=== PATIENT | female | born 1965 | race Caucasian/White ===

== ENCOUNTER → 2017-08-21 11:59 | Outpatient (CLI) | payer MEDICAID, SELFPAY ==
[2017-08-21 15:38] LABS: Absolute Lymphocyte Count 1.64 X10^3/ul (0.83-4.51); Absolute Neutrophil Count 6.4 X10^3/uL (2.0-7.7); Basophil# 0.03 X10^3/uL; Basophil% 0.3 % (0-1); Eosinophil# 0.22 X10^3/uL; Eosinophils% 2.5 % (0-5); Hematocrit 42.5 % (37-47); Hemoglobin 13.3 g/dl (12.0-15.0); Lymphocyte # 1.64 X10^3/ul (4.0); Lymphocyte % 18.8 % (19-41); Mean Corp Hgb Conc 31.3 g/gl (32-36); Mean Corpuscular Hgb 25.9 pg (27.0-32.0); Mean Corpuscular Volume 82.8 fL (81-99); Monocyte# 0.45 X10^3/uL; Monocyte% 5.1 % (0-10); Neutrophil # 6.36 X10^3/uL (2.7-7.7); Neutrophil % 72.8 % (47-70); Platelet Count 277 K/mm3 (150-450); RBC Distribution Width CV 16.9 % (11.6-14.6); RBC Distribution Width SD 50.9 fl (35.1-43.9); Red Blood Count 5.13 M/mm3 (4.2-5.4); White Blood Count 8.7 K/mm3 (4.4-11.0)
[2017-08-21 15:40] LABS: POSITIVE COUNT NO; POSITIVE DIFFERENTIAL NO; POSITIVE MORPHOLOGY NO
[2017-08-21 15:45] LABS: ALB/GLOB Ratio 0.7 RATIO (0.9-2.4); AST(SGOT) 62 U/L (15-37); Alanine Aminotransfer ALT/SGPT 86 U/L (13-56); Albumin, Serum 3.3 g/dL (3.2-5.0); Alkaline Phosphatase 102 U/L (45-117); Anion Gap 10 (5-15); BUN 11 mg/dL (7-18); BUN/Creat Ratio 13.6 RATIO (10-20); Calcium,Total 8.9 mg/dL (8.5-10.1); Chloride 95 mmol/L (98-107); Cholesterol 198 mg/dL (200); Creatinine, Serum 0.81 mg/dL (0.55-1.02); EST Glomerular Filtration Rate 80 mL/min (>60); Est Glom Filt Rate - Afr Amer 96 mL/min (>60); Globulin 4.7 g/dL (2.2-4.2); Glucose 349 mg/dL (74-106); High Density Lipoprotein 43 mg/dL; Potassium 3.1 mmol/L (3.5-5.1); Rheumatoid Factor < 10.0 IU/mL (<15); Sodium Level 135 mmol/L (136-145); Triglycerides 187 mg/dL; Very Low Density Lipoprotein 37 mg/dL (5-40)
[2017-08-21 16:05] LABS: Erythrocyte Sedimentation Rate 87 mm/hr (0-30)
[2017-08-25 09:35] LABS: CCP IgG Antibodies 50 units (0-19)
== END ==
PROVIDERS: Visit Provider Family Medicine
DX: I10 Essential (primary) hypertension (principal); G89.4 Chronic pain syndrome; J43.9 Emphysema, unspecified; M06.9 Rheumatoid arthritis, unspecified; I89.0 Lymphedema, not elsewhere classified; E66.01 Morbid (severe) obesity due to excess calories; N61.0 Mastitis without abscess; N61.1 Abscess of the breast and nipple; Z72.0 Tobacco use; Z51.81 Encounter for therapeutic drug level monitoring
CPT/HCPCS: 36415; 80053; 80061; 85025; 85652; 86140; 86200; 86431; 87070; 87075; 87077; 87186; 87205

== ENCOUNTER → 2017-12-18 08:52 | Outpatient (CLI) | payer MEDICAID, SELFPAY ==
--- NOTE | 2017-12-18 08:53 | ECHOD_ITS ---
Reason For Study: ARRHYTHMIA Procedure This was a 2D Doppler, Color Flow transthoracic echocardiogram. The study was technically difficult. Due to body habitus. Exam performed in department. Left Ventricle Normal LV size. Left ventricular systolic function is normal. The estimated ejection fraction is 55 %. Stage 1 diastolic dysfunction. No regional wall motion abnormalities noted. Right Ventricle Normal RV size. Normal systolic function. Atria Normal left atrium. Normal right atrium. Mitral Valve Mitral valve not well visualized. Tricuspid Valve The tricuspid valve is not well visualized. Mild (1+) tricuspid valve insufficiency. Pulmonary artery systolic pressure is 33 mmHg. Aortic Valve The aortic valve is not well visualized. Pulmonic Valve The pulmonic valve is not well visualized. Great Vessels Normal aortic root. Pericardium/Pleural No pericardial effusion. MMode/2D Measurements & Calculations LVIDd: 5.2 cm IVSd: 1.4 cm LA dimension: 4.0 cm LVIDs: 3.8 cm LVPWd: 1.4 cm RVDd: 2.6 cm FS: 26.9 % LAV(MOD-bp): 56.3 ml LA A4 area: 17.8 cm2 RA A4 area: 14.4 cm2 LAV(MOD-bp) Indexed: 24.9 ml/m2 LAV(MOD-sp2): 60.1 ml LAV(MOD-sp4): 54.3 ml Doppler Measurements & Calculations MV E max dre: 107.8 cm/sec Lat Peak E' Dre: 10.6 cm/sec Med Peak E' Dre: 9.6 cm/sec MV A max dre: 109.4 cm/sec E/E' lat: 10.1 E/E' med: 11.3 MV E/A: 0.99 Ao V2 max: 176.2 cm/sec LV V1 max: 147.7 cm/sec PA V2 max: 117.3 cm/sec Ao max P.4 mmHg LV V1 max P.7 mmHg Ao V2 mean: 132.3 cm/sec LV V1 mean P.5 mmHg Ao mean P.5 mmHg LV V1 mean: 100.3 cm/sec Ao V2 VTI: 35.5 cm LV V1 VTI: 29.5 cm TR max dre: 275.4 cm/sec TR max P.3 mmHg Interpretation Summary Normal LV size. Left ventricular systolic function is normal. The estimated ejection fraction is 55 %. Stage 1 diastolic dysfunction. Ordering Physician: Zohaib Cardenas Referring Physician: Domingo Marinelli Performed By: Chelly Nelson, HOMER, RVT
== END ==
PROVIDERS: Family Provider Family Medicine; PCP Family Medicine; Referring Provider Internal Medicine Cardiovascular Disease; Visit Provider Internal Medicine Cardiovascular Disease
DX: I10 Essential (primary) hypertension (principal)
CPT/HCPCS: 93225; 93226; 93306

== ENCOUNTER → 2018-04-20 13:55 | Outpatient (CLI) | payer MEDICAID, SELFPAY ==
[2018-04-20 14:00] LABS: Mucous, Urine 0 SEEN /hpf (<or=2+); Red Blood Cells-Urine 0 SEEN /hpf (0-5); White Blood Cells 0 SEEN /hpf (0-5)
[2018-04-20 17:26] LABS: Absolute Lymphocyte Count 1.79 X10^3/ul (0.83-4.51); Basophil# 0.03 X10^3/uL; Basophil% 0.3 % (0-1); Eosinophil# 0.19 X10^3/uL; Hematocrit 43.5 % (37-47); Hemoglobin 13.3 g/dl (12.0-15.0); Lymphocyte # 1.79 X10^3/ul (4.0); Lymphocyte % 18.8 % (19-41); Mean Corp Hgb Conc 30.6 g/gl (32-36); Mean Corpuscular Hgb 26.5 pg (27.0-32.0); Mean Corpuscular Volume 86.7 fL (81-99); Mean Platelet Vol. 10.7 fl (6.2-12.0); Monocyte# 0.51 X10^3/uL; Monocyte% 5.4 % (0-10); Neutrophil # 6.95 X10^3/uL (2.7-7.7); Platelet Count 322 K/mm3 (150-450); RBC Distribution Width CV 15.8 % (11.6-14.6); RBC Distribution Width SD 50.4 fl (35.1-43.9); Red Blood Count 5.02 M/mm3 (4.2-5.4); White Blood Count 9.5 K/mm3 (4.4-11.0)
[2018-04-20 17:29] LABS: POSITIVE COUNT NO; POSITIVE DIFFERENTIAL NO; POSITIVE MORPHOLOGY NO
[2018-04-20 17:32] LABS: Color, Urine Yellow (Yellow); Glucose, Dipstick 1000 mg/dl (Normal); Ketone-Dipstick Negative (Negative); Leukocyte Esterase-Dipstick Negative /ul (Negative); Nitrite-Dipstick Negative (Negative); Occult Blood-Urine 10 /ul (Negative); Protein-Dipstick Negative (Negative); Urine Bilirubin Dipstick Negative (Negative); Urine Clarity Clear (Clear); Urine Urobilinogen Normal (Normal); Urine pH 6.5 (5.0 - 8.0)
[2018-04-20 17:38] LABS: Bacteria RARE /hpf (None Seen); Squamous Epithelial Cells - UA 0-5 SEEN /hpf (5-10)
[2018-04-20 17:39] LABS: Hemoglobin A1c 11.7 % (4.2-6.3)
[2018-04-20 17:40] LABS: Microalbumin,Random Urine 16.7 mg/L (NO RANGE EST.)
[2018-04-20 17:46] LABS: ALB/GLOB Ratio 0.8 RATIO (0.9-2.4); AST(SGOT) 50 U/L (15-37); Alanine Aminotransfer ALT/SGPT 89 U/L (13-56); Albumin, Serum 3.4 g/dL (3.2-5.0); Alkaline Phosphatase 99 U/L (45-117); Anion Gap 10 (5-15); BUN 11 mg/dL (7-18); BUN/Creat Ratio 13.8 RATIO (10-20); Calcium,Total 8.6 mg/dL (8.5-10.1); Chloride 97 mmol/L (98-107); Cholesterol 216 mg/dL (200); EST Glomerular Filtration Rate 81 mL/min (>60); Est Glom Filt Rate - Afr Amer 98 mL/min (>60); Globulin 4.4 g/dL (2.2-4.2); Glucose 346 mg/dL (74-106); High Density Lipoprotein 46 mg/dL; Potassium 3.4 mmol/L (3.5-5.1); Protein, Total 7.8 g/dL (6.4-8.2); Sodium Level 134 mmol/L (136-145); Triglycerides 192 mg/dL; Very Low Density Lipoprotein 38 mg/dL (5-40)
[2018-04-20 18:09] LABS: BNP,B-Type NATRIURETIC PEPTIDE 7.7 pg/mL (0-100)
== END ==
PROVIDERS: Family Provider Family Medicine; PCP Family Medicine; Visit Provider Family Medicine
DX: R06.00 Dyspnea, unspecified (principal); E11.9 Type 2 diabetes mellitus without complications; I10 Essential (primary) hypertension; I89.0 Lymphedema, not elsewhere classified; E66.01 Morbid (severe) obesity due to excess calories; R04.0 Epistaxis; E87.6 Hypokalemia; K76.0 Fatty (change of) liver, not elsewhere classified; Z51.81 Encounter for therapeutic drug level monitoring
CPT/HCPCS: 36415; 80053; 80061; 81001; 82043; 82570; 83036; 83880; 85025; 87086; 87088

== ENCOUNTER 2018-05-13 12:51 | Outpatient (RCR) | payer MEDICAID, SELFPAY ==
--- NOTE | 2018-09-15 15:35 | HP.OT.NRP ---
HP - Discharge Summary - Patient Information JOHNNY SALINAS was seen in my office for initial evaluation on 05/13/18. The following Plan of Care was established for this patient: This patient was last seen in our office 05/13/18. Pertinent comments regarding their Occupational therapy will appear below: pt seen for eval only- no further apts have been scheduled and due to time lapse in services pt d/c at this time. At this point I will be discontinuing this patient from occupational therapy. I would be happy to see this patient again in the future if found appropriate by the physician. Thank you! Ana Nava, OTR/L, CHT
--- NOTE | 2018-09-15 15:39 | HP.OTEVAL ---
Patient's Visit Information JOHNNY SALINAS is a 53 year old F, referred to Occupational Therapy by Domingo Marinelli DO, with a diagnosis of lymphedema. Date of Evaluation: 05/13/18 Occupational Therapist: BRIGIDA Mcdonough/Luis Felipe, CHT - Subjective Subjective: PT states she has struggled with LE swelling, pt states this has been a problem for a year or year and a half. pt states she has prison care come in her home to wrap her LE 3x week pt states she can dandy. wraps for 5-6 hours at a time. pt states she has been on a water pill for two years but it does not help her LE. pt states legs feel heavy without the wraps. pt states she does sleep in a recliner due to her breathing. pt states swelling in LE are better after being reclined over night. - Lymphedema (Circumferential Measure) Mid-foot: Right 26cm left 26.5cm Ankle: Right 31c, left 33cm Lower calf: right 33cm left 35cm Largest calf: right 49cm left 50cm Below knee: right 45cm left 47cm - Lower Limb Functional Index Lower Extremity Functional Score: 27 - Goals Demonstrate a 20% reduction in edema by d/c: Yes Demonstrate adequate knowledge of self-bangaging by 1st week: Yes Demonstrate adequate knowledge of self-massage by 2nd week: Yes Demonstrate adequate knowledge skin care/prec by 2nd week: Yes Demonstrate adequate knowledge therapeutic exercises by d/c: Yes Select approp compression garment w/donning/care/wear by d/c: Yes Voice need to replace compression garment every 4-6mo by dc: Yes - Rehabilitation General Assessment: pt demo with LE lyphedmea- pt would benefit form skilled OT services to provide ed. on lymphedema mtg. Pt ed. on compression alternatives, skin care and beneficial ex. to stimulate lymph circulation. pt demo understanding and agree to POC. Rehabilitation Potential: Good - Anticipated Interventions Anticipated Interventions: Education re Diagnosis, Manual Lymph Drainage, Education re Life-long lymphedema Management, Education re Self-Bandaging Techniques, Education re Skin Care and Precautions, Education re Self Massage Techniques, Education re Correct Donning Tech,Care&Wearing Sched Comp Garments, Home Program - Visit Plan Frequency: 1x/Week Duration: 2 Weeks TEXT: Thank you for the opportunity to evaluate your patient. For Medicare and Medicare HMO plans, please review the plan of care and approve it. It will need to be FAXED BACK to us at [phone] for Medicare purposes. Please let me know if there are questions or concerns regarding this plan of care. Physician Signature: Date:
== END 2018-05-13 19:00 | disposition home or self-care (01) ==
LOC: OT 12:51
PROVIDERS: Family Provider Family Medicine; PCP Family Medicine; Referring Provider Family Medicine; Visit Provider Family Medicine
DX: I89.0 Lymphedema, not elsewhere classified (principal)
CPT/HCPCS: 97166

== ENCOUNTER → 2019-04-02 10:34 | Outpatient (CLI) | payer MEDICAID, SELFPAY ==
[2018-07-06 13:06] VITALS: BMI 51.4
--- NOTE | 2019-04-02 10:37 | US_ITS ---
STUDY: ABDOMINAL ULTRASOUND REASON FOR EXAM: Female, 53 years old. INTERMITTENT DISCOMFORT TECHNIQUE: Transabdominal ultrasound was performed with real-time and static odonnell scale imaging. TECHNICAL QUALITY: Limited. Examination limited due to a combination of factors including obesity, patient condition and bowel gas. COMPARISON: None. FINDINGS: Liver: The liver measures 30.3 cm. There is increased echogenicity consistent with fatty infiltration. Possible intrahepatic biliary distention versus some venous distention. There is hepatic color flow. The direction of portal flow is hepatopetal. There is no demonstrated mass lesion. Gallbladder: Normal distended gallbladder. The gallbladder wall measures 2.8 mm. There is a negative sonographic Aguayo''s sign. Possible trace amount of the pericholecystic fluid versus artifact. There are no gallstones. Common Bile Duct (C.B.D.): The common bile duct measures 6.5 mm. Pancreas: Normal size of the head, with partial obscuration of the body and tail of the pancreas. There is normal echogenicity of the visualized pancreas. There is no demonstrated pancreatic mass or cyst in the visualized portion. Spleen: There is splenomegaly. The spleen measures 17.7 x 6.0 x 5.2 cm. Right Kidney: Normal size of the right kidney. The right kidney measures 13.5 x 7.1 x 4.9 cm. Normal renal cortex. The right cortex measures 1.4 cm. There is no demonstrated renal mass or cyst. There is no right hydronephrosis. Left Kidney: Normal size of the left kidney. The left kidney measures 14.1 x 6.0 x 6.0 cm. Normal renal cortex. The left cortex measures 1.3 cm. There is no demonstrated renal mass or cyst. There is no left hydronephrosis. Aorta: Aorta is obscured. I.V.C.: The IVC is patent. There is no ascites. US/Abdomen Complete IMPRESSION: Diffuse fatty liver with hepatomegaly. Possible intrahepatic biliary distention versus venous distention, these findings may be assessed with MRI angiogram if indicated. Question of trace amount of pericholecystic fluid versus artifact. No gallstones demonstrated or additional signs of acute cholecystitis. If there is clinical concern for acute cholecystitis, findings may be assessed with HIDA scan. Splenomegaly. Suboptimally seen aorta and pancreas, remainder of the abdominal ultrasound unremarkable. Electronically Signed: Desirae March MD at 1:32 EST , Service support ,
== END ==
PROVIDERS: PCP Family Medicine; Referring Provider Family Medicine; Visit Provider Family Medicine
DX: R10.84 Generalized abdominal pain (principal); R19.8 Other specified symptoms and signs involving the digestive system and abdomen
CPT/HCPCS: 76700

== ENCOUNTER 2020-05-09 21:38 | Inpatient (IN) | payer MEDICAID, SELFPAY ==
[2019-07-08 13:09] VITALS: BMI 47.5
[2020-05-09 21:38] VITALS: BP 160/98; PULSE 76; RESP 18; TEMP 36.4; O2SAT 95; BMI 47.5
[2020-05-09 21:40] VITALS: BP 160/98; PULSE 76; RESP 18; TEMP 36.4; O2SAT 95
--- NOTE | 2020-05-09 21:56 | EKG12_ITS ---
Test Reason : SOB Blood Pressure : / mmHG Vent. Rate : 076 BPM Atrial Rate : 076 BPM P-R Int : 172 ms QRS Dur : 094 ms QT Int : 412 ms P-R-T Axes : 056 025 030 degrees QTc Int : 463 ms Normal sinus rhythm Normal ECG Confirmed by MILAGROS VIVAS, RAINA ([id number]), sports editor DASHAWN GASCA ([id number]) on 05/14/2020 10:13:40 A M Referred By: HARPREET Confirmed By:MAYELIN LINARES MD
[2020-05-09] MEDS: Ipratropium/Albuterol Sulfate 3 ML AMPUL.NEB INHALATION (22:03)
[2020-05-09 22:04] VITALS: PULSE 80; RESP 18
--- NOTE | 2020-05-09 22:12 | ED.DCSUM_ITS ---
- ER Visit Summary Date of Service: 05/09/20 Chief Complaint: Shortness of breath History of Present Illness: The patient is a 55 F who presents with shortness of breath that has been getting worse over the past 3 days. Patient states that she feels too full to breathe. Patient states this is worse whenever she lays flat. Patient does admit to some pain in her chest. Patient admits to some nausea and abdominal pain. Patient denies any fevers but admits to subjective chills. Patient used her home aerosols with minimal relief. Patient denies any cough. Physical Examination: Vital signs are stable except for mildly elevated blood pressure 160/98. Patient is afebrile. Patient is in no acute distress. Oral mucosa is pink and moist. Neck is supple. Trachea is midline. There is no JVD. Heart was regular rate and rhythm. Lungs show diffuse expiratory wheezing. There is good respiratory effort. Abdomen is soft. Bowel sounds are normal. There is no tenderness. Cranial nerves II through XII are intact. There are no focal motor or sensory deficits noted. Extremities are intact. There is no calf tenderness. There is trace edema bilaterally. Test Results: EKG was obtained. On my interpretation, there is a normal sinus rhythm with a rate of 76. There are no acute ST or T wave changes. TX interval, QRS interval, and QT interval were within normal limits. [place] was normal. CBC shows a leukocytosis of 19.2 with 83 segmented neutrophils, 4 bands, and 11 lymphocytes. PT with INR and PTT were obtained and were essentially within normal limits. COVID-19 rapid antigen was obtained and was negative. Portable chest x-ray was obtained. There is 1 view. On my interpretation, there are chronic changes. There is no acute cardiopulmonary process noted. There is no cardiomegaly. Bony thorax is normal. Radiologist also interpreted the x-ray and agrees. Comprehensive metabolic profile was obtained and a sodium of 110 and chloride of 72. Emergency Department Course and Treatment: Patient was given a DuoNeb aerosol here. Patient was given a dose of Solu-Medrol. Patient began complaining of feeling bloated and having an upset stomach. Patient was given a dose of Mylanta. Patient states she still feels bloated and nauseated. Patient was given a dose of morphine and Zofran. Because of her feelings of bloating and her leukocytosis, CT scan of the abdomen pelvis was ordered and is pending. Patient was started on hypertonic saline. Case was discussed with the hospitalist. He will admit the patient to PCU. Patient and family understood and were agreeable with the plan. All questions were answered. Disposition: Admit to hospital Impression: 1. Hyponatremia This note was generated with [employer] dictation software. It may contain incorrect words, spelling, and punctuation that were not noted in review of the chart prior to signing ED Disposition - Plan for ED Patient: Disposition: Acute Care Hospital [facility] Diagnosis: Hyponatremia Referrals: Domingo Marinelli DO [Primary Care Provider] -
[2020-05-09 22:23] VITALS: O2SAT 98
[2020-05-09] MEDS: MethylPREDNISolone 125 MG/2 ML Vial 60 MG IV (22:29)
--- NOTE | 2020-05-09 22:38 | RAD_ITS ---
STUDY: X-RAY CHEST REASON FOR EXAM: Female, 55 years old. sob TECHNIQUE: Single AP portable view of the chest. COMPARISON: 04/25/2015. FINDINGS: Normal lung volumes. Stable widespread diffuse calcified granulomas in both lungs. No focal infiltrates. No effusions. There is mild cardiac enlargement. Normal mediastinum and geronimo. Normal visualized pulmonary arteries. Normal visualized aortic arch and descending thoracic aorta. Normal visualized thoracic spine. Normal visualized ribs, clavicles, and shoulders. There is no demonstrated abnormality of the visualized soft tissue structures of the upper abdomen. RAD/Chest 1 View (Portable) IMPRESSION: Old granulomatous disease. No acute chest disease. Electronically Signed: Sergio Beauchamp MD at 22:54 EST , Service support ,
[2020-05-09 22:44] LABS: Hematocrit 35.4 % (37-47); Hemoglobin 11.8 g/dL (12.0-15.0); Mean Corp Hgb Conc 33.3 g/dL (32-36); Mean Corpuscular Hgb 21.8 pg (27.0-32.0); Mean Corpuscular Volume 65.3 fL (81-99); Mean Platelet Vol. 8.6 fl (6.2-12.0); POSITIVE COUNT YES; POSITIVE MORPHOLOGY YES; Platelet Count 366 K/mm3 (150-450); RBC Distribution Width CV 19.8 % (11.6-14.6); RBC Distribution Width SD 42.7 fl (35.1-43.9); Red Blood Count 5.42 M/mm3 (4.2-5.4); White Blood Count 19.2 K/mm3 (4.4-11.0)
[2020-05-09 22:53] LABS: Differential Indicated MANUAL DIFF
[2020-05-09 23:23] LABS: Lymphocyte 11 % (19-41); Monocyte 2 % (0-10); Neutrophil-Band 4 % (0-5); Neutrophil-Segmented 83 % (47-70); Total Cells Counted 100 (MANUAL DIFF)
[2020-05-09 23:25] LABS: Absolute Neutrophil Count 16.7 X10^3/uL (2.0-7.7)
[2020-05-09 23:26] LABS: Absolute Lymphocyte Count 2.12 X10^3/uL (0.83-4.51)
[2020-05-09] MEDS: Mag Hydrox/Al Hydrox/Simeth 30 ML UDC PO (23:30)
[2020-05-09 23:35] LABS: International Normalized Ratio 1.5; Prothrombin Time (Protime)PT. 17.2 SECONDS (11.7-14.9)
[2020-05-09 23:36] LABS: Partial Thromboplast Time 37.6 Seconds (24.1-36.2)
[2020-05-09 23:52] LABS: Color, Urine Yellow (Yellow); Glucose, Dipstick Normal (Normal); Leukocyte Esterase-Dipstick Negative /ul (Negative); Nitrite-Dipstick Negative (Negative); Occult Blood-Urine 50 /ul (Negative); Protein-Dipstick 500 mg/dl (Negative); Urine Bilirubin Dipstick Negative (Negative); Urine Clarity Clear (Clear); Urine Urobilinogen Normal (Normal)
[2020-05-09 23:55] LABS: Ketone-Dipstick 150 mg/dl (Negative)
[2020-05-10] VITALS (26 sets, daily range): BP systolic 103–162; BP diastolic 57–101; PULSE 68–80; RESP 11–22; TEMP 35.9–37.1; O2SAT 92–98; BMI 47.4
[2020-05-10 00:05] LABS: ALB/GLOB Ratio 0.9 RATIO (0.9-2.4); AST(SGOT) 22 U/L (15-37); Alanine Aminotransfer ALT/SGPT 29 U/L (13-56); Albumin, Serum 3.9 g/dL (3.2-5.0); Alkaline Phosphatase 112 U/L (45-117); Anion Gap 12 (5-15); BUN 9 mg/dL (7-18); BUN/Creat Ratio 16.5 RATIO (10-20); Calcium,Total 8.6 mg/dL (8.5-10.1); Chloride 72 mmol/L (98-107); Creatinine, Serum 0.55 mg/dL (0.55-1.02); EST Glomerular Filtration Rate 123 mL/min (>60); Est Glom Filt Rate - Afr Amer 149 mL/min (>60); Estimated Creatinine Clearance 92.48 ml/min; Globulin 4.4 g/dL (2.2-4.2); Glucose 123 mg/dL (74-106); Potassium 3.6 mmol/L (3.5-5.1); Protein, Total 8.3 g/dL (6.4-8.2); Sodium Level 110 mmol/L (136-145)
[2020-05-10 00:13] LABS: Bacteria 2+ /hpf (None Seen); Red Blood Cells-Urine 0-5 SEEN /hpf (0-5); Squamous Epithelial Cells - UA 5-10 SEEN /hpf (5-10); White Blood Cells 0-5 SEEN /hpf (0-5)
[2020-05-10 00:14] LABS: Mucous, Urine 1+ /hpf (<or=2+)
[2020-05-10] MEDS: Ondansetron 4 MG/2 ML Vial IV (00:14)
[2020-05-10] MEDS: Morphine 4 MG/ML Syringe IV (00:14)
[2020-05-10] MEDS: Sodium Chloride 3% 500 ML 50 ML IV ×2 (00:29→08:06)
--- NOTE | 2020-05-10 01:43 | PCM.HP.STD ---
<Damari Hoyos - Last Filed: 05/10/20 01:43> Problem List (1) Shortness of breath at rest Status: Acute (2) Abdominal pain Status: Acute Qualifiers: Abdominal location: upper abdomen, unspecified Qualified Code(s): R10.10 - Upper abdominal pain, unspecified (3) Hyponatremia Status: Acute (4) Hypochloremia Status: Acute (5) Diabetes mellitus, type II Status: Chronic (6) Chronic pain syndrome Status: Chronic (7) Essential (primary) hypertension Status: Chronic (8) Nicotine dependence Status: Chronic (9) Morbid obesity with BMI of 45.0-49.9, adult Status: Acute History of Present Illness Date of Admission: 05/10/20 Chief Complaint: Shortness of breath, abdominal pressure The patient is a 55 year old F resents today with a 3-day history of shortness of breath and abdominal pressure. Patient reports that she has had an increasing feeling of fullness and nausea that has become create increasingly worse over the past few days. Patient reports being unable to lie down or even sit comfortably due to increased pressure which she describes as feels like my intestines are pushing up into my lungs. Patient also reports she has had 2 stools today both which were liquid. Patient denies fevers, complains of subjective chills. Patient has been using aerosols at home for shortness of breath with no relief. Past Medical History Past Medical History (Chronic Problems): Chronic Problems (Last Reviewed 05/10/20 @ 01:53 by Damari Hoyos NP-C) Diabetes mellitus, type II (Chronic) Chronic pain syndrome (Chronic) Essential (primary) hypertension (Chronic) Nicotine dependence (Chronic) Pulmonary embolism (Chronic 07/09/14) Medical History: Medical History (Last Reviewed 05/10/20 @ 01:53 by CAMPOS Castorena) Essential (primary) hypertension (Chronic) I10 Nicotine dependence (Chronic) F17.200 Pulmonary embolism (Chronic) Onset Date: 07/09/14 I26.99 Anxiety F41.9 Chronic pain syndrome G89.4 Emphysema of lung J43.9 Lymphedema I89.0 Obstructive sleep apnea G47.33 Osteoarthritis M19.90 Rheumatoid arthritis M06.9 Type 2 diabetes mellitus E11.9 Secondary pulmonary arterial hypertension (Resolved) I27.21 Allergies Latex, Natural Rubber Allergy (Verified 05/09/20 21:41) Rash Home Medications: Ambulatory Orders Medication Instructions Recorded Albuterol IH (ProAir) [Proair Hfa] 1 - 2 puff INHALATION Q4H PRN PRN 05/03/14 Hydrochlorothiazide [Hctz] 25 mg PO DAILY 11/08/14 Rivaroxaban [Xarelto] 20 mg PO DAILY 11/08/14 bupropion HCl 150 mg tablet,12 hr 150 mg PO BID 06/09/17 sustained-release mometasone-formoterol HFA 200 2 puff INHALATION BID 06/09/17 mcg-5 mcg/actuation aerosol inhaler tiotropium bromide 18 mcg capsule 2.5 mcg INHALATION DAILY 30 Days 06/09/17 with inhalation device topiramate 25 mg capsule,extended 25 mg PO BID cap 06/09/17 release 24 hr furosemide 40 mg tablet 40 mg PO QAM tab 12/01/17 potassium chloride 20 mEq 40 meq PO BID tab 12/02/17 tablet,extended release cetirizine 10 mg capsule 10 mg PO DAILY 07/06/18 metformin 1,000 mg tablet 1,000 mg PO BID 07/06/18 ipratropium 0.5 mg-albuterol 3 mg 3 ml INHALATION 6XD 07/08/19 (2.5 mg base)/3 mL nebulization soln losartan 50 mg tablet 50 mg PO DAILY tab 07/08/19 polyethylene glycol 3350 17 17 g PO PRN PRN 07/08/19 gram/dose oral powder Surgical History: Surgical History (Last Reviewed 05/10/20 @ 01:53 by CAMPOS Castorena) History of tubal ligation Z98.51 Surgical History: - - tubal ligation Psychiatric History: Depression 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 History: cervical cancer - abnormal cells per pt.....had some type of procedure done and never followed up Smoking Status: Current every day smoker - *Family History Maternal Family History: Family History (Last Reviewed 05/10/20 @ 01:53 by CAMPOS Castorena) Sister Hypertension Asthma Brother Heart disease Asthma History Items: - - her mother at 46 YOA, 9 days after giving to the pt Paternal Family History: Family History (Last Reviewed 05/10/20 @ 01:53 by CAMPOS Castorena) Sister Hypertension Asthma Brother Heart disease Asthma History Items: Cancer - lung, - - father at 67 and had CVD Review of Systems Constitutional: Reports: Chills, Fatigue. Denies: Fever, Weight Change HEENT: Denies: Head Aches, Sinus Congestion, Sinus Drainage Cardiovascular: Reports: Chest Pressure. Denies: Chest Pain, Palpitations Respiratory: Reports: Shortness of breath at rest, Wheezing. Denies: Cough, Sputum production Gastrointestinal: Reports: Abdominal Pain, Diarrhea, Nausea, - - Pressure. Denies: Vomiting Genitourinary: Denies: Dysuria Musculoskeletal: Denies: Joint Pain, Joint Tenderness Skin: Denies: Rash, Wounds Neurological: Denies: Numbness, Tingling, Focal weakness Psychiatric: Reports: Depression. Denies: Anxiety, Homicidal Ideations, Suicidal Ideations Hematologic/ Lymphatic: Denies: Easy Bruising, Easy Bleeding VTE Information - Inpt Only VTE Present on Admission: No VTE Mechan Device Prophylaxis: None VTE Pharm Prophylaxis ordered?: Yes Patient Problems: Active and Suspected Problems (Last Reviewed 05/10/20 @ 01:53 by Damari Hoyos, PRINCIPAL BIOINFORMATICS SPECIALIST-C) Hyponatremia (Acute) Abdominal pain (Acute) Hypochloremia (Acute) Morbid obesity with BMI of 45.0-49.9, adult (Acute) Shortness of breath at rest (Acute) - Physical Exam Vitals/I&O's: Vital Signs Temp Pulse Resp BP Pulse Ox 97.6 F L 71 16 162/84 H 97 05/10/20 00:30 05/10/20 00:30 05/10/20 00:30 05/10/20 00:30 05/10/20 00:30 Oxygen Flow Rate (L/min) 2 Oxygen Delivery Method Nasal Cannula Weight: 259 lb 4.218 oz Body Mass Index (BMI) 47.4 General: Alert, Oriented x3, Cooperative HEENT: Atraumatic, PERRLA, EOMI, Normocephalic Neck: Supple, No JVD, Negative Carotid Bruits Lungs: Clear to auscultation, Diminished, Short of Breath, Wheezes Cardiovascular: Regular rate, Regular Rhythm, Normal S1, Normal S2, No murmurs Abdomen: Bowel Sounds Present, Soft, Non Tender, Distended, Obese Extremities: Capillary Refill Less than 3 Seconds, Edema, Peripheral Pulses Normal Skin: No rashes, No breakdown Musculoskeletal: No Tenderness to Palpation of Joints or Extremities Neurological: Cranial nerves II-XII grossly intact Psych/Mental Status: Normal Affect, Appropriate, Anxious Microbiology Past 72 Hours 05/09/20 22:30 Mucosa - Nose SARS-CoV-2 Antigen (Rapid) - Final Laboratory Results 05/09/20 22:25: WBC 19.2 H, RBC 5.42 H, Hgb 11.8 L, Hct 35.4 L, MCV 65.3 L, MCH 21.8 L, MCHC 33.3, RDW Std Deviation 42.7, RDW Coeff of Triston 19.8 H, Plt Count 366, MPV 8.6, Neut % (Auto) Not Reportable, Absolute Neuts (auto) 16.7 H, Absolute Lymphs (auto) 2.12, Total Counted 100, Neutrophils % (Manual) 83 H, Band Neutrophils % 4, Lymphocytes % (Manual) 11 L, Monocytes % (Manual) 2, Diff Path Review June05/09/20 22:25: PT Cancelled, INR Cancelled, APTT Cancelled 05/09/20 22:25: Sodium Cancelled, Potassium Cancelled, Chloride Cancelled, Carbon Dioxide Cancelled, Anion Gap Cancelled, BUN Cancelled, Creatinine Cancelled, Estim Creat Clear Calc Cancelled, Est GFR (MDRD) Af Amer Cancelled, Est GFR (MDRD) Non-Af Cancelled, BUN/Creatinine Ratio Cancelled, Glucose Cancelled, Calcium Cancelled, Total Bilirubin Cancelled, AST Cancelled, ALT Cancelled, Alkaline Phosphatase Cancelled, Troponin I Cancelled, Total Protein Cancelled, Albumin Cancelled, Globulin Cancelled, Albumin/Globulin Ratio Cancelled 05/09/20 23:20: PT 17.2 H, INR 1.5, APTT 37.6 H 05/09/20 23:20: Sodium 110 L*, Potassium 3.6, Chloride 72 L*, Carbon Dioxide 26.0, Anion Gap 12, BUN 9, Creatinine 0.55, Estim Creat Clear Calc 92.48, Est GFR (MDRD) Af Amer 149, Est GFR (MDRD) Non-Af 123, BUN/Creatinine Ratio 16.5, Glucose 123 H, Calcium 8.6, Total Bilirubin 0.60, AST 22, ALT 29, Alkaline Phosphatase 112, Troponin I < 0.015, Total Protein 8.3 H, Albumin 3.9, Globulin 4.4 H, Albumin/Globulin Ratio 0.9 05/09/20 23:47: Urine Color Yellow, Urine Clarity Clear, Urine pH 6.0, Ur Specific [place] 1.020, Urine Protein 500 H, Urine Glucose (UA) Normal, Urine Ketones 150 H, Urine Occult Blood 50 H, Urine Nitrite Negative, Urine Bilirubin Negative, Urine Urobilinogen Normal, Ur Leukocyte Esterase Negative, Urine RBC 0-5 SEEN, Urine WBC 0-5 SEEN, Ur Squamous Epith Cells 5-10 SEEN, Urine Bacteria 2+, Urine Mucus 1+ Assessment/Plan All Active Problems (Last Reviewed 05/10/20 @ 01:53 by Damari Hoyos, PRINCIPAL BIOINFORMATICS SPECIALIST-C) Hyponatremia (Acute) Abdominal pain (Acute) Hypochloremia (Acute) Morbid obesity with BMI of 45.0-49.9, adult (Acute) Shortness of breath at rest (Acute) Rapid palpitations (Resolved) Secondary pulmonary arterial hypertension (Resolved) 1. Shortness of breath -No acute findings on chest x-ray. -Albuterol and duonebs ordered. -Will continue home regimen of inhalers. 2. Abdominal pain -No acute disease perceived on abdominal/pelvis CT. -Keep patient NPO pending surgery eval. -PRN morphine ordered. 3.Leukocytosis -Will obtain lactic acid and blood cultures as patient has no obvious source of infection. 4. Hyponatremia -Normal saline 100 mL/h ordered. -BMP every 4 hours. 5. Hypochloremia -Same as #4. 6. Diabetes mellitus type 2 -Hold Metformin. -Sliding scale insulin and ACHS blood sugars ordered. 7. Hypertension -Continue home losartan. Will hold Lasix and HCTZ while patient is NPO. -We will initiate hydralazine 10 mg every 4 hours as needed for systolic blood pressure greater than 180 patient has been borderline hypertensive in the ER this may be attributed to pain. 8. Depression -Continue bupropion 9. Chronic pain syndrome -Continue topiramate. 10.Nicotine abuse -pt denied need for nicotine patch. This patient was seen by Damari Hoyos, PRINCIPAL BIOINFORMATICS SPECIALIST-C under the supervision of Dr. Cabezas. <Garrett Cabezas - Last Filed: 05/10/20 03:24> History of Present Illness The patient is a 55 year old F with history of chronic hypoxic respiratory failure secondary to COPD/emphysema on 2 L of home oxygen came to ED with 3-day history of abdominal discomfort, nausea and alteration of bowel movement. Patient also feels more short of breath. She feels large abdominal swelling/discomfort. Initially she had hard bowel movement/constipation and then started having watery liquid bowel movement for the last 1 and half days. Complains of chills but no fever, diaphoresis. In ED, no fever. On 2 L of home oxygen. Blood pressure elevated. Twelve-lead EKG shows normal sinus rhythm. Basic labs shows severe hyponatremia 110, chloride 72 most likely chronic. Leukocytosis 19.2 thousand, mild anemia,, bands 4%. In ER, she was started on 3% normal saline and got about 100 mL repeat sodium pending. She denies any acute change in mental status, seizure, vomiting. At home, she is on HCTZ 25 mg daily, Lasix 40 mg, and topiramate. Also on losartan. Twelve-lead EKG normal sinus rhythm. Chest x-ray no acute chest disease but chronic calcified granulomatous disease in both lungs. No focal infiltrate or effusion. CT abdomen done without oral and IV contrast shows no bowel obstruction or ascites but large anterior abdominal wall pannus and hernia with some fat extending to umbilicus. [] Past Medical History Medical History: Medical History (Last Reviewed 05/10/20 @ 01:53 by CAMPOS Castorena) Essential (primary) hypertension (Chronic) I10 Nicotine dependence (Chronic) F17.200 Pulmonary embolism (Chronic) Onset Date: 07/09/14 I26.99 Anxiety F41.9 Chronic pain syndrome G89.4 Emphysema of lung J43.9 Lymphedema I89.0 Obstructive sleep apnea G47.33 Osteoarthritis M19.90 Rheumatoid arthritis M06.9 Type 2 diabetes mellitus E11.9 Secondary pulmonary arterial hypertension (Resolved) I27.21 Allergies Latex, Natural Rubber Allergy (Verified 05/09/20 21:41) Rash Surgical History: Surgical History (Last Reviewed 05/10/20 @ 01:53 by Damari Hoyos NP-C) History of tubal ligation Z98.51 - *Family History Maternal Family History: Family History (Last Reviewed 05/10/20 @ 01:53 by MARITA CastorenaC) Sister Hypertension Asthma Brother Heart disease Asthma Paternal Family History: Family History (Last Reviewed 05/10/20 @ 01:53 by Damari Hoyos, PRINCIPAL BIOINFORMATICS SPECIALIST-C) Sister Hypertension Asthma Brother Heart disease Asthma Objective: General: Alert, Oriented x3, Cooperative, uncomfortable HEENT: Atraumatic, PERRLA, EOMI, Normocephalic Oral: No Gingival or Mucosal Lesions/ Ulcerations Neck: Supple, No JVD, Negative Carotid Bruits Lungs: Mild dyspnea at rest. Air entry diminished in bilateral lung bases. Bilateral expiratory rhonchi Cardiovascular: Regular rate, Regular Rhythm, Normal S1, Normal S2, No murmurs Abdomen: Bowel Sounds Present, Soft, Non Tender, large ventral abdominal wall hernia. : No renal angle tenderness. No suprapubic tenderness. Extremities: Chronic, bilateral leg edema, Capillary Refill Less than 3 Seconds Skin: No rashes, No breakdown Musculoskeletal: No Tenderness to Palpation of Joints or Extremities Neurological: Cranial nerves II-XII grossly intact, Deep Tendon Reflexes 2+/4 and Symmetrical, Neuro grossly intact Psych/Mental Status: Normal Affect, Appropriate. - Physical Exam Vitals/I&O's: Vital Signs Temp Pulse Resp BP Pulse Ox 96.7 F L 79 18 152/73 H 98 05/10/20 01:01 05/10/20 01:46 05/10/20 01:01 05/10/20 01:01 05/10/20 01:01 Oxygen Flow Rate (L/min) 3 Oxygen Delivery Method Nasal Cannula Weight: 259 lb 4.218 oz Body Mass Index (BMI) 47.4 Intake and Output for Last 24 Hours 05/08/20 05/09/20 05/10/20 23:59 23:59 23:59 Intake Total 243.33 / 243.33 Balance 243.33 / 243.33 Microbiology Past 72 Hours 05/09/20 22:30 Mucosa - Nose SARS-CoV-2 Antigen (Rapid) - Final Laboratory Results 05/09/20 22:25: WBC 19.2 H, RBC 5.42 H, Hgb 11.8 L, Hct 35.4 L, MCV 65.3 L, MCH 21.8 L, MCHC 33.3, RDW Std Deviation 42.7, RDW Coeff of [place]iston 19.8 H, Plt Count 366, MPV 8.6, Neut % (Auto) Not Reportable, Absolute Neuts (auto) 16.7 H, Absolute Lymphs (auto) 2.12, Total Counted 100, Neutrophils % (Manual) 83 H, Band Neutrophils % 4, Lymphocytes % (Manual) 11 L, Monocytes % (Manual) 2, Diff Path Review June05/09/20 22:25: PT Cancelled, INR Cancelled, APTT Cancelled 05/09/20 22:25: Sodium Cancelled, Potassium Cancelled, Chloride Cancelled, Carbon Dioxide Cancelled, Anion Gap Cancelled, BUN Cancelled, Creatinine Cancelled, Estim Creat Clear Calc Cancelled, Est GFR (MDRD) Af Amer Cancelled, Est GFR (MDRD) Non-Af Cancelled, BUN/Creatinine Ratio Cancelled, Glucose Cancelled, Calcium Cancelled, Total Bilirubin Cancelled, AST Cancelled, ALT Cancelled, Alkaline Phosphatase Cancelled, Troponin I Cancelled, Total Protein Cancelled, Albumin Cancelled, Globulin Cancelled, Albumin/Globulin Ratio Cancelled 05/09/20 23:20: PT 17.2 H, INR 1.5, APTT 37.6 H 05/09/20 23:20: Sodium 110 L*, Potassium 3.6, Chloride 72 L*, Carbon Dioxide 26.0, Anion Gap 12, BUN 9, Creatinine 0.55, Estim Creat Clear Calc 92.48, Est GFR (MDRD) Af Amer 149, Est GFR (MDRD) Non-Af 123, BUN/Creatinine Ratio 16.5, Glucose 123 H, Calcium 8.6, Total Bilirubin 0.60, AST 22, ALT 29, Alkaline Phosphatase 112, Troponin I < 0.015, Total Protein 8.3 H, Albumin 3.9, Globulin 4.4 H, Albumin/Globulin Ratio 0.9 05/09/20 23:47: Urine Color Yellow, Urine Clarity Clear, Urine pH 6.0, Ur Specific [place] 1.020, Urine Protein 500 H, Urine Glucose (UA) Normal, Urine Ketones 150 H, Urine Occult Blood 50 H, Urine Nitrite Negative, Urine Bilirubin Negative, Urine Urobilinogen Normal, Ur Leukocyte Esterase Negative, Urine RBC 0-5 SEEN, Urine WBC 0-5 SEEN, Ur Squamous Epith Cells 5-10 SEEN, Urine Bacteria 2+, Urine Mucus 1+ 05/10/20 02:45: Sodium Pending, Potassium Pending, Chloride Pending, Carbon Dioxide Pending, Anion Gap Pending, BUN Pending, Creatinine Pending, Est GFR (MDRD) Af Amer Pending, Est GFR (MDRD) Non-Af Pending, BUN/Creatinine Ratio Pending, Glucose Pending, Calcium Pending 05/10/20 02:45: Lactic Acid Pending Current Medications Acetaminophen (Acetaminophen 325 Mg Tablet) 650 mg PO Q6H PRN PRN PRN Reason: Pain Score 1-10/Temp > 100.7 F Albuterol Sulfate (Albuterol 2.5 Mg/3 Ml Vial.Neb.) 2.5 mg INHALATION Q2H PRN PRN PRN Reason: SOB/Wheezing Albuterol/Ipratropium (Ipratropium/Albuterol Sulfate 3 Ml Ampul.Neb) 3 ml INHALATION Q6HWA.RT DEVYN Budesonide (Budesonide Respules 0.5 Mg/2 Ml Ampul.Neb.) 0.5 mg INHALATION Q12H.RT DEVYN Bupropion HCl (Bupropion (Sr) 150 Mg Tablet.Sa) 150 mg PO BID DEVYN Sodium Chloride () 1,000 mls @ 100 mls/hr IV .Q10H [facility] Last Infusion: 05/10/20 03:01 Dose: 100 mls/hr Documented by: Potassium Chloride () 10 meq in 100 mls @ 100 mls/hr IV BOLUS Q1H DEVYN Stop: 05/10/20 06:29 Last Admin: 05/10/20 03:00 Dose: 100 mls/hr Documented by: Sodium Chloride () 250 mls @ 15 mls/hr IV .[id number] PRN PRN Reason: Saline Flush Sodium Chloride () 250 mls @ 15 mls/hr IV .[id number] PRN PRN Reason: Additional IVPB Infusion Insulin Human Lispro (Insulin Lispro 100 Unit/Ml Insuln.Pen) 0 unit SC ACHS DEVYN; Protocol Morphine Sulfate (Morphine 2 Mg/Ml Syringe) 2 mg IV Q3H PRN PRN PRN Reason: Pain Score 6-10 Non-Formulary Medication (Topiramate [Trokendi Xr]) 25 mg PO BID DEVYN Ondansetron HCl (Ondansetron 4 Mg/2 Ml Vial) 4 mg IV Q8H PRN PRN PRN Reason: NAUSEA/VOMITING Promethazine HCl (Promethazine 25 Mg/Ml Syringe) 12.5 mg IV Q6H PRN PRN PRN Reason: NAUSEA/VOMITING Rivaroxaban (Rivaroxaban 20 Mg Tablet) 20 mg PO DAILY DEVYN Sodium Chloride (0.9% Saline Lock 10 Ml Syringe) 10 - 40 ml IV UD PRN PRN Reason: SALINE FLUSH Last Admin: 05/10/20 03:04 Dose: 20 ml Documented by: Assessment/Plan This patient was seen in conjunction with RAMONE Wetzel. I have independently interviewed and examined the patient and reviewed pertinent history, examination findings, laboratory and plan of management. I have reviewed the note and agree with the documented findings with the few additional points. In brief, patient is a 55-year-old morbid obese female with multiple comorbidities including emphysema on chronic 2 L of home oxygen came to ED with abdominal discomfort/swelling and bloating but no pain, nausea and alteration of bowel movement without GI bleed. CT abdomen shows no bowel obstruction but large abdominal wall hernia reported no acute disease. Patient denies recent antibiotic intake. Infectious work-up including blood cultures x2, enteric bacteriology panel and C. difficile. UA is negative for nitrite, LE, WBC 0-5 cells. Keep the patient n.p.o. except medications. Request surgical consult for opinion regarding symptomatic large abdominal hernia but no obstruction. Patient never had EGD or colonoscopy. Severe chronic hyponatremia most likely from diuretics, topiramate. Repeat BMP pending. Change IV fluid to normal saline 100 mill per hour. Nephrology consult. No acute change in mental status. Monitor sodium every 4 hours and avoid acute rise in sodium more than 8 mEq in 24 hours. Furosemide, HCTZ and losartan discontinued. History of pulmonary embolism on Xarelto. Other chronic disease include chronic hypoxic respiratory failure secondary to emphysema, hypertension, diabetes mellitus type 2 as mentioned above I have discussed my assessment with RAMONE Wetzel and orders have been reviewed. Inpatient E&M: 83387 Init Hosp L3
[2020-05-10] MEDS: metroNIDAZOLE 500 MG/100 ML BAG 100 MG IV (02:23)
[2020-05-10] MEDS: 0.9% Normal Saline 1,000 ML 100 ML IV (02:23)
[2020-05-10] MEDS: Potassium Chloride 10mEq/100mL 10 MEQ/100 ML IV.SOLN. 100 MEQ IV BOLUS ×4 (03:00→06:24)
[2020-05-10] MEDS: 0.9% Saline Lock 10 ML Syringe IV ×3 (03:04→20:24)
[2020-05-10 03:19] LABS: Lactic Acid 1.3 mmol/L (0.4-1.9)
[2020-05-10 03:20] LABS: Anion Gap 13 (5-15); BUN 10 mg/dL (7-18); BUN/Creat Ratio 17.5 RATIO (10-20); Calcium,Total 8.5 mg/dL (8.5-10.1); Chloride 70 mmol/L (98-107); Creatinine, Serum 0.57 mg/dL (0.55-1.02); EST Glomerular Filtration Rate 117 mL/min (>60); Est Glom Filt Rate - Afr Amer 142 mL/min (>60); Estimated Creatinine Clearance 89.24 ml/min; Glucose 174 mg/dL (74-106); Potassium 3.5 mmol/L (3.5-5.1); Sodium Level 109 mmol/L (136-145)
[2020-05-10] MEDS: proMETHazine 25 MG/ML Syringe 12.5 MG IV ×2 (04:20→12:40)
[2020-05-10] MEDS: Albuterol 2.5 MG/3 ML VIAL.NEB. INHALATION ×2 (04:27→23:12)
--- NOTE | 2020-05-10 04:27 | NURSING ---
pt now requested to take nausea meds. earlier pt states she is fine and not nausea anymore. also called RT for pt Bx Tx, pt c/o sob after ambulating to the br. made pt aware med topiramate is non formulary and has to have family bring her own med. pt states its ok she does not need to take it.
[2020-05-10 04:33] LABS: Urine Chloride 80 mmol/L (Not Establ.); Urine Sodium 35 mmol/L (Not Establ.)
[2020-05-10 04:45] LABS: Osmolality, Urine 530 mOsm/KG
[2020-05-10 05:19] LABS: Hemoglobin 11.1 g/dL (12.0-15.0); Mean Corp Hgb Conc 31.7 g/dL (32-36); Mean Corpuscular Hgb 20.8 pg (27.0-32.0); Mean Corpuscular Volume 65.7 fL (81-99); Mean Platelet Vol. 8.5 fl (6.2-12.0); POSITIVE COUNT YES; POSITIVE MORPHOLOGY YES; Platelet Count 330 K/mm3 (150-450); RBC Distribution Width CV 19.6 % (11.6-14.6); RBC Distribution Width SD 43.5 fl (35.1-43.9); Red Blood Count 5.33 M/mm3 (4.2-5.4); White Blood Count 18.4 K/mm3 (4.4-11.0)
[2020-05-10 05:23] LABS: Differential Indicated MANUAL DIFF
[2020-05-10 05:37] LABS: Anion Gap 11 (5-15); BUN 9 mg/dL (7-18); BUN/Creat Ratio 16.9 RATIO (10-20); Calcium,Total 8.1 mg/dL (8.5-10.1); Chloride 72 mmol/L (98-107); Creatinine, Serum 0.53 mg/dL (0.55-1.02); EST Glomerular Filtration Rate 127 mL/min (>60); Est Glom Filt Rate - Afr Amer 153 mL/min (>60); Estimated Creatinine Clearance 95.97 ml/min; Glucose 175 mg/dL (74-106); Magnesium 2.2 mg/dL (1.6-2.6); Phosphorus 1.5 mg/dL (2.5-4.9); Potassium 3.8 mmol/L (3.5-5.1); Sodium Level 109 mmol/L (136-145)
--- NOTE | 2020-05-10 05:38 | NURSING ---
Pts primary rn aware of critical lab results of sodium of 109 and chloride of 72 at this time.
[2020-05-10 05:44] LABS: Absolute Lymphocyte Count 0.74 X10^3/uL (0.83-4.51); Absolute Neutrophil Count 16.9 X10^3/uL (2.0-7.7); Lymphocyte 4 % (19-41); Metamyelocyte 3 % (0-1); Monocyte 1 % (0-10); Neutrophil-Band 5 % (0-5); Neutrophil-Segmented 87 % (47-70); Platelet Estimate ADEQUATE (ADEQ); Red Cell Morphology NORM C+C NORMAL (NORM C&C); Total Cells Counted 100 (MANUAL DIFF)
[2020-05-10 06:12] LABS: Osmolality, Serum 231 mOsm/KG (275-295)
[2020-05-10 06:25] LABS: Bedside Glucose 193 mg/dL (70-110)
[2020-05-10] MEDS: Insulin Lispro 100 UNIT/ML INSULN.PEN SC (06:26)
[2020-05-10] MEDS: Budesonide Respules 0.5 MG/2 ML AMPUL.NEB. INHALATION ×2 (06:50→19:05)
[2020-05-10] MEDS: Ipratropium/Albuterol Sulfate 3 ML AMPUL.NEB INHALATION ×3 (06:50→19:05)
--- NOTE | 2020-05-10 07:36 | NURSING ---
0736- report given to Pito GONZALEZ from ICU.
[2020-05-10] MEDS: buPROPion (SR) 150 MG Tablet.SA PO ×2 (09:42→20:24)
[2020-05-10] MEDS: Rivaroxaban 20 MG Tablet PO (09:43)
[2020-05-10 10:24] LABS: BNP,B-Type NATRIURETIC PEPTIDE 33.4 pg/mL (0-100)
--- NOTE | 2020-05-10 10:31 | CASEMGMT ---
RN AUDRA INSTRUCTIONAL COACH CM to room to meet with patient for initial transition planning/care coordination assessment. LISA ZHU introduced self and role at [facility]. Pt voices understanding and consents to assessment at this time. Pt sitting up in recliner chair in room in no distress at this time. Pt is A/O at this time and answers all questions appropriately. Care providers, pharmacy, and demographics verified/updated at this time. PCP: Dr Marinelli Specialists: Dr Freeman--pulmonology, Neurodiagnostic Technician @ [facility]--pt does not remember his name. Preferred Pharmacy: [facility] retail pharmacy Prescription Benefit: Yes Living Will/HPOA: does not have LW or HCPOA . Interested in more information but states does not want to talk with SW at this time to complete paperwork. Provided information on advanced directives and given Social Service rac card with number to call if chooses in the future to utilize [facility] social work for advanced directive completion. Patient expresses understanding. LNOK: Son, Ej, listed as next of kin. Has another adult son and a 15 yr-old daughter. Living Arrangements: Lives in single-story apt w/her 15 yr-old dtr. Independent w/ADL's and IADL's. Transportation: Pt states drives self and states no transportation concerns at this time. Niece, Cristal Faulkner, will take her home @ discharge. DME: States has the following DME: shower chair, rails/grab bars, hand-held shower, rollator, medical alert button, nebulizer, glucometer. Has O2 thru [facility] @ 1 l/m @ HS only. Has concentrator and portable tanks. Pt states no need for further DME at this time. HHC/SNF: [facility] h[facility] of SNF[facility] Declines need for HHC. Discussed CCN w/pt. She declines at this time. Given CCN Rac card for pt to contact CCN if she decides she is interested in the future. Pt wishes to return home and states has no concerns with going home at time of discharge. Pt states she smokes about 9 cigarettes a day. CM to follow for any increase in home oxygen needs and any further discharge planning/needs. Pt voices no further concerns/needs at this time. Advised pt to ask for CM if any further questions/concerns/needs arise. Voices understanding. PLAN: Home w/discharge plans in place. Florina BSN RN CM
[2020-05-10 11:42] LABS: Anion Gap 8 (5-15); BUN 8 mg/dL (7-18); BUN/Creat Ratio 16.1 RATIO (10-20); Calcium,Total 8.1 mg/dL (8.5-10.1); Chloride 75 mmol/L (98-107); EST Glomerular Filtration Rate 138 mL/min (>60); Est Glom Filt Rate - Afr Amer 167 mL/min (>60); Estimated Creatinine Clearance 101.73 ml/min; Glucose 129 mg/dL (74-106); Potassium 4.1 mmol/L (3.5-5.1); Sodium Level 111 mmol/L (136-145)
--- NOTE | 2020-05-10 12:08 | CON.PCM_ITS ---
Reason for Consult Date of Consultation: 05/10/20 Reason for Consultation: Umbilical hernia History of Present Illness: The patient is a 55 year old F patient currently admitted to the ICU due to hyponatremia. CT abdomen pelvis did show a small umbilical hernia containing fat. Was consulted due to umbilical hernia. Patient denies any pain or discomfort at her umbilicus due to the hernia initially when I was talking about the hernia she states that under her left ribs she had some discomfort however after I told her that her hernias by her bellybutton she states she has no issues with that area no pain or discomfort. I did review CT abdomen pelvis showed a neck of about 1.5 cm at about 3 cm of fat in the hernia. Past Medical History Past Medical History (Chronic Problems): Chronic Problems (Last Reviewed 05/10/20 @ 01:53 by Damari Hoyos NP-C) Diabetes mellitus, type II (Chronic) Chronic pain syndrome (Chronic) Essential (primary) hypertension (Chronic) Nicotine dependence (Chronic) Pulmonary embolism (Chronic 07/09/14) Medical History: Medical History (Last Reviewed 05/10/20 @ 01:53 by Damari Hoyos NP-C) Essential (primary) hypertension (Chronic) I10 Nicotine dependence (Chronic) F17.200 Pulmonary embolism (Chronic) Onset Date: 07/09/14 I26.99 Anxiety F41.9 Chronic pain syndrome G89.4 Emphysema of lung J43.9 Lymphedema I89.0 Obstructive sleep apnea G47.33 Osteoarthritis M19.90 Rheumatoid arthritis M06.9 Type 2 diabetes mellitus E11.9 Secondary pulmonary arterial hypertension (Resolved) I27.21 Allergies Latex, Natural Rubber Allergy (Verified 05/09/20 21:41) Rash Home Medications: Ambulatory Orders Medication Instructions Recorded Albuterol IH (ProAir) [Proair Hfa] 1 - 2 puff INHALATION Q4H PRN PRN 05/03/14 Hydrochlorothiazide [Hctz] 25 mg PO DAILY 11/08/14 Rivaroxaban [Xarelto] 20 mg PO DAILY 11/08/14 bupropion HCl 150 mg tablet,12 hr 150 mg PO BID 06/09/17 sustained-release mometasone-formoterol HFA 200 2 puff INHALATION BID 06/09/17 mcg-5 mcg/actuation aerosol inhaler tiotropium bromide 18 mcg capsule 2.5 mcg INHALATION DAILY 30 Days 06/09/17 with inhalation device topiramate 25 mg capsule,extended 25 mg PO BID cap 06/09/17 release 24 hr furosemide 40 mg tablet 40 mg PO QAM tab 12/01/17 potassium chloride 20 mEq 40 meq PO BID tab 12/02/17 tablet,extended release cetirizine 10 mg capsule 10 mg PO DAILY 07/06/18 metformin 1,000 mg tablet 1,000 mg PO BID 07/06/18 ipratropium 0.5 mg-albuterol 3 mg 3 ml INHALATION 6XD 07/08/19 (2.5 mg base)/3 mL nebulization soln losartan 50 mg tablet 50 mg PO DAILY tab 07/08/19 polyethylene glycol 3350 17 17 g PO PRN PRN 07/08/19 gram/dose oral powder Surgical History: Surgical History (Last Reviewed 05/10/20 @ 01:53 by MARITA CastorenaC) History of tubal ligation Z98.51 Surgical History: - - tubal ligation Psychiatric History: Depression [employer] History: cervical cancer - abnormal cells per pt.....had some type of procedure done and never followed up Smoking Status: Current every day smoker - *Family History Maternal Family History: Family History (Last Reviewed 05/10/20 @ 01:53 by MARITA CastorenaC) Sister Hypertension Asthma Brother Heart disease Asthma History Items: - - her mother at 46 YOA, 9 days after giving to the pt Paternal Family History: Family History (Last Reviewed 05/10/20 @ 01:53 by MARITA CastorenaC) Sister Hypertension Asthma Brother Heart disease Asthma History Items: Cancer - lung, - - father at 67 and had CVD Review of Systems Constitutional: Denies: Anorexia Eyes: Denies: Drainage HEENT: Denies: Difficulty Swallowing Cardiovascular: Denies: Chest Pain Respiratory: Reports: Shortness of Breath Gastrointestinal: Denies: Abdominal Pain, Nausea, Vomiting Musculoskeletal: Reports: Back Pain Patient Problems: Active and Suspected Problems (Last Reviewed 05/10/20 @ 01:53 by Damari Hoyos NP-C) Hyponatremia (Acute) Abdominal pain (Acute) Hypochloremia (Acute) Morbid obesity with BMI of 45.0-49.9, adult (Acute) Shortness of breath at rest (Acute) - Physical Exam Vitals/I&O's: Vital Signs Temp Pulse Resp BP Pulse Ox 97.9 F 69 18 129/96 H 98 05/10/20 05:22 05/10/20 11:00 05/10/20 11:00 05/10/20 11:00 05/10/20 11:00 Oxygen Flow Rate (L/min) 3 Oxygen Delivery Method Nasal Cannula Weight: 258 lb 13.163 oz Body Mass Index (BMI) 47.4 Intake and Output for Last 24 Hours 05/08/20 05/09/20 05/10/20 23:59 23:59 23:59 Intake Total 1403.33 / 1403.33 Balance 1403.33 / 1403.33 General: Alert, Oriented x3, Cooperative, No apparent distress HEENT: Atraumatic Lungs: Normal air movement Cardiovascular: Regular rate Abdomen: Soft, Non Tender, Non-Distended, Obese, Hernia - Umbilical, nontender, 1.5 cm on CAT scan- did not attempt to reduce Neurological: Cranial nerves II-XII grossly intact Psych/Mental Status: Normal Affect Microbiology Past 72 Hours 05/09/20 22:30 Mucosa - Nose SARS-CoV-2 Antigen (Rapid) - Final Laboratory Results 05/09/20 22:25: WBC 19.2 H, RBC 5.42 H, Hgb 11.8 L, Hct 35.4 L, MCV 65.3 L, MCH 21.8 L, MCHC 33.3, RDW Std Deviation 42.7, RDW Coeff of [place] 19.8 H, Plt Count 366, MPV 8.6, Neut % (Auto) Not Reportable, Absolute Neuts (auto) 16.7 H, Absolute Lymphs (auto) 2.12, Total Counted 100, Neutrophils % (Manual) 83 H, Band Neutrophils % 4, Lymphocytes % (Manual) 11 L, Monocytes % (Manual) 2, Diff Path Review June05/09/20 22:25: PT Cancelled, INR Cancelled, APTT Cancelled 05/09/20 22:25: Sodium Cancelled, Potassium Cancelled, Chloride Cancelled, Carbon Dioxide Cancelled, Anion Gap Cancelled, BUN Cancelled, Creatinine Cancelled, Estim Creat Clear Calc Cancelled, Est GFR (MDRD) Af Amer Cancelled, Est GFR (MDRD) Non-Af Cancelled, BUN/Creatinine Ratio Cancelled, Glucose Cancelled, Calcium Cancelled, Total Bilirubin Cancelled, AST Cancelled, ALT Cancelled, Alkaline Phosphatase Cancelled, Troponin I Cancelled, Total Protein Cancelled, Albumin Cancelled, Globulin Cancelled, Albumin/Globulin Ratio Cancelled 05/09/20 23:20: PT 17.2 H, INR 1.5, APTT 37.6 H 05/09/20 23:20: Sodium 110 L*, Potassium 3.6, Chloride 72 L*, Carbon Dioxide 26.0, Anion Gap 12, BUN 9, Creatinine 0.55, Estim Creat Clear Calc 92.48, Est GFR (MDRD) Af Amer 149, Est GFR (MDRD) Non-Af 123, BUN/Creatinine Ratio 16.5, Glucose 123 H, Calcium 8.6, Total Bilirubin 0.60, AST 22, ALT 29, Alkaline Phosphatase 112, Troponin I < 0.015, Total Protein 8.3 H, Albumin 3.9, Globulin 4.4 H, Albumin/Globulin Ratio 0.9 05/09/20 23:47: Urine Color Yellow, Urine Clarity Clear, Urine pH 6.0, Ur Specific [place] 1.020, Urine Protein 500 H, Urine Glucose (UA) Normal, Urine Ketones 150 H, Urine Occult Blood 50 H, Urine Nitrite Negative, Urine Bilirubin Negative, Urine Urobilinogen Normal, Ur Leukocyte Esterase Negative, Urine RBC 0-5 SEEN, Urine WBC 0-5 SEEN, Ur Squamous Epith Cells 5-10 SEEN, Urine Bacteria 2+, Urine Mucus 1+ 05/09/20 23:47: Ur Random Sodium 35, Urine Potassium 79.0, Urine Chloride 80 05/09/20 23:47: Urine Creatinine 88.10 05/09/20 23:47: Urine Osmolality 530 05/10/20 02:45: Sodium 109 L*, Potassium 3.5, Chloride 70 L*, Carbon Dioxide 26.0, Anion Gap 13, BUN 10, Creatinine 0.57, Estim Creat Clear Calc 89.24, Est GFR (MDRD) Af Amer 142, Est GFR (MDRD) Non-Af 117, BUN/Creatinine Ratio 17.5, Glucose 174 H, Calcium 8.5 05/10/20 02:45: Lactic Acid 1.3 05/10/20 05:06: WBC 18.4 H, RBC 5.33, Hgb 11.1 L, Hct 35.0 L, MCV 65.7 L, MCH 20.8 L, MCHC 31.7 L, RDW Std Deviation 43.5, RDW Coeff of [place] 19.6 H, Plt Count 330, MPV 8.5, Neut % (Auto) Not Reportable, Absolute Neuts (auto) 16.9 H, Absolute Lymphs (auto) 0.74 L, Total Counted 100, Neutrophils % (Manual) 87 H, Band Neutrophils % 5, Lymphocytes % (Manual) 4 L, Monocytes % (Manual) 1, Metamyelocytes % 3 H, Diff Path Review June, Platelet Estimate ADEQUATE, RBC Morphology NORM C+C 05/10/20 05:06: Sodium 109 L*, Potassium 3.8, Chloride 72 L*, Carbon Dioxide 26.0, Anion Gap 11, BUN 9, Creatinine 0.53 L, Estim Creat Clear Calc 95.97, Est GFR (MDRD) Af Amer 153, Est GFR (MDRD) Non-Af 127, BUN/Creatinine Ratio 16.9, Glucose 175 H, Calcium 8.1 L, Phosphorus 1.5 L, Magnesium 2.2 05/10/20 05:06: Serum Osmolality 231 L 05/10/20 06:19: POC Glucose 193 H 05/10/20 09:30: B-Natriuretic Peptide 33.4 05/10/20 11:15: Sodium 111 L*, Potassium 4.1, Chloride 75 L, Carbon Dioxide 28.0, Anion Gap 8, BUN 8, Creatinine 0.50 L, Estim Creat Clear Calc 101.73, Est GFR (MDRD) Af Amer 167, Est GFR (MDRD) Non-Af 138, BUN/Creatinine Ratio 16.1, Glucose 129 H, Calcium 8.1 L Current Medications Acetaminophen (Acetaminophen 325 Mg Tablet) 650 mg PO Q6H PRN PRN PRN Reason: Pain Score 1-10/Temp > 100.7 F Albuterol Sulfate (Albuterol 2.5 Mg/3 Ml Vial.Neb.) 2.5 mg INHALATION Q2H PRN PRN PRN Reason: SOB/Wheezing Last Admin: 05/10/20 04:27 Dose: 2.5 mg Documented by: Albuterol/Ipratropium (Ipratropium/Albuterol Sulfate 3 Ml Ampul.Neb) 3 ml INHALATION Q6HWA.RT [facility] Last Admin: 05/10/20 06:50 Dose: 3 ml Documented by: Budesonide (Budesonide Respules 0.5 Mg/2 Ml Ampul.Neb.) 0.5 mg INHALATION Q12H.RT [facility] Last Admin: 05/10/20 06:50 Dose: 0.5 mg Documented by: Bupropion HCl (Bupropion (Sr) 150 Mg Tablet.Sa) 150 mg PO BID [facility] Last Admin: 05/10/20 09:42 Dose: 150 mg Documented by: Sodium Chloride () 250 mls @ 15 mls/hr IV .[id number] PRN PRN Reason: Saline Flush Sodium Chloride () 250 mls @ 15 mls/hr IV .[id number] PRN PRN Reason: Additional IVPB Infusion Potassium Phosphate 30 mm/ (Sodium Chloride) 260 mls @ 42 mls/hr IV X1 ONE Stop: 05/10/20 12:27 Last Admin: 05/10/20 08:11 Dose: 42 mls/hr Documented by: Insulin Human Lispro (Insulin Lispro 100 Unit/Ml Insuln.Pen) 0 unit SC [facility]; Protocol Last Admin: 05/10/20 06:26 Dose: 2 units Documented by: Morphine Sulfate (Morphine 2 Mg/Ml Syringe) 2 mg IV Q3H PRN PRN PRN Reason: Pain Score 6-10 Ondansetron HCl (Ondansetron 4 Mg/2 Ml Vial) 4 mg IV Q8H PRN PRN PRN Reason: NAUSEA/VOMITING Promethazine HCl (Promethazine 25 Mg/Ml Syringe) 12.5 mg IV Q6H PRN PRN PRN Reason: NAUSEA/VOMITING Last Admin: 05/10/20 04:20 Dose: 12.5 mg Documented by: Rivaroxaban (Rivaroxaban 20 Mg Tablet) 20 mg PO DAILY [facility] Last Admin: 05/10/20 09:43 Dose: 20 mg Documented by: Sodium Chloride (0.9% Saline Lock 10 Ml Syringe) 10 - 40 ml IV UD PRN PRN Reason: SALINE FLUSH Last Admin: 05/10/20 04:20 Dose: 10 ml Documented by: Topiramate (Topiramate 25 Mg Tablet) 25 mg PO BID [facility] Last Admin: 05/10/20 10:18 Dose: Not Given Documented by: Assessment/Plan All Active Problems (Last Reviewed 05/10/20 @ 01:53 by Damari Hoyos, RAMONE-C) Hyponatremia (Acute) Abdominal pain (Acute) Hypochloremia (Acute) Morbid obesity with BMI of 45.0-49.9, adult (Acute) Shortness of breath at rest (Acute) Rapid palpitations (Resolved) Secondary pulmonary arterial hypertension (Resolved) 55-year-old female with umbilical hernia, hyponatremia/COPD 1. Umbilical hernia no need for any current surgical intervention as patient denies any discomfort or issues with this hernia. CT abdomen pelvis only showed fat in the hernia was not causing any obstruction. Will sign off call with any questions. 2. Hyponatremia per primary Ellyn Zavala M.D. Pager: [phone] [facility] [address] [place] [address], [facility], [address] [place] [address] Office: [phone] Inpatient E&M: 78152 Init Hosp L2
[2020-05-10] MEDS: Morphine 2 MG/ML Syringe IV ×3 (12:39→22:12)
[2020-05-10 12:57] LABS: Pathologist Review Reviewed
[2020-05-10 12:58] LABS: Pathologist Review Reviewed
[2020-05-10] MEDS: Desmopressin Acetate 4 MCG/ML Ampul 1 MCG IV ×2 (12:59→20:57)
--- NOTE | 2020-05-10 13:38 | CON.PCM_ITS ---
Consultation - Renal 05/10/20 PCP/ Referring MD: Requesting physician: [] Primary care physician: Dr. Domingo Marinelli DO Reason for Consultation:: hna - History of Present Illness History of Present Illness: The patient is a 55 year old F presented with sob resolved with nebs and abd pressure with nausea gradually worsening for the past few days.Had 2 watery stools yesterday. Sob resolved now has some left flank pain resolved with morphine Renal consulted for SNa 110-109.Took thiazide and lasix yesterday. chronic LE edema but denies h/o HF.Xray no pulmonary edema. denies cp/tang/dysuria/hematuria. - Allergies Allergies: Allergies Latex, Natural Rubber Allergy (Verified 05/09/20 21:41) Rash - Current Medications Current Medications: Current Medications Acetaminophen (Acetaminophen 325 Mg Tablet) 650 mg PO Q6H PRN PRN PRN Reason: Pain Score 1-10/Temp > 100.7 F Albuterol Sulfate (Albuterol 2.5 Mg/3 Ml Vial.Neb.) 2.5 mg INHALATION Q2H PRN PRN PRN Reason: SOB/Wheezing Last Admin: 05/10/20 04:27 Dose: 2.5 mg Documented by: Albuterol/Ipratropium (Ipratropium/Albuterol Sulfate 3 Ml Ampul.Neb) 3 ml INHALATION Q6HWA.RT [facility] Last Admin: 05/10/20 12:51 Dose: 3 ml Documented by: Budesonide (Budesonide Respules 0.5 Mg/2 Ml Ampul.Neb.) 0.5 mg INHALATION Q12H.RT [facility] Last Admin: 05/10/20 06:50 Dose: 0.5 mg Documented by: Bupropion HCl (Bupropion (Sr) 150 Mg Tablet.Sa) 150 mg PO BID [facility] Last Admin: 05/10/20 09:42 Dose: 150 mg Documented by: Sodium Chloride () 250 mls @ 15 mls/hr IV .[id number] PRN PRN Reason: Saline Flush Sodium Chloride () 250 mls @ 15 mls/hr IV .[id number] PRN PRN Reason: Additional IVPB Infusion Insulin Human Lispro (Insulin Lispro 100 Unit/Ml Insuln.Pen) 0 unit SC ACHS [facility]; Protocol Last Admin: 05/10/20 12:23 Dose: Not Given Documented by: Morphine Sulfate (Morphine 2 Mg/Ml Syringe) 2 mg IV Q3H PRN PRN PRN Reason: Pain Score 6-10 Last Admin: 05/10/20 12:39 Dose: 2 mg Documented by: Ondansetron HCl (Ondansetron 4 Mg/2 Ml Vial) 4 mg IV Q8H PRN PRN PRN Reason: NAUSEA/VOMITING Promethazine HCl (Promethazine 25 Mg/Ml Syringe) 12.5 mg IV Q6H PRN PRN PRN Reason: NAUSEA/VOMITING Last Admin: 05/10/20 12:40 Dose: 12.5 mg Documented by: Rivaroxaban (Rivaroxaban 20 Mg Tablet) 20 mg PO DAILY [facility] Last Admin: 05/10/20 09:43 Dose: 20 mg Documented by: Sodium Chloride (0.9% Saline Lock 10 Ml Syringe) 10 - 40 ml IV UD PRN PRN Reason: SALINE FLUSH Last Admin: 05/10/20 04:20 Dose: 10 ml Documented by: Topiramate (Topiramate 25 Mg Tablet) 25 mg PO BID [facility] Last Admin: 05/10/20 10:18 Dose: Not Given Documented by: - Past Medical History Past Medical History (Chronic Problems): Chronic Problems (Last Reviewed 05/10/20 @ 01:53 by CAMPOS Castorena) Diabetes mellitus, type II (Chronic) Chronic pain syndrome (Chronic) Essential (primary) hypertension (Chronic) Nicotine dependence (Chronic) Pulmonary embolism (Chronic 07/09/14) - Past Surgical History Surgical History: - - tubal ligation - Social History Smoking Status: Current every day smoker - Family History Maternal Family History: Family History (Last Reviewed 05/10/20 @ 01:53 by CAMPOS Castorena) Sister Hypertension Asthma Brother Heart disease Asthma History Items: - - her mother at 46 YOA, 9 days after giving to the pt Paternal Family History: Family History (Last Reviewed 05/10/20 @ 01:53 by CAMPOS Castorena) Sister Hypertension Asthma Brother Heart disease Asthma History Items: Cancer - lung, - - father at 67 and had CVD Review of Systems Eyes: Reports: - - ros negative unless noted in the HPI Patient Problems: Active and Suspected Problems (Last Reviewed 05/10/20 @ 01:53 by Damari Hoyos NP-C) Hyponatremia (Acute) Abdominal pain (Acute) Hypochloremia (Acute) Morbid obesity with BMI of 45.0-49.9, adult (Acute) Shortness of breath at rest (Acute) - Physical Exam Vitals/I&O's: Vital Signs Temp Pulse Resp BP Pulse Ox 97.9 F 70 20 H 129/96 H 98 05/10/20 05:22 05/10/20 12:53 05/10/20 12:53 05/10/20 11:00 05/10/20 11:00 Oxygen Flow Rate (L/min) 3 Oxygen Delivery Method Nasal Cannula Weight: 117.4 kg Body Mass Index (BMI) 47.4 Intake and Output for Last 24 Hours 05/08/20 05/09/20 05/10/20 23:59 23:59 23:59 Intake Total 1403.33 / 1403.33 Balance 1403.33 / 1403.33 General: Alert, Cooperative HEENT: Atraumatic, Normocephalic Oral: Moist Mucosa Neck: Supple Lungs: Clear to auscultation, Normal air movement Cardiovascular: Regular rate, Regular Rhythm Abdomen: Bowel Sounds Present, Soft Extremities: Edema Microbiology Past 72 Hours 05/09/20 22:30 Mucosa - Nose SARS-CoV-2 Antigen (Rapid) - Final Laboratory Results 05/09/20 22:25: WBC 19.2 H, RBC 5.42 H, Hgb 11.8 L, Hct 35.4 L, MCV 65.3 L, MCH 21.8 L, MCHC 33.3, RDW Std Deviation 42.7, RDW Coeff of [place] 19.8 H, Plt Count 366, MPV 8.6, Neut % (Auto) Not Reportable, Absolute Neuts (auto) 16.7 H, Absolute Lymphs (auto) 2.12, Total Counted 100, Neutrophils % (Manual) 83 H, Band Neutrophils % 4, Lymphocytes % (Manual) 11 L, Monocytes % (Manual) 2, Diff Path Review Reviewed 05/09/20 22:25: PT Cancelled, INR Cancelled, APTT Cancelled 05/09/20 22:25: Sodium Cancelled, Potassium Cancelled, Chloride Cancelled, Carbon Dioxide Cancelled, Anion Gap Cancelled, BUN Cancelled, Creatinine Cancelled, Estim Creat Clear Calc Cancelled, Est GFR (MDRD) Af Amer Cancelled, Est GFR (MDRD) Non-Af Cancelled, BUN/Creatinine Ratio Cancelled, Glucose Cancelled, Calcium Cancelled, Total Bilirubin Cancelled, AST Cancelled, ALT Cancelled, Alkaline Phosphatase Cancelled, Troponin I Cancelled, Total Protein Cancelled, Albumin Cancelled, Globulin Cancelled, Albumin/Globulin Ratio Cancelled 05/09/20 23:20: PT 17.2 H, INR 1.5, APTT 37.6 H 05/09/20 23:20: Sodium 110 L*, Potassium 3.6, Chloride 72 L*, Carbon Dioxide 26.0, Anion Gap 12, BUN 9, Creatinine 0.55, Estim Creat Clear Calc 92.48, Est GFR (MDRD) Af Amer 149, Est GFR (MDRD) Non-Af 123, BUN/Creatinine Ratio 16.5, Glucose 123 H, Calcium 8.6, Total Bilirubin 0.60, AST 22, ALT 29, Alkaline Phosphatase 112, Troponin I < 0.015, Total Protein 8.3 H, Albumin 3.9, Globulin 4.4 H, Albumin/Globulin Ratio 0.9 05/09/20 23:47: Urine Color Yellow, Urine Clarity Clear, Urine pH 6.0, Ur Specific [place] 1.020, Urine Protein 500 H, Urine Glucose (UA) Normal, Urine Ketones 150 H, Urine Occult Blood 50 H, Urine Nitrite Negative, Urine Bilirubin Negative, Urine Urobilinogen Normal, Ur Leukocyte Esterase Negative, Urine RBC 0-5 SEEN, Urine WBC 0-5 SEEN, Ur Squamous Epith Cells 5-10 SEEN, Urine Bacteria 2+, Urine Mucus 1+ 05/09/20 23:47: Ur Random Sodium 35, Urine Potassium 79.0, Urine Chloride 80 05/09/20 23:47: Urine Creatinine 88.10 05/09/20 23:47: Urine Osmolality 530 05/10/20 02:45: Sodium 109 L*, Potassium 3.5, Chloride 70 L*, Carbon Dioxide 26.0, Anion Gap 13, BUN 10, Creatinine 0.57, Estim Creat Clear Calc 89.24, Est GFR (MDRD) Af Amer 142, Est GFR (MDRD) Non-Af 117, BUN/Creatinine Ratio 17.5, Glucose 174 H, Calcium 8.5 05/10/20 02:45: Lactic Acid 1.3 05/10/20 05:06: WBC 18.4 H, RBC 5.33, Hgb 11.1 L, Hct 35.0 L, MCV 65.7 L, MCH 20.8 L, MCHC 31.7 L, RDW Std Deviation 43.5, RDW Coeff of [place] 19.6 H, Plt Count 330, MPV 8.5, Neut % (Auto) Not Reportable, Absolute Neuts (auto) 16.9 H, Absolute Lymphs (auto) 0.74 L, Total Counted 100, Neutrophils % (Manual) 87 H, Band Neutrophils % 5, Lymphocytes % (Manual) 4 L, Monocytes % (Manual) 1, Metamyelocytes % 3 H, Diff Path Review Reviewed, Platelet Estimate ADEQUATE, RBC Morphology NORM C+C 05/10/20 05:06: Sodium 109 L*, Potassium 3.8, Chloride 72 L*, Carbon Dioxide 26.0, Anion Gap 11, BUN 9, Creatinine 0.53 L, Estim Creat Clear Calc 95.97, Est GFR (MDRD) Af Amer 153, Est GFR (MDRD) Non-Af 127, BUN/Creatinine Ratio 16.9, Glucose 175 H, Calcium 8.1 L, Phosphorus 1.5 L, Magnesium 2.2 05/10/20 05:06: Serum Osmolality 231 L 05/10/20 06:19: POC Glucose 193 H 05/10/20 09:30: B-Natriuretic Peptide 33.4 05/10/20 11:15: Sodium 111 L*, Potassium 4.1, Chloride 75 L, Carbon Dioxide 28.0, Anion Gap 8, BUN 8, Creatinine 0.50 L, Estim Creat Clear Calc 101.73, Est GFR (MDRD) Af Amer 167, Est GFR (MDRD) Non-Af 138, BUN/Creatinine Ratio 16.1, Glucose 129 H, Calcium 8.1 L Current Medications Acetaminophen (Acetaminophen 325 Mg Tablet) 650 mg PO Q6H PRN PRN PRN Reason: Pain Score 1-10/Temp > 100.7 F Albuterol Sulfate (Albuterol 2.5 Mg/3 Ml Vial.Neb.) 2.5 mg INHALATION Q2H PRN PRN PRN Reason: SOB/Wheezing Last Admin: 05/10/20 04:27 Dose: 2.5 mg Documented by: Albuterol/Ipratropium (Ipratropium/Albuterol Sulfate 3 Ml Ampul.Neb) 3 ml INHALATION Q6HWA.RT [facility] Last Admin: 05/10/20 12:51 Dose: 3 ml Documented by: Budesonide (Budesonide Respules 0.5 Mg/2 Ml Ampul.Neb.) 0.5 mg INHALATION Q12H.RT [facility] Last Admin: 05/10/20 06:50 Dose: 0.5 mg Documented by: Bupropion HCl (Bupropion (Sr) 150 Mg Tablet.Sa) 150 mg PO BID [facility] Last Admin: 05/10/20 09:42 Dose: 150 mg Documented by: Sodium Chloride () 250 mls @ 15 mls/hr IV .[id number] PRN PRN Reason: Saline Flush Sodium Chloride () 250 mls @ 15 mls/hr IV .[id number] PRN PRN Reason: Additional IVPB Infusion Insulin Human Lispro (Insulin Lispro 100 Unit/Ml Insuln.Pen) 0 unit SC ACHS [facility]; Protocol Last Admin: 05/10/20 12:23 Dose: Not Given Documented by: Morphine Sulfate (Morphine 2 Mg/Ml Syringe) 2 mg IV Q3H PRN PRN PRN Reason: Pain Score 6-10 Last Admin: 05/10/20 12:39 Dose: 2 mg Documented by: Ondansetron HCl (Ondansetron 4 Mg/2 Ml Vial) 4 mg IV Q8H PRN PRN PRN Reason: NAUSEA/VOMITING Promethazine HCl (Promethazine 25 Mg/Ml Syringe) 12.5 mg IV Q6H PRN PRN PRN Reason: NAUSEA/VOMITING Last Admin: 05/10/20 12:40 Dose: 12.5 mg Documented by: Rivaroxaban (Rivaroxaban 20 Mg Tablet) 20 mg PO DAILY [facility] Last Admin: 05/10/20 09:43 Dose: 20 mg Documented by: Sodium Chloride (0.9% Saline Lock 10 Ml Syringe) 10 - 40 ml IV UD PRN PRN Reason: SALINE FLUSH Last Admin: 05/10/20 04:20 Dose: 10 ml Documented by: Topiramate (Topiramate 25 Mg Tablet) 25 mg PO BID [facility] Last Admin: 05/10/20 10:18 Dose: Not Given Documented by: Assessment/Plan All Active Problems (Last Reviewed 05/10/20 @ 01:53 by Damari Hoyos, PENSION CONSULTANT-C) Hyponatremia (Acute) Abdominal pain (Acute) Hypochloremia (Acute) Morbid obesity with BMI of 45.0-49.9, adult (Acute) Shortness of breath at rest (Acute) Rapid palpitations (Resolved) Secondary pulmonary arterial hypertension (Resolved) hyponatremia DDX 2/2 thiazides or SIADH LE edema Proteinuria likely diabetic nephropathy Abd pain/COPD/DM/misc per primary on 3 percent and will use ddavp to control the rate of correction of SNa in order to avoid more than 8 meq/24 hours correction. Check serial SNa and adjust hypertonic saline and ddavp accordingly.My cell phone number was left with RN. check 24 hour collection for protein further w/u per clinical course losartan on hold bp ok Thanks for consult Will f/u
[2020-05-10 16:13] LABS: Anion Gap 9 (5-15); BUN 8 mg/dL (7-18); BUN/Creat Ratio 15.7 RATIO (10-20); Calcium,Total 8.3 mg/dL (8.5-10.1); Chloride 77 mmol/L (98-107); Creatinine, Serum 0.51 mg/dL (0.55-1.02); EST Glomerular Filtration Rate 133 mL/min (>60); Est Glom Filt Rate - Afr Amer 161 mL/min (>60); Estimated Creatinine Clearance 99.74 ml/min; Glucose 101 mg/dL (74-106); Potassium 3.6 mmol/L (3.5-5.1); Sodium Level 113 mmol/L (136-145)
--- NOTE | 2020-05-10 16:25 | PCM.PN.HOSP ---
Patient Problems: Active and Suspected Problems (Last Reviewed 05/10/20 @ 01:53 by Damari Hoyos, CANINE SERVICE INSTRUCTOR TRAINER-C) Hyponatremia (Acute) Abdominal pain (Acute) Hypochloremia (Acute) Morbid obesity with BMI of 45.0-49.9, adult (Acute) Shortness of breath at rest (Acute) Subjective: Patient seen and examined. She was admitted with a complaint of shortness of breath and abdominal pressure associated feeling of fullness and nausea had worsened over the past few days. She did have a history of hiatal hernia. She also had 2 episodes of diarrhea. She denied any recent antibiotic use. Urinalysis was negative for UTI and CT was negative. She was also noted to be severely hyponatremic with sodium of 110 on admission. She was admitted to be managed for acute hyponatremia. Patient still complains of the feeling of fullness in her abdomen. She denied any nausea vomiting or abdominal pain. Review of symptoms otherwise negative. She was transferred to the ICU this morning on account of hyponatremia requiring hypertonic saline. Otherwise remained hemodynamically stable. Vitals/I&O's: Vital Signs Temp Pulse Resp BP Pulse Ox 98.7 F 77 16 135/57 H 96 05/10/20 12:00 05/10/20 16:04 05/10/20 14:00 05/10/20 14:00 05/10/20 14:00 Oxygen Flow Rate (L/min) 3 Oxygen Delivery Method Room Air Weight: 258 lb 13.163 oz Body Mass Index (BMI) 47.4 Intake and Output for Last 24 Hours 05/08/20 05/09/20 05/10/20 23:59 23:59 23:59 Intake Total 1663.33 / 1663.33 Output Total 125 / 125 Balance 1538.33 / 1538.33 General: Alert, Oriented x3, Cooperative, - - obese HEENT: Atraumatic, PERRLA, EOMI, Normocephalic Oral: Moist Mucosa Neck: Supple, No JVD, Negative Carotid Bruits Lungs: Clear to auscultation, Normal air movement, No rhonchi, No wheeze, No rales Cardiovascular: Regular rate, Regular Rhythm, Normal S1, Normal S2, No murmurs Abdomen: Bowel Sounds Present, Soft, Non Tender, Non-Distended, Obese Extremities: No clubbing, No cyanosis, No edema, Capillary Refill Less than 3 Seconds Skin: No rashes, No breakdown Musculoskeletal: No Tenderness to Palpation of Joints or Extremities Lymphatic: No Cervical, Supraclavicular, or Inguinal Adenopathy Neurological: Cranial nerves II-XII grossly intact, Neuro grossly intact, Motor Exam 5/5 strength throughout Psych/Mental Status: Normal Affect, Appropriate, Alert and oriented to time, place, person, mood and affect Microbiology Past 72 Hours 05/09/20 22:30 Mucosa - Nose SARS-CoV-2 Antigen (Rapid) - Final Laboratory Results 05/09/20 22:25: WBC 19.2 H, RBC 5.42 H, Hgb 11.8 L, Hct 35.4 L, MCV 65.3 L, MCH 21.8 L, MCHC 33.3, RDW Std Deviation 42.7, RDW Coeff of Triston 19.8 H, Plt Count 366, MPV 8.6, Neut % (Auto) Not Reportable, Absolute Neuts (auto) 16.7 H, Absolute Lymphs (auto) 2.12, Total Counted 100, Neutrophils % (Manual) 83 H, Band Neutrophils % 4, Lymphocytes % (Manual) 11 L, Monocytes % (Manual) 2, Diff Path Review Reviewed 05/09/20 22:25: PT Cancelled, INR Cancelled, APTT Cancelled 05/09/20 22:25: Sodium Cancelled, Potassium Cancelled, Chloride Cancelled, Carbon Dioxide Cancelled, Anion Gap Cancelled, BUN Cancelled, Creatinine Cancelled, Estim Creat Clear Calc Cancelled, Est GFR (MDRD) Af Amer Cancelled, Est GFR (MDRD) Non-Af Cancelled, BUN/Creatinine Ratio Cancelled, Glucose Cancelled, Calcium Cancelled, Total Bilirubin Cancelled, AST Cancelled, ALT Cancelled, Alkaline Phosphatase Cancelled, Troponin I Cancelled, Total Protein Cancelled, Albumin Cancelled, Globulin Cancelled, Albumin/Globulin Ratio Cancelled 05/09/20 23:20: PT 17.2 H, INR 1.5, APTT 37.6 H 05/09/20 23:20: Sodium 110 L*, Potassium 3.6, Chloride 72 L*, Carbon Dioxide 26.0, Anion Gap 12, BUN 9, Creatinine 0.55, Estim Creat Clear Calc 92.48, Est GFR (MDRD) Af Amer 149, Est GFR (MDRD) Non-Af 123, BUN/Creatinine Ratio 16.5, Glucose 123 H, Calcium 8.6, Total Bilirubin 0.60, AST 22, ALT 29, Alkaline Phosphatase 112, Troponin I < 0.015, Total Protein 8.3 H, Albumin 3.9, Globulin 4.4 H, Albumin/Globulin Ratio 0.9 05/09/20 23:47: Urine Color Yellow, Urine Clarity Clear, Urine pH 6.0, Ur Specific [place] 1.020, Urine Protein 500 H, Urine Glucose (UA) Normal, Urine Ketones 150 H, Urine Occult Blood 50 H, Urine Nitrite Negative, Urine Bilirubin Negative, Urine Urobilinogen Normal, Ur Leukocyte Esterase Negative, Urine RBC 0-5 SEEN, Urine WBC 0-5 SEEN, Ur Squamous Epith Cells 5-10 SEEN, Urine Bacteria 2+, Urine Mucus 1+ 05/09/20 23:47: Ur Random Sodium 35, Urine Potassium 79.0, Urine Chloride 80 05/09/20 23:47: Urine Creatinine 88.10 05/09/20 23:47: Urine Osmolality 530 05/10/20 02:45: Sodium 109 L*, Potassium 3.5, Chloride 70 L*, Carbon Dioxide 26.0, Anion Gap 13, BUN 10, Creatinine 0.57, Estim Creat Clear Calc 89.24, Est GFR (MDRD) Af Amer 142, Est GFR (MDRD) Non-Af 117, BUN/Creatinine Ratio 17.5, Glucose 174 H, Calcium 8.5 05/10/20 02:45: Lactic Acid 1.3 05/10/20 05:06: WBC 18.4 H, RBC 5.33, Hgb 11.1 L, Hct 35.0 L, MCV 65.7 L, MCH 20.8 L, MCHC 31.7 L, RDW Std Deviation 43.5, RDW Coeff of [place]iston 19.6 H, Plt Count 330, MPV 8.5, Neut % (Auto) Not Reportable, Absolute Neuts (auto) 16.9 H, Absolute Lymphs (auto) 0.74 L, Total Counted 100, Neutrophils % (Manual) 87 H, Band Neutrophils % 5, Lymphocytes % (Manual) 4 L, Monocytes % (Manual) 1, Metamyelocytes % 3 H, Diff Path Review Reviewed, Platelet Estimate ADEQUATE, RBC Morphology NORM C+C 05/10/20 05:06: Sodium 109 L*, Potassium 3.8, Chloride 72 L*, Carbon Dioxide 26.0, Anion Gap 11, BUN 9, Creatinine 0.53 L, Estim Creat Clear Calc 95.97, Est GFR (MDRD) Af Amer 153, Est GFR (MDRD) Non-Af 127, BUN/Creatinine Ratio 16.9, Glucose 175 H, Calcium 8.1 L, Phosphorus 1.5 L, Magnesium 2.2 05/10/20 05:06: Serum Osmolality 231 L 05/10/20 06:19: POC Glucose 193 H 05/10/20 09:30: B-Natriuretic Peptide 33.4 05/10/20 11:15: Sodium 111 L*, Potassium 4.1, Chloride 75 L, Carbon Dioxide 28.0, Anion Gap 8, BUN 8, Creatinine 0.50 L, Estim Creat Clear Calc 101.73, Est GFR (MDRD) Af Amer 167, Est GFR (MDRD) Non-Af 138, BUN/Creatinine Ratio 16.1, Glucose 129 H, Calcium 8.1 L 05/10/20 15:10: Sodium 113 L*, Potassium 3.6, Chloride 77 L, Carbon Dioxide 27.0, Anion Gap 9, BUN 8, Creatinine 0.51 L, Estim Creat Clear Calc 99.74, Est GFR (MDRD) Af Amer 161, Est GFR (MDRD) Non-Af 133, BUN/Creatinine Ratio 15.7, Glucose 101, Calcium 8.3 L Diagnostic Data Chest X-Ray 05/09/20 22:38 IMPRESSION: Old granulomatous disease. No acute chest disease. Electronically Signed: Sergio Beauchamp MD at 22:54 EST , Service support , Abdomen/Pelvis CT 05/10/20 23:50 IMPRESSION: There are at least 3 nodules within the left adrenal gland lung measuring 3.4 cm, one measuring 2.3 cm, and one measuring 3.4 cm. 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 The more inferior 2 lesions are likely adenomas. No acute disease perceived. Individualized dose optimization techniques were used for this CT. at 0044 Reported and signed by: Gómez Ramos MD Electronically Signed: Gómez Ramos MD at 0:43 EST Tel , Service support , Current Medications Acetaminophen (Acetaminophen 325 Mg Tablet) 650 mg PO Q6H PRN PRN PRN Reason: Pain Score 1-10/Temp > 100.7 F Albuterol Sulfate (Albuterol 2.5 Mg/3 Ml Vial.Neb.) 2.5 mg INHALATION Q2H PRN PRN PRN Reason: SOB/Wheezing Last Admin: 05/10/20 04:27 Dose: 2.5 mg Documented by: Albuterol/Ipratropium (Ipratropium/Albuterol Sulfate 3 Ml Ampul.Neb) 3 ml INHALATION Q6HWA.RT DEVYN Last Admin: 05/10/20 12:51 Dose: 3 ml Documented by: Budesonide (Budesonide Respules 0.5 Mg/2 Ml Ampul.Neb.) 0.5 mg INHALATION Q12H.RT DEVYN Last Admin: 05/10/20 06:50 Dose: 0.5 mg Documented by: Bupropion HCl (Bupropion (Sr) 150 Mg Tablet.Sa) 150 mg PO BID DEVYN Last Admin: 05/10/20 09:42 Dose: 150 mg Documented by: Sodium Chloride () 250 mls @ 15 mls/hr IV .[id number] PRN PRN Reason: Saline Flush Sodium Chloride () 250 mls @ 15 mls/hr IV .[id number] PRN PRN Reason: Additional IVPB Infusion Insulin Human Lispro (Insulin Lispro 100 Unit/Ml Insuln.Pen) 0 unit SC ACHS [facility]; Protocol Last Admin: 05/10/20 12:23 Dose: Not Given Documented by: Morphine Sulfate (Morphine 2 Mg/Ml Syringe) 2 mg IV Q3H PRN PRN PRN Reason: Pain Score 6-10 Last Admin: 05/10/20 12:39 Dose: 2 mg Documented by: Ondansetron HCl (Ondansetron 4 Mg/2 Ml Vial) 4 mg IV Q8H PRN PRN PRN Reason: NAUSEA/VOMITING Promethazine HCl (Promethazine 25 Mg/Ml Syringe) 12.5 mg IV Q6H PRN PRN PRN Reason: NAUSEA/VOMITING Last Admin: 05/10/20 12:40 Dose: 12.5 mg Documented by: Rivaroxaban (Rivaroxaban 20 Mg Tablet) 20 mg PO DAILY [facility] Last Admin: 05/10/20 09:43 Dose: 20 mg Documented by: Sodium Chloride (0.9% Saline Lock 10 Ml Syringe) 10 - 40 ml IV UD PRN PRN Reason: SALINE FLUSH Last Admin: 05/10/20 04:20 Dose: 10 ml Documented by: Topiramate (Topiramate 25 Mg Tablet) 25 mg PO BID [facility] Last Admin: 05/10/20 10:18 Dose: Not Given Documented by: STROKE Vital Signs/Narrative: Vital Signs Pulse Resp BP Pulse Ox 05/10/20 16:04 77 05/10/20 14:00 72 16 135/57 H 96 05/10/20 13:00 70 18 148/99 H 96 05/10/20 12:53 70 20 H Medical Necessity - Tobacco Use Smoking Status: Current every day smoker Assessment/Plan All Active Problems (Last Reviewed 05/10/20 @ 01:53 by Damari Hoyos, CANINE SERVICE INSTRUCTOR TRAINER-C) Hyponatremia (Acute) Abdominal pain (Acute) Hypochloremia (Acute) Morbid obesity with BMI of 45.0-49.9, adult (Acute) Shortness of breath at rest (Acute) Rapid palpitations (Resolved) Secondary pulmonary arterial hypertension (Resolved) #Acute hypo-osmolar hypotonic hyponatremia sodium was 110, and is now up to 113 transferred to ICU to receive hypertonic saline due to severe hyponatremia cause of hyponatremia likely her diuretics, ie lasix and HCTZ dc diuretics nephrology on board check sodium q4hrly #Abdominal pain complained of fullness in her abdomen. CT of the abdomen and pelvis showed 3 nodules in the left adrenal gland, which were thought to be myelolipomas and adenomas. It also showed an anterior abdominal wall pannus and hernia with some fat extending into the umbilicus. general surgery evaluated patient and did not think there is any need for surgical intervention now. Will monitor. #Type II diabetes mellitus: Metformin on hold. Insulin sliding scale. Accu-Cheks AC at bedtime. #Hypertension: Losartan. Hydrochlorothiazide and Lasix on hold on account of hyponatremia. IV hydralazine as needed. #Depression: On bupropion #Chronic pain syndrome: On Topamax #History of venous thromboembolism: on xarelto #Anxiety and Depression; on bupropion. DVT prophylaxis: on xarelto Inpatient E&M: [id number] [facility] L3
[2020-05-10] MEDS: Acetaminophen 325 MG Tablet 650 MG PO (17:21)
[2020-05-10 19:31] LABS: Anion Gap 9 (5-15); BUN 9 mg/dL (7-18); BUN/Creat Ratio 20.4 RATIO (10-20); Calcium,Total 8.3 mg/dL (8.5-10.1); Chloride 77 mmol/L (98-107); Creatinine, Serum 0.44 mg/dL (0.55-1.02); EST Glomerular Filtration Rate 158 mL/min (>60); Est Glom Filt Rate - Afr Amer 191 mL/min (>60); Glucose 104 mg/dL (74-106); Potassium 3.9 mmol/L (3.5-5.1); Sodium Level 113 mmol/L (136-145)
[2020-05-10] MEDS: Sodium Chloride 3% 500 ML 25 ML IV (20:05)
[2020-05-10] MEDS: Topiramate 25 MG Tablet PO (20:24)
[2020-05-10 22:50] LABS: Bedside Glucose 128 mg/dL (70-110)
--- NOTE | 2020-05-10 23:50 | CT_ITS ---
HISTORY: Pain TECHNIQUE: Helically acquired images were obtained of the abdomen and pelvis without oral or IV contrast. Due to suboptimal patient positioning, the patient was scanned twice. A radiation dose optimization technique was used for this scan. COMPARISON: Abdominal ultrasound comparison is from April 02, 2019 FINDINGS: # of images incl. paperwork: [id number] LUNG BASES: Benign calcified right lung granulomatous disease. Volume loss within the right hemithorax with atelectasis and/or basilar scarring. Some coronary artery calcific ASCVD within the right main coronary artery. CT abdomen: Some facet arthritis within the lower lumbar spine The gallbladder remains. Liver, spleen, pancreas, and right adrenal gland are normal. At least 3 nodules are present within the left adrenal gland. The largest of these, most superiorly measures 3.4 cm, is almost completely fat, and is consistent with a myelolipoma. The next nodule measures 2.3 cm, and has a central density of -9 Hounsfield units. The next nodule, most inferiorly and anteriorly, measures 3.4 cm in long axis dimensions, and has central density of -12 Hounsfield units. Nonobstructing tiny right nephrolith. The left kidney is normal. The aorta is diseased with atherosclerotic plaque, but without aneurysm.. There is no intra-or extrahepatic biliary ductal dilatation. CT pelvis: No ascites is present. The uterus is not enlarged but does contain some lobular contours and calcifications consistent with uterine leiomyomata. The appendix is normal, with appendicoliths, coronal series 604, image 40.. The bladder is normal. And anterior abdominal wall pannus and hernia is present with some fat extending into the umbilicus. No bowel obstruction. CT/Abdomen/Pelvis without Cont IMPRESSION: There are at least 3 nodules within the left adrenal gland lung measuring 3.4 cm, one measuring 2.3 cm, and one measuring 3.4 cm. 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 The more inferior 2 lesions are likely adenomas. No acute disease perceived. Individualized dose optimization techniques were used for this CT. at 0044 Reported and signed by: Gómez Ramos MD Electronically Signed: Gómez Ramos MD at 0:43 EST Tel , Service support ,
[2020-05-11] VITALS (31 sets, daily range): BP systolic 109–174; BP diastolic 78–108; PULSE 61–99; RESP 10–23; TEMP 36.1–37.1; O2SAT 91–100
[2020-05-11 00:37] LABS: Anion Gap 10 (5-15); BUN 10 mg/dL (7-18); BUN/Creat Ratio 22.7 RATIO (10-20); Calcium,Total 8.3 mg/dL (8.5-10.1); Chloride 79 mmol/L (98-107); Creatinine, Serum 0.44 mg/dL (0.55-1.02); EST Glomerular Filtration Rate 158 mL/min (>60); Est Glom Filt Rate - Afr Amer 191 mL/min (>60); Glucose 111 mg/dL (74-106); Potassium 3.6 mmol/L (3.5-5.1); Sodium Level 115 mmol/L (136-145)
[2020-05-11 02:47] LABS: Anion Gap 7 (5-15); BUN 10 mg/dL (7-18); BUN/Creat Ratio 23.5 RATIO (10-20); Calcium,Total 7.9 mg/dL (8.5-10.1); Chloride 80 mmol/L (98-107); Creatinine, Serum 0.42 mg/dL (0.55-1.02); EST Glomerular Filtration Rate 165 mL/min (>60); Est Glom Filt Rate - Afr Amer 199 mL/min (>60); Estimated Creatinine Clearance 121.11 ml/min; Glucose 107 mg/dL (74-106); Potassium 3.4 mmol/L (3.5-5.1); Sodium Level 116 mmol/L (136-145)
[2020-05-11] MEDS: Albuterol 2.5 MG/3 ML VIAL.NEB. INHALATION (03:08)
[2020-05-11] MEDS: Potassium Chloride Oral Tablet 20 MEQ 40 MEQ PO ×2 (04:05→06:33)
[2020-05-11] MEDS: Acetaminophen 325 MG Tablet 650 MG PO ×2 (04:08→20:22)
[2020-05-11] MEDS: Desmopressin Acetate 4 MCG/ML Ampul 1 MCG IV ×2 (04:32→13:42)
[2020-05-11 04:46] LABS: Hematocrit 34.9 % (37-47); Hemoglobin 11.2 g/dL (12.0-15.0); Mean Corp Hgb Conc 32.1 g/dL (32-36); Mean Corpuscular Hgb 21.4 pg (27.0-32.0); Mean Corpuscular Volume 66.6 fL (81-99); Mean Platelet Vol. 8.5 fl (6.2-12.0); POSITIVE COUNT YES; POSITIVE MORPHOLOGY YES; Platelet Count 322 K/mm3 (150-450); RBC Distribution Width CV 20.1 % (11.6-14.6); RBC Distribution Width SD 45.2 fl (35.1-43.9); Red Blood Count 5.24 M/mm3 (4.2-5.4); White Blood Count 17.6 K/mm3 (4.4-11.0)
[2020-05-11 05:07] LABS: Anion Gap 7 (5-15); BUN 9 mg/dL (7-18); BUN/Creat Ratio 22.6 RATIO (10-20); Calcium,Total 8.3 mg/dL (8.5-10.1); Chloride 79 mmol/L (98-107); Differential Indicated MANUAL DIFF; EST Glomerular Filtration Rate 177 mL/min (>60); Est Glom Filt Rate - Afr Amer 215 mL/min (>60); Estimated Creatinine Clearance 127.16 ml/min; Glucose 119 mg/dL (74-106); Potassium 3.6 mmol/L (3.5-5.1); Sodium Level 113 mmol/L (136-145)
[2020-05-11 05:22] LABS: Lymphocyte 9 % (19-41); Metamyelocyte 2 % (0-1); Monocyte 2 % (0-10); Neutrophil-Band 9 % (0-5); Neutrophil-Segmented 78 % (47-70); Total Cells Counted 100 (MANUAL DIFF)
[2020-05-11 05:23] LABS: Absolute Neutrophil Count 15.3 X10^3/uL (2.0-7.7); Hypochromasia RARE; Platelet Estimate ADEQUATE (ADEQ); Red Cell Morphology N CYTIC NORMAL (NORM C&C)
[2020-05-11] MEDS: Morphine 2 MG/ML Syringe IV ×2 (06:37→13:54)
[2020-05-11] MEDS: Budesonide Respules 0.5 MG/2 ML AMPUL.NEB. INHALATION ×2 (07:29→18:54)
[2020-05-11] MEDS: Ipratropium/Albuterol Sulfate 3 ML AMPUL.NEB INHALATION ×3 (07:29→18:54)
[2020-05-11] MEDS: Sodium Chloride 3% 500 ML 50 ML IV (07:43)
[2020-05-11] MEDS: Topiramate 25 MG Tablet PO ×2 (09:51→20:22)
[2020-05-11] MEDS: buPROPion (SR) 150 MG Tablet.SA PO ×2 (09:51→20:22)
[2020-05-11] MEDS: Rivaroxaban 20 MG Tablet PO (09:51)
[2020-05-11] MEDS: 0.9% Saline Lock 10 ML Syringe IV ×2 (09:51→16:53)
[2020-05-11 10:16] LABS: Sodium Level 115 mmol/L (136-145)
[2020-05-11] MEDS: Sodium Chloride 3% 500 ML 25 ML IV (10:46)
--- NOTE | 2020-05-11 10:49 | PN_ITS ---
Patient Problems: Active and Suspected Problems (Last Reviewed 05/10/20 @ 01:53 by Damari Hoyos, ELEMENTARY TUTOR-C) Hyponatremia (Acute) Abdominal pain (Acute) Hypochloremia (Acute) Morbid obesity with BMI of 45.0-49.9, adult (Acute) Shortness of breath at rest (Acute) Subjective: Patient seen and examined. She did complain of back pain but had no other complaints. Review of systems otherwise negative. Sodium still remains low she is on hypertonic saline. Sodium is 115 today. Vitals/I&O's: Vital Signs Temp Pulse Resp BP Pulse Ox 98.8 F 71 16 144/81 H 96 05/11/20 08:00 05/11/20 10:00 05/11/20 10:00 05/11/20 10:00 05/11/20 10:00 Oxygen Flow Rate (L/min) 1 Oxygen Delivery Method Room Air Weight: 262 lb 5.601 oz Body Mass Index (BMI) 47.4 Intake and Output for Last 24 Hours 05/09/20 05/10/20 05/11/20 23:59 23:59 23:59 Intake Total 2016.50 / 2017.50 205.84 / 205.84 Output Total 650 / 650 500 / 500 Balance 1367.50 / 1367.50 -294.16 / -294.16 General: Alert, Oriented x3, Cooperative, - - obese HEENT: Atraumatic, PERRLA, EOMI, Normocephalic Oral: Moist Mucosa Neck: Supple, No JVD, Negative Carotid Bruits Lungs: Clear to auscultation, Normal air movement, No rhonchi, No wheeze, No rales Cardiovascular: Regular rate, Regular Rhythm, Normal S1, Normal S2, No murmurs Abdomen: Bowel Sounds Present, Soft, Non Tender, Non-Distended, Obese Extremities: No clubbing, No cyanosis, No edema, Capillary Refill Less than 3 Seconds Skin: No rashes, No breakdown Musculoskeletal: No Tenderness to Palpation of Joints or Extremities Lymphatic: No Cervical, Supraclavicular, or Inguinal Adenopathy Neurological: Cranial nerves II-XII grossly intact, Neuro grossly intact, Motor Exam 5/5 strength throughout Psych/Mental Status: Normal Affect, Appropriate, Alert and oriented to time, place, person, mood and affect Microbiology Past 72 Hours 05/09/20 23:47 Urine, Clean Catch Urine Culture - Preliminary Mixed Gram Pos & Gram Neg Org 05/09/20 22:30 Mucosa - Nose SARS-CoV-2 Antigen (Rapid) - Final Laboratory Results 05/09/20 22:25: Diff Path Review Reviewed 05/10/20 05:06: Diff Path Review Reviewed 05/10/20 11:15: Sodium 111 L*, Potassium 4.1, Chloride 75 L, Carbon Dioxide 28.0, Anion Gap 8, BUN 8, Creatinine 0.50 L, Estim Creat Clear Calc 101.73, Est GFR (MDRD) Af Amer 167, Est GFR (MDRD) Non-Af 138, BUN/Creatinine Ratio 16.1, Glucose 129 H, Calcium 8.1 L 05/10/20 15:10: Sodium 113 L*, Potassium 3.6, Chloride 77 L, Carbon Dioxide 27.0, Anion Gap 9, BUN 8, Creatinine 0.51 L, Estim Creat Clear Calc 99.74, Est GFR (MDRD) Af Amer 161, Est GFR (MDRD) Non-Af 133, BUN/Creatinine Ratio 15.7, Glucose 101, Calcium 8.3 L 05/10/20 18:35: Sodium 113 L*, Potassium 3.9, Chloride 77 L, Carbon Dioxide 27.0, Anion Gap 9, BUN 9, Creatinine 0.44 L, Estim Creat Clear Calc 115.60, Est GFR (MDRD) Af Amer 191, Est GFR (MDRD) Non-Af 158, BUN/Creatinine Ratio 20.4 H, Glucose 104, Calcium 8.3 L 05/10/20 22:07: POC Glucose 128 H 05/10/20 23:05: Sodium 115 L*, Potassium 3.6, Chloride 79 L, Carbon Dioxide 26.0, Anion Gap 10, BUN 10, Creatinine 0.44 L, Estim Creat Clear Calc 115.60, Est GFR (MDRD) Af Amer 191, Est GFR (MDRD) Non-Af 158, BUN/Creatinine Ratio 22.7 H, Glucose 111 H, Calcium 8.3 L 05/11/20 02:20: Sodium 116 L*, Potassium 3.4 L, Chloride 80 L, Carbon Dioxide 29.0, Anion Gap 7, BUN 10, Creatinine 0.42 L, Estim Creat Clear Calc 121.11, Est GFR (MDRD) Af Amer 199, Est GFR (MDRD) Non-Af 165, BUN/Creatinine Ratio 23.5 H, Glucose 107 H, Calcium 7.9 L 05/11/20 04:40: WBC 17.6 H, RBC 5.24, Hgb 11.2 L, Hct 34.9 L, MCV 66.6 L, MCH 21.4 L, MCHC 32.1, RDW Std Deviation 45.2 H, RDW Coeff of [place]iston 20.1 H, Plt Count 322, MPV 8.5, Neut % (Auto) Not Reportable, Absolute Neuts (auto) 15.3 H, Absolute Lymphs (auto) 1.60, Total Counted 100, Neutrophils % (Manual) 78 H, Band Neutrophils % 9 H, Lymphocytes % (Manual) 9 L, Monocytes % (Manual) 2, Metamyelocytes % 2 H, Diff Path Review June, Platelet Estimate ADEQUATE, RBC Morphology N CYTIC, Hypochromasia RARE 05/11/20 04:40: Sodium 113 L*, Potassium 3.6, Chloride 79 L, Carbon Dioxide 27.0, Anion Gap 7, BUN 9, Creatinine 0.40 L, Estim Creat Clear Calc 127.16, Est GFR (MDRD) Af Amer 215, Est GFR (MDRD) Non-Af 177, BUN/Creatinine Ratio 22.6 H, Glucose 119 H, Calcium 8.3 L 05/11/20 09:50: Sodium 115 L* Diagnostic Data Chest X-Ray 05/09/20 22:38 IMPRESSION: Old granulomatous disease. No acute chest disease. Electronically Signed: Sergio Beauchamp MD at 22:54 EST , Service support , Abdomen/Pelvis CT 05/10/20 23:50 IMPRESSION: There are at least 3 nodules within the left adrenal gland lung measuring 3.4 cm, one measuring 2.3 cm, and one measuring 3.4 cm. 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 The more inferior 2 lesions are likely adenomas. No acute disease perceived. Individualized dose optimization techniques were used for this CT. at 0044 Reported and signed by: Gómez Ramos MD Electronically Signed: Gómez Ramos MD at 0:43 EST Tel , Service support , Current Medications Acetaminophen (Acetaminophen 325 Mg Tablet) 650 mg PO Q6H PRN PRN PRN Reason: Pain Score 1-10/Temp > 100.7 F Last Admin: 05/11/20 04:08 Dose: 650 mg Documented by: Albuterol Sulfate (Albuterol 2.5 Mg/3 Ml Vial.Neb.) 2.5 mg INHALATION Q2H PRN PRN PRN Reason: SOB/Wheezing Last Admin: 05/11/20 03:08 Dose: 2.5 mg Documented by: Albuterol/Ipratropium (Ipratropium/Albuterol Sulfate 3 Ml Ampul.Neb) 3 ml INHALATION Q6HWA.RT DEVYN Last Admin: 05/11/20 07:29 Dose: 3 ml Documented by: Budesonide (Budesonide Respules 0.5 Mg/2 Ml Ampul.Neb.) 0.5 mg INHALATION Q12H .RT DEVYN Last Admin: 05/11/20 07:29 Dose: 0.5 mg Documented by: Bupropion HCl (Bupropion (Sr) 150 Mg Tablet.Sa) 150 mg PO BID DEVYN Last Admin: 05/11/20 09:51 Dose: 150 mg Documented by: Sodium Chloride () 250 mls @ 15 mls/hr IV .[id number] PRN PRN Reason: Saline Flush Sodium Chloride () 250 mls @ 15 mls/hr IV .[id number] PRN PRN Reason: Additional IVPB Infusion Sodium Chloride (Sodium Chloride 3%) 500 mls @ 25 mls/hr IV .Q20H DEVYN Stop: 05/11/20 14:35 Last Admin: 05/11/20 10:46 Dose: 25 mls/hr Documented by: Insulin Human Lispro (Insulin Lispro 100 Unit/Ml Insuln.Pen) 0 unit SC ACHS DEVYN; Protocol Last Admin: 05/11/20 10:46 Dose: Not Given Documented by: Morphine Sulfate (Morphine 2 Mg/Ml Syringe) 2 mg IV Q3H PRN PRN PRN Reason: Pain Score 6-10 Last Admin: 05/11/20 06:37 Dose: 2 mg Documented by: Ondansetron HCl (Ondansetron 4 Mg/2 Ml Vial) 4 mg IV Q8H PRN PRN PRN Reason: NAUSEA/VOMITING Promethazine HCl (Promethazine 25 Mg/Ml Syringe) 12.5 mg IV Q6H PRN PRN PRN Reason: NAUSEA/VOMITING Last Admin: 05/10/20 12:40 Dose: 12.5 mg Documented by: Rivaroxaban (Rivaroxaban 20 Mg Tablet) 20 mg PO DAILY [facility] Last Admin: 05/11/20 09:51 Dose: 20 mg Documented by: Sodium Chloride (0.9% Saline Lock 10 Ml Syringe) 10 - 40 ml IV UD PRN PRN Reason: SALINE FLUSH Last Admin: 05/11/20 09:51 Dose: 20 ml Documented by: Topiramate (Topiramate 25 Mg Tablet) 25 mg PO BID [facility] Last Admin: 05/11/20 09:51 Dose: 25 mg Documented by: STROKE Vital Signs/Narrative: Vital Signs Temp Pulse Resp BP Pulse Ox 05/11/20 10:00 71 16 144/81 H 96 05/11/20 09:00 75 21 H 151/79 H 94 05/11/20 08:00 98.8 F 71 16 135/87 H 96 05/11/20 07:00 69 18 129/108 H 97 Medical Necessity - Tobacco Use Smoking Status: Current every day smoker Assessment/Plan All Active Problems (Last Reviewed 05/10/20 @ 01:53 by Damari Hoyos, ELEMENTARY TUTOR-C) Hyponatremia (Acute) Abdominal pain (Acute) Hypochloremia (Acute) Morbid obesity with BMI of 45.0-49.9, adult (Acute) Shortness of breath at rest (Acute) Rapid palpitations (Resolved) Secondary pulmonary arterial hypertension (Resolved) #Acute hypo-osmolar hypotonic hyponatremia * sodium was 110 on admission, and is now 115 * transferred to ICU to receive hypertonic saline due to severe hyponatremia * cause of hyponatremia likely her diuretics, ie lasix and HCTZ * dc diuretics * nephrology on board * check sodium q4hrly * * #Abdominal pain * resolved * CT of the abdomen and pelvis showed 3 nodules in the left adrenal gland, which were thought to be myelolipomas and adenomas. It also showed an anterior abdominal wall pannus and hernia with some fat extending into the umbilicus. * general surgery evaluated patient and did not think there is any need for surgical intervention now. * Will monitor. * #Type II diabetes mellitus: * Metformin on hold. Insulin sliding scale. Accu-Cheks AC at bedtime. * #Hypertension: Losartan. Hydrochlorothiazide and Lasix on hold on account of hyponatremia. IV hydralazine as needed. #Adrenal nodules: as per CT abdomen and pelvis. to follow up with PCP on outpatient basis for closer monitoring #Depression: On bupropion #Chronic pain syndrome: On Topamax #History of venous thromboembolism: on xarelto #Anxiety and Depression; on bupropion. DVT prophylaxis: on xarelto Inpatient E&M: [id number] [facility] Hosp L3
[2020-05-11 10:50] LABS: Bedside Glucose 121 mg/dL (70-110)
--- NOTE | 2020-05-11 11:31 | PN.RENAL_ITS ---
Patient Problems: Active and Suspected Problems (Last Reviewed 05/10/20 @ 01:53 by Damari Hoyos, DIRECTIONAL BORE OPERATOR-C) Hyponatremia (Acute) Abdominal pain (Acute) Hypochloremia (Acute) Morbid obesity with BMI of 45.0-49.9, adult (Acute) Shortness of breath at rest (Acute) Subjective: feels better some wheezing no n/v/d/dizziness - Physical Exam Vitals/I&O's: Vital Signs Temp Pulse Resp BP Pulse Ox 98.8 F 73 21 H 156/97 H 95 05/11/20 08:00 05/11/20 11:00 05/11/20 11:00 05/11/20 11:00 05/11/20 11:00 Oxygen Flow Rate (L/min) 1 Oxygen Delivery Method Room Air Weight: 119 kg Body Mass Index (BMI) 47.4 Intake and Output for Last 24 Hours 05/09/20 05/10/20 05/11/20 23:59 23:59 23:59 Intake Total 2017.50 / 2017.50 205.84 / 205.84 Output Total 650 / 650 500 / 500 Balance 1367.50 / 1367.50 -294.16 / -294.16 General: Alert, Cooperative HEENT: Atraumatic, Normocephalic Neck: Supple, Trachea Midline Lungs: Clear to auscultation, Normal air movement Cardiovascular: Regular rate, Regular Rhythm, Normal S1 Abdomen: Bowel Sounds Present, Soft, Obese Extremities: Edema Microbiology Past 72 Hours 05/09/20 23:47 Urine, Clean Catch Urine Culture - Preliminary Mixed Gram Pos & Gram Neg Org 05/09/20 22:30 Mucosa - Nose SARS-CoV-2 Antigen (Rapid) - Final Laboratory Results 05/09/20 22:25: Diff Path Review Reviewed 05/10/20 05:06: Diff Path Review Reviewed 05/10/20 11:15: Sodium 111 L*, Potassium 4.1, Chloride 75 L, Carbon Dioxide 28.0, Anion Gap 8, BUN 8, Creatinine 0.50 L, Estim Creat Clear Calc 101.73, Est GFR (MDRD) Af Amer 167, Est GFR (MDRD) Non-Af 138, BUN/Creatinine Ratio 16.1, Glucose 129 H, Calcium 8.1 L 05/10/20 15:10: Sodium 113 L*, Potassium 3.6, Chloride 77 L, Carbon Dioxide 27.0, Anion Gap 9, BUN 8, Creatinine 0.51 L, Estim Creat Clear Calc 99.74, Est GFR (MDRD) Af Amer 161, Est GFR (MDRD) Non-Af 133, BUN/Creatinine Ratio 15.7, Glucose 101, Calcium 8.3 L 05/10/20 18:35: Sodium 113 L*, Potassium 3.9, Chloride 77 L, Carbon Dioxide 27.0, Anion Gap 9, BUN 9, Creatinine 0.44 L, Estim Creat Clear Calc 115.60, Est GFR (MDRD) Af Amer 191, Est GFR (MDRD) Non-Af 158, BUN/Creatinine Ratio 20.4 H, Glucose 104, Calcium 8.3 L 05/10/20 22:07: POC Glucose 128 H 05/10/20 23:05: Sodium 115 L*, Potassium 3.6, Chloride 79 L, Carbon Dioxide 26.0, Anion Gap 10, BUN 10, Creatinine 0.44 L, Estim Creat Clear Calc 115.60, Est GFR (MDRD) Af Amer 191, Est GFR (MDRD) Non-Af 158, BUN/Creatinine Ratio 22.7 H, Glucose 111 H, Calcium 8.3 L 05/11/20 02:20: Sodium 116 L*, Potassium 3.4 L, Chloride 80 L, Carbon Dioxide 29.0, Anion Gap 7, BUN 10, Creatinine 0.42 L, Estim Creat Clear Calc 121.11, Est GFR (MDRD) Af Amer 199, Est GFR (MDRD) Non-Af 165, BUN/Creatinine Ratio 23.5 H, Glucose 107 H, Calcium 7.9 L 05/11/20 04:40: WBC 17.6 H, RBC 5.24, Hgb 11.2 L, Hct 34.9 L, MCV 66.6 L, MCH 21.4 L, MCHC 32.1, RDW Std Deviation 45.2 H, RDW Coeff of Triston 20.1 H, Plt Count 322, MPV 8.5, Neut % (Auto) Not Reportable, Absolute Neuts (auto) 15.3 H, Absolute Lymphs (auto) 1.60, Total Counted 100, Neutrophils % (Manual) 78 H, Band Neutrophils % 9 H, Lymphocytes % (Manual) 9 L, Monocytes % (Manual) 2, Metamyelocytes % 2 H, Diff Path Review May foll, Platelet Estimate ADEQUATE, RBC Morphology N CYTIC, Hypochromasia RARE 05/11/20 04:40: Sodium 113 L*, Potassium 3.6, Chloride 79 L, Carbon Dioxide 27.0, Anion Gap 7, BUN 9, Creatinine 0.40 L, Estim Creat Clear Calc 127.16, Est GFR (MDRD) Af Amer 215, Est GFR (MDRD) Non-Af 177, BUN/Creatinine Ratio 22.6 H, Glucose 119 H, Calcium 8.3 L 05/11/20 09:50: Sodium 115 L* 05/11/20 10:43: POC Glucose 121 H Current Medications Acetaminophen (Acetaminophen 325 Mg Tablet) 650 mg PO Q6H PRN PRN PRN Reason: Pain Score 1-10/Temp > 100.7 F Last Admin: 05/11/20 04:08 Dose: 650 mg Documented by: Albuterol Sulfate (Albuterol 2.5 Mg/3 Ml Vial.Neb.) 2.5 mg INHALATION Q2H PRN PRN PRN Reason: SOB/Wheezing Last Admin: 05/11/20 03:08 Dose: 2.5 mg Documented by: Albuterol/Ipratropium (Ipratropium/Albuterol Sulfate 3 Ml Ampul.Neb) 3 ml INHALATION Q6HWA.RT [facility] Last Admin: 05/11/20 07:29 Dose: 3 ml Documented by: Budesonide (Budesonide Respules 0.5 Mg/2 Ml Ampul.Neb.) 0.5 mg INHALATION Q12H.RT [facility] Last Admin: 05/11/20 07:29 Dose: 0.5 mg Documented by: Bupropion HCl (Bupropion (Sr) 150 Mg Tablet.Sa) 150 mg PO BID [facility] Last Admin: 05/11/20 09:51 Dose: 150 mg Documented by: Sodium Chloride () 250 mls @ 15 mls/hr IV .[id number] PRN PRN Reason: Saline Flush Sodium Chloride () 250 mls @ 15 mls/hr IV .[id number] PRN PRN Reason: Additional IVPB Infusion Sodium Chloride (Sodium Chloride 3%) 500 mls @ 25 mls/hr IV .Q20H [facility] Stop: 05/11/20 14:35 Last Admin: 05/11/20 10:46 Dose: 25 mls/hr Documented by: Insulin Human Lispro (Insulin Lispro 100 Unit/Ml Insuln.Pen) 0 unit SC ACHS [facility]; Protocol Last Admin: 05/11/20 10:46 Dose: Not Given Documented by: Morphine Sulfate (Morphine 2 Mg/Ml Syringe) 2 mg IV Q3H PRN PRN PRN Reason: Pain Score 6-10 Last Admin: 05/11/20 06:37 Dose: 2 mg Documented by: Ondansetron HCl (Ondansetron 4 Mg/2 Ml Vial) 4 mg IV Q8H PRN PRN PRN Reason: NAUSEA/VOMITING Promethazine HCl (Promethazine 25 Mg/Ml Syringe) 12.5 mg IV Q6H PRN PRN PRN Reason: NAUSEA/VOMITING Last Admin: 05/10/20 12:40 Dose: 12.5 mg Documented by: Rivaroxaban (Rivaroxaban 20 Mg Tablet) 20 mg PO DAILY [facility] Last Admin: 05/11/20 09:51 Dose: 20 mg Documented by: Sodium Chloride (0.9% Saline Lock 10 Ml Syringe) 10 - 40 ml IV UD PRN PRN Reason: SALINE FLUSH Last Admin: 05/11/20 09:51 Dose: 20 ml Documented by: Topiramate (Topiramate 25 Mg Tablet) 25 mg PO BID [facility] Last Admin: 05/11/20 09:51 Dose: 25 mg Documented by: Medical Necessity - Tobacco Use Smoking Status: Current every day smoker Assessment/Plan All Active Problems (Last Reviewed 05/10/20 @ 01:53 by Damari Hoyos, DIRECTIONAL BORE OPERATOR-C) Hyponatremia (Acute) Abdominal pain (Acute) Hypochloremia (Acute) Morbid obesity with BMI of 45.0-49.9, adult (Acute) Shortness of breath at rest (Acute) Rapid palpitations (Resolved) Secondary pulmonary arterial hypertension (Resolved) hyponatremia likely 2/2 thiazides LE edema Proteinuria likely diabetic nephropathy Abd pain/COPD/DM/misc per primary on 3 percent and will use ddavp to control the rate of correction of SNa in order to avoid more than 8 meq/24 hours correction. Check serial SNa and adjust hypertonic saline and ddavp accordingly.My cell phone number was left with RN. f/u 24 hour collection for protein further w/u per clinical course ok to resume losartan from renal standpoint so far correction within target which is 4-6/day maximum 8 meq per 24 hours. Most recent SNa is 115 pending new draw now. Can resume lasix after SNa in normal range No more thiazides in the future Dr. Hagan covers after 5 pm d/w patient and RN.
[2020-05-11 11:40] LABS: Pathologist Review Reviewed
[2020-05-11 14:13] LABS: Sodium Level 118 mmol/L (136-145)
[2020-05-11 17:01] LABS: Bedside Glucose 124 mg/dL (70-110)
[2020-05-11 17:31] LABS: Sodium Level 119 mmol/L (136-145)
[2020-05-11] MEDS: Desmopressin Acetate 4 MCG/ML Ampul 2 MCG IV (18:55)
[2020-05-11 20:46] LABS: Sodium Level 118 mmol/L (136-145)
[2020-05-12] VITALS (30 sets, daily range): BP systolic 134–167; BP diastolic 74–118; PULSE 68–91; RESP 14–23; TEMP 36.1–37; O2SAT 19–98
[2020-05-12] MEDS: Morphine 2 MG/ML Syringe IV (00:34)
[2020-05-12] MEDS: Ipratropium/Albuterol Sulfate 3 ML AMPUL.NEB INHALATION ×4 (02:50→18:59)
[2020-05-12 05:24] LABS: Hemoglobin 10.8 g/dL (12.0-15.0); Mean Corp Hgb Conc 31.8 g/dL (32-36); Mean Corpuscular Hgb 21.6 pg (27.0-32.0); Mean Platelet Vol. 8.1 fl (6.2-12.0); POSITIVE COUNT YES; POSITIVE MORPHOLOGY YES; Platelet Count 255 K/mm3 (150-450); RBC Distribution Width CV 21.4 % (11.6-14.6); RBC Distribution Width SD 48.3 fl (35.1-43.9); White Blood Count 17.2 K/mm3 (4.4-11.0)
[2020-05-12 05:36] LABS: Differential Indicated MANUAL DIFF
[2020-05-12 05:37] LABS: Anion Gap 6 (5-15); BUN 10 mg/dL (7-18); BUN/Creat Ratio 22.3 RATIO (10-20); Calcium,Total 8.2 mg/dL (8.5-10.1); Chloride 87 mmol/L (98-107); Creatinine, Serum 0.45 mg/dL (0.55-1.02); EST Glomerular Filtration Rate 155 mL/min (>60); Est Glom Filt Rate - Afr Amer 188 mL/min (>60); Estimated Creatinine Clearance 113.03 ml/min; Glucose 108 mg/dL (74-106); Potassium 3.6 mmol/L (3.5-5.1); Sodium Level 120 mmol/L (136-145)
[2020-05-12 05:59] LABS: Myelocyte 2 (0-0); Neutrophil-Band 2 % (0-5); Neutrophil-Segmented 82 % (47-70)
[2020-05-12 06:03] LABS: Atypical Lymphocyte 1+ %; Lymphocyte 10 % (19-41); Monocyte 3 % (0-10); Promyelocyte 1 (0-0)
[2020-05-12 06:04] LABS: Platelet Estimate ADEQUATE (ADEQ)
[2020-05-12 06:05] LABS: Anisocytosis 1+; Red Cell Morphology NORM C+C NORMAL (NORM C&C)
[2020-05-12 06:06] LABS: Absolute Lymphocyte Count 1.72 X10^3/uL (0.83-4.51); Absolute Neutrophil Count 14.4 X10^3/uL (2.0-7.7)
[2020-05-12] MEDS: Budesonide Respules 0.5 MG/2 ML AMPUL.NEB. INHALATION ×2 (06:59→18:57)
--- NOTE | 2020-05-12 07:47 | PN_ITS ---
Patient Problems: Active and Suspected Problems (Last Reviewed 05/10/20 @ 01:53 by Damari Hoyos, STAFF TOXICOLOGIST-C) Hyponatremia (Acute) Abdominal pain (Acute) Hypochloremia (Acute) Morbid obesity with BMI of 45.0-49.9, adult (Acute) Shortness of breath at rest (Acute) Subjective: Patient seen and examined. She has no complaints today.. Symptoms otherwise negative. Sodium has come up to 120. Has remained hemodynamically stable. Vitals/I&O's: Vital Signs Temp Pulse Resp BP Pulse Ox 98.4 F 76 22 H 155/74 H 98 05/12/20 04:00 05/12/20 07:43 05/12/20 06:59 05/12/20 06:00 05/12/20 06:59 Oxygen Flow Rate (L/min) 1 Oxygen Delivery Method Room Air Weight: 261 lb 7.492 oz Body Mass Index (BMI) 47.4 Intake and Output for Last 24 Hours 05/10/20 05/11/20 05/12/20 23:59 23:59 23:59 Intake Total 2016.50 / 2016.50 930.84 / 1050.84 240 / 240 Output Total 650 / 650 1450 / 1800 750 / 750 Balance 1367.50 / 1367.50 -519.16 / -749.16 -510 / -510 General: Alert, Oriented x3, Cooperative, - - obese HEENT: Atraumatic, PERRLA, EOMI, Normocephalic Oral: Moist Mucosa Neck: Supple, No JVD, Negative Carotid Bruits Lungs: Clear to auscultation, Normal air movement, No rhonchi, No wheeze, No rales Cardiovascular: Regular rate, Regular Rhythm, Normal S1, Normal S2, No murmurs Abdomen: Bowel Sounds Present, Soft, Non Tender, Non-Distended, Obese Extremities: No clubbing, No cyanosis, No edema, Capillary Refill Less than 3 Seconds Skin: No rashes, No breakdown Musculoskeletal: No Tenderness to Palpation of Joints or Extremities Lymphatic: No Cervical, Supraclavicular, or Inguinal Adenopathy Neurological: Cranial nerves II-XII grossly intact, Neuro grossly intact, Motor Exam 5/5 strength throughout Psych/Mental Status: Normal Affect, Appropriate, Alert and oriented to time, place, person, mood and affect Microbiology Past 72 Hours 05/09/20 23:47 Urine, Clean Catch Urine Culture - Final Mixed Gram Pos & Gram Neg Org 05/10/20 05:06 Blood Culture (Wb) - Anticubital Right Blood Culture - Preliminary No growth in 48 hours. 05/10/20 02:45 Blood Culture (Wb) - Anticubital Right Blood Culture - Preliminary No growth in 48 hours. 05/09/20 22:30 Mucosa - Nose SARS-CoV-2 Antigen (Rapid) - Final Laboratory Results 05/11/20 04:40: Diff Path Review Reviewed 05/11/20 09:50: Sodium 115 L* 05/11/20 10:43: POC Glucose 121 H 05/11/20 13:50: Sodium 118 L* 05/11/20 16:45: Sodium 119 L* 05/11/20 16:52: POC Glucose 124 H 05/11/20 20:05: Sodium 118 L* 05/12/20 05:15: WBC 17.2 H, RBC 5.00, Hgb 10.8 L, Hct 34.0 L, MCV 68.0 L, MCH 21.6 L, MCHC 31.8 L, RDW Std Deviation 48.3 H, RDW Coeff of Triston 21.4 H, Plt Count 255, MPV 8.1, Neut % (Auto) Not Reportable, Absolute Neuts (auto) 14.4 H, Absolute Lymphs (auto) 1.72, Neutrophils % (Manual) 82 H, Band Neutrophils % 2, Lymphocytes % (Manual) 10 L, Monocytes % (Manual) 3, Myelocytes % 2 H, Promyelocytes % 1 H, Diff Path Review May foll, Atypical Lymphocytes 1+, Platelet Estimate ADEQUATE, RBC Morphology NORM C+C, Anisocytosis 1+ 05/12/20 05:15: Sodium 120 L, Potassium 3.6, Chloride 87 L, Carbon Dioxide 27.0, Anion Gap 6, BUN 10, Creatinine 0.45 L, Estim Creat Clear Calc 113.03, Est GFR (MDRD) Af Amer 188, Est GFR (MDRD) Non-Af 155, BUN/Creatinine Ratio 22.3 H, Glucose 108 H, Calcium 8.2 L Current Medications Acetaminophen (Acetaminophen 325 Mg Tablet) 650 mg PO Q6H PRN PRN PRN Reason: Pain Score 1-10/Temp > 100.7 F Last Admin: 05/11/20 20:22 Dose: 650 mg Documented by: Albuterol Sulfate (Albuterol 2.5 Mg/3 Ml Vial.Neb.) 2.5 mg INHALATION Q2H PRN PRN PRN Reason: SOB/Wheezing Last Admin: 05/11/20 03:08 Dose: 2.5 mg Documented by: Albuterol/Ipratropium (Ipratropium/Albuterol Sulfate 3 Ml Ampul.Neb) 3 ml INHALATION Q6HWA.RT [facility] Last Admin: 05/12/20 06:59 Dose: 3 ml Documented by: Budesonide (Budesonide Respules 0.5 Mg/2 Ml Ampul.Neb.) 0.5 mg INHALATION Q12H.RT [facility] Last Admin: 05/12/20 06:59 Dose: 0.5 mg Documented by: Bupropion HCl (Bupropion (Sr) 150 Mg Tablet.Sa) 150 mg PO BID [facility] Last Admin: 05/11/20 20:22 Dose: 150 mg Documented by: Sodium Chloride () 250 mls @ 15 mls/hr IV .[id number] PRN PRN Reason: Saline Flush Sodium Chloride () 250 mls @ 15 mls/hr IV .[id number] PRN PRN Reason: Additional IVPB Infusion Insulin Human Lispro (Insulin Lispro 100 Unit/Ml Insuln.Pen) 0 unit SC ACHS [facility]; Protocol Last Admin: 05/11/20 21:09 Dose: Not Given Documented by: Morphine Sulfate (Morphine 2 Mg/Ml Syringe) 2 mg IV Q3H PRN PRN PRN Reason: Pain Score 6-10 Last Admin: 05/12/20 00:34 Dose: 2 mg Documented by: Ondansetron HCl (Ondansetron 4 Mg/2 Ml Vial) 4 mg IV Q8H PRN PRN PRN Reason: NAUSEA/VOMITING Promethazine HCl (Promethazine 25 Mg/Ml Syringe) 12.5 mg IV Q6H PRN PRN PRN Reason: NAUSEA/VOMITING Last Admin: 05/10/20 12:40 Dose: 12.5 mg Documented by: Rivaroxaban (Rivaroxaban 20 Mg Tablet) 20 mg PO DAILY [facility] Last Admin: 05/11/20 09:51 Dose: 20 mg Documented by: Sodium Chloride (0.9% Saline Lock 10 Ml Syringe) 10 - 40 ml IV UD PRN PRN Reason: SALINE FLUSH Last Admin: 05/11/20 16:53 Dose: 10 ml Documented by: Topiramate (Topiramate 25 Mg Tablet) 25 mg PO BID [facility] Last Admin: 05/11/20 20:22 Dose: 25 mg Documented by: STROKE Vital Signs/Narrative: Vital Signs Temp Pulse Resp BP Pulse Ox 05/12/20 07:43 76 05/12/20 06:59 70 22 H 98 05/12/20 06:00 80 21 H 155/74 H 93 05/12/20 05:00 76 20 H 167/110 H 94 05/12/20 04:00 98.4 F 68 15 144/80 H 97 Medical Necessity - Tobacco Use Smoking Status: Current every day smoker Assessment/Plan All Active Problems (Last Reviewed 05/10/20 @ 01:53 by Damari Hoyos, STAFF TOXICOLOGIST-C) Hyponatremia (Acute) Abdominal pain (Acute) Hypochloremia (Acute) Morbid obesity with BMI of 45.0-49.9, adult (Acute) Shortness of breath at rest (Acute) Rapid palpitations (Resolved) Secondary pulmonary arterial hypertension (Resolved) #Acute hypo-osmolar hypotonic hyponatremia * sodium was 110 on admission, and is now 120 * now off hypertonic saline * diuretics on hold * continue gentle hydration with IV normal saline * monitor sodium levels * * * * #Abdominal pain * resolved * CT of the abdomen and pelvis showed 3 nodules in the left adrenal gland, which were thought to be myelolipomas and adenomas. It also showed an anterior abdominal wall pannus and hernia with some fat extending into the umbilicus. * general surgery evaluated patient and did not think there is any need for surgical intervention now. * Will monitor. * #Type II diabetes mellitus: * Metformin on hold. Insulin sliding scale. Accu-Cheks AC at bedtime. * #Hypertension: Losartan. Hydrochlorothiazide and Lasix on hold on account of hyponatremia. IV hydralazine as needed. #Adrenal nodules: as per CT abdomen and pelvis. to follow up with PCP on outpatient basis for closer monitoring #Depression: On bupropion #Chronic pain syndrome: On Topamax #History of venous thromboembolism: on xarelto #Anxiety and Depression; on bupropion. DVT prophylaxis: on xarelto Disposition: transfer out of ICU to regular floor today Inpatient E&M: [id number] Subs Hosp L2
[2020-05-12] MEDS: Rivaroxaban 20 MG Tablet PO (08:29)
[2020-05-12] MEDS: Topiramate 25 MG Tablet PO ×2 (08:29→21:18)
[2020-05-12] MEDS: buPROPion (SR) 150 MG Tablet.SA PO ×2 (08:29→21:18)
[2020-05-12 08:36] LABS: Bedside Glucose 133 mg/dL (70-110)
[2020-05-12 11:30] LABS: Bedside Glucose 115 mg/dL (70-110)
[2020-05-12] MEDS: Albuterol 2.5 MG/3 ML VIAL.NEB. INHALATION (11:34)
[2020-05-12 11:37] LABS: Sodium Level 120 mmol/L (136-145)
[2020-05-12] MEDS: Acetaminophen 325 MG Tablet 650 MG PO ×2 (11:49→19:56)
[2020-05-12] MEDS: 0.9% Saline Lock 10 ML Syringe IV ×2 (11:50→17:08)
[2020-05-12] MEDS: Sodium Chloride 0.65% 1 SPRAY SPRAY.BTL NASAL (15:04)
[2020-05-12] MEDS: 0.9% Normal Saline 1,000 ML 100 ML IV (17:08)
--- NOTE | 2020-05-12 17:09 | PCM.PN.REN ---
Patient Problems: Active and Suspected Problems (Last Reviewed 05/10/20 @ 01:53 by Damari Hoyos, SILVERWARE SUPERVISOR-C) Hyponatremia (Acute) Abdominal pain (Acute) Hypochloremia (Acute) Morbid obesity with BMI of 45.0-49.9, adult (Acute) Shortness of breath at rest (Acute) Subjective: Patient denied any nausea vomiting shortness of breath. She seems has sinus congestion - Physical Exam Vitals/I&O's: Vital Signs Temp Pulse Resp BP Pulse Ox 97.4 F L 77 16 138/82 H 98 05/12/20 15:00 05/12/20 15:41 05/12/20 15:00 05/12/20 15:00 05/12/20 15:00 Oxygen Flow Rate (L/min) 1 Oxygen Delivery Method Room Air Weight: 118.6 kg Body Mass Index (BMI) 47.4 Intake and Output for Last 24 Hours 05/10/20 05/11/20 05/12/20 23:59 23:59 23:59 Intake Total 2016.50 / 2016.50 930.84 / 1050.84 720 / 720 Output Total 650 / 650 1450 / 1800 1450 / 1450 Balance 1367.50 / 1367.50 -519.16 / -749.16 -730 / -730 General: Alert, Oriented x3 HEENT: Atraumatic Oral: Moist Mucosa Neck: Supple, No JVD Lungs: Clear to auscultation, Normal air movement, No rhonchi, No wheeze, No rales Cardiovascular: Regular rate, Regular Rhythm, Normal S1, Normal S2 Abdomen: Bowel Sounds Present, Soft, Non Tender, Non-Distended Extremities: No clubbing, No cyanosis, Edema - 2 edema of lower extremities Skin: No rashes Lymphatic: No Cervical, Supraclavicular, or Inguinal Adenopathy Neurological: Cranial nerves II-XII grossly intact, Neuro grossly intact Psych/Mental Status: Appropriate Microbiology Past 72 Hours 05/09/20 23:47 Urine, Clean Catch Urine Culture - Final Mixed Gram Pos & Gram Neg Org 05/10/20 05:06 Blood Culture (Wb) - Anticubital Right Blood Culture - Preliminary No growth in 48 hours. 05/10/20 02:45 Blood Culture (Wb) - Anticubital Right Blood Culture - Preliminary No growth in 48 hours. 05/09/20 22:30 Mucosa - Nose SARS-CoV-2 Antigen (Rapid) - Final Laboratory Results 05/11/20 16:45: Sodium 119 L* 05/11/20 20:05: Sodium 118 L* 05/12/20 05:15: WBC 17.2 H, RBC 5.00, Hgb 10.8 L, Hct 34.0 L, MCV 68.0 L, MCH 21.6 L, MCHC 31.8 L, RDW Std Deviation 48.3 H, RDW Coeff of Triston 21.4 H, Plt Count 255, MPV 8.1, Neut % (Auto) Not Reportable, Absolute Neuts (auto) 14.4 H, Absolute Lymphs (auto) 1.72, Neutrophils % (Manual) 82 H, Band Neutrophils % 2, Lymphocytes % (Manual) 10 L, Monocytes % (Manual) 3, Myelocytes % 2 H, Promyelocytes % 1 H, Diff Path Review May foll, Atypical Lymphocytes 1+, Platelet Estimate ADEQUATE, RBC Morphology NORM C+C, Anisocytosis 1+ 05/12/20 05:15: Sodium 120 L, Potassium 3.6, Chloride 87 L, Carbon Dioxide 27.0, Anion Gap 6, BUN 10, Creatinine 0.45 L, Estim Creat Clear Calc 113.03, Est GFR (MDRD) Af Amer 188, Est GFR (MDRD) Non-Af 155, BUN/Creatinine Ratio 22.3 H, Glucose 108 H, Calcium 8.2 L 05/12/20 08:24: POC Glucose 133 H 05/12/20 11:23: POC Glucose 115 H 05/12/20 11:25: Sodium 120 L 05/12/20 16:54: Sodium Pending Current Medications Acetaminophen (Acetaminophen 325 Mg Tablet) 650 mg PO Q6H PRN PRN PRN Reason: Pain Score 1-10/Temp > 100.7 F Last Admin: 05/12/20 11:49 Dose: 650 mg Documented by: Albuterol Sulfate (Albuterol 2.5 Mg/3 Ml Vial.Neb.) 2.5 mg INHALATION Q2H PRN PRN PRN Reason: SOB/Wheezing Last Admin: 05/12/20 11:34 Dose: 2.5 mg Documented by: Albuterol/Ipratropium (Ipratropium/Albuterol Sulfate 3 Ml Ampul.Neb) 3 ml INHALATION Q6HWA.RT [facility] Last Admin: 05/12/20 14:21 Dose: 3 ml Documented by: Budesonide (Budesonide Respules 0.5 Mg/2 Ml Ampul.Neb.) 0.5 mg INHALATION Q12H.RT [facility] Last Admin: 05/12/20 06:59 Dose: 0.5 mg Documented by: Bupropion HCl (Bupropion (Sr) 150 Mg Tablet.Sa) 150 mg PO BID [facility] Last Admin: 05/12/20 08:29 Dose: 150 mg Documented by: Sodium Chloride () 250 mls @ 15 mls/hr IV .[id number] PRN PRN Reason: Saline Flush Sodium Chloride () 250 mls @ 15 mls/hr IV .[id number] PRN PRN Reason: Additional IVPB Infusion Sodium Chloride () 1,000 mls @ 100 mls/hr IV .Q10H [facility] Stop: 05/13/20 11:54 Sodium Chloride () 500 mls @ 150 mls/hr IV .Q3H20M [facility] Stop: 05/12/20 18:14 Insulin Human Lispro (Insulin Lispro 100 Unit/Ml Insuln.Pen) 0 unit SC ACHS [facility]; Protocol Last Admin: 05/12/20 17:04 Dose: Not Given Documented by: Morphine Sulfate (Morphine 2 Mg/Ml Syringe) 2 mg IV Q3H PRN PRN PRN Reason: Pain Score 6-10 Last Admin: 05/12/20 00:34 Dose: 2 mg Documented by: Ondansetron HCl (Ondansetron 4 Mg/2 Ml Vial) 4 mg IV Q8H PRN PRN PRN Reason: NAUSEA/VOMITING Promethazine HCl (Promethazine 25 Mg/Ml Syringe) 12.5 mg IV Q6H PRN PRN PRN Reason: NAUSEA/VOMITING Last Admin: 05/10/20 12:40 Dose: 12.5 mg Documented by: Rivaroxaban (Rivaroxaban 20 Mg Tablet) 20 mg PO DAILY [facility] Last Admin: 05/12/20 08:29 Dose: 20 mg Documented by: Sodium Chloride (0.9% Saline Lock 10 Ml Syringe) 10 - 40 ml IV UD PRN PRN Reason: SALINE FLUSH Last Admin: 05/12/20 11:50 Dose: 10 ml Documented by: Sodium Chloride (Sodium Chloride 0.65% 1 Karval Karval.Btl) 1 spray NASAL TID PRN PRN PRN Reason: NASAL DRYNESS Last Admin: 05/12/20 15:04 Dose: 1 spray Documented by: Topiramate (Topiramate 25 Mg Tablet) 25 mg PO BID [facility] Last Admin: 05/12/20 08:29 Dose: 25 mg Documented by: Medical Necessity - Tobacco Use Smoking Status: Current every day smoker Assessment/Plan All Active Problems (Last Reviewed 05/10/20 @ 01:53 by Damari Hoyos, SILVERWARE SUPERVISOR-C) Hyponatremia (Acute) Abdominal pain (Acute) Hypochloremia (Acute) Morbid obesity with BMI of 45.0-49.9, adult (Acute) Shortness of breath at rest (Acute) Rapid palpitations (Resolved) Secondary pulmonary arterial hypertension (Resolved) 1-hyponatremia with hypervolemia. Likely from thiazide diuretics. Sodium was as low as 109 mmol/L at presentation. Sodium level corrected at appropriate level using 3% sodium chloride and DDAVP. Both were stopped yesterday. Last 24-hour sodium correction rate is acceptable. Sodium level has been stable at 120 mmol/L for today. I will give the patient half liter of normal saline. Recheck sodium later today. Renal team will continue to follow. Please call if any question
[2020-05-12 17:11] LABS: Bedside Glucose 128 mg/dL (70-110)
[2020-05-12 17:19] LABS: Sodium Level 120 mmol/L (136-145)
[2020-05-12 21:56] LABS: Bedside Glucose 140 mg/dL (70-110)
[2020-05-13] VITALS (15 sets, daily range): BP systolic 126–156; BP diastolic 75–90; PULSE 65–90; RESP 16–20; TEMP 36–36.5; O2SAT 96–98
[2020-05-13] MEDS: Acetaminophen 325 MG Tablet 650 MG PO (03:27)
[2020-05-13] MEDS: Albuterol 2.5 MG/3 ML VIAL.NEB. INHALATION ×3 (03:35→23:46)
[2020-05-13] MEDS: Budesonide Respules 0.5 MG/2 ML AMPUL.NEB. INHALATION ×2 (07:02→20:13)
[2020-05-13] MEDS: Ipratropium/Albuterol Sulfate 3 ML AMPUL.NEB INHALATION ×3 (07:02→20:13)
[2020-05-13 07:11] LABS: Bedside Glucose 150 mg/dL (70-110)
[2020-05-13] MEDS: 0.9% Normal Saline 1,000 ML 100 ML IV (07:28)
[2020-05-13] MEDS: Insulin Lispro 100 UNIT/ML INSULN.PEN SC (07:28)
[2020-05-13 08:06] LABS: Anion Gap 6 (5-15); BUN 8 mg/dL (7-18); BUN/Creat Ratio 22.2 RATIO (10-20); Calcium,Total 7.6 mg/dL (8.5-10.1); Chloride 91 mmol/L (98-107); Creatinine, Serum 0.36 mg/dL (0.55-1.02); EST Glomerular Filtration Rate 199 mL/min (>60); Est Glom Filt Rate - Afr Amer 241 mL/min (>60); Estimated Creatinine Clearance 141.29 ml/min; Glucose 117 mg/dL (74-106); Potassium 3.8 mmol/L (3.5-5.1); Sodium Level 121 mmol/L (136-145)
[2020-05-13] MEDS: Topiramate 25 MG Tablet PO ×2 (09:59→22:44)
[2020-05-13] MEDS: buPROPion (SR) 150 MG Tablet.SA PO ×2 (09:59→22:44)
[2020-05-13] MEDS: Sodium Chloride 0.65% 1 SPRAY SPRAY.BTL NASAL (09:59)
[2020-05-13] MEDS: Rivaroxaban 20 MG Tablet PO (10:00)
--- NOTE | 2020-05-13 11:10 | CT_ITS ---
STUDY: CT CHEST WITH T WITHOUT CONTRAST REASON FOR EXAM: Female, 55 years old. hyponatremia, SIADH -- history of smoking. assess for lung nodule RADIATION DOSAGE (If Supplied By Facility): CTDIvol = ( 15.06 ) mGy, DLP = ( 1249.44 ) mGycm TECHNIQUE: Transaxial imaging was performed pre-and post contrast administration of IV 100mL Isovue-370. Individualized dose optimization techniques were used for this CT. COMPARISON: Chest x-ray 05/09/2020, CT 07/09/2014 FINDINGS: Bilateral peripheral patchy groundglass opacities consistent with subsegmental atelectasis or pneumonitis. Some denser nodular densities in the right upper lobe likely consistent with more confluent pneumonia. Follow-up is recommended to document resolution to exclude a pulmonary nodule or mass. There is no demonstrated pleural abnormality. Normal heart and pericardium. Normal mediastinum. Right hilar lymphadenopathy measuring 1.5 x 3.0 cm. Small subcarinal lymph node. Normal enhanced and unenhanced pulmonary arteries. Normal aorta arch and descending thoracic aorta. Normal osseous structures. Left adrenal gland hyperplasia with a lipoma. CT/Chest W/WO Contrast IMPRESSION: 1. Bilateral subsegmental atelectasis or pneumonitis. Commonly reported imaging features of Covid 19 pneumonia are present. Other processes such as influenza pneumonia and organizing pneumonia as can be seen with drug toxicity and connective tissue disease can cause a similar imaging pattern. 2. More confluent and dense nodular opacities in the right upper lobe with right hilar lymphadenopathy. Possibilities include bacterial pneumonia, tuberculosis or fungal disease, or tumor with metastatic lymphadenopathy. Clinical correlation is recommended. Electronically Signed: Foreign Ya MD at 13:29 EDT Tel , Service support ,
--- NOTE | 2020-05-13 11:13 | PCM.PN.HOSP ---
Patient Problems: Active and Suspected Problems (Last Reviewed 05/10/20 @ 01:53 by Damari Hoyos, PR[employer]ING EQUIPMENT MECH[employer]IC APPRENTICE-C) Hyponatremia (Acute) Abdominal pain (Acute) Hypochloremia (Acute) Morbid obesity with BMI of 45.0-49.9, adult (Acute) Shortness of breath at rest (Acute) Subjective: Patient seen and examined. She had no complaints this morning though she does feel that she did have a bit of a meltdown yesterday. Review of symptoms otherwise negative. Sodium is 121 today. Patient today tells me that she does have a history of smoking though she has never had any CT of the chest to screen for cancer. She has otherwise remained hemodynamically stable. Vitals/I&O's: Vital Signs Temp Pulse Resp BP Pulse Ox 96.8 F L 65 16 155/75 H 97 05/13/20 08:28 05/13/20 08:28 05/13/20 08:28 05/13/20 08:28 05/13/20 08:28 Oxygen Flow Rate (L/min) 1 Oxygen Delivery Method Room Air Weight: 260 lb 12.909 oz Body Mass Index (BMI) 47.4 Intake and Output for Last 24 Hours 05/11/20 05/12/20 05/14/20 23:59 23:59 00:59 Intake Total 930.84 / 1050.84 1611.67 / 1611.67 1088.33 / 1088.33 Output Total 1450 / 1800 1450 / 1450 Balance -519.16 / -749.16 161.67 / 161.67 1088.33 / 1088.33 General: Alert, Oriented x3, Cooperative, - - obese HEENT: Atraumatic, PERRLA, EOMI, Normocephalic Oral: Moist Mucosa Neck: Supple, No JVD, Negative Carotid Bruits Lungs: Clear to auscultation, Normal air movement, No rhonchi, No wheeze, No rales Cardiovascular: Regular rate, Regular Rhythm, Normal S1, Normal S2, No murmurs Abdomen: Bowel Sounds Present, Soft, Non Tender, Non-Distended, Obese Extremities: No clubbing, No cyanosis, No edema, Capillary Refill Less than 3 Seconds Skin: No rashes, No breakdown Musculoskeletal: No Tenderness to Palpation of Joints or Extremities Lymphatic: No Cervical, Supraclavicular, or Inguinal Adenopathy Neurological: Cranial nerves II-XII grossly intact, Neuro grossly intact, Motor Exam 5/5 strength throughout Psych/Mental Status: Normal Affect, Appropriate, Alert and oriented to time, place, person, mood and affect Microbiology Past 72 Hours 05/09/20 23:47 Urine, Clean Catch Urine Culture - Final Mixed Gram Pos & Gram Neg Org 05/10/20 05:06 Blood Culture (Wb) - Anticubital Right Blood Culture - Preliminary No growth in 48 hours. 05/10/20 02:45 Blood Culture (Wb) - Anticubital Right Blood Culture - Preliminary No growth in 48 hours. Laboratory Results 05/12/20 11:23: POC Glucose 115 H 05/12/20 11:25: Sodium 120 L 05/12/20 16:54: Sodium 120 L 05/12/20 16:57: POC Glucose 128 H 05/12/20 21:17: POC Glucose 140 H 05/13/20 07:01: POC Glucose 150 H 05/13/20 07:46: Sodium 121 L, Potassium 3.8, Chloride 91 L, Carbon Dioxide 24.0, Anion Gap 6, BUN 8, Creatinine 0.36 L, Estim Creat Clear Calc 141.29, Est GFR (MDRD) Af Amer 241, Est GFR (MDRD) Non-Af 199, BUN/Creatinine Ratio 22.2 H, Glucose 117 H, Calcium 7.6 L Current Medications Acetaminophen (Acetaminophen 325 Mg Tablet) 650 mg PO Q6H PRN PRN PRN Reason: Pain Score 1-10/Temp > 100.7 F Last Admin: 05/13/20 03:27 Dose: 650 mg Documented by: Albuterol Sulfate (Albuterol 2.5 Mg/3 Ml Vial.Neb.) 2.5 mg INHALATION Q2H PRN PRN PRN Reason: SOB/Wheezing Last Admin: 05/13/20 03:35 Dose: 2.5 mg Documented by: Albuterol/Ipratropium (Ipratropium/Albuterol Sulfate 3 Ml Ampul.Neb) 3 ml INHALATION Q6HWA.RT [facility] Last Admin: 05/13/20 07:02 Dose: 3 ml Documented by: Budesonide (Budesonide Respules 0.5 Mg/2 Ml Ampul.Neb.) 0.5 mg INHALATION Q12H.RT [facility] Last Admin: 05/13/20 07:02 Dose: 0.5 mg Documented by: Bupropion HCl (Bupropion (Sr) 150 Mg Tablet.Sa) 150 mg PO BID [facility] Last Admin: 05/13/20 09:59 Dose: 150 mg Documented by: Sodium Chloride () 250 mls @ 15 mls/hr IV .[id number] PRN PRN Reason: Saline Flush Sodium Chloride () 250 mls @ 15 mls/hr IV .[id number] PRN PRN Reason: Additional IVPB Infusion Insulin Human Lispro (Insulin Lispro 100 Unit/Ml Insuln.Pen) 0 unit SC ACHS [facility]; Protocol Last Admin: 05/13/20 07:28 Dose: 2 units Documented by: Iopamidol (Contrast Allergy Safety Check) 0 ml IV X1 [facility] Morphine Sulfate (Morphine 2 Mg/Ml Syringe) 2 mg IV Q3H PRN PRN PRN Reason: Pain Score 6-10 Last Admin: 05/12/20 00:34 Dose: 2 mg Documented by: Ondansetron HCl (Ondansetron 4 Mg/2 Ml Vial) 4 mg IV Q8H PRN PRN PRN Reason: NAUSEA/VOMITING Promethazine HCl (Promethazine 25 Mg/Ml Syringe) 12.5 mg IV Q6H PRN PRN PRN Reason: NAUSEA/VOMITING Last Admin: 05/10/20 12:40 Dose: 12.5 mg Documented by: Rivaroxaban (Rivaroxaban 20 Mg Tablet) 20 mg PO DAILY [facility] Last Admin: 05/13/20 10:00 Dose: 20 mg Documented by: Sodium Chloride (0.9% Saline Lock 10 Ml Syringe) 10 - 40 ml IV UD PRN PRN Reason: SALINE FLUSH Last Admin: 05/12/20 17:08 Dose: 10 ml Documented by: Sodium Chloride (Sodium Chloride 0.65% 1 [place].Btl) 1 spray NASAL TID PRN PRN PRN Reason: NASAL DRYNESS Last Admin: 05/13/20 09:59 Dose: 1 spray Documented by: Topiramate (Topiramate 25 Mg Tablet) 25 mg PO BID [facility] Last Admin: 05/13/20 09:59 Dose: 25 mg Documented by: STROKE Vital Signs/Narrative: Vital Signs Temp Pulse Resp BP Pulse Ox 05/13/20 08:28 96.8 F L 65 16 155/75 H 97 05/13/20 07:57 71 Medical Necessity - Tobacco Use Smoking Status: Current every day smoker Assessment/Plan All Active Problems (Last Reviewed 05/10/20 @ 01:53 by Damari Hoyos, PRINTING E[employer]IPMENT MECHANIC APPRENTICE-C) Hyponatremia (Acute) Abdominal pain (Acute) Hypochloremia (Acute) Morbid obesity with BMI of 45.0-49.9, adult (Acute) Shortness of breath at rest (Acute) Rapid palpitations (Resolved) Secondary pulmonary arterial hypertension (Resolved) #Acute hypo-osmolar hypotonic hyponatremia sodium was 110 on admission, and is now 121 has received hypertonic saline, and DDAVP, but sodium still remains low in light of her history of smoking, and persistent hyponatremia, I think it is reasonable to get a CT of the chest to evaluate for any lung malignancy. continue hydrating with normal saline. nephrology on board #Abdominal pain resolved CT of the abdomen and pelvis showed 3 nodules in the left adrenal gland, which were thought to be myelolipomas and adenomas. It also showed an anterior abdominal wall pannus and hernia with some fat extending into the umbilicus. general surgery evaluated patient and did not think there is any need for surgical intervention now. #Type II diabetes mellitus: Metformin on hold. Insulin sliding scale. Accu-Cheks AC at bedtime. #Hypertension: on Losartan. Hydrochlorothiazide and Lasix on hold on account of hyponatremia. IV hydralazine as needed. will increase dose of loartain. #Adrenal nodules: as per CT abdomen and pelvis. to follow up with PCP on outpatient basis for closer monitoring #Depression: On bupropion #Chronic pain syndrome: On Topamax #History of venous thromboembolism: on xarelto #Anxiety and Depression; on bupropion. DVT prophylaxis: on xarelto Inpatient E&M: 55808 Subs Hosp L2
[2020-05-13] MEDS: Losartan Potassium 50 MG Tablet PO (12:29)
[2020-05-13 12:35] LABS: Bedside Glucose 106 mg/dL (70-110)
[2020-05-13 16:36] LABS: Bedside Glucose 120 mg/dL (70-110)
[2020-05-13 23:06] LABS: Bedside Glucose 116 mg/dL (70-110)
[2020-05-13 23:18] LABS: Urine Sodium 118 mmol/L (Not Establ.)
[2020-05-13 23:23] LABS: Osmolality, Urine 612 mOsm/KG
[2020-05-14] VITALS (17 sets, daily range): BP systolic 124–163; BP diastolic 87–97; PULSE 61–96; RESP 16–20; TEMP 35.8–37.1; O2SAT 94–98
[2020-05-14] MEDS: Acetaminophen 325 MG Tablet 650 MG PO ×3 (02:53→19:49)
[2020-05-14] MEDS: Ipratropium/Albuterol Sulfate 3 ML AMPUL.NEB INHALATION ×4 (03:28→19:59)
[2020-05-14 06:23] LABS: Hematocrit 30.8 % (37-47); Hemoglobin 9.5 g/dL (12.0-15.0); Mean Corp Hgb Conc 30.8 g/dL (32-36); Mean Corpuscular Hgb 21.4 pg (27.0-32.0); Mean Corpuscular Volume 69.4 fL (81-99); Mean Platelet Vol. 8.4 fl (6.2-12.0); POSITIVE COUNT YES; POSITIVE MORPHOLOGY YES; Platelet Count 225 K/mm3 (150-450); RBC Distribution Width CV 21.6 % (11.6-14.6); RBC Distribution Width SD 51.5 fl (35.1-43.9); Red Blood Count 4.44 M/mm3 (4.2-5.4)
[2020-05-14 06:25] LABS: Differential Indicated MANUAL DIFF
[2020-05-14 06:44] LABS: Anion Gap 7 (5-15); BUN 7 mg/dL (7-18); BUN/Creat Ratio 22.6 RATIO (10-20); Calcium,Total 8.1 mg/dL (8.5-10.1); Chloride 90 mmol/L (98-107); Creatinine, Serum 0.31 mg/dL (0.55-1.02); EST Glomerular Filtration Rate 237 mL/min (>60); Est Glom Filt Rate - Afr Amer 287 mL/min (>60); Estimated Creatinine Clearance 164.08 ml/min; Glucose 120 mg/dL (74-106); Potassium 3.8 mmol/L (3.5-5.1); Sodium Level 120 mmol/L (136-145)
[2020-05-14 06:47] LABS: Absolute Lymphocyte Count 2.33 X10^3/uL (0.83-4.51); Absolute Neutrophil Count 17.2 X10^3/uL (2.0-7.7); Lymphocyte 11 % (19-41); Metamyelocyte 2 % (0-1); Monocyte 6 % (0-10); Neutrophil-Band 12 % (0-5); Neutrophil-Segmented 69 % (47-70); Nucleated Red Bld Cells,Manual 2 % (0-5); Total Cells Counted 100 (MANUAL DIFF)
[2020-05-14 06:48] LABS: Hypochromasia 1+; Microcytosis RARE; Ovalocyte 1+; Platelet Estimate ADEQUATE (ADEQ); White Blood Count 21.2 K/mm3 (4.4-11.0)
[2020-05-14] MEDS: Budesonide Respules 0.5 MG/2 ML AMPUL.NEB. INHALATION ×2 (06:59→19:59)
[2020-05-14 07:05] LABS: Bedside Glucose 122 mg/dL (70-110)
--- NOTE | 2020-05-14 08:09 | PCM.PROGNOTE ---
Patient Problems: Active and Suspected Problems (Last Updated 05/14/20 @ 08:[address] Bala Soria MD) Hyponatremia (Acute) Abdominal pain (Acute) Subjective: Chief complaint: Follow-up after admission for severe hyponatremia, abdominal pain and also found to have suspected pneumonia. Patient seen and examined. No acute events overnight. This morning, she mentioned that she may have low-grade fever. She complained of cough with clear sputum. Denied any more abdominal pain. No nausea or vomiting. She has been afebrile, blood pressure and heart rate are stable, pulse ox is 98% on 1 L. - Physical Exam Vitals/I&O's: Vital Signs Temp Pulse Resp BP Pulse Ox 96.4 F L 61 18 155/91 H 98 05/14/20 02:51 05/14/20 06:55 05/14/20 03:28 05/14/20 02:51 05/14/20 02:51 Oxygen Flow Rate (L/min) 1 Oxygen Delivery Method Nasal Cannula Weight: 260 lb 8 oz Body Mass Index (BMI) 47.4 Intake and Output for Last 24 Hours 05/12/20 05/13/20 05/14/20 22:59 23:59 23:59 Intake Total 500 / 500 Output Total Balance 500 / 500 General: Alert, Oriented x3, Cooperative, No apparent distress HEENT: Atraumatic, PERRLA, EOMI, Normocephalic Oral: Moist Mucosa, No Gingival or Mucosal Lesions/ Ulcerations Neck: Supple, No JVD, Negative Carotid Bruits, Trachea Midline, Thyroid Normal Size and Texture Lungs: No wheeze, Diminished, Rales, Rhonchi, - - Decreased breath sounds bilateral, rhonchi, scattered rales. Cardiovascular: Regular rate, Regular Rhythm, Normal S1, Normal S2, PMI Normal Abdomen: Bowel Sounds Present, Soft, Non Tender, Non-Distended, No Hepato-splenomegaly, Obese Extremities: No clubbing, No cyanosis, Edema Skin: No rashes, No breakdown Lymphatic: No Cervical, Supraclavicular, or Inguinal Adenopathy Neurological: Cranial nerves II-XII grossly intact, Motor Exam 5/5 strength throughout Psych/Mental Status: Normal Affect, Appropriate, Alert and oriented to time, place, person, mood and affect Microbiology Past 72 Hours 05/09/20 23:47 Urine, Clean Catch Urine Culture - Final Mixed Gram Pos & Gram Neg Org 05/10/20 05:06 Blood Culture (Wb) - Anticubital Right Blood Culture - Preliminary No growth in 48 hours. 05/10/20 02:45 Blood Culture (Wb) - Anticubital Right Blood Culture - Preliminary No growth in 48 hours. Laboratory Results 05/13/20 12:27: POC Glucose 106 05/13/20 16:21: POC Glucose 120 H 05/13/20 22:43: POC Glucose 116 H 05/13/20 23:00: Urine Osmolality 612, Ur Random Sodium 118 05/14/20 06:06: WBC 21.2 H, RBC 4.44, Hgb 9.5 L, Hct 30.8 L, MCV 69.4 L, MCH 21.4 L, MCHC 30.8 L, RDW Std Deviation 51.5 H, RDW Coeff of [place] 21.6 H, Plt Count 225, MPV 8.4, Neut % (Auto) Not Reportable, Absolute Neuts (auto) 17.2 H, Absolute Lymphs (auto) 2.33, Total Counted 100, Neutrophils % (Manual) 69, Band Neutrophils % 12 H, Lymphocytes % (Manual) 11 L, Monocytes % (Manual) 6, Metamyelocytes % 2 H, Nucleated RBCs/100 WBC 2, Diff Path Review May foll, Platelet Estimate ADEQUATE, Hypochromasia 1+, Microcytosis RARE, Ovalocytes 1+ 05/14/20 06:06: Sodium 120 L, Potassium 3.8, Chloride 90 L, Carbon Dioxide 23.0, Anion Gap 7, BUN 7, Creatinine 0.31 L, Estim Creat Clear Calc 164.08, Est GFR (MDRD) Af Amer 287, Est GFR (MDRD) Non-Af 237, BUN/Creatinine Ratio 22.6 H, Glucose 120 H, Calcium 8.1 L 05/14/20 06:44: POC Glucose 122 H Clinical Impression(s) from Imaging Studies Chest CT 05/13/20 11:10 IMPRESSION: 1. Bilateral subsegmental atelectasis or pneumonitis. Commonly reported imaging features of Covid 19 pneumonia are present. Other processes such as influenza pneumonia and organizing pneumonia as can be seen with drug toxicity and connective tissue disease can cause a similar imaging pattern. 2. More confluent and dense nodular opacities in the right upper lobe with right hilar lymphadenopathy. Possibilities include bacterial pneumonia, tuberculosis or fungal disease, or tumor with metastatic lymphadenopathy. Clinical correlation is recommended. Electronically Signed: Foreign Ya MD at 13:29 EDT Tel , Service support , Current Medications Acetaminophen (Acetaminophen 325 Mg Tablet) 650 mg PO Q6H PRN PRN PRN Reason: Pain Score 1-10/Temp > 100.7 F Last Admin: 05/14/20 02:53 Dose: 650 mg Documented by: Albuterol Sulfate (Albuterol 2.5 Mg/3 Ml Vial.Neb.) 2.5 mg INHALATION Q2H PRN PRN PRN Reason: SOB/Wheezing Last Admin: 05/13/20 23:46 Dose: 2.5 mg Documented by: Albuterol/Ipratropium (Ipratropium/Albuterol Sulfate 3 Ml Ampul.Neb) 3 ml INHALATION Q6HWA.RT [facility] Last Admin: 05/14/20 06:59 Dose: 3 ml Documented by: Budesonide (Budesonide Respules 0.5 Mg/2 Ml Ampul.Neb.) 0.5 mg INHALATION Q12H.RT [facility] Last Admin: 05/14/20 06:59 Dose: 0.5 mg Documented by: Bupropion HCl (Bupropion (Sr) 150 Mg Tablet.Sa) 150 mg PO BID [facility] Last Admin: 05/13/20 22:44 Dose: 150 mg Documented by: Piperacillin Sod/Tazobactam (Sod 3.375 gm/ Sodium Chloride) 50 mls @ 12.5 mls/hr IV Q8 [facility] Insulin Human Lispro (Insulin Lispro 100 Unit/Ml Insuln.Pen) 0 unit SC ACHS [facility]; Protocol Last Admin: 05/14/20 06:44 Dose: Not Given Documented by: Losartan Potassium (Losartan Potassium 50 Mg Tablet) 50 mg PO DAILY [facility] Morphine Sulfate (Morphine 2 Mg/Ml Syringe) 2 mg IV Q3H PRN PRN PRN Reason: Pain Score 6-10 Last Admin: 05/12/20 00:34 Dose: 2 mg Documented by: Ondansetron HCl (Ondansetron 4 Mg/2 Ml Vial) 4 mg IV Q8H PRN PRN PRN Reason: NAUSEA/VOMITING Promethazine HCl (Promethazine 25 Mg/Ml Syringe) 12.5 mg IV Q6H PRN PRN PRN Reason: NAUSEA/VOMITING Last Admin: 05/10/20 12:40 Dose: 12.5 mg Documented by: Rivaroxaban (Rivaroxaban 20 Mg Tablet) 20 mg PO DAILY [facility] Last Admin: 05/13/20 10:00 Dose: 20 mg Documented by: Sodium Chloride (0.9% Saline Lock 10 Ml Syringe) 10 - 40 ml IV UD PRN PRN Reason: SALINE FLUSH Last Admin: 05/12/20 17:08 Dose: 10 ml Documented by: Sodium Chloride (Sodium Chloride 0.65% 1 [place].Btl) 1 spray NASAL TID PRN PRN PRN Reason: NASAL DRYNESS Last Admin: 05/13/20 09:59 Dose: 1 spray Documented by: Topiramate (Topiramate 25 Mg Tablet) 25 mg PO BID [facility] Last Admin: 05/13/20 22:44 Dose: 25 mg Documented by: Medical Necessity - Tobacco Use Smoking Status: Current every day smoker Assessment/Plan All Active Problems (Last Updated 05/14/20 @ 08:[address] Bala Soria MD) Hyponatremia (Acute) Abdominal pain (Acute) This is a 55 years old female patient presented to the emergency room because of shortness of breath and vague abdominal pain, was found to have severe hyponatremia, has been treated with 3% saline, found to have findings consistent with possible pneumonia on CT chest. 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 Serum osmolality is 231, urine osmolality is 612, urine sodium is 118 and this picture consistent with SIADH. Patient received 3% saline. Admission sodium was 109, improved to 120 today. Patient is alert and oriented x3, no seizure. Nephrology on the case. Plan: Treat underlying suspected pneumonia, fluid restriction to less than 800 cc daily, repeat BMP tomorrow morning. #2 probable acute bilateral pneumonia: Chest x-ray and CT chest reviewed. Patient has been having worsening leukocytosis. She reported cough or sputum production, has been afebrile. Patient denied any recent exposure to COVID-19 or diagnosis of COVID-19. Plan: Start p.o. Levaquin, pulmonology consult. #3 abdominal pain: CT scan abdomen and pelvis without contrast reviewed, no acute findings. LFT was unremarkable. General surgery was consulted, no indication for surgical intervention. Today, patient denied any more abdominal pain. #4 type 2 diabetes mellitus: Blood sugar has been stable. She is on Accu-Cheks and sliding scale. Metformin on hold. #5 hypertension: Blood pressure stable, continue losartan and Lasix. #6 chronic pain syndrome: Stable, continue Tylenol as needed, Topamax twice daily. #7 history of PE: Continue Xarelto. #8 left adrenal nodules: Incidental finding on CT scan abdomen. Recommend follow-up with PCP and follow-up imaging in 3 to 6 months. #9 DVT prophylaxis: Continue Xarelto. This note was generated with [employer] dictation software. It may contain incorrect words, spelling, and punctuation that were not noted in checking the note before signing. Inpatient E&M: 80577 Subs Hosp L2
[2020-05-14] MEDS: Topiramate 25 MG Tablet PO ×2 (08:49→21:50)
[2020-05-14] MEDS: Losartan Potassium 50 MG Tablet PO (08:49)
[2020-05-14] MEDS: buPROPion (SR) 150 MG Tablet.SA PO ×2 (08:50→21:49)
[2020-05-14] MEDS: Rivaroxaban 20 MG Tablet PO (08:50)
[2020-05-14] MEDS: Albuterol 2.5 MG/3 ML VIAL.NEB. INHALATION ×3 (10:10→23:35)
--- NOTE | 2020-05-14 10:33 | CON.PCM_ITS ---
Problem List (1) Pneumonia Status: Suspected (2) Hyponatremia Status: Acute (3) Diabetes mellitus, type II Status: Chronic (4) Chronic pain syndrome Status: Chronic (5) Morbid obesity with BMI of 45.0-49.9, adult Status: Chronic (6) Essential (primary) hypertension Status: Chronic (7) Pulmonary embolism Status: Chronic (8) SIADH (syndrome of inappropriate ADH production) Status: Acute Reason for Consult Date of Consultation: 05/14/20 Reason for Consultation: Abnormal CT History of Present Illness: The patient is a 55 year old F, with past medical history listed below, who presented to [facility] on 05/09/2020 secondary to progressive shortness of breath over the previous 3 days. Patient states it was worse with lying flat and she did have some heaviness in her chest. Patient had also reported some nausea and abdominal pain. No fevers were reported, but patient had subjective chills. Patient had used her home aerosols with minimal relief. Patient did have a cough, but did not believe this is significantly changed from baseline. In the ER, patient was hypertensive at 160/98 and noted to have diffuse bilateral wheezing. EKG showed normal sinus rhythm without significant changes. Patient did have a leukocytosis of 19.2 with normal coagulation. COVID-19 testing was negative. Chemistry work-up was relatively unremarkable except for a sodium of 110 and a chloride of 72. Patient was given duo nebs, Solu-Medrol and Mylanta. Patient was started on hypertonic saline and admitted to the hospital for further evaluation. Over the course of patient's hospitalization, patient has met criteria for SIADH. Patient states that she feels somewhat improved, but still gets short of breath with minimal activity. Patient states she follows with Dr. Freeman as an outpatient, but admits that she is not seen him in over 7 months secondary to COVID-19. Patient has not received her immunizations at this time. Patient states I have always had problems with my lungs. Patient estimates that her last CT of the chest was completed in 2014, but is unaware of the results. Patient is unaware of any PFT results. Patient does take Lasix at baseline, but did not feel that her legs were significantly worse compared to normal. Patient reported that she had been compliant with therapy. Patient does not check her weight on a daily basis. Review of systems otherwise negative from a constitutional, HEENT, respiratory, cardiovascular, GI, genitourinary, musculoskeletal, skin, neurologic, psychiatric and hematologic system unless stated above. Past Medical History Past Medical History (Chronic Problems): Chronic Problems (Last Updated 05/14/20 @ 08:[address] Bala Soria MD) Diabetes mellitus, type II (Chronic) Chronic pain syndrome (Chronic) Morbid obesity with BMI of 45.0-49.9, adult (Chronic) Essential (primary) hypertension (Chronic) Nicotine dependence (Chronic) Pulmonary embolism (Chronic 07/09/14) Medical History: Medical History (Last Updated 05/14/20 @ 08:[address] Bala Soria MD) Essential (primary) hypertension (Chronic) I10 Nicotine dependence (Chronic) F17.200 Pulmonary embolism (Chronic) Onset Date: 07/09/14 I26.99 Anxiety F41.9 Chronic pain syndrome G89.4 Emphysema of lung J43.9 Lymphedema I89.0 Obstructive sleep apnea G47.33 Osteoarthritis M19.90 Rheumatoid arthritis M06.9 Type 2 diabetes mellitus E11.9 Secondary pulmonary arterial hypertension (Inactive) I27.21 Allergies Latex, Natural Rubber Allergy (Verified 05/09/20 21:41) Rash Home Medications: Ambulatory Orders Medication Instructions Recorded Albuterol IH (ProAir) [Proair Hfa] 1 - 2 puff INHALATION Q4H PRN PRN 05/03/14 Hydrochlorothiazide [Hctz] 25 mg PO DAILY 11/08/14 Rivaroxaban [Xarelto] 20 mg PO DAILY 11/08/14 bupropion HCl 150 mg tablet,12 hr 150 mg PO BID 06/09/17 sustained-release mometasone-formoterol HFA 200 2 puff INHALATION BID 06/09/17 mcg-5 mcg/actuation aerosol inhaler tiotropium bromide 18 mcg capsule 2.5 mcg INHALATION DAILY 30 Days 06/09/17 with inhalation device topiramate 25 mg capsule,extended 25 mg PO BID cap 06/09/17 release 24 hr furosemide 40 mg tablet 40 mg PO QAM tab 12/01/17 potassium chloride 20 mEq 40 meq PO BID tab 12/02/17 tablet,extended release cetirizine 10 mg capsule 10 mg PO DAILY 07/06/18 metformin 1,000 mg tablet 1,000 mg PO BID 07/06/18 ipratropium 0.5 mg-albuterol 3 mg 3 ml INHALATION 6XD 07/08/19 (2.5 mg base)/3 mL nebulization soln losartan 50 mg tablet 50 mg PO DAILY tab 07/08/19 polyethylene glycol 3350 17 17 g PO PRN PRN 07/08/19 gram/dose oral powder Surgical History: Surgical History (Last Reviewed 05/10/20 @ 01:53 by CAMPOS Castorena) History of tubal ligation Z98.51 Surgical History: - - tubal ligation Psychiatric History: Depression 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 History: cervical cancer - abnormal cells per pt.....had some type of procedure done and never followed up Smoking Status: Current every day smoker - *Family History Maternal Family History: Family History (Last Reviewed 05/10/20 @ 01:53 by MARITA CastorenaC) Sister Hypertension Asthma Brother Heart disease Asthma History Items: - - her mother at 46 YOA, 9 days after giving to the pt Paternal Family History: Family History (Last Reviewed 05/10/20 @ 01:53 by Damari Hoyos NP-C) Sister Hypertension Asthma Brother Heart disease Asthma History Items: Cancer - lung, - - father at 67 and had CVD Review of Systems Comment: See HPI Patient Problems: Active and Suspected Problems (Last Updated 05/14/20 @ 08:[address] Bala Soria MD) SIADH (syndrome of inappropriate ADH production) (Acute) Pneumonia (Suspected) Hyponatremia (Acute) Abdominal pain (Acute) Objective: All imaging was personally reviewed. Patient does not have any pulmonary function tests available for review, but did have a walking oximetry in 2015 showing 3 L nasal cannula needed for ambulation. Patient's imaging from 2015 was reviewed and did show some atelectasis with scattered granulomata - Physical Exam Vitals/I&O's: Vital Signs Temp Pulse Resp BP Pulse Ox 36.8 C 69 17 125/92 H 97 05/14/20 08:33 05/14/20 08:33 05/14/20 08:33 05/14/20 08:33 05/14/20 08:33 Oxygen Flow Rate (L/min) 1 Oxygen Delivery Method Nasal Cannula Weight: 118.161 kg Body Mass Index (BMI) 47.4 Intake and Output for Last 24 Hours 05/12/20 05/13/20 05/14/20 22:59 23:59 23:59 Intake Total 500 / 500 Output Total Balance 500 / 500 General: Alert, Oriented x3, Cooperative, - - Mild conversational dyspnea. Morbidly obese. HEENT: Atraumatic, PERRLA, EOMI, Normocephalic, - - No scleral icterus or injection noted Oral: Moist Mucosa, No Gingival or Mucosal Lesions/ Ulcerations Neck: Supple, No JVD, No Nodes, Trachea Midline Lungs: No rhonchi, No rales, Diminished, Wheezes, - - Symmetric expansion Cardiovascular: Regular rate, Regular Rhythm, Normal S1, Normal S2, No murmurs, No rub noted, No Gallop Abdomen: Bowel Sounds Present, Soft, Non Tender, Non-Distended Extremities: No clubbing, No cyanosis, Edema - 2+ lower extremity Skin: - - Venous stasis changes of the lower extremities Musculoskeletal: No Tenderness to Palpation of Joints or Extremities Lymphatic: No Cervical, Supraclavicular, or Inguinal Adenopathy Neurological: Cranial nerves II-XII grossly intact, Neuro grossly intact, Motor Exam 5/5 strength throughout Psych/Mental Status: Alert and oriented to time, place, person, mood and affect Microbiology Past 72 Hours 05/09/20 23:47 Urine, Clean Catch Urine Culture - Final Mixed Gram Pos & Gram Neg Org 05/10/20 05:06 Blood Culture (Wb) - Anticubital Right Blood Culture - Preliminary No growth in 48 hours. 05/10/20 02:45 Blood Culture (Wb) - Anticubital Right Blood Culture - Preliminary No growth in 48 hours. Laboratory Results 05/13/20 12:27: POC Glucose 106 05/13/20 16:21: POC Glucose 120 H 05/13/20 22:43: POC Glucose 116 H 05/13/20 23:00: Urine Osmolality 612, Ur Random Sodium 118 05/14/20 06:06: WBC 21.2 H, RBC 4.44, Hgb 9.5 L, Hct 30.8 L, MCV 69.4 L, MCH 21.4 L, MCHC 30.8 L, RDW Std Deviation 51.5 H, RDW Coeff of [place]iston 21.6 H, Plt Count 225, MPV 8.4, Neut % (Auto) Not Reportable, Absolute Neuts (auto) 17.2 H, Absolute Lymphs (auto) 2.33, Total Counted 100, Neutrophils % (Manual) 69, Band Neutrophils % 12 H, Lymphocytes % (Manual) 11 L, Monocytes % (Manual) 6, Metamyelocytes % 2 H, Nucleated RBCs/100 WBC 2, Diff Path Review May foll, Platelet Estimate ADEQUATE, Hypochromasia 1+, Microcytosis RARE, Ovalocytes 1+ 05/14/20 06:06: Sodium 120 L, Potassium 3.8, Chloride 90 L, Carbon Dioxide 23.0, Anion Gap 7, BUN 7, Creatinine 0.31 L, Estim Creat Clear Calc 164.08, Est GFR (MDRD) Af Amer 287, Est GFR (MDRD) Non-Af 237, BUN/Creatinine Ratio 22.6 H, Glucose 120 H, Calcium 8.1 L 05/14/20 06:44: POC Glucose 122 H Current Medications Acetaminophen (Acetaminophen 325 Mg Tablet) 650 mg PO Q6H PRN PRN PRN Reason: Pain Score 1-10/Temp > 100.7 F Last Admin: 05/14/20 08:53 Dose: 650 mg Documented by: Albuterol Sulfate (Albuterol 2.5 Mg/3 Ml Vial.Neb.) 2.5 mg INHALATION Q2H PRN PRN PRN Reason: SOB/Wheezing Last Admin: 05/14/20 10:10 Dose: 2.5 mg Documented by: Albuterol/Ipratropium (Ipratropium/Albuterol Sulfate 3 Ml Ampul.Neb) 3 ml INHALATION Q6HWA.RT DEVYN Last Admin: 05/14/20 06:59 Dose: 3 ml Documented by: Budesonide (Budesonide Respules 0.5 Mg/2 Ml Ampul.Neb.) 0.5 mg INHALATION Q12H.RT DEVYN Last Admin: 05/14/20 06:59 Dose: 0.5 mg Documented by: Bupropion HCl (Bupropion (Sr) 150 Mg Tablet.Sa) 150 mg PO BID DEVYN Last Admin: 05/14/20 08:50 Dose: 150 mg Documented by: Furosemide (Furosemide 40 Mg Tablet) 40 mg PO DAILY DEVYN Insulin Human Lispro (Insulin Lispro 100 Unit/Ml Insuln.Pen) 0 unit SC ACHS [facility]; Protocol Last Admin: 05/14/20 06:44 Dose: Not Given Documented by: Levofloxacin (Levofloxacin 750 Mg Tablet) 750 mg PO DAILY [facility] Losartan Potassium (Losartan Potassium 50 Mg Tablet) 50 mg PO DAILY [facility] Last Admin: 05/14/20 08:49 Dose: 50 mg Documented by: Morphine Sulfate (Morphine 2 Mg/Ml Syringe) 2 mg IV Q3H PRN PRN PRN Reason: Pain Score 6-10 Last Admin: 05/12/20 00:34 Dose: 2 mg Documented by: Ondansetron HCl (Ondansetron 4 Mg/2 Ml Vial) 4 mg IV Q8H PRN PRN PRN Reason: NAUSEA/VOMITING Promethazine HCl (Promethazine 25 Mg/Ml Syringe) 12.5 mg IV Q6H PRN PRN PRN Reason: NAUSEA/VOMITING Last Admin: 05/10/20 12:40 Dose: 12.5 mg Documented by: Rivaroxaban (Rivaroxaban 20 Mg Tablet) 20 mg PO DAILY [facility] Last Admin: 05/14/20 08:50 Dose: 20 mg Documented by: Sodium Chloride (0.9% Saline Lock 10 Ml Syringe) 10 - 40 ml IV UD PRN PRN Reason: SALINE FLUSH Last Admin: 05/12/20 17:08 Dose: 10 ml Documented by: Sodium Chloride (Sodium Chloride 0.65% 1 [place].Btl) 1 spray NASAL TID PRN PRN PRN Reason: NASAL DRYNESS Last Admin: 05/13/20 09:59 Dose: 1 spray Documented by: Topiramate (Topiramate 25 Mg Tablet) 25 mg PO BID [facility] Last Admin: 05/14/20 08:49 Dose: 25 mg Documented by: Clinical Impression(s) from Imaging Studies Chest X-Ray 05/09/20 22:38 IMPRESSION: Old granulomatous disease. No acute chest disease. Electronically Signed: Sergio Beauchamp MD at 22:54 EST , Service support , Abdomen/Pelvis CT 05/10/20 23:50 IMPRESSION: There are at least 3 nodules within the left adrenal gland lung measuring 3.4 cm, one measuring 2.3 cm, and one measuring 3.4 cm. 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 The more inferior 2 lesions are likely adenomas. No acute disease perceived. Individualized dose optimization techniques were used for this CT. at 0044 Reported and signed by: Gómez Ramos MD Electronically Signed: Gómez Ramos MD at 0:43 EST Tel , Service support , Chest CT 05/13/20 11:10 IMPRESSION: 1. Bilateral subsegmental atelectasis or pneumonitis. Commonly reported imaging features of Covid 19 pneumonia are present. Other processes such as influenza pneumonia and organizing pneumonia as can be seen with drug toxicity and connective tissue disease can cause a similar imaging pattern. 2. More confluent and dense nodular opacities in the right upper lobe with right hilar lymphadenopathy. Possibilities include bacterial pneumonia, tuberculosis or fungal disease, or tumor with metastatic lymphadenopathy. Clinical correlation is recommended. Electronically Signed: Foreign Ya MD at 13:29 EDT Tel , Service support , Assessment/Plan All Active Problems (Last Updated 05/14/20 @ 08:[address] Bala Soria MD) SIADH (syndrome of inappropriate ADH production) (Acute) Hyponatremia (Acute) Abdominal pain (Acute) RECOMMENDATIONS: 1. Fluid restriction for SIADH 2. Empiric antibiotic coverage for atypical with Levaquin 3. Continue baseline anticoagulation and Lasix therapy 4. Continue Pulmicort. 5. Follow-up CT scan in 3 months with primary publications inspector IMPRESSIONS: 1. SIADH Unclear etiology at this time. Pulmonary pathology is a concern. Patient does have some groundglass opacities in the upper lobes. This would be unlikely to be caused by congestive heart failure. Patient will need a follow- up CT scan in the future to evaluate. Patient does not appear to be hypotonic from my perspective. 2. Abnormal CT scan of the chest Previous CT scan did have granulomatous disease, but there are multiple areas of groundglass opacities. This could be suggestive of an atypical infection. COVID-19 testing was negative. Patient is currently off of her hydrochlorothiazide and Lasix secondary to her hyponatremia, but this pattern is not suggestive of CHF. Patient should have a repeat CT scan in 3 months to evaluate. Right-sided lymphadenopathy could be suggestive of a possible malignant process. If this does not resolve in 3 months, EBUS may be indicated for biopsy. Patient is chronically on anticoagulation. PE would be unlikely and would not necessarily lead to mediastinal lymphadenopathy. 3. Type 2 diabetes mellitus/hypertension/adrenal nodule/depression/chronic pain/history of VTE Complicates care, management, recovery and prognosis. Okay to continue with baseline medications from my perspective, with holding diuretic therapy given hyponatremia. Patient states that she has been tested for sleep apnea and was negative, but history is suggestive of sleep apnea. Could consider repeat testing versus a nocturnal oximetry to ensure oxygenation is controlled. Inpatient E&M: 93169 Init Hosp L3
[2020-05-14 11:21] LABS: Bedside Glucose 157 mg/dL (70-110)
[2020-05-14] MEDS: Insulin Lispro 100 UNIT/ML INSULN.PEN SC (11:25)
[2020-05-14] MEDS: levoFLOXacin 750 MG Tablet PO (11:25)
--- NOTE | 2020-05-14 11:44 | PCM.PN.REN ---
Patient Problems: Active and Suspected Problems (Last Updated 05/14/20 @ 08:[address] Bala Soria MD) SIADH (syndrome of inappropriate ADH production) (Acute) Pneumonia (Suspected) Hyponatremia (Acute) Abdominal pain (Acute) Subjective: Patient is complaining of headache No nausea No vomiting - Physical Exam Vitals/I&O's: Vital Signs Temp Pulse Resp BP Pulse Ox 98.2 F 84 20 H 125/92 H 97 05/14/20 08:33 05/14/20 11:13 05/14/20 10:10 05/14/20 08:33 05/14/20 08:33 Oxygen Flow Rate (L/min) 1 Oxygen Delivery Method Nasal Cannula Weight: 118.161 kg Body Mass Index (BMI) 47.4 Intake and Output for Last 24 Hours 05/12/20 05/13/20 05/14/20 22:59 23:59 23:59 Intake Total 740 / 740 Output Total Balance 740 / 740 General: Alert, Oriented x3 HEENT: Atraumatic Oral: Moist Mucosa Neck: Supple, No JVD Lungs: Clear to auscultation, Normal air movement, No rhonchi, No wheeze Cardiovascular: Regular rate, Regular Rhythm, Normal S1, Normal S2 Abdomen: Bowel Sounds Present, Soft, Non Tender, Non-Distended Extremities: No clubbing, No cyanosis, Edema - +1 edema of LE Skin: No rashes Neurological: Cranial nerves II-XII grossly intact, Neuro grossly intact Psych/Mental Status: Normal Affect Microbiology Past 72 Hours 05/09/20 23:47 Urine, Clean Catch Urine Culture - Final Mixed Gram Pos & Gram Neg Org 05/10/20 05:06 Blood Culture (Wb) - Anticubital Right Blood Culture - Preliminary No growth in 48 hours. 05/10/20 02:45 Blood Culture (Wb) - Anticubital Right Blood Culture - Preliminary No growth in 48 hours. Laboratory Results 05/13/20 12:27: POC Glucose 106 05/13/20 16:21: POC Glucose 120 H 05/13/20 22:43: POC Glucose 116 H 05/13/20 23:00: Urine Osmolality 612, Ur Random Sodium 118 05/14/20 06:06: WBC 21.2 H, RBC 4.44, Hgb 9.5 L, Hct 30.8 L, MCV 69.4 L, MCH 21.4 L, MCHC 30.8 L, RDW Std Deviation 51.5 H, RDW Coeff of [place]iston 21.6 H, Plt Count 225, MPV 8.4, Neut % (Auto) Not Reportable, Absolute Neuts (auto) 17.2 H, Absolute Lymphs (auto) 2.33, Total Counted 100, Neutrophils % (Manual) 69, Band Neutrophils % 12 H, Lymphocytes % (Manual) 11 L, Monocytes % (Manual) 6, Metamyelocytes % 2 H, Nucleated RBCs/100 WBC 2, Diff Path Review June, Platelet Estimate ADEQUATE, Hypochromasia 1+, Microcytosis RARE, Ovalocytes 1+ 05/14/20 06:06: Sodium 120 L, Potassium 3.8, Chloride 90 L, Carbon Dioxide 23.0, Anion Gap 7, BUN 7, Creatinine 0.31 L, Estim Creat Clear Calc 164.08, Est GFR (MDRD) Af Amer 287, Est GFR (MDRD) Non-Af 237, BUN/Creatinine Ratio 22.6 H, Glucose 120 H, Calcium 8.1 L 05/14/20 06:44: POC Glucose 122 H 05/14/20 11:06: POC Glucose 157 H Current Medications Acetaminophen (Acetaminophen 325 Mg Tablet) 650 mg PO Q6H PRN PRN PRN Reason: Pain Score 1-10/Temp > 100.7 F Last Admin: 05/14/20 08:53 Dose: 650 mg Documented by: Albuterol Sulfate (Albuterol 2.5 Mg/3 Ml Vial.Neb.) 2.5 mg INHALATION Q2H PRN PRN PRN Reason: SOB/Wheezing Last Admin: 05/14/20 10:10 Dose: 2.5 mg Documented by: Albuterol/Ipratropium (Ipratropium/Albuterol Sulfate 3 Ml Ampul.Neb) 3 ml INHALATION Q6HWA.RT DEVYN Last Admin: 05/14/20 06:59 Dose: 3 ml Documented by: Budesonide (Budesonide Respules 0.5 Mg/2 Ml Ampul.Neb.) 0.5 mg INHALATION Q12H.RT DEVYN Last Admin: 05/14/20 06:59 Dose: 0.5 mg Documented by: Bupropion HCl (Bupropion (Sr) 150 Mg Tablet.Sa) 150 mg PO BID [facility] Last Admin: 05/14/20 08:50 Dose: 150 mg Documented by: Furosemide (Furosemide 40 Mg Tablet) 40 mg PO DAILY [facility] Insulin Human Lispro (Insulin Lispro 100 Unit/Ml Insuln.Pen) 0 unit SC ACHS [facility]; Protocol Last Admin: 05/14/20 11:25 Dose: 2 units Documented by: Levofloxacin (Levofloxacin 750 Mg Tablet) 750 mg PO DAILY [facility] Last Admin: 05/14/20 11:25 Dose: 750 mg Documented by: Losartan Potassium (Losartan Potassium 50 Mg Tablet) 50 mg PO DAILY [facility] Last Admin: 05/14/20 08:49 Dose: 50 mg Documented by: Morphine Sulfate (Morphine 2 Mg/Ml Syringe) 2 mg IV Q3H PRN PRN PRN Reason: Pain Score 6-10 Last Admin: 05/12/20 00:34 Dose: 2 mg Documented by: Ondansetron HCl (Ondansetron 4 Mg/2 Ml Vial) 4 mg IV Q8H PRN PRN PRN Reason: NAUSEA/VOMITING Promethazine HCl (Promethazine 25 Mg/Ml Syringe) 12.5 mg IV Q6H PRN PRN PRN Reason: NAUSEA/VOMITING Last Admin: 05/10/20 12:40 Dose: 12.5 mg Documented by: Rivaroxaban (Rivaroxaban 20 Mg Tablet) 20 mg PO DAILY [facility] Last Admin: 05/14/20 08:50 Dose: 20 mg Documented by: Sodium Chloride (0.9% Saline Lock 10 Ml Syringe) 10 - 40 ml IV UD PRN PRN Reason: SALINE FLUSH Last Admin: 05/12/20 17:08 Dose: 10 ml Documented by: Sodium Chloride (Sodium Chloride 0.65% 1 [place].Btl) 1 spray NASAL TID PRN PRN PRN Reason: NASAL DRYNESS Last Admin: 05/13/20 09:59 Dose: 1 spray Documented by: Sodium Chloride (Sodium Chloride 1 Gm Tablet) 1 gm PO TID [facility] Topiramate (Topiramate 25 Mg Tablet) 25 mg PO BID [facility] Last Admin: 05/14/20 08:49 Dose: 25 mg Documented by: Medical Necessity - Tobacco Use Smoking Status: Current every day smoker Assessment/Plan All Active Problems (Last Updated 05/14/20 @ 08:[address] Bala Soria MD) SIADH (syndrome of inappropriate ADH production) (Acute) Hyponatremia (Acute) Abdominal pain (Acute) 1-hyponatremia with hypervolemia. Patient likely has SIADH at baseline. Acute worsening of hyponatremia is likely from thiazide diuretics. Sodium was as low as 109 mmol/L at presentation. Sodium level corrected at appropriate level using 3% sodium chloride and DDAVP. Currently off DDAVP and 3% NaCl Na level is not correcting further with IV NS boluses. repeated urine study from yesterday showed concentrated urine with osmo > 600 and U Na > 100. this is SIADH which could from COPD/Bupropion Sodium level has been stable at 120 mmol/L for for 48 hrs Will start fluid restriction 1200 cc, lasix 40 PO daily and Salt tab Will check Na BID Renal team will continue to follow. Please call if any question
[2020-05-14 12:16] LABS: Pathologist Review Reviewed
[2020-05-14] MEDS: Sodium Chloride 1 GM Tablet PO ×2 (14:46→21:50)
--- NOTE | 2020-05-14 15:02 | CASEMGMT ---
RN CM Note: Palliative Care Screening tool completed. Pt did not meet criteria for referral. Lokesh GOINSN RN ACM
[2020-05-14] MEDS: 0.9% Saline Lock 10 ML Syringe IV (17:19)
[2020-05-14 17:31] LABS: Bedside Glucose 128 mg/dL (70-110)
[2020-05-14 18:33] LABS: Sodium Level 120 mmol/L (136-145)
[2020-05-14] MEDS: Morphine 2 MG/ML Syringe IV (21:50)
[2020-05-14 22:05] LABS: Bedside Glucose 142 mg/dL (70-110)
[2020-05-15] VITALS (15 sets, daily range): BP systolic 141–165; BP diastolic 80–96; PULSE 57–80; RESP 16–20; TEMP 36.2–36.9; O2SAT 95–100
[2020-05-15] MEDS: Ondansetron 4 MG/2 ML Vial IV (03:41)
[2020-05-15] MEDS: Morphine 2 MG/ML Syringe IV (03:42)
[2020-05-15] MEDS: Ipratropium/Albuterol Sulfate 3 ML AMPUL.NEB INHALATION ×4 (03:53→23:35)
[2020-05-15 06:20] LABS: Hemoglobin 10.7 g/dL (12.0-15.0); Mean Corp Hgb Conc 30.6 g/dL (32-36); Mean Corpuscular Hgb 21.2 pg (27.0-32.0); Mean Corpuscular Volume 69.4 fL (81-99); Mean Platelet Vol. 8.4 fl (6.2-12.0); POSITIVE COUNT YES; POSITIVE MORPHOLOGY YES; Platelet Count 246 K/mm3 (150-450); RBC Distribution Width CV 21.5 % (11.6-14.6); RBC Distribution Width SD 50.7 fl (35.1-43.9); Red Blood Count 5.04 M/mm3 (4.2-5.4); White Blood Count 25.1 K/mm3 (4.4-11.0)
[2020-05-15] MEDS: Sodium Chloride 1 GM Tablet PO (06:27)
[2020-05-15] MEDS: 0.9% Saline Lock 10 ML Syringe IV ×2 (06:27→09:35)
[2020-05-15 06:34] LABS: Differential Indicated MANUAL DIFF
[2020-05-15 06:41] LABS: Bedside Glucose 135 mg/dL (70-110)
[2020-05-15] MEDS: Budesonide Respules 0.5 MG/2 ML AMPUL.NEB. INHALATION ×2 (06:44→19:14)
[2020-05-15] MEDS: Albuterol 2.5 MG/3 ML VIAL.NEB. INHALATION (06:44)
[2020-05-15 06:50] LABS: Absolute Neutrophil Count 19.6 X10^3/uL (2.0-7.7); Hypochromasia RARE; Lymphocyte 17 % (19-41); Metamyelocyte 2 % (0-1); Microcytosis RARE; Monocyte 3 % (0-10); Neutrophil-Band 6 % (0-5); Neutrophil-Segmented 72 % (47-70); Ovalocyte 1+; Platelet Estimate ADEQUATE (ADEQ); Total Cells Counted 100 (MANUAL DIFF)
[2020-05-15 06:56] LABS: Anion Gap 5 (5-15); BUN 7 mg/dL (7-18); BUN/Creat Ratio 19.3 RATIO (10-20); Calcium,Total 8.4 mg/dL (8.5-10.1); Chloride 89 mmol/L (98-107); Creatinine, Serum 0.36 mg/dL (0.55-1.02); EST Glomerular Filtration Rate 198 mL/min (>60); Est Glom Filt Rate - Afr Amer 240 mL/min (>60); Estimated Creatinine Clearance 141.29 ml/min; Glucose 129 mg/dL (74-106); Potassium 3.6 mmol/L (3.5-5.1); Sodium Level 118 mmol/L (136-145)
--- NOTE | 2020-05-15 08:00 | PN_ITS ---
Patient Problems: Active and Suspected Problems (Last Updated 05/14/20 @ 08:[address] Bala Soria MD) SIADH (syndrome of inappropriate ADH production) (Acute) Pneumonia (Suspected) Hyponatremia (Acute) Abdominal pain (Acute) Subjective: Chief complaint: Follow-up after admission for severe hyponatremia, suspected atypical pneumonia and abdominal pain. Patient seen and examined. No acute events overnight. This morning, she complained of some nausea which improved after Zofran. She denies any more abdominal pain. Her breathing has been getting better and she has been off oxygen. She has been afebrile, blood pressure slight elevated, other vital signs stable, pulse ox is 95% on room air. - Physical Exam Vitals/I&O's: Vital Signs Temp Pulse Resp BP Pulse Ox 98.5 F 60 16 165/80 H 95 05/15/20 03:39 05/15/20 07:40 05/15/20 06:48 05/15/20 03:39 05/15/20 06:48 Oxygen Flow Rate (L/min) 2 Oxygen Delivery Method Nasal Cannula Weight: 261 lb 7.492 oz Body Mass Index (BMI) 47.4 Intake and Output for Last 24 Hours 05/13/20 05/14/20 05/15/20 23:59 23:59 23:59 Intake Total 1065 / 1065 10 / 10 Output Total Balance 1065 / 1065 10 / 10 General: Alert, Oriented x3, Cooperative, No apparent distress HEENT: Atraumatic, PERRLA, EOMI, Normocephalic Oral: Moist Mucosa, No Gingival or Mucosal Lesions/ Ulcerations Neck: Supple, No JVD, Negative Carotid Bruits, Trachea Midline, Thyroid Normal Size and Texture Lungs: No wheeze, No rales, Diminished, Rhonchi, - - Decreased breath sounds bilateral, scattered rhonchi. Cardiovascular: Regular rate, Regular Rhythm, Normal S1, Normal S2, PMI Normal Abdomen: Bowel Sounds Present, Soft, Non Tender, Non-Distended, No Hepato- splenomegaly, Obese Extremities: No clubbing, No cyanosis, Edema - Trace edema. Skin: No rashes, No breakdown Lymphatic: No Cervical, Supraclavicular, or Inguinal Adenopathy Neurological: Cranial nerves II-XII grossly intact, Motor Exam 5/5 strength throughout Psych/Mental Status: Normal Affect, Appropriate, Alert and oriented to time, place, person, mood and affect Microbiology Past 72 Hours 05/10/20 05:06 Blood Culture (Wb) - Anticubital Right Blood Culture - Final No growth in 5 days. 05/10/20 02:45 Blood Culture (Wb) - Anticubital Right Blood Culture - Final No growth in 5 days. 05/09/20 23:47 Urine, Clean Catch Urine Culture - Final Mixed Gram Pos & Gram Neg Org Laboratory Results 05/12/20 05:15: Diff Path Review Reviewed 05/14/20 11:06: POC Glucose 157 H 05/14/20 17:15: Sodium 120 L 05/14/20 17:15: POC Glucose 128 H 05/14/20 21:41: POC Glucose 142 H 05/15/20 05:58: WBC 25.1 H, RBC 5.04, Hgb 10.7 L, Hct 35.0 L, MCV 69.4 L, MCH 21.2 L, MCHC 30.6 L, RDW Std Deviation 50.7 H, RDW Coeff of Triston 21.5 H, Plt Count 246, MPV 8.4, Neut % (Auto) Not Reportable, Absolute Neuts (auto) 19.6 H, Absolute Lymphs (auto) 4.30, Total Counted 100, Neutrophils % (Manual) 72 H, Band Neutrophils % 6 H, Lymphocytes % (Manual) 17 L, Monocytes % (Manual) 3, Metamyelocytes % 2 H, Diff Path Review May foll, Platelet Estimate ADEQUATE, Hypochromasia RARE, Microcytosis RARE, Ovalocytes 1+ 05/15/20 05:58: Sodium 118 L*, Potassium 3.6, Chloride 89 L, Carbon Dioxide 24.0, Anion Gap 5, BUN 7, Creatinine 0.36 L, Estim Creat Clear Calc 141.29, Est GFR (MDRD) Af Amer 240, Est GFR (MDRD) Non-Af 198, BUN/Creatinine Ratio 19.3, Glucose 129 H, Calcium 8.4 L 05/15/20 06:24: POC Glucose 135 H Current Medications Acetaminophen (Acetaminophen 325 Mg Tablet) 650 mg PO Q6H PRN PRN PRN Reason: Pain Score 1-10/Temp > 100.7 F Last Admin: 05/14/20 19:49 Dose: 650 mg Documented by: Albuterol Sulfate (Albuterol 2.5 Mg/3 Ml Vial.Neb.) 2.5 mg INHALATION Q2H PRN PRN PRN Reason: SOB/Wheezing Last Admin: 05/15/20 06:44 Dose: 2.5 mg Documented by: Albuterol/Ipratropium (Ipratropium/Albuterol Sulfate 3 Ml Ampul.Neb) 3 ml INHALATION Q6HWA.RT [facility] Last Admin: 05/15/20 03:53 Dose: 3 ml Documented by: Budesonide (Budesonide Respules 0.5 Mg/2 Ml Ampul.Neb.) 0.5 mg INHALATION Q12H.RT [facility] Last Admin: 05/15/20 06:44 Dose: 0.5 mg Documented by: Bupropion HCl (Bupropion (Sr) 150 Mg Tablet.Sa) 150 mg PO BID [facility] Last Admin: 05/14/20 21:49 Dose: 150 mg Documented by: Furosemide (Furosemide 40 Mg Tablet) 40 mg PO DAILY [facility] Insulin Human Lispro (Insulin Lispro 100 Unit/Ml Insuln.Pen) 0 unit SC ACHS [facility]; Protocol Last Admin: 05/15/20 06:28 Dose: Not Given Documented by: Levofloxacin (Levofloxacin 750 Mg Tablet) 750 mg PO DAILY [facility] Last Admin: 05/14/20 11:25 Dose: 750 mg Documented by: Losartan Potassium (Losartan Potassium 50 Mg Tablet) 50 mg PO DAILY [facility] Last Admin: 05/14/20 08:49 Dose: 50 mg Documented by: Morphine Sulfate (Morphine 2 Mg/Ml Syringe) 2 mg IV Q3H PRN PRN PRN Reason: Pain Score 6-10 Last Admin: 05/15/20 03:42 Dose: 2 mg Documented by: Ondansetron HCl (Ondansetron 4 Mg/2 Ml Vial) 4 mg IV Q8H PRN PRN PRN Reason: NAUSEA/VOMITING Last Admin: 05/15/20 03:41 Dose: 4 mg Documented by: Promethazine HCl (Promethazine 25 Mg/Ml Syringe) 12.5 mg IV Q6H PRN PRN PRN Reason: NAUSEA/VOMITING Last Admin: 05/10/20 12:40 Dose: 12.5 mg Documented by: Rivaroxaban (Rivaroxaban 20 Mg Tablet) 20 mg PO DAILY [facility] Last Admin: 05/14/20 08:50 Dose: 20 mg Documented by: Sodium Chloride (0.9% Saline Lock 10 Ml Syringe) 10 - 40 ml IV UD PRN PRN Reason: SALINE FLUSH Last Admin: 05/15/20 06:27 Dose: 10 ml Documented by: Sodium Chloride (Sodium Chloride 0.65% 1 [place].Btl) 1 spray NASAL TID PRN PRN PRN Reason: NASAL DRYNESS Last Admin: 05/13/20 09:59 Dose: 1 spray Documented by: Sodium Chloride (Sodium Chloride 1 Gm Tablet) 1 gm PO TID [facility] Last Admin: 05/15/20 06:27 Dose: 1 gm Documented by: Topiramate (Topiramate 25 Mg Tablet) 25 mg PO BID [facility] Last Admin: 05/14/20 21:50 Dose: 25 mg Documented by: Medical Necessity - Tobacco Use Smoking Status: Current every day smoker Assessment/Plan All Active Problems (Last Updated 05/14/20 @ 08:[address] Bala Soria MD) SIADH (syndrome of inappropriate ADH production) (Acute) Hyponatremia (Acute) Abdominal pain (Acute) This is a 55 years old female patient presented to the emergency room because of shortness of breath and vague abdominal pain, was found to have severe hyponatremia, has been treated with 3% saline, found to have findings consistent with possible pneumonia on CT chest. 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 Use of diuretics is also contributing. Today, sodium is down again to 118. She is on fluid restriction, p.o. Lasix and salt tablets. Nephrology on the case. Patient is alert and oriented x3, no seizure. Nephrology on the case. Plan: Continue same treatment, repeat BMP tomorrow morning. #2 probable acute bilateral atypical pneumonia: She is on p.o. Levaquin. She has been afebrile, WBC is trending up again. Shortness of breath improved and she has been on room air. Chest x-ray and CT chest reviewed. Patient denied any recent exposure to COVID-19 or diagnosis of COVID-19. Appreciate pulmonary recommendations.plan to continue same treatment. #3 abdominal pain: CT scan abdomen and pelvis without contrast reviewed, no acute findings. LFT was unremarkable. General surgery was consulted, no indication for surgical intervention. Today, patient denied any more abdominal pain. #4 type 2 diabetes mellitus: Blood sugar has been stable. She is on Accu-Cheks and sliding scale. Metformin on hold. #5 hypertension: Blood pressure stable, continue losartan and Lasix. #6 chronic pain syndrome: Stable, continue Tylenol as needed, Topamax twice daily. #7 history of PE: Continue Xarelto. #8 left adrenal nodules: Incidental finding on CT scan abdomen. Recommend follow-up with PCP and follow-up imaging in 3 to 6 months. #9 DVT prophylaxis: Continue Xarelto. This note was generated with [employer] dictation software. It may contain incorrect words, spelling, and punctuation that were not noted in checking the note before signing. Inpatient E&M: 54315 Subs Hosp L2
[2020-05-15] MEDS: Losartan Potassium 50 MG Tablet PO (08:39)
[2020-05-15] MEDS: Furosemide 40 MG Tablet PO (08:39)
[2020-05-15] MEDS: buPROPion (SR) 150 MG Tablet.SA PO ×2 (08:39→22:12)
[2020-05-15] MEDS: levoFLOXacin 750 MG Tablet PO (08:39)
[2020-05-15] MEDS: Topiramate 25 MG Tablet PO ×2 (08:40→22:12)
--- NOTE | 2020-05-15 09:31 | PN.RENAL_ITS ---
Patient Problems: Active and Suspected Problems (Last Updated 05/14/20 @ 08:[address] Bala Soria MD) SIADH (syndrome of inappropriate ADH production) (Acute) Pneumonia (Suspected) Hyponatremia (Acute) Abdominal pain (Acute) Subjective: Patient is doing Ok . complaining of nausea this am which improved with antiemetic medication No headache. No blurry vision. no imbalanced gait No confusion - Physical Exam Vitals/I&O's: Vital Signs Temp Pulse Resp BP Pulse Ox 97.8 F 67 18 142/94 H 96 05/15/20 08:45 05/15/20 08:45 05/15/20 08:45 05/15/20 08:45 05/15/20 08:45 Oxygen Flow Rate (L/min) 2 Oxygen Delivery Method Room Air Weight: 118.6 kg Body Mass Index (BMI) 47.4 Intake and Output for Last 24 Hours 05/13/20 05/14/20 05/15/20 23:59 23:59 23:59 Intake Total 1065 / 1065 10 / 10 Output Total Balance 1065 / 1065 10 / 10 General: Alert, Oriented x3 HEENT: Atraumatic Oral: Moist Mucosa Neck: Supple, No JVD Lungs: Clear to auscultation, Normal air movement, No rhonchi, No wheeze Cardiovascular: Regular rate, Regular Rhythm, Normal S1, Normal S2 Abdomen: Bowel Sounds Present, Soft, Non Tender, Non-Distended Extremities: No clubbing, No cyanosis, Edema - +1 edema of LE Skin: No rashes Musculoskeletal: No Tenderness to Palpation of Joints or Extremities Lymphatic: No Cervical, Supraclavicular, or Inguinal Adenopathy Neurological: Cranial nerves II-XII grossly intact, Neuro grossly intact Psych/Mental Status: Appropriate Microbiology Past 72 Hours 05/10/20 05:06 Blood Culture (Wb) - Anticubital Right Blood Culture - Final No growth in 5 days. 05/10/20 02:45 Blood Culture (Wb) - Anticubital Right Blood Culture - Final No growth in 5 days. 05/09/20 23:47 Urine, Clean Catch Urine Culture - Final Mixed Gram Pos & Gram Neg Org Laboratory Results 05/12/20 05:15: Diff Path Review Reviewed 05/14/20 11:06: POC Glucose 157 H 05/14/20 17:15: Sodium 120 L 05/14/20 17:15: POC Glucose 128 H 05/14/20 21:41: POC Glucose 142 H 05/15/20 05:58: WBC 25.1 H, RBC 5.04, Hgb 10.7 L, Hct 35.0 L, MCV 69.4 L, MCH 21.2 L, MCHC 30.6 L, RDW Std Deviation 50.7 H, RDW Coeff of [place]iston 21.5 H, Plt Count 246, MPV 8.4, Neut % (Auto) Not Reportable, Absolute Neuts (auto) 19.6 H, Absolute Lymphs (auto) 4.30, Total Counted 100, Neutrophils % (Manual) 72 H, Band Neutrophils % 6 H, Lymphocytes % (Manual) 17 L, Monocytes % (Manual) 3, Metamyelocytes % 2 H, Diff Path Review May foll, Platelet Estimate ADEQUATE, Hypochromasia RARE, Microcytosis RARE, Ovalocytes 1+ 05/15/20 05:58: Sodium 118 L*, Potassium 3.6, Chloride 89 L, Carbon Dioxide 24.0, Anion Gap 5, BUN 7, Creatinine 0.36 L, Estim Creat Clear Calc 141.29, Est GFR (MDRD) Af Amer 240, Est GFR (MDRD) Non-Af 198, BUN/Creatinine Ratio 19.3, Glucose 129 H, Calcium 8.4 L 05/15/20 06:24: POC Glucose 135 H Current Medications Acetaminophen (Acetaminophen 325 Mg Tablet) 650 mg PO Q6H PRN PRN PRN Reason: Pain Score 1-10/Temp > 100.7 F Last Admin: 05/14/20 19:49 Dose: 650 mg Documented by: Albuterol Sulfate (Albuterol 2.5 Mg/3 Ml Vial.Neb.) 2.5 mg INHALATION Q2H PRN PRN PRN Reason: SOB/Wheezing Last Admin: 05/15/20 06:44 Dose: 2.5 mg Documented by: Albuterol/Ipratropium (Ipratropium/Albuterol Sulfate 3 Ml Ampul.Neb) 3 ml INHALATION Q6HWA.RT [facility] Last Admin: 05/15/20 03:53 Dose: 3 ml Documented by: Budesonide (Budesonide Respules 0.5 Mg/2 Ml Ampul.Neb.) 0.5 mg INHALATION Q12H.RT [facility] Last Admin: 05/15/20 06:44 Dose: 0.5 mg Documented by: Bupropion HCl (Bupropion (Sr) 150 Mg Tablet.Sa) 150 mg PO BID [facility] Last Admin: 05/15/20 08:39 Dose: 150 mg Documented by: Conivaptan HCl 20 mg/ N/A 100 mls @ 4.167 mls/hr IV .Q24H [facility] Insulin Human Lispro (Insulin Lispro 100 Unit/Ml Insuln.Pen) 0 unit SC ACHS [facility]; Protocol Last Admin: 05/15/20 06:28 Dose: Not Given Documented by: Levofloxacin (Levofloxacin 750 Mg Tablet) 750 mg PO DAILY [facility] Last Admin: 05/15/20 08:39 Dose: 750 mg Documented by: Losartan Potassium (Losartan Potassium 50 Mg Tablet) 50 mg PO DAILY [facility] Last Admin: 05/15/20 08:39 Dose: 50 mg Documented by: Morphine Sulfate (Morphine 2 Mg/Ml Syringe) 2 mg IV Q3H PRN PRN PRN Reason: Pain Score 6-10 Last Admin: 05/15/20 03:42 Dose: 2 mg Documented by: Ondansetron HCl (Ondansetron 4 Mg/2 Ml Vial) 4 mg IV Q8H PRN PRN PRN Reason: NAUSEA/VOMITING Last Admin: 05/15/20 03:41 Dose: 4 mg Documented by: Promethazine HCl (Promethazine 25 Mg/Ml Syringe) 12.5 mg IV Q6H PRN PRN PRN Reason: NAUSEA/VOMITING Last Admin: 05/10/20 12:40 Dose: 12.5 mg Documented by: Rivaroxaban (Rivaroxaban 20 Mg Tablet) 20 mg PO DAILY [facility] Last Admin: 05/14/20 08:50 Dose: 20 mg Documented by: Sodium Chloride (0.9% Saline Lock 10 Ml Syringe) 10 - 40 ml IV UD PRN PRN Reason: SALINE FLUSH Last Admin: 05/15/20 06:27 Dose: 10 ml Documented by: Sodium Chloride (Sodium Chloride 0.65% 1 [place].Btl) 1 spray NASAL TID PRN PRN PRN Reason: NASAL DRYNESS Last Admin: 05/13/20 09:59 Dose: 1 spray Documented by: Topiramate (Topiramate 25 Mg Tablet) 25 mg PO BID [facility] Last Admin: 05/15/20 08:40 Dose: 25 mg Documented by: Medical Necessity - Tobacco Use Smoking Status: Current every day smoker Assessment/Plan All Active Problems (Last Updated 05/14/20 @ 08:[address] Bala Soria MD) SIADH (syndrome of inappropriate ADH production) (Acute) Hyponatremia (Acute) Abdominal pain (Acute) 1-hyponatremia with hypervolemia. Patient likely has SIADH at baseline. Acute worsening of hyponatremia was likely from thiazide diuretics. Sodium was as low as 109 mmol/L at presentation. Sodium level corrected at appropriate level using 3% sodium chloride and DDAVP. Currently off DDAVP and 3% NaCl Na level did not improve further with IV NS boluses. repeated urine study from 04/14 showed concentrated urine with osmo > 600 and U Na > 100. this is SIADH which could from COPD/Bupropion Salt tab 1 g tid and lasix 40 mg Po daily along with fluid restriction of 1200 cc daily were all started yesterday but Na dropped this am to 118 from 120 yesterday Will stop lasix and Salt tabs. Will start conivaptan IV drip for 24 hrs. I held Xarelto this am since conivaptan causes decrease Xarelto metabolism . Will check Na level every 3 hours Patient is asymptomatic currently . No need for 3% NaCl If Na level drops further or the patient develops symptoms of hyponatremia then will have to be started again on 3% NaCl Renal team will continue to follow. Please call if any question
[2020-05-15] MEDS: Acetaminophen 325 MG Tablet 650 MG PO ×2 (09:44→20:03)
--- NOTE | 2020-05-15 09:57 | PCM.PN.PUL ---
Patient Problems: Active and Suspected Problems (Last Updated 05/14/20 @ 08:[address] Bala Soria MD) SIADH (syndrome of inappropriate ADH production) (Acute) Pneumonia (Suspected) Hyponatremia (Acute) Abdominal pain (Acute) Subjective: Patient did well overnight. No acute issues were reported. Patient was able to be taken off of supplemental oxygen. Patient is not reporting any significant change in dyspnea. - Physical Exam Vitals/I&O's: Vital Signs Temp Pulse Resp BP Pulse Ox 36.6 C 67 18 142/94 H 96 05/15/20 08:45 05/15/20 08:45 05/15/20 08:45 05/15/20 08:45 05/15/20 08:45 Oxygen Flow Rate (L/min) 2 Oxygen Delivery Method Room Air Weight: 118.6 kg Body Mass Index (BMI) 47.4 Intake and Output for Last 24 Hours 05/13/20 05/14/20 05/15/20 23:59 23:59 23:59 Intake Total 1065 / 1065 10 / 10 Output Total Balance 1065 / 1065 10 / 10 General: Alert, Oriented x3, Cooperative, - - Mild conversational dyspnea. Morbidly obese. HEENT: Atraumatic, PERRLA, EOMI, Normocephalic, - - No scleral icterus or injection noted Oral: Moist Mucosa, No Gingival or Mucosal Lesions/ Ulcerations, - - Crowded posterior pharynx Neck: Supple, No Nodes, Trachea Midline Lungs: No rhonchi, No wheeze, No rales, Diminished, - - Symmetric expansion. Increased AP diameter. Cardiovascular: Regular rate, Regular Rhythm, Normal S1, Normal S2, No murmurs, No rub noted, No Gallop Abdomen: Bowel Sounds Present, Soft, Non Tender, Non-Distended, Obese Extremities: No cyanosis, Edema Skin: - - No change from previous Musculoskeletal: No Tenderness to Palpation of Joints or Extremities Lymphatic: No Cervical, Supraclavicular, or Inguinal Adenopathy Neurological: Cranial nerves II-XII grossly intact, Neuro grossly intact, Motor Exam 5/5 strength throughout Psych/Mental Status: Alert and oriented to time, place, person, mood and affect Microbiology Past 72 Hours 05/10/20 05:06 Blood Culture (Wb) - Anticubital Right Blood Culture - Final No growth in 5 days. 03/11/21 02:45 Blood Culture (Wb) - Anticubital Right Blood Culture - Final No growth in 5 days. 05/09/20 23:47 Urine, Clean Catch Urine Culture - Final Mixed Gram Pos & Gram Neg Org Laboratory Results 05/12/20 05:15: Diff Path Review Reviewed 05/14/20 11:06: POC Glucose 157 H 05/14/20 17:15: Sodium 120 L 05/14/20 17:15: POC Glucose 128 H 05/14/20 21:41: POC Glucose 142 H 05/15/20 05:58: WBC 25.1 H, RBC 5.04, Hgb 10.7 L, Hct 35.0 L, MCV 69.4 L, MCH 21.2 L, MCHC 30.6 L, RDW Std Deviation 50.7 H, RDW Coeff of [place]iston 21.5 H, Plt Count 246, MPV 8.4, Neut % (Auto) Not Reportable, Absolute Neuts (auto) 19.6 H, Absolute Lymphs (auto) 4.30, Total Counted 100, Neutrophils % (Manual) 72 H, Band Neutrophils % 6 H, Lymphocytes % (Manual) 17 L, Monocytes % (Manual) 3, Metamyelocytes % 2 H, Diff Path Review May foll, Platelet Estimate ADEQUATE, Hypochromasia RARE, Microcytosis RARE, Ovalocytes 1+ 05/15/20 05:58: Sodium 118 L*, Potassium 3.6, Chloride 89 L, Carbon Dioxide 24.0, Anion Gap 5, BUN 7, Creatinine 0.36 L, Estim Creat Clear Calc 141.29, Est GFR (MDRD) Af Amer 240, Est GFR (MDRD) Non-Af 198, BUN/Creatinine Ratio 19.3, Glucose 129 H, Calcium 8.4 L 05/15/20 06:24: POC Glucose 135 H Current Medications Acetaminophen (Acetaminophen 325 Mg Tablet) 650 mg PO Q6H PRN PRN PRN Reason: Pain Score 1-10/Temp > 100.7 F Last Admin: 05/15/20 09:44 Dose: 650 mg Documented by: Albuterol Sulfate (Albuterol 2.5 Mg/3 Ml Vial.Neb.) 2.5 mg INHALATION Q2H PRN PRN PRN Reason: SOB/Wheezing Last Admin: 05/15/20 06:44 Dose: 2.5 mg Documented by: Albuterol/Ipratropium (Ipratropium/Albuterol Sulfate 3 Ml Ampul.Neb) 3 ml INHALATION Q6HWA.RT [facility] Last Admin: 05/15/20 03:53 Dose: 3 ml Documented by: Budesonide (Budesonide Respules 0.5 Mg/2 Ml Ampul.Neb.) 0.5 mg INHALATION Q12H.RT [facility] Last Admin: 05/15/20 06:44 Dose: 0.5 mg Documented by: Bupropion HCl (Bupropion (Sr) 150 Mg Tablet.Sa) 150 mg PO BID [facility] Last Admin: 05/15/20 08:39 Dose: 150 mg Documented by: Conivaptan HCl 20 mg/ N/A 100 mls @ 4.167 mls/hr IV .Q24H [facility] Last Admin: 05/15/20 09:34 Dose: 4.2 mls/hr Documented by: Insulin Human Lispro (Insulin Lispro 100 Unit/Ml Insuln.Pen) 0 unit SC ACHS [facility]; Protocol Last Admin: 05/15/20 06:28 Dose: Not Given Documented by: Levofloxacin (Levofloxacin 750 Mg Tablet) 750 mg PO DAILY [facility] Last Admin: 05/15/20 08:39 Dose: 750 mg Documented by: Losartan Potassium (Losartan Potassium 50 Mg Tablet) 50 mg PO DAILY [facility] Last Admin: 05/15/20 08:39 Dose: 50 mg Documented by: Morphine Sulfate (Morphine 2 Mg/Ml Syringe) 2 mg IV Q3H PRN PRN PRN Reason: Pain Score 6-10 Last Admin: 05/15/20 03:42 Dose: 2 mg Documented by: Ondansetron HCl (Ondansetron 4 Mg/2 Ml Vial) 4 mg IV Q8H PRN PRN PRN Reason: NAUSEA/VOMITING Last Admin: 05/15/20 03:41 Dose: 4 mg Documented by: Promethazine HCl (Promethazine 25 Mg/Ml Syringe) 12.5 mg IV Q6H PRN PRN PRN Reason: NAUSEA/VOMITING Last Admin: 05/10/20 12:40 Dose: 12.5 mg Documented by: Rivaroxaban (Rivaroxaban 20 Mg Tablet) 20 mg PO DAILY [facility] Last Admin: 05/14/20 08:50 Dose: 20 mg Documented by: Sodium Chloride (0.9% Saline Lock 10 Ml Syringe) 10 - 40 ml IV UD PRN PRN Reason: SALINE FLUSH Last Admin: 05/15/20 09:35 Dose: 10 ml Documented by: Sodium Chloride (Sodium Chloride 0.65% 1 [place].Btl) 1 spray NASAL TID PRN PRN PRN Reason: NASAL DRYNESS Last Admin: 05/13/20 09:59 Dose: 1 spray Documented by: Topiramate (Topiramate 25 Mg Tablet) 25 mg PO BID [facility] Last Admin: 05/15/20 08:40 Dose: 25 mg Documented by: Medical Necessity - Tobacco Use Smoking Status: Current every day smoker Assessment/Plan All Active Problems (Last Updated 05/14/20 @ 08:[address] Bala Soria MD) SIADH (syndrome of inappropriate ADH production) (Acute) Hyponatremia (Acute) Abdominal pain (Acute) RECOMMENDATIONS: 1. Fluid restriction for SIADH. Conivaptan per nephrology 2. Empiric antibiotic coverage for atypical with Levaquin 3. Okay to hold anticoagulation for 24 hours. Continue Lasix therapy 4. Continue Pulmicort. 5. 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 SIADH Unclear etiology at this time. Pulmonary pathology is a concern. Patient does have some groundglass opacities in the upper lobes. This would be unlikely to be caused by congestive heart failure. Patient will need a follow-up CT scan in the future to evaluate. Patient does not appear to be hypotonic from my perspective. Cannot exclude a paraneoplastic syndrome, so if lymphadenopathy is not improving, EBUS may be necessary for evaluation. 2. Abnormal CT scan of the chest Previous CT scan did have granulomatous disease, but there are multiple areas of groundglass opacities. This could be suggestive of an atypical infection. COVID-19 testing was negative. Patient is currently off of her hydrochlorothiazide and Lasix secondary to her hyponatremia, but this pattern is not suggestive of CHF. Patient should have a repeat CT scan in 3 months to evaluate. Right-sided lymphadenopathy could be suggestive of a possible malignant process. If this does not resolve in 3 months, EBUS may be indicated for biopsy. Patient is chronically on anticoagulation. Okay to hold anticoagulation for 24 hours given conivaptan per nephrology. Risk is relatively minimal for PE with 24 hours off of therapy. 3. Type 2 diabetes mellitus/hypertension/adrenal nodule/depression/chronic pain/history of VTE Complicates care, management, recovery and prognosis. Okay to continue with baseline medications from my perspective, with holding diuretic therapy given hyponatremia. Patient states that she has been tested for sleep apnea and was negative, but history is suggestive of sleep apnea. Could consider repeat testing versus a nocturnal oximetry to ensure oxygenation is controlled. Inpatient E&M: 09310 Subs Hosp L2
[2020-05-15 11:31] LABS: Bedside Glucose 109 mg/dL (70-110)
[2020-05-15 12:03] LABS: Pathologist Review Reviewed
[2020-05-15 14:06] LABS: Sodium Level 121 mmol/L (136-145)
[2020-05-15 14:50] LABS: Pathologist Review Reviewed
--- NOTE | 2020-05-15 15:20 | RAD_ITS ---
STUDY: X-RAY CHEST REASON FOR EXAM: Female, 55 years old. picc line placement TECHNIQUE: Single AP portable view of the chest. COMPARISON: 05/09/2020 FINDINGS: Interval placement of right upper extremity PICC with tip the catheter overlying the junction of the right atrium and spur vena cava. The lungs are clear and expanded. There is no demonstrated pleural abnormality. Normal size heart. Normal mediastinum and geronimo. Normal visualized pulmonary arteries. Normal visualized aortic arch and descending thoracic aorta. There is a dextroscoliosis of the thoracic spine. Normal visualized ribs, clavicles, and shoulders. There is no demonstrated abnormality of the visualized soft tissue structures of the upper abdomen. RAD/CXR for Line Placement IMPRESSION: Interval placement of right upper extremity PICC with tip the catheter overlying the junction of the right atrium and spur vena cava. Electronically Signed: Foreign Ya MD at 15:40 EDT Tel , Service support ,
--- NOTE | 2020-05-15 15:26 | RAD_ITS ---
STUDY: X-RAY CHEST REASON FOR EXAM: Female, 55 years old. picc line placement -- line adjusted TECHNIQUE: Single AP portable view of the chest. COMPARISON: 05/09/2020 FINDINGS: Interval placement of right upper extremity PICC with tip the catheter overlying the junction of the right atrium and spur vena cava. The lungs are clear and expanded. There is no demonstrated pleural abnormality. Normal size heart. Normal mediastinum and geronimo. Normal visualized pulmonary arteries. Normal visualized aortic arch and descending thoracic aorta. There is a dextroscoliosis of the thoracic spine. Normal visualized ribs, clavicles, and shoulders. There is no demonstrated abnormality of the visualized soft tissue structures of the upper abdomen. RAD/CXR for Line Placement IMPRESSION: Interval placement of right upper extremity PICC with tip the catheter overlying the junction of the right atrium and superior vena cava. Electronically Signed: Foreign Ya MD at 15:42 EDT Tel , Service support ,
[2020-05-15 16:10] LABS: Bedside Glucose 123 mg/dL (70-110)
[2020-05-15 17:01] LABS: Magnesium 2.3 mg/dL (1.6-2.6); Sodium Level 121 mmol/L (136-145)
[2020-05-15 20:06] LABS: Sodium Level 121 mmol/L (136-145)
[2020-05-15 22:20] LABS: Bedside Glucose 126 mg/dL (70-110)
[2020-05-16] VITALS (15 sets, daily range): BP systolic 116–161; BP diastolic 78–114; PULSE 66–98; RESP 14–20; TEMP 36.3–36.8; O2SAT 94–98
[2020-05-16 01:04] LABS: Sodium Level 119 mmol/L (136-145)
[2020-05-16] MEDS: Albuterol 2.5 MG/3 ML VIAL.NEB. INHALATION (03:30)
[2020-05-16] MEDS: Acetaminophen 325 MG Tablet 650 MG PO ×2 (04:21→14:28)
[2020-05-16 06:34] LABS: Hematocrit 34.2 % (37-47); Hemoglobin 10.6 g/dL (12.0-15.0); Mean Corpuscular Hgb 21.3 pg (27.0-32.0); Mean Corpuscular Volume 68.7 fL (81-99); Mean Platelet Vol. 8.4 fl (6.2-12.0); POSITIVE COUNT YES; POSITIVE MORPHOLOGY YES; Platelet Count 234 K/mm3 (150-450); RBC Distribution Width CV 22.1 % (11.6-14.6); RBC Distribution Width SD 50.7 fl (35.1-43.9); Red Blood Count 4.98 M/mm3 (4.2-5.4); White Blood Count 24.3 K/mm3 (4.4-11.0)
[2020-05-16 06:42] LABS: Differential Indicated MANUAL DIFF
[2020-05-16 06:56] LABS: Anion Gap 5 (5-15); BUN 9 mg/dL (7-18); BUN/Creat Ratio 25.3 RATIO (10-20); Calcium,Total 8.2 mg/dL (8.5-10.1); Chloride 91 mmol/L (98-107); Creatinine, Serum 0.36 mg/dL (0.55-1.02); EST Glomerular Filtration Rate 202 mL/min (>60); Est Glom Filt Rate - Afr Amer 245 mL/min (>60); Estimated Creatinine Clearance 141.29 ml/min; Glucose 116 mg/dL (74-106); Potassium 3.6 mmol/L (3.5-5.1); Sodium Level 121 mmol/L (136-145)
[2020-05-16 06:56] LABS: Bedside Glucose 133 mg/dL (70-110)
[2020-05-16 06:58] LABS: Total Cells Counted 100 (MANUAL DIFF)
[2020-05-16 07:02] LABS: Lymphocyte 12 % (19-41); Metamyelocyte 5 % (0-1); Monocyte 4 % (0-10); Myelocyte 1 (0-0)
[2020-05-16 07:04] LABS: Absolute Lymphocyte Count 2.92 X10^3/uL (0.83-4.51); Lymphocyte # 2.92 X10^3/ul (4.0); Neutrophil # 18.98 X10^3/uL (2.7-7.7); Platelet Estimate ADEQUATE (ADEQ)
[2020-05-16 07:06] LABS: Anisocytosis 1+; Macrocytosis RARE; Microcytosis RARE
[2020-05-16 07:08] LABS: Neutrophil-Band 6 % (0-5); Neutrophil-Segmented 72 % (47-70); Polychromasia RARE
[2020-05-16] MEDS: Budesonide Respules 0.5 MG/2 ML AMPUL.NEB. INHALATION ×2 (07:36→18:40)
[2020-05-16] MEDS: Ipratropium/Albuterol Sulfate 3 ML AMPUL.NEB INHALATION ×3 (07:36→18:40)
[2020-05-16] MEDS: levoFLOXacin 750 MG Tablet PO (08:16)
[2020-05-16] MEDS: Losartan Potassium 50 MG Tablet PO (08:17)
[2020-05-16] MEDS: buPROPion (SR) 150 MG Tablet.SA PO (08:17)
[2020-05-16] MEDS: Topiramate 25 MG Tablet PO ×2 (08:17→21:21)
--- NOTE | 2020-05-16 08:23 | PN_ITS ---
Patient Problems: Active and Suspected Problems (Last Updated 05/14/20 @ 08:[address] Bala Soria MD) SIADH (syndrome of inappropriate ADH production) (Acute) Pneumonia (Suspected) Hyponatremia (Acute) Abdominal pain (Acute) Subjective: Chief complaint: Follow-up after admission for severe hyponatremia due to SIADH, suspected atypical pneumonia and abdominal pain. Patient seen and examined. No acute events overnight. Today, she is feeling good, no specific complaints. Breathing has been okay. Denies any more nausea. Her vital signs are stable. - Physical Exam Vitals/I&O's: Vital Signs Temp Pulse Resp BP Pulse Ox 97.6 F L 66 18 157/82 H 96 05/16/20 08:00 05/16/20 08:00 05/16/20 08:00 05/16/20 08:00 05/16/20 08:00 Oxygen Flow Rate (L/min) 2 Oxygen Delivery Method Room Air Weight: 255 lb 4.725 oz Body Mass Index (BMI) 47.4 Intake and Output for Last 24 Hours 05/14/20 05/15/20 05/16/20 23:59 23:59 23:59 Intake Total 1065 / 1065 565 / 565 Balance 1065 / 1065 565 / 565 General: Alert, Oriented x3, Cooperative, No apparent distress HEENT: Atraumatic, PERRLA, EOMI, Normocephalic Oral: Moist Mucosa, No Gingival or Mucosal Lesions/ Ulcerations Neck: Supple, No JVD, Negative Carotid Bruits, Trachea Midline, Thyroid Normal Size and Texture Lungs: Clear to auscultation, No rhonchi, No wheeze, No rales, Diminished Cardiovascular: Regular rate, Regular Rhythm, Normal S1, Normal S2, PMI Normal Abdomen: Bowel Sounds Present, Soft, Non Tender, Non-Distended, No Hepato- splenomegaly, Obese Extremities: No clubbing, No cyanosis, Edema Skin: No rashes, No breakdown Lymphatic: No Cervical, Supraclavicular, or Inguinal Adenopathy Neurological: Cranial nerves II-XII grossly intact, Neuro grossly intact Psych/Mental Status: Normal Affect, Appropriate, Alert and oriented to time, place, person, mood and affect Microbiology Past 72 Hours 05/10/20 05:06 Blood Culture (Wb) - Anticubital Right Blood Culture - Final No growth in 5 days. 05/10/20 02:45 Blood Culture (Wb) - Anticubital Right Blood Culture - Final No growth in 5 days. Laboratory Results 05/14/20 06:06: Diff Path Review Reviewed 05/15/20 05:58: Diff Path Review Reviewed 05/15/20 11:25: POC Glucose 109 05/15/20 13:35: Sodium 121 L, Magnesium 2.0 05/15/20 16:01: POC Glucose 123 H 05/15/20 16:31: Sodium 121 L, Magnesium 2.3 05/15/20 19:36: Sodium 121 L 05/15/20 22:10: POC Glucose 126 H 05/16/20 00:45: Sodium 119 L* 05/16/20 06:00: WBC 24.3 H, RBC 4.98, Hgb 10.6 L, Hct 34.2 L, MCV 68.7 L, MCH 21.3 L, MCHC 31.0 L, RDW Std Deviation 50.7 H, RDW Coeff of Triston 22.1 H, Plt Count 234, MPV 8.4, Neut % (Auto) Not Reportable, Absolute Neuts (auto) 19.0 H, Absolute Lymphs (auto) 2.92, Total Counted 100, Neutrophils % (Manual) 72 H, Band Neutrophils % 6 H, Lymphocytes % (Manual) 12 L, Monocytes % (Manual) 4, Metamyelocytes % 5 H, Myelocytes % 1 H, Diff Path Review May foll, Platelet Estimate ADEQUATE, Polychromasia RARE, Anisocytosis 1+, Microcytosis RARE, Macrocytosis RARE 05/16/20 06:00: Sodium 121 L, Potassium 3.6, Chloride 91 L, Carbon Dioxide 25.0, Anion Gap 5, BUN 9, Creatinine 0.36 L, Estim Creat Clear Calc 141.29, Est GFR (MDRD) Af Amer 245, Est GFR (MDRD) Non-Af 202, BUN/Creatinine Ratio 25.3 H, Glucose 116 H, Calcium 8.2 L 05/16/20 06:47: POC Glucose 133 H Current Medications Acetaminophen (Acetaminophen 325 Mg Tablet) 650 mg PO Q6H PRN PRN PRN Reason: Pain Score 1-10/Temp > 100.7 F Last Admin: 05/16/20 04:21 Dose: 650 mg Documented by: Albuterol Sulfate (Albuterol 2.5 Mg/3 Ml Vial.Neb.) 2.5 mg INHALATION Q2H PRN PRN PRN Reason: SOB/Wheezing Last Admin: 05/16/20 03:30 Dose: 2.5 mg Documented by: Albuterol/Ipratropium (Ipratropium/Albuterol Sulfate 3 Ml Ampul.Neb) 3 ml INHALATION Q6HWA.RT [facility] Last Admin: 05/16/20 07:36 Dose: 3 ml Documented by: Budesonide (Budesonide Respules 0.5 Mg/2 Ml Ampul.Neb.) 0.5 mg INHALATION Q12H.RT [facility] Last Admin: 05/16/20 07:36 Dose: 0.5 mg Documented by: Bupropion HCl (Bupropion (Sr) 150 Mg Tablet.Sa) 150 mg PO BID [facility] Last Admin: 05/15/20 22:12 Dose: 150 mg Documented by: Conivaptan HCl 20 mg/ N/A 100 mls @ 4.167 mls/hr IV .Q24H [facility] Last Admin: 05/15/20 09:34 Dose: 4.2 mls/hr Documented by: Insulin Human Lispro (Insulin Lispro 100 Unit/Ml Insuln.Pen) 0 unit SC ACHS [facility]; Protocol Last Admin: 05/16/20 06:49 Dose: Not Given Documented by: Levofloxacin (Levofloxacin 750 Mg Tablet) 750 mg PO DAILY [facility] Last Admin: 05/15/20 08:39 Dose: 750 mg Documented by: Losartan Potassium (Losartan Potassium 50 Mg Tablet) 50 mg PO DAILY [facility] Last Admin: 05/15/20 08:39 Dose: 50 mg Documented by: Morphine Sulfate (Morphine 2 Mg/Ml Syringe) 2 mg IV Q3H PRN PRN PRN Reason: Pain Score 6-10 Last Admin: 05/15/20 03:42 Dose: 2 mg Documented by: Ondansetron HCl (Ondansetron 4 Mg/2 Ml Vial) 4 mg IV Q8H PRN PRN PRN Reason: NAUSEA/VOMITING Last Admin: 05/15/20 03:41 Dose: 4 mg Documented by: Promethazine HCl (Promethazine 25 Mg/Ml Syringe) 12.5 mg IV Q6H PRN PRN PRN Reason: NAUSEA/VOMITING Last Admin: 05/10/20 12:40 Dose: 12.5 mg Documented by: Rivaroxaban (Rivaroxaban 20 Mg Tablet) 20 mg PO DAILY [facility] Last Admin: 05/14/20 08:50 Dose: 20 mg Documented by: Sodium Chloride (0.9% Saline Lock 10 Ml Syringe) 10 - 40 ml IV UD PRN PRN Reason: SALINE FLUSH Last Admin: 05/15/20 09:35 Dose: 10 ml Documented by: Sodium Chloride (Sodium Chloride 0.65% 1 [place].Btl) 1 spray NASAL TID PRN PRN PRN Reason: NASAL DRYNESS Last Admin: 05/13/20 09:59 Dose: 1 spray Documented by: Sodium Chloride (Sodium Chloride 1 Gm Tablet) 1 gm PO TID [facility] Topiramate (Topiramate 25 Mg Tablet) 25 mg PO BID [facility] Last Admin: 05/15/20 22:12 Dose: 25 mg Documented by: Medical Necessity - Tobacco Use Smoking Status: Current every day smoker Assessment/Plan All Active Problems (Last Updated 05/14/20 @ 08:[address] Bala Soria MD) SIADH (syndrome of inappropriate ADH production) (Acute) Hyponatremia (Acute) Abdominal pain (Acute) This is a 55 years old female patient presented to the emergency room because of shortness of breath and vague abdominal pain, was found to have severe hyponatremia, has been treated with 3% saline, found to have findings consistent with possible pneumonia on CT chest. #1 severe hyponatremia: Attributed to SIADH which likely due to pneumonia. Use of diuretics is also contributing. She is on IV conivaptan as well as sodium chloride tablets and fluid restriction. Today sodium is 121, improved compared to yesterday. Nephrology on the case. Plan to continue same treatment, repeat CBC and BMP tomorrow morning. #2 probable acute bilateral atypical pneumonia: Remained on p.o. Levaquin. She has been afebrile, WBC is minimally trending down. Her breathing has been okay, she remains on room air. Patient denied any recent exposure to COVID-19 or diagnosis of COVID-19. Appreciate pulmonary recommendations. plan to continue same treatment. #3 abdominal pain: Resolved. CT scan abdomen and pelvis without contrast reviewed, no acute findings. LFT was unremarkable. General surgery was consulted, no indication for surgical intervention. #4 type 2 diabetes mellitus: Blood sugar has been stable. She is on Accu-Cheks and sliding scale. Metformin on hold. #5 hypertension: Blood pressure stable, continue losartan and Lasix. #6 chronic pain syndrome: Stable, continue Tylenol as needed, Topamax twice daily. #7 history of PE: Continue Xarelto. #8 left adrenal nodules: Incidental finding on CT scan abdomen. Recommend follow-up with PCP and follow-up imaging in 3 to 6 months. #9 DVT prophylaxis: Continue Xarelto. This note was generated with [employer] dictation software. It may contain incorrect words, spelling, and punctuation that were not noted in checking the note before signing. Inpatient E&M: 72055 Subs Hosp L2
--- NOTE | 2020-05-16 08:50 | PCM.PN.REN ---
Patient Problems: Active and Suspected Problems (Last Updated 05/14/20 @ 08:[address] Bala Soria MD) SIADH (syndrome of inappropriate ADH production) (Acute) Pneumonia (Suspected) Hyponatremia (Acute) Abdominal pain (Acute) Subjective: there is no nausea No vomiting No headache. patient told me her urine is ow getting darker - Physical Exam Vitals/I&O's: Vital Signs Temp Pulse Resp BP Pulse Ox 97.6 F L 66 18 157/82 H 96 05/16/20 08:00 05/16/20 08:00 05/16/20 08:00 05/16/20 08:00 05/16/20 08:00 Oxygen Flow Rate (L/min) 2 Oxygen Delivery Method Room Air Weight: 115.8 kg Body Mass Index (BMI) 47.4 Intake and Output for Last 24 Hours 05/14/20 05/15/20 05/16/20 23:59 23:59 23:59 Intake Total 1065 / 1065 565 / 565 95.48 / 95.48 Balance 1065 / 1065 565 / 565 95.48 / 95.48 General: Alert, Oriented x3 HEENT: Atraumatic Oral: Moist Mucosa Neck: Supple, No JVD Lungs: Clear to auscultation, Normal air movement, No rhonchi, No wheeze Cardiovascular: Regular rate, Regular Rhythm, Normal S1, Normal S2 Abdomen: Bowel Sounds Present, Soft, Non Tender, Non-Distended Extremities: No clubbing, No cyanosis, Edema - +1 edeme of LE Skin: No rashes Musculoskeletal: No Tenderness to Palpation of Joints or Extremities Lymphatic: No Cervical, Supraclavicular, or Inguinal Adenopathy Neurological: Cranial nerves II-XII grossly intact, Neuro grossly intact Psych/Mental Status: Appropriate Microbiology Past 72 Hours 05/10/20 05:06 Blood Culture (Wb) - Anticubital Right Blood Culture - Final No growth in 5 days. 05/10/20 02:45 Blood Culture (Wb) - Anticubital Right Blood Culture - Final No growth in 5 days. Laboratory Results 05/14/20 06:06: Diff Path Review Reviewed 05/15/20 05:58: Diff Path Review Reviewed 05/15/20 11:25: POC Glucose 109 05/15/20 13:35: Sodium 121 L, Magnesium 2.0 05/15/20 16:01: POC Glucose 123 H 05/15/20 16:31: Sodium 121 L, Magnesium 2.3 05/15/20 19:36: Sodium 121 L 05/15/20 22:10: POC Glucose 126 H 05/16/20 00:45: Sodium 119 L* 05/16/20 06:00: WBC 24.3 H, RBC 4.98, Hgb 10.6 L, Hct 34.2 L, MCV 68.7 L, MCH 21.3 L, MCHC 31.0 L, RDW Std Deviation 50.7 H, RDW Coeff of [place]iston 22.1 H, Plt Count 234, MPV 8.4, Neut % (Auto) Not Reportable, Absolute Neuts (auto) 19.0 H, Absolute Lymphs (auto) 2.92, Total Counted 100, Neutrophils % (Manual) 72 H, Band Neutrophils % 6 H, Lymphocytes % (Manual) 12 L, Monocytes % (Manual) 4, Metamyelocytes % 5 H, Myelocytes % 1 H, Diff Path Review May foll, Platelet Estimate ADEQUATE, Polychromasia RARE, Anisocytosis 1+, Microcytosis RARE, Macrocytosis RARE 05/16/20 06:00: Sodium 121 L, Potassium 3.6, Chloride 91 L, Carbon Dioxide 25.0, Anion Gap 5, BUN 9, Creatinine 0.36 L, Estim Creat Clear Calc 141.29, Est GFR (MDRD) Af Amer 245, Est GFR (MDRD) Non-Af 202, BUN/Creatinine Ratio 25.3 H, Glucose 116 H, Calcium 8.2 L 05/16/20 06:47: POC Glucose 133 H Current Medications Acetaminophen (Acetaminophen 325 Mg Tablet) 650 mg PO Q6H PRN PRN PRN Reason: Pain Score 1-10/Temp > 100.7 F Last Admin: 05/16/20 04:21 Dose: 650 mg Documented by: Albuterol Sulfate (Albuterol 2.5 Mg/3 Ml Vial.Neb.) 2.5 mg INHALATION Q2H PRN PRN PRN Reason: SOB/Wheezing Last Admin: 05/16/20 03:30 Dose: 2.5 mg Documented by: Albuterol/Ipratropium (Ipratropium/Albuterol Sulfate 3 Ml Ampul.Neb) 3 ml INHALATION Q6HWA.RT [facility] Last Admin: 05/16/20 07:36 Dose: 3 ml Documented by: Budesonide (Budesonide Respules 0.5 Mg/2 Ml Ampul.Neb.) 0.5 mg INHALATION Q12H.RT [facility] Last Admin: 05/16/20 07:36 Dose: 0.5 mg Documented by: Bupropion HCl (Bupropion (Sr) 150 Mg Tablet.Sa) 150 mg PO BID [facility] Last Admin: 05/16/20 08:17 Dose: 150 mg Documented by: Conivaptan HCl 20 mg/ N/A 100 mls @ 4.167 mls/hr IV .Q24H [facility] Last Admin: 05/16/20 08:18 Dose: 4.2 mls/hr Documented by: Insulin Human Lispro (Insulin Lispro 100 Unit/Ml Insuln.Pen) 0 unit SC ACHS [facility]; Protocol Last Admin: 05/16/20 06:49 Dose: Not Given Documented by: Levofloxacin (Levofloxacin 750 Mg Tablet) 750 mg PO DAILY [facility] Last Admin: 05/16/20 08:16 Dose: 750 mg Documented by: Losartan Potassium (Losartan Potassium 50 Mg Tablet) 50 mg PO DAILY [facility] Last Admin: 05/16/20 08:17 Dose: 50 mg Documented by: Morphine Sulfate (Morphine 2 Mg/Ml Syringe) 2 mg IV Q3H PRN PRN PRN Reason: Pain Score 6-10 Last Admin: 05/15/20 03:42 Dose: 2 mg Documented by: Ondansetron HCl (Ondansetron 4 Mg/2 Ml Vial) 4 mg IV Q8H PRN PRN PRN Reason: NAUSEA/VOMITING Last Admin: 05/15/20 03:41 Dose: 4 mg Documented by: Promethazine HCl (Promethazine 25 Mg/Ml Syringe) 12.5 mg IV Q6H PRN PRN PRN Reason: NAUSEA/VOMITING Last Admin: 05/10/20 12:40 Dose: 12.5 mg Documented by: Rivaroxaban (Rivaroxaban 20 Mg Tablet) 20 mg PO DAILY [facility] Last Admin: 05/14/20 08:50 Dose: 20 mg Documented by: Sodium Chloride (0.9% Saline Lock 10 Ml Syringe) 10 - 40 ml IV UD PRN PRN Reason: SALINE FLUSH Last Admin: 05/15/20 09:35 Dose: 10 ml Documented by: Sodium Chloride (Sodium Chloride 0.65% 1 [place].Btl) 1 spray NASAL TID PRN PRN PRN Reason: NASAL DRYNESS Last Admin: 05/13/20 09:59 Dose: 1 spray Documented by: Sodium Chloride (Sodium Chloride 1 Gm Tablet) 1 gm PO TID [facility] Topiramate (Topiramate 25 Mg Tablet) 25 mg PO BID [facility] Last Admin: 05/16/20 08:17 Dose: 25 mg Documented by: Medical Necessity - Tobacco Use Smoking Status: Current every day smoker Assessment/Plan All Active Problems (Last Updated 05/14/20 @ 08:[address] Bala Soria MD) SIADH (syndrome of inappropriate ADH production) (Acute) Hyponatremia (Acute) Abdominal pain (Acute) 1-hyponatremia with hypervolemia. Patient likely has SIADH at baseline. Acute worsening of hyponatremia was likely from thiazide diuretics. Sodium was as low as 109 mmol/L at presentation. Sodium level corrected at appropriate level using 3% sodium chloride and DDAVP. Currently off DDAVP and 3% NaCl since May 12 Na level did not improve further with IV NS boluses. repeated urine study from 04/14 showed concentrated urine with osmo > 600 and U Na > 100. Patient is likely has SIADH at baseline. which could from COPD/Bupropion Salt tab 1 g tid and lasix 40 mg Po daily along with fluid restriction of 1200 cc daily were all started 05/14 but Na did not improve on 05/15 Lasix and Salt were stopped and conivaptan IV drip started on 05/15 (Xarelto was held on 05/15 tsince conivaptan causes decrease Xarelto metabolism). Na did not increase > 121. It seems the patient is not responding well to conivaptan since her urine is not light Will add lasix and Salt tab this am Will d/c Bupropion Continue Conivaptan drip Continue to check Na level every 3 hours Patient is asymptomatic currently . No need for 3% NaCl If Na level fails to improve with the the above measures, I will give her 3% NaCl Renal team will continue to follow. Please call if any question
[2020-05-16 10:51] LABS: Sodium Level 123 mmol/L (136-145)
[2020-05-16] MEDS: Furosemide 40 MG/4 ML Vial IV ×2 (11:01→21:22)
[2020-05-16] MEDS: 0.9% Saline Lock 10 ML Syringe IV (11:02)
[2020-05-16 11:15] LABS: Bedside Glucose 110 mg/dL (70-110)
[2020-05-16 11:37] LABS: Pathologist Review Reviewed
[2020-05-16] MEDS: Sodium Chloride 1 GM Tablet PO ×2 (13:14→21:21)
[2020-05-16 14:36] LABS: Sodium Level 123 mmol/L (136-145)
[2020-05-16 16:21] LABS: Bedside Glucose 116 mg/dL (70-110)
[2020-05-16 18:12] LABS: Sodium Level 122 mmol/L (136-145)
[2020-05-16] MEDS: Morphine 2 MG/ML Syringe IV (20:18)
[2020-05-16 21:56] LABS: Bedside Glucose 121 mg/dL (70-110)
[2020-05-16 22:31] LABS: Sodium Level 123 mmol/L (136-145)
[2020-05-17] VITALS (14 sets, daily range): BP systolic 138–159; BP diastolic 85–105; PULSE 73–95; RESP 15–20; TEMP 36.2–37.1; O2SAT 94–99
[2020-05-17] MEDS: Albuterol 2.5 MG/3 ML VIAL.NEB. INHALATION (01:35)
[2020-05-17 02:34] LABS: Sodium Level 124 mmol/L (136-145)
[2020-05-17] MEDS: Acetaminophen 325 MG Tablet 650 MG PO ×4 (03:40→22:13)
[2020-05-17] MEDS: Sodium Chloride 1 GM Tablet PO ×3 (05:46→21:38)
[2020-05-17 06:39] LABS: Hematocrit 38.7 % (37-47); Mean Corpuscular Hgb 21.4 pg (27.0-32.0); Mean Corpuscular Volume 69.1 fL (81-99); Mean Platelet Vol. 8.3 fl (6.2-12.0); POSITIVE COUNT YES; POSITIVE MORPHOLOGY YES; Platelet Count 251 K/mm3 (150-450); RBC Distribution Width CV 22.5 % (11.6-14.6); RBC Distribution Width SD 51.4 fl (35.1-43.9); White Blood Count 28.5 K/mm3 (4.4-11.0)
[2020-05-17 06:41] LABS: Differential Indicated MANUAL DIFF
[2020-05-17 06:52] LABS: Total Cells Counted 100 (MANUAL DIFF)
[2020-05-17 06:53] LABS: Anion Gap 5 (5-15); BUN 14 mg/dL (7-18); BUN/Creat Ratio 28.6 RATIO (10-20); Calcium,Total 8.8 mg/dL (8.5-10.1); Chloride 92 mmol/L (98-107); Creatinine, Serum 0.49 mg/dL (0.55-1.02); EST Glomerular Filtration Rate 140 mL/min (>60); Est Glom Filt Rate - Afr Amer 169 mL/min (>60); Estimated Creatinine Clearance 103.81 ml/min; Glucose 120 mg/dL (74-106); Potassium 3.3 mmol/L (3.5-5.1); Sodium Level 123 mmol/L (136-145)
[2020-05-17 06:56] LABS: Lymphocyte 6 % (19-41); Metamyelocyte 3 % (0-1); Monocyte 4 % (0-10); Myelocyte 6 (0-0); Nucleated Red Bld Cells,Manual 3 % (0-5)
[2020-05-17 06:57] LABS: Absolute Neutrophil Count 19.8 X10^3/uL (2.0-7.7); Lymphocyte # 1.71 X10^3/ul (4.0); Neutrophil # 19.83 X10^3/uL (2.7-7.7)
[2020-05-17 06:58] LABS: Absolute Lymphocyte Count 1.71 X10^3/uL (0.83-4.51)
[2020-05-17 06:59] LABS: Anisocytosis 1+; Macrocytosis RARE; Microcytosis RARE
[2020-05-17 07:00] LABS: Bedside Glucose 128 mg/dL (70-110)
[2020-05-17 07:00] LABS: Platelet Estimate ADEQUATE (ADEQ)
[2020-05-17 07:01] LABS: Neutrophil-Band 7 % (0-5); Neutrophil-Segmented 74 % (47-70)
[2020-05-17] MEDS: Budesonide Respules 0.5 MG/2 ML AMPUL.NEB. INHALATION ×2 (07:21→18:43)
[2020-05-17] MEDS: Ipratropium/Albuterol Sulfate 3 ML AMPUL.NEB INHALATION ×3 (07:21→18:43)
--- NOTE | 2020-05-17 08:10 | PCM.PROGNOTE ---
Patient Problems: Active and Suspected Problems (Last Updated 05/14/20 @ 08:[address] Bala Soria MD) SIADH (syndrome of inappropriate ADH production) (Acute) Pneumonia (Suspected) Hyponatremia (Acute) Abdominal pain (Acute) Subjective: Chief complaint: Follow-up after admission for severe hyponatremia due to SIADH, suspected atypical pneumonia. Patient seen and examined. No acute events overnight. Today, she is feeling better, no complaints. Her vitals are stable, afebrile. - Physical Exam Vitals/I&O's: Vital Signs Temp Pulse Resp BP Pulse Ox 97.3 F L 73 15 143/89 H 99 05/17/20 05:55 05/17/20 07:10 05/17/20 07:10 05/17/20 05:55 05/17/20 07:10 Oxygen Flow Rate (L/min) 2 Oxygen Delivery Method Nasal Cannula Weight: 250 lb 0.067 oz Body Mass Index (BMI) 47.4 Intake and Output for Last 24 Hours 05/15/20 05/16/20 05/17/20 23:59 23:59 23:59 Intake Total 565 / 565 335.48 / 455.48 220 / 220 Output Total 1300 / 2400 1450 / 1450 Balance 565 / 565 -964.52 / -1944.52 -1230 / -1230 General: Alert, Oriented x3, Cooperative, No apparent distress HEENT: Atraumatic, PERRLA, EOMI, Normocephalic Oral: Moist Mucosa, No Gingival or Mucosal Lesions/ Ulcerations Neck: Supple, No JVD, Negative Carotid Bruits, Trachea Midline, Thyroid Normal Size and Texture Lungs: Clear to auscultation, No rhonchi, No wheeze, No rales, Diminished Cardiovascular: Regular rate, Regular Rhythm, Normal S1, Normal S2, PMI Normal Abdomen: Bowel Sounds Present, Soft, Non Tender, Non-Distended, No Hepato-splenomegaly, Obese Extremities: No clubbing, No cyanosis, Edema Skin: No rashes, No breakdown Lymphatic: No Cervical, Supraclavicular, or Inguinal Adenopathy Neurological: Cranial nerves II-XII grossly intact, Neuro grossly intact Psych/Mental Status: Normal Affect, Appropriate, Alert and oriented to time, place, person, mood and affect Microbiology Past 72 Hours 05/10/20 05:06 Blood Culture (Wb) - Anticubital Right Blood Culture - Final No growth in 5 days. 05/10/20 02:45 Blood Culture (Wb) - Anticubital Right Blood Culture - Final No growth in 5 days. Laboratory Results 05/16/20 06:00: Diff Path Review Reviewed 05/16/20 10:05: Sodium 123 L 05/16/20 11:06: POC Glucose 110 05/16/20 13:54: Sodium 123 L 05/16/20 16:08: POC Glucose 116 H 05/16/20 17:50: Sodium 122 L 05/16/20 21:19: POC Glucose 121 H 05/16/20 21:39: Sodium 123 L 05/17/20 02:13: Sodium 124 L 05/17/20 06:20: WBC 28.5 H, RBC 5.60 H, Hgb 12.0, Hct 38.7, MCV 69.1 L, MCH 21.4 L, MCHC 31.0 L, RDW Std Deviation 51.4 H, RDW Coeff of Triston 22.5 H, Plt Count 251, MPV 8.3, Neut % (Auto) Not Reportable, Absolute Neuts (auto) 19.8 H, Absolute Lymphs (auto) 1.71, Total Counted 100, Neutrophils % (Manual) 74 H, Band Neutrophils % 7 H, Lymphocytes % (Manual) 6 L, Monocytes % (Manual) 4, Metamyelocytes % 3 H, Myelocytes % 6 H, Nucleated RBCs/100 WBC 3, Diff Path Review May foll, Platelet Estimate ADEQUATE, Anisocytosis 1+, Microcytosis RARE, Macrocytosis RARE 05/17/20 06:20: Sodium 123 L, Potassium 3.3 L, Chloride 92 L, Carbon Dioxide 26.0, Anion Gap 5, BUN 14, Creatinine 0.49 L, Estim Creat Clear Calc 103.81, Est GFR (MDRD) Af Amer 169, Est GFR (MDRD) Non-Af 140, BUN/Creatinine Ratio 28.6 H, Glucose 120 H, Calcium 8.8 05/17/20 06:48: POC Glucose 128 H Current Medications Acetaminophen (Acetaminophen 325 Mg Tablet) 650 mg PO Q6H PRN PRN PRN Reason: Pain Score 1-10/Temp > 100.7 F Last Admin: 05/17/20 03:40 Dose: 650 mg Documented by: Albuterol Sulfate (Albuterol 2.5 Mg/3 Ml Vial.Neb.) 2.5 mg INHALATION Q2H PRN PRN PRN Reason: SOB/Wheezing Last Admin: 05/17/20 01:35 Dose: 2.5 mg Documented by: Albuterol/Ipratropium (Ipratropium/Albuterol Sulfate 3 Ml Ampul.Neb) 3 ml INHALATION Q6HWA.RT [facility] Last Admin: 05/17/20 07:21 Dose: 3 ml Documented by: Budesonide (Budesonide Respules 0.5 Mg/2 Ml Ampul.Neb.) 0.5 mg INHALATION Q12H.RT [facility] Last Admin: 05/17/20 07:21 Dose: 0.5 mg Documented by: Bupropion HCl (Bupropion (Sr) 150 Mg Tablet.Sa) 150 mg PO BID [facility] Last Admin: 05/16/20 08:17 Dose: 150 mg Documented by: Furosemide (Furosemide 40 Mg/4 Ml Vial) 40 mg IV DAILY [facility] Last Admin: 05/16/20 11:01 Dose: 40 mg Documented by: Conivaptan HCl 20 mg/ N/A 100 mls @ 4.167 mls/hr IV .Q24H [facility] Last Admin: 05/16/20 08:18 Dose: 4.2 mls/hr Documented by: Insulin Human Lispro (Insulin Lispro 100 Unit/Ml Insuln.Pen) 0 unit SC ACHS [facility]; Protocol Last Admin: 05/17/20 06:48 Dose: Not Given Documented by: Levofloxacin (Levofloxacin 750 Mg Tablet) 750 mg PO DAILY [facility] Last Admin: 05/16/20 08:16 Dose: 750 mg Documented by: Losartan Potassium (Losartan Potassium 50 Mg Tablet) 50 mg PO DAILY [facility] Last Admin: 05/16/20 08:17 Dose: 50 mg Documented by: Morphine Sulfate (Morphine 2 Mg/Ml Syringe) 2 mg IV Q3H PRN PRN PRN Reason: Pain Score 6-10 Last Admin: 05/16/20 20:18 Dose: 2 mg Documented by: Ondansetron HCl (Ondansetron 4 Mg/2 Ml Vial) 4 mg IV Q8H PRN PRN PRN Reason: NAUSEA/VOMITING Last Admin: 05/15/20 03:41 Dose: 4 mg Documented by: Promethazine HCl (Promethazine 25 Mg/Ml Syringe) 12.5 mg IV Q6H PRN PRN PRN Reason: NAUSEA/VOMITING Last Admin: 05/10/20 12:40 Dose: 12.5 mg Documented by: Rivaroxaban (Rivaroxaban 20 Mg Tablet) 20 mg PO DAILY [facility] Last Admin: 05/14/20 08:50 Dose: 20 mg Documented by: Sodium Chloride (0.9% Saline Lock 10 Ml Syringe) 10 - 40 ml IV UD PRN PRN Reason: SALINE FLUSH Last Admin: 05/16/20 11:02 Dose: 10 ml Documented by: Sodium Chloride (Sodium Chloride 0.65% 1 [place].Btl) 1 spray NASAL TID PRN PRN PRN Reason: NASAL DRYNESS Last Admin: 05/13/20 09:59 Dose: 1 spray Documented by: Sodium Chloride (Sodium Chloride 1 Gm Tablet) 1 gm PO TID [facility] Last Admin: 05/17/20 05:46 Dose: 1 gm Documented by: Topiramate (Topiramate 25 Mg Tablet) 25 mg PO BID [facility] Last Admin: 05/16/20 21:21 Dose: 25 mg Documented by: Medical Necessity - Tobacco Use Smoking Status: Current every day smoker Assessment/Plan All Active Problems (Last Updated 05/14/20 @ 08:[address] Bala Soria MD) SIADH (syndrome of inappropriate ADH production) (Acute) Hyponatremia (Acute) Abdominal pain (Acute) This is a 55 years old female patient presented to the emergency room because of shortness of breath and vague abdominal pain, was found to have severe hyponatremia, has been treated with 3% saline, found to have findings consistent with possible pneumonia on CT chest. #1 severe hyponatremia: Attributed to SIADH which likely due to pneumonia. Use of diuretics is also contributing. Remained on IV conivaptan, IV Lasix as well as sodium chloride tablets and fluid restriction. Today sodium is 123, it is very slowly improving. Nephrology on the case. Plan to continue same treatment, repeat CBC and BMP tomorrow morning. #2 probable acute bilateral atypical pneumonia: Remained on p.o. Levaquin. She has been afebrile, WBC is trending up again. She has been on room air during daytime and she uses oxygen at 2 L at night which is her baseline at home. Appreciate pulmonary recommendations. plan to continue same treatment. #3 abdominal pain: Resolved. CT scan abdomen and pelvis without contrast reviewed, no acute findings. LFT was unremarkable. General surgery was consulted, no indication for surgical intervention. #4 type 2 diabetes mellitus: Blood sugar has been stable. She is on Accu-Cheks and sliding scale. Metformin on hold. #5 hypertension: Blood pressure stable, continue losartan and Lasix. #6 chronic pain syndrome: Stable, continue Tylenol as needed, Topamax twice daily. #7 history of PE: Continue Xarelto. #8 left adrenal nodules: Incidental finding on CT scan abdomen. Recommend follow-up with PCP and follow-up imaging in 3 to 6 months. #9 DVT prophylaxis: Continue Xarelto. This note was generated with [employer] dictation software. It may contain incorrect words, spelling, and punctuation that were not noted in checking the note before signing. Inpatient E&M: 38016 Subs Hosp L2
[2020-05-17 08:48] LABS: Urine Sodium 35 mmol/L (Not Establ.)
[2020-05-17 08:55] LABS: Osmolality, Urine 733 mOsm/KG
[2020-05-17] MEDS: Potassium Chloride Oral Tablet 20 MEQ 60 MEQ PO (09:19)
[2020-05-17] MEDS: Topiramate 25 MG Tablet PO ×2 (09:28→21:39)
[2020-05-17] MEDS: levoFLOXacin 750 MG Tablet PO (09:28)
[2020-05-17] MEDS: Losartan Potassium 50 MG Tablet PO (09:28)
--- NOTE | 2020-05-17 09:32 | PCM.PN.PUL ---
Patient Problems: Active and Suspected Problems (Last Updated 05/14/20 @ 08:[address] Bala Soria MD) SIADH (syndrome of inappropriate ADH production) (Acute) Pneumonia (Suspected) Hyponatremia (Acute) Abdominal pain (Acute) Subjective: Patient is doing okay this morning. Patient did report chest tightness overnight with associated wheezing. Patient is not reporting any wheezing or chest pain at this time. Patient states overall she feels like she is improved and has more strength compared to yesterday. Patient was found walking around without supplemental oxygen and tolerating this well. - Physical Exam Vitals/I&O's: Vital Signs Temp Pulse Resp BP Pulse Ox 36.4 C L 79 16 138/85 H 96 05/17/20 09:18 05/17/20 09:18 05/17/20 09:18 05/17/20 09:18 05/17/20 09:18 Oxygen Flow Rate (L/min) 2 Oxygen Delivery Method Room Air Weight: 113.4 kg Body Mass Index (BMI) 47.4 Intake and Output for Last 24 Hours 05/15/20 05/16/20 05/17/20 23:59 23:59 23:59 Intake Total 565 / 565 335.48 / 455.48 320 / 320 Output Total 1300 / 2400 1450 / 1450 Balance 565 / 565 -964.52 / -1944.52 -1130 / -1130 General: Alert, Oriented x3, Cooperative, No apparent distress, - - Morbidly obese. Speaking in full sentences. HEENT: Atraumatic, PERRLA, EOMI, Normocephalic, - - No scleral icterus or injection noted Oral: Moist Mucosa, No Gingival or Mucosal Lesions/ Ulcerations Neck: Supple, No JVD, No Nodes, Trachea Midline Lungs: No rhonchi, No wheeze, No rales, Diminished, - - Increased AP diameter Cardiovascular: Regular rate, Regular Rhythm, Normal S1, Normal S2, No murmurs, No rub noted, No Gallop Abdomen: Bowel Sounds Present, Soft, Non Tender, Non-Distended, Obese Extremities: No cyanosis, Edema Skin: - - No changes from previous Musculoskeletal: No Tenderness to Palpation of Joints or Extremities Lymphatic: No Cervical, Supraclavicular, or Inguinal Adenopathy Neurological: Cranial nerves II-XII grossly intact, Neuro grossly intact, Motor Exam 5/5 strength throughout Psych/Mental Status: Alert and oriented to time, place, person, mood and affect Microbiology Past 72 Hours 05/10/20 05:06 Blood Culture (Wb) - Anticubital Right Blood Culture - Final No growth in 5 days. 05/10/20 02:45 Blood Culture (Wb) - Anticubital Right Blood Culture - Final No growth in 5 days. Laboratory Results 05/16/20 06:00: Diff Path Review Reviewed 05/16/20 10:05: Sodium 123 L 05/16/20 11:06: POC Glucose 110 05/16/20 13:54: Sodium 123 L 05/16/20 16:08: POC Glucose 116 H 05/16/20 17:50: Sodium 122 L 05/16/20 21:19: POC Glucose 121 H 05/16/20 21:39: Sodium 123 L 05/17/20 02:13: Sodium 124 L 05/17/20 06:20: WBC 28.5 H, RBC 5.60 H, Hgb 12.0, Hct 38.7, MCV 69.1 L, MCH 21.4 L, MCHC 31.0 L, RDW Std Deviation 51.4 H, RDW Coeff of [place]iston 22.5 H, Plt Count 251, MPV 8.3, Neut % (Auto) Not Reportable, Absolute Neuts (auto) 19.8 H, Absolute Lymphs (auto) 1.71, Total Counted 100, Neutrophils % (Manual) 74 H, Band Neutrophils % 7 H, Lymphocytes % (Manual) 6 L, Monocytes % (Manual) 4, Metamyelocytes % 3 H, Myelocytes % 6 H, Nucleated RBCs/100 WBC 3, Diff Path Review May foll, Platelet Estimate ADEQUATE, Anisocytosis 1+, Microcytosis RARE, Macrocytosis RARE 05/17/20 06:20: Sodium 123 L, Potassium 3.3 L, Chloride 92 L, Carbon Dioxide 26.0, Anion Gap 5, BUN 14, Creatinine 0.49 L, Estim Creat Clear Calc 103.81, Est GFR (MDRD) Af Amer 169, Est GFR (MDRD) Non-Af 140, BUN/Creatinine Ratio 28.6 H, Glucose 120 H, Calcium 8.8 05/17/20 06:48: POC Glucose 128 H 05/17/20 08:19: Urine Osmolality 733, Ur Random Sodium 35, Urine Potassium 67.0 Current Medications Acetaminophen (Acetaminophen 325 Mg Tablet) 650 mg PO Q6H PRN PRN PRN Reason: Pain Score 1-10/Temp > 100.7 F Last Admin: 05/17/20 03:40 Dose: 650 mg Documented by: Albuterol Sulfate (Albuterol 2.5 Mg/3 Ml Vial.Neb.) 2.5 mg INHALATION Q2H PRN PRN PRN Reason: SOB/Wheezing Last Admin: 05/17/20 01:35 Dose: 2.5 mg Documented by: Albuterol/Ipratropium (Ipratropium/Albuterol Sulfate 3 Ml Ampul.Neb) 3 ml INHALATION Q6HWA.RT [facility] Last Admin: 05/17/20 07:21 Dose: 3 ml Documented by: Budesonide (Budesonide Respules 0.5 Mg/2 Ml Ampul.Neb.) 0.5 mg INHALATION Q12H.RT [facility] Last Admin: 05/17/20 07:21 Dose: 0.5 mg Documented by: Bupropion HCl (Bupropion (Sr) 150 Mg Tablet.Sa) 150 mg PO BID [facility] Last Admin: 05/16/20 08:17 Dose: 150 mg Documented by: Furosemide (Furosemide 40 Mg/4 Ml Vial) 40 mg IV DAILY [facility] Last Admin: 05/16/20 11:01 Dose: 40 mg Documented by: Conivaptan HCl 20 mg/ N/A 100 mls @ 4.167 mls/hr IV .Q24H [facility] Last Admin: 05/17/20 09:23 Dose: 4.2 mls/hr Documented by: Insulin Human Lispro (Insulin Lispro 100 Unit/Ml Insuln.Pen) 0 unit SC ACHS [facility]; Protocol Last Admin: 05/17/20 06:48 Dose: Not Given Documented by: Levofloxacin (Levofloxacin 750 Mg Tablet) 750 mg PO DAILY [facility] Last Admin: 05/17/20 09:28 Dose: 750 mg Documented by: Losartan Potassium (Losartan Potassium 50 Mg Tablet) 50 mg PO DAILY [facility] Last Admin: 05/17/20 09:28 Dose: 50 mg Documented by: Morphine Sulfate (Morphine 2 Mg/Ml Syringe) 2 mg IV Q3H PRN PRN PRN Reason: Pain Score 6-10 Last Admin: 05/16/20 20:18 Dose: 2 mg Documented by: Ondansetron HCl (Ondansetron 4 Mg/2 Ml Vial) 4 mg IV Q8H PRN PRN PRN Reason: NAUSEA/VOMITING Last Admin: 05/15/20 03:41 Dose: 4 mg Documented by: Promethazine HCl (Promethazine 25 Mg/Ml Syringe) 12.5 mg IV Q6H PRN PRN PRN Reason: NAUSEA/VOMITING Last Admin: 05/10/20 12:40 Dose: 12.5 mg Documented by: Rivaroxaban (Rivaroxaban 20 Mg Tablet) 20 mg PO DAILY [facility] Last Admin: 05/14/20 08:50 Dose: 20 mg Documented by: Sodium Chloride (0.9% Saline Lock 10 Ml Syringe) 10 - 40 ml IV UD PRN PRN Reason: SALINE FLUSH Last Admin: 05/16/20 11:02 Dose: 10 ml Documented by: Sodium Chloride (Sodium Chloride 0.65% 1 [place].Btl) 1 spray NASAL TID PRN PRN PRN Reason: NASAL DRYNESS Last Admin: 05/13/20 09:59 Dose: 1 spray Documented by: Sodium Chloride (Sodium Chloride 1 Gm Tablet) 1 gm PO TID [facility] Last Admin: 05/17/20 05:46 Dose: 1 gm Documented by: Topiramate (Topiramate 25 Mg Tablet) 25 mg PO BID [facility] Last Admin: 05/17/20 09:28 Dose: 25 mg Documented by: Medical Necessity - Tobacco Use Smoking Status: Current every day smoker Assessment/Plan All Active Problems (Last Updated 05/14/20 @ 08:[address] Bala Soria MD) SIADH (syndrome of inappropriate ADH production) (Acute) Hyponatremia (Acute) Abdominal pain (Acute) RECOMMENDATIONS: 1. Fluid restriction for SIADH. Conivaptan per nephrology 2. Empiric antibiotic coverage for atypical with Levaquin to complete a 7-day course 3. Okay to hold anticoagulation for 24 hours. Continue Lasix therapy 4. Continue Pulmicort. 5. Follow-up CT scan in 3 months with primary hand cultivator IMPRESSIONS: 1. SIADH Slowly improving. Pulmonary pathology is a concern. Patient does have some groundglass opacities in the upper lobes. This would be unlikely to be caused by congestive heart failure. Patient will need a follow-up CT scan in the future to evaluate. Patient does not appear to be hypotonic from my perspective. Cannot exclude a paraneoplastic syndrome, so if lymphadenopathy is not improving, EBUS may be necessary for evaluation. 2. Abnormal CT scan of the chest Previous CT scan did have granulomatous disease, but there are multiple areas of groundglass opacities. This could be suggestive of an atypical infection. COVID-19 testing was negative. Patient is currently off of her hydrochlorothiazide and Lasix secondary to her hyponatremia, but this pattern is not suggestive of CHF. Patient should have a repeat CT scan in 3 months to evaluate. Right-sided lymphadenopathy could be suggestive of a possible malignant process. If this does not resolve in 3 months, EBUS may be indicated for biopsy. Patient is chronically on anticoagulation. Okay to hold anticoagulation temporarily hours given conivaptan per nephrology. Risk is relatively minimal for PE off of therapy transiently. 3. Type 2 diabetes mellitus/hypertension/adrenal nodule/depression/chronic pain/history of VTE Complicates care, management, recovery and prognosis. Okay to continue with baseline medications from my perspective, with holding diuretic therapy given hyponatremia. Patient states that she has been tested for sleep apnea and was negative, but history is suggestive of sleep apnea. Could consider repeat testing versus a nocturnal oximetry to ensure oxygenation is controlled. Inpatient E&M: 32620 [facility] Hosp L2
--- NOTE | 2020-05-17 09:44 | CT_ITS ---
STUDY: CT BRAIN WITHOUT CONTRAST REASON FOR EXAM: Female, 55 years old. Persistent hyponatremia, SIADH RADIATION DOSAGE (If Supplied By Facility): CTDIvol = ( 44.99 ) mGy, DLP = ( 829.85 ) mGycm TECHNIQUE: Transaxial CT imaging of the brain was performed without administration of intravenous contrast material. Individualized dose optimization techniques were used for this CT. COMPARISON: No relevant priors. FINDINGS: Normal soft tissue structures. Normal calvarium. There is mild cerebral atrophy with widening of the extra-axial spaces and ventricular dilatation. Normal white matter tracts of the cerebral hemispheres. 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 Normal brainstem. Normal cerebellum. Empty sella. There is no intracranial hemorrhage. There are no findings of an acute ischemic infarction. Normal visualized paranasal sinuses. CT/Brain/Head without Contrast IMPRESSION: Chronic involutional changes of the brain. Empty sella. Electronically Signed: Buck Olsen MD at 10:25 EDT , Service support ,
--- NOTE | 2020-05-17 09:48 | PN.RENAL_ITS ---
Patient Problems: Active and Suspected Problems (Last Updated 05/14/20 @ 08:[address] Bala Soria MD) SIADH (syndrome of inappropriate ADH production) (Acute) Pneumonia (Suspected) Hyponatremia (Acute) Abdominal pain (Acute) Subjective: Following for hyponatremia. Patient denies headaches, nausea, or confusion. She denies ataxia when walking to the restroom. - Physical Exam Vitals/I&O's: Vital Signs Temp Pulse Resp BP Pulse Ox 97.5 F L 79 16 138/85 H 96 05/17/20 09:18 05/17/20 09:18 05/17/20 09:18 05/17/20 09:18 05/17/20 09:18 Oxygen Flow Rate (L/min) 2 Oxygen Delivery Method Room Air Weight: 113.4 kg Body Mass Index (BMI) 47.4 Intake and Output for Last 24 Hours 05/15/20 05/16/20 05/17/20 23:59 23:59 23:59 Intake Total 565 / 565 335.48 / 455.48 320 / 320 Output Total 1300 / 2400 1450 / 1450 Balance 565 / 565 -964.52 / -1944.52 -1130 / -1130 General: Alert, Oriented x3, Cooperative HEENT: Atraumatic Oral: Moist Mucosa Neck: Supple Lungs: Clear to auscultation Cardiovascular: Regular Rhythm, Normal S1, Normal S2 Abdomen: Bowel Sounds Present, Soft, Non Tender Extremities: No edema Skin: No rashes Microbiology Past 72 Hours 05/10/20 05:06 Blood Culture (Wb) - Anticubital Right Blood Culture - Final No growth in 5 days. 05/10/20 02:45 Blood Culture (Wb) - Anticubital Right Blood Culture - Final No growth in 5 days. Laboratory Results 05/16/20 06:00: Diff Path Review Reviewed 05/16/20 10:05: Sodium 123 L 05/16/20 11:06: POC Glucose 110 05/16/20 13:54: Sodium 123 L 05/16/20 16:08: POC Glucose 116 H 05/16/20 17:50: Sodium 122 L 05/16/20 21:19: POC Glucose 121 H 05/16/20 21:39: Sodium 123 L 05/17/20 02:13: Sodium 124 L 05/17/20 06:20: WBC 28.5 H, RBC 5.60 H, Hgb 12.0, Hct 38.7, MCV 69.1 L, MCH 21.4 L, MCHC 31.0 L, RDW Std Deviation 51.4 H, RDW Coeff of Triston 22.5 H, Plt Count 251, MPV 8.3, Neut % (Auto) Not Reportable, Absolute Neuts (auto) 19.8 H, Absolute Lymphs (auto) 1.71, Total Counted 100, Neutrophils % (Manual) 74 H, Band Neutrophils % 7 H, Lymphocytes % (Manual) 6 L, Monocytes % (Manual) 4, Metamyelocytes % 3 H, Myelocytes % 6 H, Nucleated RBCs/100 WBC 3, Diff Path Review May , Platelet Estimate ADEQUATE, Anisocytosis 1+, Microcytosis RARE, Macrocytosis RARE 05/17/20 06:20: Sodium 123 L, Potassium 3.3 L, Chloride 92 L, Carbon Dioxide 26.0, Anion Gap 5, BUN 14, Creatinine 0.49 L, Estim Creat Clear Calc 103.81, Est GFR (MDRD) Af Amer 169, Est GFR (MDRD) Non-Af 140, BUN/Creatinine Ratio 28.6 H, Glucose 120 H, Calcium 8.8 05/17/20 06:48: POC Glucose 128 H 05/17/20 08:19: Urine Osmolality 733, Ur Random Sodium 35, Urine Potassium 67.0 Current Medications Acetaminophen (Acetaminophen 325 Mg Tablet) 650 mg PO Q6H PRN PRN PRN Reason: Pain Score 1-10/Temp > 100.7 F Last Admin: 05/17/20 03:40 Dose: 650 mg Documented by: Albuterol Sulfate (Albuterol 2.5 Mg/3 Ml Vial.Neb.) 2.5 mg INHALATION Q2H PRN PRN PRN Reason: SOB/Wheezing Last Admin: 05/17/20 01:35 Dose: 2.5 mg Documented by: Albuterol/Ipratropium (Ipratropium/Albuterol Sulfate 3 Ml Ampul.Neb) 3 ml INHALATION Q6HWA.RT [facility] Last Admin: 05/17/20 07:21 Dose: 3 ml Documented by: Budesonide (Budesonide Respules 0.5 Mg/2 Ml Ampul.Neb.) 0.5 mg INHALATION Q12H.RT [facility] Last Admin: 05/17/20 07:21 Dose: 0.5 mg Documented by: Bupropion HCl (Bupropion (Sr) 150 Mg Tablet.Sa) 150 mg PO BID [facility] Last Admin: 05/16/20 08:17 Dose: 150 mg Documented by: Furosemide (Furosemide 40 Mg/4 Ml Vial) 40 mg IV DAILY [facility] Last Admin: 05/16/20 11:01 Dose: 40 mg Documented by: Conivaptan HCl 20 mg/ N/A 100 mls @ 4.167 mls/hr IV .Q24H [facility] Last Admin: 05/17/20 09:23 Dose: 4.2 mls/hr Documented by: Insulin Human Lispro (Insulin Lispro 100 Unit/Ml Insuln.Pen) 0 unit SC ACHS [facility]; Protocol Last Admin: 05/17/20 06:48 Dose: Not Given Documented by: Levofloxacin (Levofloxacin 750 Mg Tablet) 750 mg PO DAILY [facility] Last Admin: 05/17/20 09:28 Dose: 750 mg Documented by: Losartan Potassium (Losartan Potassium 50 Mg Tablet) 50 mg PO DAILY [facility] Last Admin: 05/17/20 09:28 Dose: 50 mg Documented by: Morphine Sulfate (Morphine 2 Mg/Ml Syringe) 2 mg IV Q3H PRN PRN PRN Reason: Pain Score 6-10 Last Admin: 05/16/20 20:18 Dose: 2 mg Documented by: Ondansetron HCl (Ondansetron 4 Mg/2 Ml Vial) 4 mg IV Q8H PRN PRN PRN Reason: NAUSEA/VOMITING Last Admin: 05/15/20 03:41 Dose: 4 mg Documented by: Promethazine HCl (Promethazine 25 Mg/Ml Syringe) 12.5 mg IV Q6H PRN PRN PRN Reason: NAUSEA/VOMITING Last Admin: 05/10/20 12:40 Dose: 12.5 mg Documented by: Rivaroxaban (Rivaroxaban 20 Mg Tablet) 20 mg PO DAILY [facility] Last Admin: 05/14/20 08:50 Dose: 20 mg Documented by: Sodium Chloride (0.9% Saline Lock 10 Ml Syringe) 10 - 40 ml IV UD PRN PRN Reason: SALINE FLUSH Last Admin: 05/16/20 11:02 Dose: 10 ml Documented by: Sodium Chloride (Sodium Chloride 0.65% 1 [place].Btl) 1 spray NASAL TID PRN PRN PRN Reason: NASAL DRYNESS Last Admin: 05/13/20 09:59 Dose: 1 spray Documented by: Sodium Chloride (Sodium Chloride 1 Gm Tablet) 1 gm PO TID [facility] Last Admin: 05/17/20 05:46 Dose: 1 gm Documented by: Topiramate (Topiramate 25 Mg Tablet) 25 mg PO BID [facility] Last Admin: 05/17/20 09:28 Dose: 25 mg Documented by: Medical Necessity - Tobacco Use Smoking Status: Current every day smoker Assessment/Plan All Active Problems (Last Updated 05/14/20 @ 08:[address] Bala Soria MD) SIADH (syndrome of inappropriate ADH production) (Acute) Hyponatremia (Acute) Abdominal pain (Acute) Hyponatremia. Patient likely has SIADH at baseline. Acute worsening of hyponatremia was likely from thiazide diuretics. Sodium was as low as 109 mmol/L at presentation. Sodium level corrected at appropriate level using 3% sodium chloride and DDAVP. Currently off DDAVP and 3% NaCl since May 12. Sodium level has not increased significantly on conivaptan which was started on 05/15/2020. Lasix and salt tablet was started yesterday. If the next sodium level is not any better, I will increase Lasix dose. Repeat urine osmolality today is still very high at 733 mOsm/kg despite conivaptan. If there is no further improvement of his sodium level later today, I may stop conivaptan altogether. Continue fluid restriction, Lasix, and salt tablet. I encouraged the patient to increase protein intake which will help obligate water loss through the kidneys. Continue to follow sodium frequently for now. Discussed above plan with Dr. Soria. We need to exclude malignancy with urine osmolality of this magnitude. Per my discussion with Dr. Soria, CT chest did not show obvious malignancy. Therefore, I would completely exclude brain tumor which can also present with urine osmolality above 600.
[2020-05-17] MEDS: Rivaroxaban 20 MG Tablet PO (09:55)
[2020-05-17] MEDS: Furosemide 40 MG/4 ML Vial IV (09:57)
[2020-05-17 10:13] LABS: Sodium Level 125 mmol/L (136-145)
[2020-05-17] MEDS: Insulin Lispro 100 UNIT/ML INSULN.PEN SC (11:26)
[2020-05-17 11:27] LABS: Pathologist Review Reviewed
[2020-05-17 11:51] LABS: Bedside Glucose 214 mg/dL (70-110)
[2020-05-17] MEDS: Senna Tablet 2 TABLET PO ×2 (13:08→21:38)
[2020-05-17 14:50] LABS: Sodium Level 127 mmol/L (136-145)
--- NOTE | 2020-05-17 15:59 | NS ---
Pt w/ 2 fluid restrictions ordered: one states less than 800cc, one says less than 800cc w/ comment of 1200cc. Discussed w/ Dr. Soria- verbal order for less than 800cc fluid restriction. Saritha Hooper MS, RDN, LD
[2020-05-17 18:05] LABS: Bedside Glucose 117 mg/dL (70-110)
[2020-05-17 20:42] LABS: Sodium Level 127 mmol/L (136-145)
[2020-05-17 21:56] LABS: Bedside Glucose 132 mg/dL (70-110)
[2020-05-18] VITALS (13 sets, daily range): BP systolic 137–166; BP diastolic 80–100; PULSE 73–106; RESP 15–20; TEMP 36.3–36.6; O2SAT 96–99
[2020-05-18 02:03] LABS: Sodium Level 127 mmol/L (136-145)
[2020-05-18] MEDS: Albuterol 2.5 MG/3 ML VIAL.NEB. INHALATION (03:19)
[2020-05-18] MEDS: Acetaminophen 325 MG Tablet 650 MG PO ×2 (04:13→13:12)
[2020-05-18] MEDS: Sodium Chloride 1 GM Tablet PO ×2 (05:05→13:09)
[2020-05-18 05:36] LABS: Hematocrit 37.6 % (37-47); Hemoglobin 11.7 g/dL (12.0-15.0); Mean Corp Hgb Conc 31.1 g/dL (32-36); Mean Corpuscular Hgb 21.9 pg (27.0-32.0); Mean Corpuscular Volume 70.3 fL (81-99); Mean Platelet Vol. 8.4 fl (6.2-12.0); POSITIVE COUNT YES; POSITIVE MORPHOLOGY YES; Platelet Count 230 K/mm3 (150-450); RBC Distribution Width CV 22.8 % (11.6-14.6); RBC Distribution Width SD 53.4 fl (35.1-43.9); Red Blood Count 5.35 M/mm3 (4.2-5.4); White Blood Count 27.5 K/mm3 (4.4-11.0)
[2020-05-18 05:43] LABS: Differential Indicated MANUAL DIFF
[2020-05-18 05:53] LABS: Anion Gap 8 (5-15); BUN 18 mg/dL (7-18); BUN/Creat Ratio 36.4 RATIO (10-20); Chloride 95 mmol/L (98-107); EST Glomerular Filtration Rate 138 mL/min (>60); Est Glom Filt Rate - Afr Amer 167 mL/min (>60); Estimated Creatinine Clearance 101.73 ml/min; Glucose 138 mg/dL (74-106); Potassium 3.2 mmol/L (3.5-5.1); Sodium Level 130 mmol/L (136-145)
[2020-05-18 06:01] LABS: Total Cells Counted 100 (MANUAL DIFF)
[2020-05-18 06:05] LABS: Metamyelocyte 4 % (0-1)
[2020-05-18 06:06] LABS: Lymphocyte 8 % (19-41); Monocyte 5 % (0-10); Myelocyte 3 (0-0); Neutrophil-Band 5 % (0-5); Neutrophil-Segmented 75 % (47-70); Nucleated Red Bld Cells,Manual 3 % (0-5); Platelet Estimate ADEQUATE (ADEQ)
[2020-05-18 06:07] LABS: Anisocytosis 1+; Macrocytosis RARE; Microcytosis RARE
[2020-05-18 06:08] LABS: Neutrophil # 21.98 X10^3/uL (2.7-7.7); Polychromasia RARE
[2020-05-18 06:40] LABS: Bedside Glucose 134 mg/dL (70-110)
[2020-05-18] MEDS: Budesonide Respules 0.5 MG/2 ML AMPUL.NEB. INHALATION (07:19)
[2020-05-18] MEDS: Ipratropium/Albuterol Sulfate 3 ML AMPUL.NEB INHALATION ×2 (07:19→13:02)
[2020-05-18] MEDS: levoFLOXacin 750 MG Tablet PO (08:23)
[2020-05-18] MEDS: Furosemide 40 MG/4 ML Vial IV (08:23)
[2020-05-18] MEDS: Losartan Potassium 50 MG Tablet PO (08:23)
[2020-05-18] MEDS: Senna Tablet 2 TABLET PO (08:24)
[2020-05-18] MEDS: Topiramate 25 MG Tablet PO (08:24)
[2020-05-18] MEDS: Rivaroxaban 20 MG Tablet PO (08:25)
[2020-05-18] MEDS: 0.9% Saline Lock 10 ML Syringe IV ×2 (08:27→10:00)
--- NOTE | 2020-05-18 09:58 | PCM.PN.PUL ---
Patient Problems: Active and Suspected Problems (Last Updated 05/14/20 @ 08:[address] Bala Soria MD) SIADH (syndrome of inappropriate ADH production) (Acute) Pneumonia (Suspected) Hyponatremia (Acute) Abdominal pain (Acute) Subjective: Patient feels improved and wants to go home. Patient denies any chest pain. Cough is at his baseline. No nausea or vomiting - Physical Exam Vitals/I&O's: Vital Signs Temp Pulse Resp BP Pulse Ox 36.5 C L 73 16 142/89 H 98 05/18/20 08:08 05/18/20 08:08 05/18/20 08:08 05/18/20 08:08 05/18/20 08:08 Oxygen Flow Rate (L/min) 1 Oxygen Delivery Method Nasal Cannula Weight: 112 kg Body Mass Index (BMI) 47.4 Intake and Output for Last 24 Hours 05/16/20 05/17/20 05/18/20 23:59 23:59 23:59 Intake Total 335.48 / 455.48 780 / 1080 375 / 375 Output Total 1300 / 2400 2600 / 3100 1000 / 1000 Balance -964.52 / -1944.52 -1820 / -2020 -625 / -625 General: Alert, Oriented x3, Cooperative, No apparent distress, - - Morbidly obese. Speaking in full sentences HEENT: Atraumatic, PERRLA, EOMI, Normocephalic, - - No scleral icterus or injection Oral: Moist Mucosa, No Gingival or Mucosal Lesions/ Ulcerations Neck: Supple, No JVD, No Nodes, Trachea Midline Lungs: No rhonchi, No wheeze, No rales, Diminished Cardiovascular: Regular rate, Regular Rhythm, Normal S1, Normal S2, No murmurs, No rub noted, No Gallop Abdomen: Bowel Sounds Present, Soft, Non Tender, Non-Distended, Obese Extremities: No clubbing, No cyanosis Skin: No rashes, No breakdown Musculoskeletal: No Tenderness to Palpation of Joints or Extremities Lymphatic: No Cervical, Supraclavicular, or Inguinal Adenopathy Neurological: Cranial nerves II-XII grossly intact, Neuro grossly intact, Motor Exam 5/5 strength throughout Psych/Mental Status: Alert and oriented to time, place, person, mood and affect Microbiology Past 72 Hours 05/10/20 05:06 Blood Culture (Wb) - Anticubital Right Blood Culture - Final No growth in 5 days. 05/10/20 02:45 Blood Culture (Wb) - Anticubital Right Blood Culture - Final No growth in 5 days. Laboratory Results 05/17/20 06:20: Diff Path Review Reviewed 05/17/20 09:48: Sodium 125 L 05/17/20 10:57: POC Glucose 214 H 05/17/20 14:02: Sodium 127 L 05/17/20 16:44: POC Glucose 117 H 05/17/20 20:09: Sodium 127 L 05/17/20 21:43: POC Glucose 132 H 05/18/20 00:48: Sodium 127 L 05/18/20 05:25: WBC 27.5 H, RBC 5.35, Hgb 11.7 L, Hct 37.6, MCV 70.3 L, MCH 21.9 L, MCHC 31.1 L, RDW Std Deviation 53.4 H, RDW Coeff of Triston 22.8 H, Plt Count 230, MPV 8.4, Neut % (Auto) Not Reportable, Absolute Neuts (auto) 22.0 H, Absolute Lymphs (auto) 2.20, Total Counted 100, Neutrophils % (Manual) 75 H, Band Neutrophils % 5, Lymphocytes % (Manual) 8 L, Monocytes % (Manual) 5, Metamyelocytes % 4 H, Myelocytes % 3 H, Nucleated RBCs/100 WBC 3, Diff Path Review May foll, Platelet Estimate ADEQUATE, Polychromasia RARE, Anisocytosis 1+, Microcytosis RARE, Macrocytosis RARE 05/18/20 05:25: Sodium 130 L, Potassium 3.2 L, Chloride 95 L, Carbon Dioxide 27.0, Anion Gap 8, BUN 18, Creatinine 0.50 L, Estim Creat Clear Calc 101.73, Est GFR (MDRD) Af Amer 167, Est GFR (MDRD) Non-Af 138, BUN/Creatinine Ratio 36.4 H, Glucose 138 H, Calcium 9.0 05/18/20 06:32: POC Glucose 134 H Current Medications Acetaminophen (Acetaminophen 325 Mg Tablet) 650 mg PO Q6H PRN PRN PRN Reason: Pain Score 1-10/Temp > 100.7 F Last Admin: 05/18/20 04:13 Dose: 650 mg Documented by: Albuterol Sulfate (Albuterol 2.5 Mg/3 Ml Vial.Neb.) 2.5 mg INHALATION Q2H PRN PRN PRN Reason: SOB/Wheezing Last Admin: 05/18/20 03:19 Dose: 2.5 mg Documented by: Albuterol/Ipratropium (Ipratropium/Albuterol Sulfate 3 Ml Ampul.Neb) 3 ml INHALATION Q6HWA.RT [facility] Last Admin: 05/18/20 07:19 Dose: 3 ml Documented by: Budesonide (Budesonide Respules 0.5 Mg/2 Ml Ampul.Neb.) 0.5 mg INHALATION Q12H.RT [facility] Last Admin: 05/18/20 07:19 Dose: 0.5 mg Documented by: Bupropion HCl (Bupropion (Sr) 150 Mg Tablet.Sa) 150 mg PO BID [facility] Last Admin: 05/16/20 08:17 Dose: 150 mg Documented by: Furosemide (Furosemide 40 Mg/4 Ml Vial) 40 mg IV DAILY [facility] Last Admin: 05/18/20 08:23 Dose: 40 mg Documented by: Conivaptan HCl 20 mg/ N/A 100 mls @ 4.167 mls/hr IV .Q24H [facility] Last Admin: 05/17/20 09:23 Dose: 4.2 mls/hr Documented by: Insulin Human Lispro (Insulin Lispro 100 Unit/Ml Insuln.Pen) 0 unit SC ACHS [facility]; Protocol Last Admin: 05/18/20 06:34 Dose: Not Given Documented by: Levofloxacin (Levofloxacin 750 Mg Tablet) 750 mg PO DAILY [facility] Last Admin: 05/18/20 08:23 Dose: 750 mg Documented by: Losartan Potassium (Losartan Potassium 50 Mg Tablet) 50 mg PO DAILY [facility] Last Admin: 05/18/20 08:23 Dose: 50 mg Documented by: Morphine Sulfate (Morphine 2 Mg/Ml Syringe) 2 mg IV Q3H PRN PRN PRN Reason: Pain Score 6-10 Last Admin: 05/16/20 20:18 Dose: 2 mg Documented by: Nicotine (Nicotine 21 Mg Patch) 21 mg TD DAILY [facility] Last Admin: 05/18/20 08:23 Dose: Not Given Documented by: Ondansetron HCl (Ondansetron 4 Mg/2 Ml Vial) 4 mg IV Q8H PRN PRN PRN Reason: NAUSEA/VOMITING Last Admin: 05/15/20 03:41 Dose: 4 mg Documented by: Promethazine HCl (Promethazine 25 Mg/Ml Syringe) 12.5 mg IV Q6H PRN PRN PRN Reason: NAUSEA/VOMITING Last Admin: 05/10/20 12:40 Dose: 12.5 mg Documented by: Rivaroxaban (Rivaroxaban 20 Mg Tablet) 20 mg PO DAILY [facility] Last Admin: 05/18/20 08:25 Dose: 20 mg Documented by: Senna (Senna Tablet) 2 tablet PO BID [facility] Last Admin: 05/18/20 08:24 Dose: 2 tablet Documented by: Sodium Chloride (0.9% Saline Lock 10 Ml Syringe) 10 - 40 ml IV UD PRN PRN Reason: SALINE FLUSH Last Admin: 05/18/20 08:27 Dose: 20 ml Documented by: Sodium Chloride (Sodium Chloride 0.65% 1 [place].Btl) 1 spray NASAL TID PRN PRN PRN Reason: NASAL DRYNESS Last Admin: 05/13/20 09:59 Dose: 1 spray Documented by: Sodium Chloride (Sodium Chloride 1 Gm Tablet) 1 gm PO TID [facility] Last Admin: 05/18/20 05:05 Dose: 1 gm Documented by: Topiramate (Topiramate 25 Mg Tablet) 25 mg PO BID [facility] Last Admin: 05/18/20 08:24 Dose: 25 mg Documented by: Clinical Impression(s) from Imaging Studies Brain CT 05/17/20 09:44 IMPRESSION: Chronic involutional changes of the brain. Empty sella. Electronically Signed: Buck Olsen MD at 10:25 EDT , Service support , Medical Necessity - Tobacco Use Smoking Status: Current every day smoker Assessment/Plan All Active Problems (Last Updated 05/14/20 @ 08:[address] Bala Soria MD) SIADH (syndrome of inappropriate ADH production) (Acute) Hyponatremia (Acute) Abdominal pain (Acute) RECOMMENDATIONS: 1. Fluid restriction for SIADH. Additional medications per nephrology 2. Empiric antibiotic coverage for atypical with Levaquin to complete a 7-day course 3. Resume anticoagulation 4. Continue Pulmicort. 5. Follow-up CT scan in 3 months with primary pound keeper and possible bronchoscopy IMPRESSIONS: 1. SIADH Slowly improving. Pulmonary pathology is a concern. Patient does have some groundglass opacities in the upper lobes. This would be unlikely to be caused by congestive heart failure. Patient will need a follow-up CT scan in the future to evaluate. Patient does not appear to be hypotonic from my perspective. Cannot exclude a paraneoplastic syndrome, so if lymphadenopathy is not improving, EBUS may be necessary for evaluation. 2. Abnormal CT scan of the chest Previous CT scan did have granulomatous disease, but there are multiple areas of groundglass opacities. This could be suggestive of an atypical infection. COVID-19 testing was negative. Patient is currently off of her hydrochlorothiazide and Lasix secondary to her hyponatremia, but this pattern is not suggestive of CHF. Patient should have a repeat CT scan in 3 months to evaluate. Right-sided lymphadenopathy could be suggestive of a possible malignant process. If this does not resolve in 3 months, EBUS may be indicated for biopsy. Patient is chronically on anticoagulation. Patient can resume baseline pulmonary therapy on discharge. Stressed the importance of follow-up to avoid complications such as missed malignancy 3. Type 2 diabetes mellitus/hypertension/adrenal nodule/depression/chronic pain/history of VTE Complicates care, management, recovery and prognosis. Okay to continue with baseline medications from my perspective, with holding diuretic therapy given hyponatremia. Patient states that she has been tested for sleep apnea and was negative, but history is suggestive of sleep apnea. Could consider repeat testing versus a nocturnal oximetry to ensure oxygenation is controlled. Inpatient E&M: [id number] [facility] L2
--- NOTE | 2020-05-18 11:25 | PCM.PN.REN ---
Patient Problems: Active and Suspected Problems (Last Updated 05/14/20 @ 08:[address] Bala Soria MD) SIADH (syndrome of inappropriate ADH production) (Acute) Pneumonia (Suspected) Hyponatremia (Acute) Abdominal pain (Acute) Subjective: Na 124 doing well - Physical Exam Vitals/I&O's: Vital Signs Temp Pulse Resp BP Pulse Ox 97.7 F L 73 16 142/89 H 98 05/18/20 08:08 05/18/20 08:08 05/18/20 08:08 05/18/20 08:08 05/18/20 08:08 Oxygen Flow Rate (L/min) 1 Oxygen Delivery Method Nasal Cannula Weight: 112 kg Body Mass Index (BMI) 47.4 Intake and Output for Last 24 Hours 05/16/20 05/17/20 05/18/20 23:59 23:59 23:59 Intake Total 335.48 / 455.48 780 / 1080 475 / 475 Output Total 1300 / 2400 2600 / 3100 1000 / 1000 Balance -964.52 / -1944.52 -1820 / -2020 -525 / -525 General: Alert, Oriented x3, Cooperative HEENT: Atraumatic, PERRLA, EOMI, Normocephalic Neck: Supple, No JVD, Negative Carotid Bruits Lungs: Clear to auscultation, Normal air movement Cardiovascular: Regular rate, No murmurs Abdomen: Bowel Sounds Present, Soft, Non Tender Laboratory Results 05/17/20 06:20: Diff Path Review Reviewed 05/17/20 10:57: POC Glucose 214 H 05/17/20 14:02: Sodium 127 L 05/17/20 16:44: POC Glucose 117 H 05/17/20 20:09: Sodium 127 L 05/17/20 21:43: POC Glucose 132 H 05/18/20 00:48: Sodium 127 L 05/18/20 05:25: WBC 27.5 H, RBC 5.35, Hgb 11.7 L, Hct 37.6, MCV 70.3 L, MCH 21.9 L, MCHC 31.1 L, RDW Std Deviation 53.4 H, RDW Coeff of [place]iston 22.8 H, Plt Count 230, MPV 8.4, Neut % (Auto) Not Reportable, Absolute Neuts (auto) 22.0 H, Absolute Lymphs (auto) 2.20, Total Counted 100, Neutrophils % (Manual) 75 H, Band Neutrophils % 5, Lymphocytes % (Manual) 8 L, Monocytes % (Manual) 5, Metamyelocytes % 4 H, Myelocytes % 3 H, Nucleated RBCs/100 WBC 3, Diff Path Review May foll, Platelet Estimate ADEQUATE, Polychromasia RARE, Anisocytosis 1+, Microcytosis RARE, Macrocytosis RARE 05/18/20 05:25: Sodium 130 L, Potassium 3.2 L, Chloride 95 L, Carbon Dioxide 27.0, Anion Gap 8, BUN 18, Creatinine 0.50 L, Estim Creat Clear Calc 101.73, Est GFR (MDRD) Af Amer 167, Est GFR (MDRD) Non-Af 138, BUN/Creatinine Ratio 36.4 H, Glucose 138 H, Calcium 9.0 05/18/20 06:32: POC Glucose 134 H Current Medications Acetaminophen (Acetaminophen 325 Mg Tablet) 650 mg PO Q6H PRN PRN PRN Reason: Pain Score 1-10/Temp > 100.7 F Last Admin: 05/18/20 04:13 Dose: 650 mg Documented by: Albuterol Sulfate (Albuterol 2.5 Mg/3 Ml Vial.Neb.) 2.5 mg INHALATION Q2H PRN PRN PRN Reason: SOB/Wheezing Last Admin: 05/18/20 03:19 Dose: 2.5 mg Documented by: Albuterol/Ipratropium (Ipratropium/Albuterol Sulfate 3 Ml Ampul.Neb) 3 ml INHALATION Q6HWA.RT [facility] Last Admin: 05/18/20 07:19 Dose: 3 ml Documented by: Budesonide (Budesonide Respules 0.5 Mg/2 Ml Ampul.Neb.) 0.5 mg INHALATION Q12H.RT [facility] Last Admin: 05/18/20 07:19 Dose: 0.5 mg Documented by: Bupropion HCl (Bupropion (Sr) 150 Mg Tablet.Sa) 150 mg PO BID [facility] Last Admin: 05/16/20 08:17 Dose: 150 mg Documented by: Furosemide (Furosemide 40 Mg/4 Ml Vial) 40 mg IV DAILY [facility] Last Admin: 05/18/20 08:23 Dose: 40 mg Documented by: Conivaptan HCl 20 mg/ N/A 100 mls @ 4.167 mls/hr IV .Q24H [facility] Last Infusion: 05/18/20 09:25 Dose: Infused Documented by: Insulin Human Lispro (Insulin Lispro 100 Unit/Ml Insuln.Pen) 0 unit SC ACHS [facility]; Protocol Last Admin: 05/18/20 06:34 Dose: Not Given Documented by: Levofloxacin (Levofloxacin 750 Mg Tablet) 750 mg PO DAILY [facility] Last Admin: 05/18/20 08:23 Dose: 750 mg Documented by: Losartan Potassium (Losartan Potassium 50 Mg Tablet) 50 mg PO DAILY [facility] Last Admin: 05/18/20 08:23 Dose: 50 mg Documented by: Morphine Sulfate (Morphine 2 Mg/Ml Syringe) 2 mg IV Q3H PRN PRN PRN Reason: Pain Score 6-10 Last Admin: 05/16/20 20:18 Dose: 2 mg Documented by: Nicotine (Nicotine 21 Mg Patch) 21 mg TD DAILY [facility] Last Admin: 05/18/20 08:23 Dose: Not Given Documented by: Ondansetron HCl (Ondansetron 4 Mg/2 Ml Vial) 4 mg IV Q8H PRN PRN PRN Reason: NAUSEA/VOMITING Last Admin: 05/15/20 03:41 Dose: 4 mg Documented by: Promethazine HCl (Promethazine 25 Mg/Ml Syringe) 12.5 mg IV Q6H PRN PRN PRN Reason: NAUSEA/VOMITING Last Admin: 05/10/20 12:40 Dose: 12.5 mg Documented by: Rivaroxaban (Rivaroxaban 20 Mg Tablet) 20 mg PO DAILY [facility] Last Admin: 05/18/20 08:25 Dose: 20 mg Documented by: Senna (Senna Tablet) 2 tablet PO BID [facility] Last Admin: 05/18/20 08:24 Dose: 2 tablet Documented by: Sodium Chloride (0.9% Saline Lock 10 Ml Syringe) 10 - 40 ml IV UD PRN PRN Reason: SALINE FLUSH Last Admin: 05/18/20 10:00 Dose: 10 ml Documented by: Sodium Chloride (Sodium Chloride 0.65% 1 [place].Btl) 1 spray NASAL TID PRN PRN PRN Reason: NASAL DRYNESS Last Admin: 05/13/20 09:59 Dose: 1 spray Documented by: Sodium Chloride (Sodium Chloride 1 Gm Tablet) 1 gm PO TID [facility] Last Admin: 05/18/20 05:05 Dose: 1 gm Documented by: Topiramate (Topiramate 25 Mg Tablet) 25 mg PO BID [facility] Last Admin: 05/18/20 08:24 Dose: 25 mg Documented by: Medical Necessity - Tobacco Use Smoking Status: Current every day smoker Assessment/Plan All Active Problems (Last Updated 05/14/20 @ 08:[address] Bala Soria MD) SIADH (syndrome of inappropriate ADH production) (Acute) Hyponatremia (Acute) Abdominal pain (Acute) Hyponatremia. Patient likely has SIADH at baseline. Acute worsening of hyponatremia was likely from thiazide diuretics. Sodium was as low as 109 mmol/L at presentation. Sodium level corrected at appropriate level using 3% sodium chloride and DDAVP. Currently off DDAVP and 3% NaCl since May 12. Sodium level has not increased significantly on conivaptan which was started on 05/15/2020. Lasix and salt tablet was started yesterday. Na 124 DC lasix dch pt on sodium chloride tablet 1 gm BID Dch pt home repeat RFP in 1 week televsit with us
--- NOTE | 2020-05-18 12:06 | DCINST_ITS ---
- Discharge Diagnoses Current Active Problems: Current Active and Chronic Problems (Last Updated 05/14/20 @ 08:[address] Bala Soria MD) SIADH (syndrome of inappropriate ADH production) (Acute) Hyponatremia (Acute) Abdominal pain (Acute) Diabetes mellitus, type II (Chronic) Chronic pain syndrome (Chronic) Morbid obesity with BMI of 45.0-49.9, adult (Chronic) Essential (primary) hypertension (Chronic) Nicotine dependence (Chronic) Pulmonary embolism (Chronic 07/09/14) You will use the following diet at home:: Calorie/Carbohydrate Controlled (specify 1200, 1400, etc) - 1800 renetta., Cardiac, Fluid restricted (specify 2000 mls, 1500 mls) - 1000 cc daily. Your food should be the consistency of: Regular Discharge Activity: Return to Normal Activity Weight Bearing Status: Weight bearing as tolerated Call your doctor if you observe: Fever of 101 or Higher, Shortness of breath, Dizziness, Swelling in the ankles, Chest pain, Increased palpitations (irregular heartbeat), Uncontrolled pain Allergies/Adverse Reactions: Allergies Latex, Natural Rubber Allergy (Verified 05/09/20 21:41) Rash Medications to take at Discharge Albuterol IH (ProAir) [Proair Hfa] 1 - 2 puff INHALATION Q4H PRN PRN 05/03/14 Rivaroxaban [Xarelto] 20 mg PO DAILY 11/08/14 bupropion HCl 150 mg tablet,12 hr sustained-release 150 mg PO BID 06/09/17 mometasone-formoterol HFA 200 mcg-5 mcg/actuation aerosol inhaler 2 puff INHALATION BID 06/09/17 tiotropium bromide 18 mcg capsule with inhalation device 2.5 mcg INHALATION DAILY 30 Days 06/09/17 topiramate 25 mg capsule,extended release 24 hr 25 mg PO BID cap 06/09/17 potassium chloride 20 mEq tablet,extended release 40 meq PO BID tab 12/02/17 cetirizine 10 mg capsule 10 mg PO DAILY 07/06/18 metformin 1,000 mg tablet 1,000 mg PO BID 07/06/18 ipratropium 0.5 mg-albuterol 3 mg (2.5 mg base)/3 mL nebulization soln 3 ml INHALATION 6XD 07/08/19 losartan 50 mg tablet 50 mg PO DAILY tab 07/08/19 polyethylene glycol 3350 17 gram/dose oral powder 17 g PO PRN PRN 07/08/19 Amlodipine [Norvasc] 5 mg PO DAILY #30 tab 05/18/20 Sodium Chloride 1 gm PO BID #30 tablet 05/18/20 levoFLOXacin tablet [Levaquin tablet] 750 mg PO DAILY #3 tablet 05/18/20 The following prescriptions were given: levoFLOXacin tablet [Levaquin tablet] 750 mg PO DAILY #3 tablet Transmission Status: Pending to [facility] Amlodipine [Norvasc] 5 mg PO DAILY #30 tab Transmission Status: Pending to [facility] Sodium Chloride 1 gm PO BID #30 tablet Transmission Status: Pending to [facility] Primary Care Physician: Domingo Marinelli DO [Primary Care Provider] - Please follow up with your Primary Care Physician in: 1-2 weeks. Test Results: Test results from this visit will be discussed in further detail at your follow- up appointment, if applicable. Please Follow Up With: Martha Alex MD When: 1 week. Please Follow Up With: Kulwinder Freeman MD When: 3-4 weeks.
[2020-05-18 12:21] LABS: Bedside Glucose 138 mg/dL (70-110)
--- NOTE | 2020-05-18 12:21 | PCM.DC.SUM ---
Discharge Date and Diagnosis - Problem List Patient Problems: Active and Suspected Problems (Last Updated 05/14/20 @ 08:[address] Bala Soria MD) SIADH (syndrome of inappropriate ADH production) (Acute) Pneumonia (Suspected) Hyponatremia (Acute) Abdominal pain (Acute) Date of Admission: 05/10/20 Date of Discharge: 05/18/20 - Primary Discharge Diagnosis Acute Problems: Active Problems (Last Updated 05/14/20 @ 08:[address] Bala Soria MD) #1 severe hyponatremia due to SIADH, diuretics probably contributing. #2 suspected acute bilateral atypical pneumonia. #3 abdominal pain, resolved. Suspected Problems: Suspected Problems (Last Updated 05/14/20 @ 08:[address] Bala Soria MD) Pneumonia (Suspected) - Secondary Discharge Diagnosis Chronic Problems: Chronic Problems (Last Updated 05/14/20 @ 08:[address] Bala Soria MD) Diabetes mellitus, type II (Chronic) Chronic pain syndrome (Chronic) Morbid obesity with BMI of 45.0-49.9, adult (Chronic) Essential (primary) hypertension (Chronic) Nicotine dependence (Chronic) Pulmonary embolism (Chronic 07/09/14) Hospital Course and Treatment Imaging Results: Clinical Impression(s) from Imaging Studies Chest X-Ray 05/09/20 22:38 IMPRESSION: Old granulomatous disease. No acute chest disease. Electronically Signed: Sergio Beauchamp MD at 22:54 EST , Service support , Abdomen/Pelvis CT 05/10/20 23:50 IMPRESSION: There are at least 3 nodules within the left adrenal gland lung measuring 3.4 cm, one measuring 2.3 cm, and one measuring 3.4 cm. 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 The more inferior 2 lesions are likely adenomas. No acute disease perceived. Individualized dose optimization techniques were used for this CT. at 0044 Reported and signed by: Gómez Ramos MD Electronically Signed: Gómez Ramos MD at 0:43 EST Tel , Service support , Chest CT 05/13/20 11:10 IMPRESSION: 1. Bilateral subsegmental atelectasis or pneumonitis. Commonly reported imaging features of Covid 19 pneumonia are present. Other processes such as influenza pneumonia and organizing pneumonia as can be seen with drug toxicity and connective tissue disease can cause a similar imaging pattern. 2. More confluent and dense nodular opacities in the right upper lobe with right hilar lymphadenopathy. Possibilities include bacterial pneumonia, tuberculosis or fungal disease, or tumor with metastatic lymphadenopathy. Clinical correlation is recommended. Electronically Signed: Foreign aY MD at 13:29 EDT Tel , Service support , Chest X-Ray 05/15/20 15:20 IMPRESSION: Interval placement of right upper extremity PICC with tip the catheter overlying the junction of the right atrium and spur vena cava. Electronically Signed: Foreign Ya MD at 15:40 EDT Tel , Service support , Chest X-Ray 05/15/20 15:26 IMPRESSION: Interval placement of right upper extremity PICC with tip the catheter overlying the junction of the right atrium and superior vena cava. Electronically Signed: Foreign Ya MD at 15:42 EDT Tel , Service support , ADDENDUM: 05/15/[address] 05/17/20 09:44 IMPRESSION: Chronic involutional changes of the brain. Empty sella. Electronically Signed: Buck Olsen MD at 10:25 EDT , Service support , Dr. Roman, Dr. Hagan, Dr. Levine, nephrology. Dr. Mittal, pulmonology. Operations: None Procedures: None Summary of Care Provided: Patient seen and examined on the day of discharge to be stable for discharge home. She has no specific complaints. Her vital signs were stable. This is a 55 years old female patient presented to the emergency room because of shortness of breath and vague abdominal pain, was found to have severe hyponatremia secondary to SIADH and also found to have suspected bilateral atypical pneumonia. #1 severe hyponatremia: Attributed to SIADH, diuretics also may be contributing. She was treated with IV conivaptan, sodium chloride tablets and intermittent Lasix. Admission sodium was 109 and upon discharge, sodium was 131. Nephrology consulted and they managed the IV conivaptan and the fluids. This SIADH is likely due to pneumonia, underlying lung cancer also in the differential diagnosis. CT scan abdomen and pelvis without contrast showed left adrenal gland nodules, no other masses or tumors. CT scan chest showed bilateral segmental atelectasis or pneumonitis, possible organizing pneumonia, nodular opacities on the right upper lobe with right hilar lymph adenopathy. This was treated as atypical pneumonia. Patient discharged home on sodium chloride tablets twice daily, plan to follow-up with nephrology in 1 week. #2 Suspected acute bilateral atypical pneumonia: Based on CT scan chest findings. Patient was treated with Levaquin. She remained afebrile throughout the hospital stay. Her WBC trended up up to 28,000 and on day of discharge, it came down to 27,500. She was discharged on p.o. Levaquin for 3 days to complete total of 7 days of treatment, plan to follow-up with pulmonology and patient will need follow-up CT scan chest in 3 months. #3 type 2 diabetes mellitus: Blood sugar has been stable. Continued on Metformin. She is on Accu-Cheks and sliding scale. Metformin on hold. #4 hypertension: Blood pressure stable, discharged on Norvasc and losartan, HCTZ discontinued. #5 history of PE: Continued on Xarelto. #6 left adrenal nodules: Incidental finding on CT scan abdomen. Recommend follow-up with PCP and follow-up imaging in 3 to 6 months. Patient discharged home in a stable medical condition, discharged on p.o. Levaquin for 3 days to complete total of 7 days of treatment for atypical pneumonia, discharged on sodium chloride tablets twice daily, plan to follow-up with nephrology in 1 week, follow-up with pulmonology in 3 to 4 weeks, patient will need follow-up CT scan chest in 3 months to ensure resolution of the lung infiltrate and rule out any underlying lung nodules or tumors, recommended follow-up with PCP in 1 to 2 weeks. This note was generated with [employer] dictation software. It may contain incorrect words, spelling, and punctuation that were not noted in checking the note before signing. Patient Problems: Active and Suspected Problems (Last Updated 05/14/20 @ 08:[address] Bala Soria MD) SIADH (syndrome of inappropriate ADH production) (Acute) Pneumonia (Suspected) Hyponatremia (Acute) Abdominal pain (Acute) - Physical Exam Vitals/I&O's: Vital Signs Temp Pulse Resp BP Pulse Ox 97.7 F L 76 15 137/90 H 98 05/18/20 11:24 05/18/20 11:24 05/18/20 11:24 05/18/20 11:24 05/18/20 11:24 Oxygen Flow Rate (L/min) 1 Oxygen Delivery Method Nasal Cannula Weight: 246 lb 14.684 oz Body Mass Index (BMI) 47.4 Intake and Output for Last 24 Hours 05/16/20 05/17/20 05/18/20 23:59 23:59 23:59 Intake Total 335.48 / 455.48 780 / 1080 735 / 735 Output Total 1300 / 2400 2600 / 3100 1600 / 1600 Balance -964.52 / -1944.52 -1820 / -2020 -865 / -865 General: Alert, Oriented x3, Cooperative, No apparent distress HEENT: Atraumatic, PERRLA, EOMI, Normocephalic Oral: Moist Mucosa, No Gingival or Mucosal Lesions/ Ulcerations Neck: Supple, No JVD, Negative Carotid Bruits, Trachea Midline, Thyroid Normal Size and Texture Lungs: Clear to auscultation, No rhonchi, No wheeze, No rales, Diminished Cardiovascular: Regular rate, Regular Rhythm, Normal S1, Normal S2, PMI Normal Abdomen: Bowel Sounds Present, Soft, Non Tender, Non-Distended, No Hepato-splenomegaly, Obese Extremities: No clubbing, No cyanosis, Edema Skin: No rashes, No breakdown Lymphatic: No Cervical, Supraclavicular, or Inguinal Adenopathy Neurological: Cranial nerves II-XII grossly intact, Neuro grossly intact Psych/Mental Status: Normal Affect, Appropriate Laboratory Results 05/17/20 14:02: Sodium 127 L 05/17/20 16:44: POC Glucose 117 H 05/17/20 20:09: Sodium 127 L 05/17/20 21:43: POC Glucose 132 H 05/18/20 00:48: Sodium 127 L 05/18/20 05:25: WBC 27.5 H, RBC 5.35, Hgb 11.7 L, Hct 37.6, MCV 70.3 L, MCH 21.9 L, MCHC 31.1 L, RDW Std Deviation 53.4 H, RDW Coeff of Triston 22.8 H, Plt Count 230, MPV 8.4, Neut % (Auto) Not Reportable, Absolute Neuts (auto) 22.0 H, Absolute Lymphs (auto) 2.20, Total Counted 100, Neutrophils % (Manual) 75 H, Band Neutrophils % 5, Lymphocytes % (Manual) 8 L, Monocytes % (Manual) 5, Metamyelocytes % 4 H, Myelocytes % 3 H, Nucleated RBCs/100 WBC 3, Diff Path Review May foll, Platelet Estimate ADEQUATE, Polychromasia RARE, Anisocytosis 1+, Microcytosis RARE, Macrocytosis RARE 05/18/20 05:25: Sodium 130 L, Potassium 3.2 L, Chloride 95 L, Carbon Dioxide 27.0, Anion Gap 8, BUN 18, Creatinine 0.50 L, Estim Creat Clear Calc 101.73, Est GFR (MDRD) Af Amer 167, Est GFR (MDRD) Non-Af 138, BUN/Creatinine Ratio 36.4 H, Glucose 138 H, Calcium 9.0 05/18/20 06:32: POC Glucose 134 H 05/18/20 11:26: POC Glucose Pending Current Medications Acetaminophen (Acetaminophen 325 Mg Tablet) 650 mg PO Q6H PRN PRN PRN Reason: Pain Score 1-10/Temp > 100.7 F Last Admin: 05/18/20 04:13 Dose: 650 mg Documented by: Albuterol Sulfate (Albuterol 2.5 Mg/3 Ml Vial.Neb.) 2.5 mg INHALATION Q2H PRN PRN PRN Reason: SOB/Wheezing Last Admin: 05/18/20 03:19 Dose: 2.5 mg Documented by: Albuterol/Ipratropium (Ipratropium/Albuterol Sulfate 3 Ml Ampul.Neb) 3 ml INHALATION Q6HWA.RT [facility] Last Admin: 05/18/20 07:19 Dose: 3 ml Documented by: Budesonide (Budesonide Respules 0.5 Mg/2 Ml Ampul.Neb.) 0.5 mg INHALATION Q12H.RT [facility] Last Admin: 05/18/20 07:19 Dose: 0.5 mg Documented by: Bupropion HCl (Bupropion (Sr) 150 Mg Tablet.Sa) 150 mg PO BID [facility] Last Admin: 05/16/20 08:17 Dose: 150 mg Documented by: Furosemide (Furosemide 40 Mg/4 Ml Vial) 40 mg IV DAILY [facility] Last Admin: 05/18/20 08:23 Dose: 40 mg Documented by: Conivaptan HCl 20 mg/ N/A 100 mls @ 4.167 mls/hr IV .Q24H [facility] Last Infusion: 05/18/20 09:25 Dose: Infused Documented by: Insulin Human Lispro (Insulin Lispro 100 Unit/Ml Insuln.Pen) 0 unit SC ACHS [facility]; Protocol Last Admin: 05/18/20 11:33 Dose: Not Given Documented by: Levofloxacin (Levofloxacin 750 Mg Tablet) 750 mg PO DAILY [facility] Last Admin: 05/18/20 08:23 Dose: 750 mg Documented by: Losartan Potassium (Losartan Potassium 50 Mg Tablet) 50 mg PO DAILY [facility] Last Admin: 05/18/20 08:23 Dose: 50 mg Documented by: Morphine Sulfate (Morphine 2 Mg/Ml Syringe) 2 mg IV Q3H PRN PRN PRN Reason: Pain Score 6-10 Last Admin: 05/16/20 20:18 Dose: 2 mg Documented by: Nicotine (Nicotine 21 Mg Patch) 21 mg TD DAILY [facility] Last Admin: 05/18/20 08:23 Dose: Not Given Documented by: Ondansetron HCl (Ondansetron 4 Mg/2 Ml Vial) 4 mg IV Q8H PRN PRN PRN Reason: NAUSEA/VOMITING Last Admin: 05/15/20 03:41 Dose: 4 mg Documented by: Promethazine HCl (Promethazine 25 Mg/Ml Syringe) 12.5 mg IV Q6H PRN PRN PRN Reason: NAUSEA/VOMITING Last Admin: 05/10/20 12:40 Dose: 12.5 mg Documented by: Rivaroxaban (Rivaroxaban 20 Mg Tablet) 20 mg PO DAILY [facility] Last Admin: 05/18/20 08:25 Dose: 20 mg Documented by: Senna (Senna Tablet) 2 tablet PO BID [facility] Last Admin: 05/18/20 08:24 Dose: 2 tablet Documented by: Sodium Chloride (0.9% Saline Lock 10 Ml Syringe) 10 - 40 ml IV UD PRN PRN Reason: SALINE FLUSH Last Admin: 05/18/20 10:00 Dose: 10 ml Documented by: Sodium Chloride (Sodium Chloride 0.65% 1 Raymond Raymond.Btl) 1 spray NASAL TID PRN PRN PRN Reason: NASAL DRYNESS Last Admin: 05/13/20 09:59 Dose: 1 spray Documented by: Sodium Chloride (Sodium Chloride 1 Gm Tablet) 1 gm PO TID [facility] Last Admin: 05/18/20 05:05 Dose: 1 gm Documented by: Topiramate (Topiramate 25 Mg Tablet) 25 mg PO BID [facility] Last Admin: 05/18/20 08:24 Dose: 25 mg Documented by: Discharge Activity: Return to Normal Activity Weight Bearing Status: Weight bearing as tolerated Call your doctor if you observe: Fever of 101 or Higher, Shortness of breath, Dizziness, Swelling in the ankles, Chest pain, Increased palpitations (irregular heartbeat), Uncontrolled pain Home Medications: Medications to take at Discharge Albuterol IH (ProAir) [Proair Hfa] 1 - 2 puff INHALATION Q4H PRN PRN 05/03/14 Rivaroxaban [Xarelto] 20 mg PO DAILY 11/08/14 bupropion HCl 150 mg tablet,12 hr sustained-release 150 mg PO BID 06/09/17 mometasone-formoterol HFA 200 mcg-5 mcg/actuation aerosol inhaler 2 puff INHALATION BID 06/09/17 tiotropium bromide 18 mcg capsule with inhalation device 2.5 mcg INHALATION DAILY 30 Days 06/09/17 topiramate 25 mg capsule,extended release 24 hr 25 mg PO BID cap 06/09/17 potassium chloride 20 mEq tablet,extended release 40 meq PO BID tab 12/02/17 cetirizine 10 mg capsule 10 mg PO DAILY 07/06/18 metformin 1,000 mg tablet 1,000 mg PO BID 07/06/18 ipratropium 0.5 mg-albuterol 3 mg (2.5 mg base)/3 mL nebulization soln 3 ml INHALATION 6XD 07/08/19 losartan 50 mg tablet 50 mg PO DAILY tab 07/08/19 polyethylene glycol 3350 17 gram/dose oral powder 17 g PO PRN PRN 07/08/19 Amlodipine [Norvasc] 5 mg PO DAILY #30 tab 05/18/20 Sodium Chloride 1 gm PO BID #30 tablet 05/18/20 levoFLOXacin tablet [Levaquin tablet] 750 mg PO DAILY #3 tablet 05/18/20 Following Prescriptions Were Given to Patient: levoFLOXacin tablet [Levaquin tablet] 750 mg PO DAILY #3 tablet Transmission Status: Received by [facility] Amlodipine [Norvasc] 5 mg PO DAILY #30 tab Transmission Status: Received by [facility] Sodium Chloride 1 gm PO BID #30 tablet Transmission Status: Received by [facility] Primary Care Physician: Domingo Marinelli DO [Primary Care Provider] - Please follow up with your Primary Care Physician in: 1-2 weeks. Please Follow Up With: Martha Alex MD When: 1 week. Please Follow Up With: Kulwinder Freeman MD When: 3-4 weeks. Please Follow Up With: Domingo Marinelli DO Disposition: Home Minutes spent on discharge:: 32 Patient Condition:: Stable Medical Necessity - Tobacco Use Smoking Status: Current every day smoker Meaningful Use Info Meaningful Use Diagnoses (Choose all that apply): None applicable Inpatient E&M: 29140 [facility]
--- NOTE | 2020-05-18 12:36 | NURSING ---
Notified pharmacy that patient is being discharged.
[2020-05-18 12:44] LABS: Sodium Level 131 mmol/L (136-145)
[2020-05-18] MEDS: Potassium Chloride Oral Tablet 20 MEQ 60 MEQ PO (13:07)
[2020-05-18] MEDS: buPROPion (SR) 150 MG Tablet.SA PO (13:08)
--- NOTE | 2020-05-18 13:57 | PHA.DC.MC ---
Pharmacy Service has performed discharge medication reconciliation and counseling for this patient. 1. AMLODIPINE 5MG PO DAILY 2. LEVOFLOXACIN 750MG PO DAILY X 3 DAYS 3. SODIUM CHLORIDE 1GM PO BID The patient's discharge medication list was reviewed for discrepancies and discrepancies were resolved. Home Medications Albuterol IH (ProAir) [Proair Hfa] 1 - 2 puff INHALATION Q4H PRN PRN 05/03/14 Rivaroxaban [Xarelto] 20 mg PO DAILY 11/08/14 bupropion HCl 150 mg tablet,12 hr sustained-release 150 mg PO BID 06/09/17 mometasone-formoterol HFA 200 mcg-5 mcg/actuation aerosol inhaler 2 puff INHALATION BID 06/09/17 tiotropium bromide 18 mcg capsule with inhalation device 2.5 mcg INHALATION DAILY 30 Days 06/09/17 topiramate 25 mg capsule,extended release 24 hr 25 mg PO BID cap 06/09/17 potassium chloride 20 mEq tablet,extended release 40 meq PO BID tab 12/02/17 cetirizine 10 mg capsule 10 mg PO DAILY 07/06/18 metformin 1,000 mg tablet 1,000 mg PO BID 07/06/18 ipratropium 0.5 mg-albuterol 3 mg (2.5 mg base)/3 mL nebulization soln 3 ml INHALATION 6XD 07/08/19 losartan 50 mg tablet 50 mg PO DAILY tab 07/08/19 polyethylene glycol 3350 17 gram/dose oral powder 17 g PO PRN PRN 07/08/19 Amlodipine [Norvasc] 5 mg PO DAILY #30 tab 05/18/20 Sodium Chloride 1 gm PO BID #30 tablet 05/18/20 levoFLOXacin tablet [Levaquin tablet] 750 mg PO DAILY #3 tablet 05/18/20 The patient was counseled on the following discharge medications and changes in medications for homegoing were reviewed. The Reason for Use, instructions for use, and potential side effects were reviewed for all new medications. The patient's questions regarding all of their medications were answered. The patient was able to verbally demonstrate an understanding of their discharge medications.
[2020-05-21 14:04] LABS: Pathologist Review Reviewed
--- NOTE | 2020-05-21 15:34 | CASEMGMT ---
LISA ZHU Discharge Follow-up Phone Call: GREGORIA: Ethan Strata: 3 Call Date: 05/21/20 Discharge Date: 05/18/20 Time of Call: [id number] Duration: 3 min Admitting Diagnosis: Abdominal pain, hyponatremia LISA ZHU completed follow-up phone call after recent hospitalization. Patient states she is in some pain and is at the doctor's office at this time. Patient had no questions or concerns regarding discharge instructions and was able to fill prescriptions without any issues. Patient had no further questions or concerns at this time.
== END 2020-05-18 15:37 | disposition home or self-care (01) | DRG 426 ==
LOC: ED 05-10 00:26 → PCU 05-10 01:08 → ICU 05-14 08:45 → PCU 05-14 08:45
PROVIDERS: Internal Medicine; Internal Medicine Nephrology; Nurse Practitioner Family; Student in an Organized Health Care Education/Training Program; Admitting Provider Internal Medicine; Emergency Provider Emergency Medicine; PCP Family Medicine; Visit Provider Hospitalist
DX: E22.2 Syndrome of inappropriate secretion of antidiuretic hormone (principal); E27.8 Other specified disorders of adrenal gland; J18.9 Pneumonia, unspecified organism; E11.21 Type 2 diabetes mellitus with diabetic nephropathy; E66.01 Morbid (severe) obesity due to excess calories; Z68.42 Body mass index [BMI] 45.0-49.9, adult; J43.9 Emphysema, unspecified; M06.9 Rheumatoid arthritis, unspecified; I10 Essential (primary) hypertension; G47.33 Obstructive sleep apnea (adult) (pediatric); M19.90 Unspecified osteoarthritis, unspecified site; F41.9 Anxiety disorder, unspecified; F32.9 Major depressive disorder, single episode, unspecified; E87.8 Other disorders of electrolyte and fluid balance, not elsewhere classified; K42.9 Umbilical hernia without obstruction or gangrene; K44.9 Diaphragmatic hernia without obstruction or gangrene; F17.200 Nicotine dependence, unspecified, uncomplicated; E87.70 Fluid overload, unspecified; G89.4 Chronic pain syndrome; Z86.711 Personal history of pulmonary embolism; Z79.899 Other long term (current) drug therapy; Z79.01 Long term (current) use of anticoagulants
CPT/HCPCS: 36415; 36569; 70450; 71045; 71270; 74176; 80048; 80053; 81001; 82436; 82570; 82962; 83605; 83735; 83880; 83930; 83935; 84100; 84133; 84295; 84300; 84484; 85025; 85610; 85730; 87040; 87086; 87088; 87426; 93005; 94640; 94667; 94668; 97802; 97803; 99251; 99284; 99406; J7030; J7040; J7050; Q9967; A4216; G0463; J1940; J2405; J2597

== ENCOUNTER → 2020-06-04 10:19 | Outpatient (CLI) | payer MEDICAID, SELFPAY ==
[2020-05-10 01:01] VITALS: BMI 47.4
--- NOTE | 2020-06-04 10:36 | RAD_ITS ---
INDICATION: SEVERE LBP EXAMINATION/TECHNIQUE: X-RAY - XR Spine Lumbar Min 4 Views COMPARISON: None. FINDINGS: VERTEBRAE: There is mild compression of the superior endplate of L4 of indeterminate age. No fracture. No spondylolisthesis. Preservation of the normal lumbar lordosis. No significant facet arthropathy. DISCS: There is degenerative disc disease, T11-12 through L1 to and at L5-S1. INCLUDED ABDOMEN: Included bowel gas pattern is non-obstructive. RAD/L/S Spine Min 4 Views IMPRESSION: Mild compression of the superior endplate of L4 of indeterminate age. Degenerative disc disease. Electronically Signed: Jonathon Taylor MD at 12:50 EDT Tel , Service support ,
[2020-06-04 11:25] LABS: Anion Gap 8 (5-15); BUN 10 mg/dL (7-18); Chloride 82 mmol/L (98-107); Creatinine, Serum 0.37 mg/dL (0.55-1.02); EST Glomerular Filtration Rate 193 mL/min (>60); Est Glom Filt Rate - Afr Amer 234 mL/min (>60); Glucose 136 mg/dL (74-106); Potassium 4.6 mmol/L (3.5-5.1); Sodium Level 116 mmol/L (136-145)
== END ==
PROVIDERS: PCP Family Medicine; Referring Provider Internal Medicine; Visit Provider Internal Medicine
DX: E87.1 Hypo-osmolality and hyponatremia (principal); M54.5 Low back pain
CPT/HCPCS: 36415; 72110; 80048

== ENCOUNTER 2020-06-04 16:38 | Inpatient (IN) | payer MEDICAID, SELFPAY ==
[2020-05-10 01:01] VITALS: BMI 47.4
[2020-06-04 16:39] VITALS: BP 134/68; PULSE 89; RESP 15; TEMP 36.3; O2SAT 98; BMI 43.9
--- NOTE | 2020-06-04 17:05 | ED.VIS.GEN ---
History of Present Illness Chief Complaint: Abn Labs Informant: Patient, Family Narrative: 55-year-old female with history of SIADH and hyponatremia presenting with the reported sodium of 116. She states this is a chronic issue. She states that her hydrocrane operator had her on some sodium pills and she ran out of these 2 days ago. She states that her hydrocrane operator did not reorder these. He did order lab work today and that is when the sodium was found to be low. Patient was seen by her casting and curing operator also today and told the casting and curing operator that she had been using 3 L of oxygen instead of 1 L and she was told that is okay. Patient states that she is not dizzy, lightheaded, falling, confused. Her niece is here and states that she just acts tired. Patient admits to feeling fatigued. Patient does also admit to some urinary complaints. On her last blood work drawn previously she had a high white blood cell count but it appears to be chronic. Past Medical History - Allergies and Home Meds Allergies/Adverse Reactions: Allergies Latex, Natural Rubber Allergy (Verified 06/04/20 16:42) Rash Prior records reviewed: Yes Past Medical History: - - SIADH, obesity, type 2 diabetes, hyponatremia, hypertension, PE on Eliquis, pulmonary hypertension, SIL, emphysema, rheumatoid arthritis Surgical History: - - tubal ligation Lives: Alone Smoking Status: Current every day smoker Alcohol: None Drugs: None - Family History Maternal Family History: Family History (Last Reviewed 05/10/20 @ 01:53 by CAMPOS Castorena) Sister Hypertension Asthma Brother Heart disease Asthma Family History: Reports: - - her mother at 46 YOA, 9 days after giving to the pt Paternal Family History: Family History (Last Reviewed 05/10/20 @ 01:53 by CAMPOS Castorena) Sister Hypertension Asthma Brother Heart disease Asthma Family History: Reports: Cancer - lung, - - father at 67 and had CVD Review of Systems General: Reports: Malaise. Denies: Chills, Fever, Sweats Eyes: Denies: Visual changes - bilaterally, Diplopia ENT: Denies: Rhinorrhea, Sore throat Cardiovascular: Denies: Chest pain, Palpitations Respiratory: Denies: Dyspnea, Cough, Dyspnea on exertion Gastrointestinal: Denies: Abdominal pain, Nausea, Vomiting, Diarrhea, Melena, Hematochezia Genitourinary: Reports: Dysuria. Denies: Hematuria, Frequency Musculoskeletal: Denies: Back pain, Extremity Pain Skin: Denies: Rash, Wounds Neurological: Denies: Headache, Weakness, Numbness Psych: Denies: Depression, Anxiety, Suicidal thoughts, Suicidal ideations, -, - Physical Exam Vital Signs/Narrative: Vital Signs Temp Pulse Resp BP Pulse Ox 06/04/20 16:39 97.3 F L 89 15 134/68 H 98 Inital Vital Signs reviewed: Yes General: Obese, No Acute Distress Head: Normocephalic Eyes: Perrl, EOMI ENT: Moist mucous membranes Cardiovascular: Regular rate, Regular rhythm Respiratory: No distress, CTA bilaterally Abdomen: Soft, Nontender, Nondistended Extremities: Edema. Negative for: Calf Tenderness Skin: Normal color, No rash. Negative for: Cyanosis, Diaphoresis Neurological: Alert, Oriented x3, Cranial nerves II-XII grossly intact Psychological: Normal affect, Normal Mood Diagnostic/Tx/Re-eval Clinical Impression(s) from Imaging Studies Chest X-Ray 06/04/20 17:25 IMPRESSION: Mild interstitial edema or infiltrates. Stable calcified nodules. Electronically Signed: Rosalio Miranda MD at 18:07 EDT , Service support , - Medical Decision Making Patient had outpatient labs drawn today which showed a sodium 116, potassium 4.6, chloride 82, CO2 82, creatinine 0.37. We will add on CBC, chest x-ray, urinalysis given her symptoms. Discussed with hospitalist on admission the findings on the BMP. Chest x-ray as interpreted by myself shows either infiltrate or interstitial edema. She has not had fever, cough that is significantly changed I will hold antibiotics at this time. CBC and UA were pending on admission. Hospitalist will follow up with this on the floor. Patient has stable vital signs at this time. Impression: 1. Hyponatremia 2. History of SIADH ED Disposition - Plan for ED Patient: Disposition: Acute Care [facility]
--- NOTE | 2020-06-04 17:25 | RAD_ITS ---
STUDY: X-RAY CHEST REASON FOR EXAM: Female, 55 years old. Dyspnea TECHNIQUE: Single AP portable view of the chest. COMPARISON: May 16, 2019 FINDINGS: There are mild interstitial increased opacities of the lungs. There are numerous calcified nodules in the lungs. There is no demonstrated pleural abnormality. Normal size heart. Normal mediastinum and geronimo. Normal visualized pulmonary arteries. Normal visualized aortic arch and descending thoracic aorta. There is a dextroscoliosis of the thoracic spine. Normal visualized ribs, clavicles, and shoulders. There is no demonstrated abnormality of the visualized soft tissue structures of the upper abdomen. RAD/Chest 1 View (Portable) IMPRESSION: Mild interstitial edema or infiltrates. Stable calcified nodules. Electronically Signed: Rosalio Miranda MD at 18:07 EDT , Service support ,
--- NOTE | 2020-06-04 17:52 | PCM.HP.STD ---
Problem List (1) SIADH (syndrome of inappropriate ADH production) Status: Chronic (2) Morbid obesity with BMI of 40.0-44.9, adult Status: Chronic (3) Diabetes mellitus, type II Status: Chronic (4) Chronic pain syndrome Status: Chronic (5) Essential (primary) hypertension Status: Chronic (6) Nicotine dependence Status: Chronic Qualifiers: Nicotine product type: cigarettes History of Present Illness Date of Admission: 06/04/20 Chief Complaint: Abnormal labs The patient is a 55 year old F who presents to the ER upon direction of her primary care physician following abnormal labs that were drawn this morning. Patient was recently discharged following diagnosis of SIADH and this morning her CMP recheck showed a sodium of 116. Upon receiving these results her primary care physician instructed patient to come to ER for further work-up. Patient states that she has not been taking her salt tabs for the past 1 to 2 days because she ran out and the prescription was not refilled. Patient states that she called her primary care to let them know she needed a refill but never heard back, further attempts were not made to obtain refill for sodium chloride tabs. Patient reports fatigue, denies chills, fever, increased shortness of breath, chest pain, nausea, vomiting. CMP drawn earlier today also shows chloride of 82. Past Medical History Past Medical History (Chronic Problems): Chronic Problems (Last Reviewed 06/04/20 @ 18:01 by Damari Hoyos NP-Hannah) SIADH (syndrome of inappropriate ADH production) (Chronic) Morbid obesity with BMI of 40.0-44.9, adult (Chronic) Diabetes mellitus, type II (Chronic) Chronic pain syndrome (Chronic) Morbid obesity with BMI of 45.0-49.9, adult (Chronic) Essential (primary) hypertension (Chronic) Nicotine dependence (Chronic) Pulmonary embolism (Chronic 07/09/14) Medical History: Medical History (Last Reviewed 06/04/20 @ 18:01 by CAMPOS Castorena) Essential (primary) hypertension (Chronic) I10 Nicotine dependence (Chronic) F17.200 Pulmonary embolism (Chronic) Onset Date: 07/09/14 I26.99 Anxiety F41.9 Chronic pain syndrome G89.4 Emphysema of lung J43.9 Lymphedema I89.0 Obstructive sleep apnea G47.33 Osteoarthritis M19.90 Rheumatoid arthritis M06.9 Type 2 diabetes mellitus E11.9 Secondary pulmonary arterial hypertension (Inactive) I27.21 Allergies Latex, Natural Rubber Allergy (Verified 06/04/20 16:42) Rash Home Medications: Ambulatory Orders Medication Instructions Recorded Albuterol IH (ProAir) [Proair Hfa] 1 - 2 puff INHALATION Q4H PRN PRN 05/03/14 Rivaroxaban [Xarelto] 20 mg PO DAILY 11/08/14 bupropion HCl 150 mg tablet,12 hr 150 mg PO BID 06/09/17 sustained-release mometasone-formoterol HFA 200 2 puff INHALATION BID 06/09/17 mcg-5 mcg/actuation aerosol inhaler tiotropium bromide 18 mcg capsule 2.5 mcg INHALATION DAILY 30 Days 06/09/17 with inhalation device topiramate 25 mg capsule,extended 25 mg PO BID cap 06/09/17 release 24 hr potassium chloride 20 mEq 40 meq PO BID tab 12/02/17 tablet,extended release cetirizine 10 mg capsule 10 mg PO DAILY 07/06/18 metformin 1,000 mg tablet 1,000 mg PO BID 07/06/18 ipratropium 0.5 mg-albuterol 3 mg 3 ml INHALATION 6XD 07/08/19 (2.5 mg base)/3 mL nebulization soln losartan 50 mg tablet 50 mg PO DAILY tab 07/08/19 polyethylene glycol 3350 17 17 g PO PRN PRN 07/08/19 gram/dose oral powder Amlodipine [Norvasc] 5 mg PO DAILY #30 tab 05/18/20 Sodium Chloride 1 gm PO BID #30 tablet 05/18/20 levoFLOXacin tablet [Levaquin 750 mg PO DAILY #3 tablet 05/18/20 tablet] Surgical History: Surgical History (Last Reviewed 06/04/20 @ 18:01 by CAMPOS Castorena) History of tubal ligation Z98.51 Surgical History: - - tubal ligation Psychiatric History: Depression 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 History: cervical cancer - abnormal cells per pt.....had some type of procedure done and never followed up Lives: Alone Smoking Status: Current every day smoker Alcohol: None Drugs: None - *Family History Maternal Family History: Family History (Last Reviewed 05/10/20 @ 01:53 by CAMPOS Castorena) Sister Hypertension Asthma Brother Heart disease Asthma History Items: - - her mother at 46 YOA, 9 days after giving to the pt Paternal Family History: Family History (Last Reviewed 05/10/20 @ 01:53 by CAMPOS Castorena) Sister Hypertension Asthma Brother Heart disease Asthma History Items: Cancer - lung, - - father at 67 and had CVD Review of Systems Constitutional: Reports: Weakness, Fatigue. Denies: Chills, Fever, Weight Change HEENT: Denies: Head Aches, Sinus Congestion, Sinus Drainage Cardiovascular: Denies: Chest Pain, Palpitations Respiratory: Denies: Cough, Shortness of breath at rest, Sputum production Gastrointestinal: Denies: Abdominal Pain, Nausea, Vomiting Genitourinary: Denies: Dysuria Musculoskeletal: Denies: Joint Pain, Joint Tenderness Skin: Denies: Rash, Wounds Neurological: Denies: Numbness, Tingling, Focal weakness Psychiatric: Denies: Anxiety, Depression, Homicidal Ideations, Suicidal Ideations Hematologic/ Lymphatic: Denies: Easy Bruising, Easy Bleeding VTE Information - Inpt Only VTE Present on Admission: No VTE Mechan Device Prophylaxis: SCD's VTE Pharm Prophylaxis ordered?: Yes - Physical Exam Vitals/I&O's: Vital Signs Temp Pulse Resp BP Pulse Ox 97.3 F L 89 15 134/68 H 98 06/04/20 16:39 06/04/20 16:39 06/04/20 16:39 06/04/20 16:39 06/04/20 16:39 Oxygen Flow Rate (L/min) 3 Oxygen Delivery Method Nasal Cannula Weight: 240 lb Body Mass Index (BMI) 43.9 General: Alert, Oriented x3, Cooperative HEENT: Atraumatic, PERRLA, EOMI, Normocephalic Neck: Supple, No JVD, Negative Carotid Bruits Lungs: Normal air movement, Diminished, Wheezes - Occasional throughout Cardiovascular: Regular rate, Regular Rhythm, Normal S1, Normal S2, No murmurs Abdomen: Bowel Sounds Present, Soft, Non Tender Extremities: No edema, Capillary Refill Less than 3 Seconds Skin: No rashes, No breakdown Musculoskeletal: No Tenderness to Palpation of Joints or Extremities Neurological: Cranial nerves II-XII grossly intact Psych/Mental Status: Normal Affect, Appropriate Assessment/Plan All Active Problems (Last Reviewed 06/04/20 @ 18:01 by Damari Hoyos NP-C) Abdominal pain (Acute) 1. SIADH -Admit to PCU for cardiac monitoring. -Restart sodium chloride 1 g twice daily. -Trend BMP every 4 hours. -Consult nephrology. -PT OT eval and to treat for weakness. 2. Essential primary hypertension. -Continue home regimen of Norvasc, losartan. 3. Diabetes mellitus type 2 -Hold Metformin. -AC at bedtime blood sugars with sliding scale insulin ordered. 4. Chronic pain syndrome -Tylenol and OxyIR ordered as needed for pain. 5. Nicotine dependence -Nicotine patch ordered. 6. Morbid obesity with BMI of 40.0-44.9, adult -Lifestyle modification encouraged. -1800-calorie cardiac diet ordered. DVT prophylaxis-Lovenox subcu This patient was seen by CAMPOS Castorena under the supervision of Dr. Tejada.
[2020-06-04 18:05] VITALS: BP 137/60; PULSE 80; RESP 18; TEMP 36.5; O2SAT 100
[2020-06-04 18:36] LABS: Hematocrit 21.5 % (37-47); Hemoglobin 6.9 g/dL (12.0-15.0); Mean Corp Hgb Conc 32.1 g/dL (32-36); Mean Corpuscular Hgb 21.6 pg (27.0-32.0); Mean Corpuscular Volume 67.4 fL (81-99); Mean Platelet Vol. 8.7 fl (6.2-12.0); POSITIVE COUNT YES; POSITIVE MORPHOLOGY YES; Platelet Count 59 K/mm3 (150-450); RBC Distribution Width CV 21.4 % (11.6-14.6); RBC Distribution Width SD 50.7 fl (35.1-43.9); Red Blood Count 3.19 M/mm3 (4.2-5.4)
[2020-06-04 18:47] LABS: Differential Indicated MANUAL DIFF
[2020-06-04 18:54] LABS: Mucous, Urine 0 SEEN /hpf (<or=2+); Red Blood Cells-Urine 0 SEEN /hpf (0-5)
[2020-06-04 19:05] VITALS: BP 145/80; PULSE 105; PULSE 87; RESP 16; TEMP 36.2; O2SAT 100; BMI 43.9
[2020-06-04 19:40] VITALS: PULSE 84; RESP 16; O2SAT 94
[2020-06-04] MEDS: Ipratropium/Albuterol Sulfate 3 ML AMPUL.NEB INHALATION (19:40)
[2020-06-04] MEDS: Budesonide Respules 0.5 MG/2 ML AMPUL.NEB. INHALATION (19:40)
[2020-06-04 19:51] LABS: Color, Urine Yellow (Yellow); Glucose, Dipstick Normal (Normal); Ketone-Dipstick 5 mg/dl (Negative); Leukocyte Esterase-Dipstick 25 /ul (Negative); Nitrite-Dipstick Positive (Negative); Occult Blood-Urine 50 /ul (Negative); Protein-Dipstick 100 mg/dl (Negative); Specific Gravity, Urine 1.015 (1.002-1.030); Urine Bilirubin Dipstick Negative (Negative); Urine Clarity Sl. Cloudy (Clear); Urine Urobilinogen Normal (Normal); Urine pH 6.5 (5.0 - 8.0)
[2020-06-04 19:59] LABS: Blast 3 % (0-0); Corrected WBC 6.3 K/mm3 (4.4-11.0); Lymphocyte 24 % (19-41); Metamyelocyte 8 % (0-1); Monocyte 4 % (0-10); Myelocyte 8 % (0-0); Neutrophil-Band 7 % (0-5); Neutrophil-Segmented 46 % (47-70); Nucleated Red Bld Cells,Manual 5 % (0-5); Total Cells Counted 100 (MANUAL DIFF)
[2020-06-04 20:00] LABS: Squamous Epithelial Cells - UA 0-5 SEEN /hpf (5-10); White Blood Cells 25-50 SEEN /hpf (0-5)
[2020-06-04 20:01] LABS: Bacteria 3+ /hpf (None Seen); Renal Epithelial Cells 0-5 SEEN /hpf (0-5)
[2020-06-04 20:02] LABS: White Blood Count 6.6 K/mm3 (4.4-11.0)
[2020-06-04 20:03] LABS: Absolute Lymphocyte Count 1.59 X10^3/uL (0.83-4.51); Absolute Neutrophil Count 3.5 X10^3/uL (2.0-7.7)
[2020-06-04 20:04] LABS: Platelet Estimate MOD DEC (ADEQ); Red Cell Morphology N CHROM NORMAL (NORM C&C)
[2020-06-04 20:05] LABS: Anisocytosis 1+; Hypochromasia 1+; Microcytosis 1+; Toxic Granulation RARE
[2020-06-04 20:20] LABS: BNP,B-Type NATRIURETIC PEPTIDE 24.2 pg/mL (0-100)
[2020-06-04 20:37] LABS: Hematocrit 21.7 % (37-47); Hemoglobin 7.1 g/dL (12.0-15.0); Mean Corp Hgb Conc 32.7 g/dL (32-36); Mean Corpuscular Volume 67.2 fL (81-99); Mean Platelet Vol. 9.5 fl (6.2-12.0); POSITIVE COUNT YES; POSITIVE MORPHOLOGY YES; Platelet Count 58 K/mm3 (150-450); RBC Distribution Width CV 21.3 % (11.6-14.6); RBC Distribution Width SD 50.6 fl (35.1-43.9); Red Blood Count 3.23 M/mm3 (4.2-5.4); White Blood Count 6.5 K/mm3 (4.4-11.0)
[2020-06-04 20:44] LABS: Differential Indicated MANUAL DIFF
[2020-06-04 20:56] LABS: Anion Gap 7 (5-15); BUN 9 mg/dL (7-18); BUN/Creat Ratio 34.5 RATIO (10-20); Calcium,Total 8.8 mg/dL (8.5-10.1); Chloride 83 mmol/L (98-107); Creatinine, Serum 0.26 mg/dL (0.55-1.02); EST Glomerular Filtration Rate 289 mL/min (>60); Est Glom Filt Rate - Afr Amer 350 mL/min (>60); Estimated Creatinine Clearance 195.64 ml/min; Glucose 103 mg/dL (74-106); Potassium 3.7 mmol/L (3.5-5.1); Sodium Level 117 mmol/L (136-145)
[2020-06-04 21:16] LABS: Blast 4 % (0-0); Eosinophil 1 % (0-5); Lymphocyte 18 % (19-41); Metamyelocyte 8 % (0-1); Monocyte 5 % (0-10); Myelocyte 10 % (0-0); Neutrophil-Band 9 % (0-5); Neutrophil-Segmented 45 % (47-70); Nucleated Red Bld Cells,Manual 2 % (0-5); Total Cells Counted 100 (MANUAL DIFF)
[2020-06-04 21:18] LABS: Absolute Lymphocyte Count 1.18 X10^3/uL (0.83-4.51); Absolute Neutrophil Count 3.5 X10^3/uL (2.0-7.7)
[2020-06-04 21:19] LABS: Anisocytosis 1+; Platelet Estimate MOD DEC (ADEQ); Red Cell Morphology N CHROM NORMAL (NORM C&C)
[2020-06-04 21:20] LABS: Hypochromasia 1+; Microcytosis 1+; Toxic Granulation RARE
[2020-06-04] MEDS: Sodium Chloride 1 GM Tablet PO (21:28)
[2020-06-04] MEDS: Topiramate 25 MG Tablet PO (21:29)
[2020-06-04] MEDS: buPROPion (SR) 150 MG Tablet.SA PO (21:29)
[2020-06-04] MEDS: Enoxaparin 40 MG/0.4 ML Syringe SC (21:36)
[2020-06-04] MEDS: Insulin Lispro 100 UNIT/ML INSULN.PEN SC (21:36)
[2020-06-04 21:56] LABS: Bedside Glucose 175 mg/dL (70-110)
[2020-06-04 22:25] LABS: Anion Gap 7 (5-15); BUN 10 mg/dL (7-18); Calcium,Total 8.2 mg/dL (8.5-10.1); Chloride 84 mmol/L (98-107); Creatinine, Serum 0.38 mg/dL (0.55-1.02); EST Glomerular Filtration Rate 185 mL/min (>60); Est Glom Filt Rate - Afr Amer 224 mL/min (>60); Estimated Creatinine Clearance 133.86 ml/min; Glucose 172 mg/dL (74-106); Potassium 3.7 mmol/L (3.5-5.1); Sodium Level 118 mmol/L (136-145)
[2020-06-04 22:37] LABS: Ferritin 410 ng/mL (8-252); Iron 78 ug/dL (50-170); Iron Binding Capacity,Total 332 ug/dL (250-450); PERCENT IRON SATURATION 23.5 % (15.0-55.0)
[2020-06-04 22:42] LABS: Vitamin B12 279 pg/mL (211-911)
[2020-06-04] MEDS: oxyCODONE 5 MG Tablet 10 MG PO (23:24)
[2020-06-04] MEDS: 0.9% Saline Lock 10 ML Syringe IV (23:24)
[2020-06-05] VITALS (22 sets, daily range): BP systolic 134–158; BP diastolic 73–96; PULSE 79–101; RESP 15–22; TEMP 36.1–36.8; O2SAT 91–100
[2020-06-05] MEDS: Acetaminophen 325 MG Tablet 650 MG PO ×3 (02:01→21:15)
[2020-06-05] MEDS: Furosemide 40 MG/4 ML Vial IV (03:16)
[2020-06-05] MEDS: 0.9% Saline Lock 10 ML Syringe IV ×2 (03:18→04:40)
--- NOTE | 2020-06-05 03:51 | NURSING ---
This RN spoke with Antonieta in lab d/t her inability to release 2nd unit of prbc d/t apparent glitch in the system. Antonieta asked that new order be placed for 2nd unit and she would re-shelf previously ordered blood and speak with lab meter shop supervisor in the am. Total to be transfused for this shift is 2 units with 1st unit complete in transfusion. May appear in system as though there are 3 units to be transfused which is incorrect.
[2020-06-05 04:22] LABS: Hematocrit 26.8 % (37-47); Hemoglobin 8.1 g/dL (12.0-15.0); Mean Corp Hgb Conc 30.2 g/dL (32-36); Mean Corpuscular Hgb 22.6 pg (27.0-32.0); Mean Corpuscular Volume 74.7 fL (81-99); Mean Platelet Vol. 10.1 fl (6.2-12.0); POSITIVE COUNT YES; POSITIVE MORPHOLOGY YES; Platelet Count 58 K/mm3 (150-450); RBC Distribution Width CV 24.2 % (11.6-14.6); RBC Distribution Width SD 64.6 fl (35.1-43.9); Red Blood Count 3.59 M/mm3 (4.2-5.4)
[2020-06-05 04:23] LABS: Anion Gap 9 (5-15); BUN 10 mg/dL (7-18); BUN/Creat Ratio 31.9 RATIO (10-20); Calcium,Total 8.7 mg/dL (8.5-10.1); Chloride 85 mmol/L (98-107); Creatinine, Serum 0.31 mg/dL (0.55-1.02); EST Glomerular Filtration Rate 235 mL/min (>60); Est Glom Filt Rate - Afr Amer 284 mL/min (>60); Estimated Creatinine Clearance 164.08 ml/min; Glucose 116 mg/dL (74-106); Potassium 3.5 mmol/L (3.5-5.1); Sodium Level 120 mmol/L (136-145)
[2020-06-05 04:24] LABS: Differential Indicated MANUAL DIFF
[2020-06-05 05:02] LABS: Absolute Lymphocyte Count 2.13 X10^3/uL (0.83-4.51); Absolute Neutrophil Count 4.6 X10^3/uL (2.0-7.7); Lymphocyte 28 % (19-41); Metamyelocyte 6 % (0-1); Monocyte 4 % (0-10); Myelocyte 2 % (0-0); Neutrophil-Band 15 % (0-5); Neutrophil-Segmented 45 % (47-70); Nucleated Red Bld Cells,Manual 3 % (0-5); Total Cells Counted 100 (MANUAL DIFF); White Blood Count 7.6 K/mm3 (4.4-11.0)
[2020-06-05 05:03] LABS: Hypochromasia 3+; Platelet Estimate MOD DEC (ADEQ); Red Cell Morphology N CYTIC NORMAL (NORM C&C)
[2020-06-05] MEDS: Albuterol 2.5 MG/3 ML VIAL.NEB. INHALATION (05:10)
[2020-06-05] MEDS: oxyCODONE 5 MG Tablet 10 MG PO ×3 (06:39→21:15)
[2020-06-05] MEDS: Insulin Lispro 100 UNIT/ML INSULN.PEN SC (06:45)
[2020-06-05 07:00] LABS: Bedside Glucose 165 mg/dL (70-110)
[2020-06-05] MEDS: Ipratropium/Albuterol Sulfate 3 ML AMPUL.NEB INHALATION ×3 (07:30→19:06)
[2020-06-05 07:48] LABS: Anion Gap 7 (5-15); BUN 9 mg/dL (7-18); BUN/Creat Ratio 27.4 RATIO (10-20); Calcium,Total 8.8 mg/dL (8.5-10.1); Chloride 83 mmol/L (98-107); Creatinine, Serum 0.33 mg/dL (0.55-1.02); EST Glomerular Filtration Rate 221 mL/min (>60); Est Glom Filt Rate - Afr Amer 268 mL/min (>60); Estimated Creatinine Clearance 154.14 ml/min; Glucose 121 mg/dL (74-106); Potassium 3.3 mmol/L (3.5-5.1); Sodium Level 119 mmol/L (136-145)
[2020-06-05] MEDS: Potassium Chloride Oral Tablet 20 MEQ 40 MEQ PO ×2 (08:59→16:30)
[2020-06-05] MEDS: Loratadine 10 MG Tablet PO (09:00)
[2020-06-05] MEDS: Enoxaparin 40 MG/0.4 ML Syringe SC ×2 (09:02→21:15)
[2020-06-05] MEDS: Losartan Potassium 50 MG Tablet PO (09:02)
[2020-06-05] MEDS: amLODIPine 5 MG Tablet PO (09:04)
[2020-06-05] MEDS: Topiramate 25 MG Tablet PO ×2 (09:05→21:15)
[2020-06-05] MEDS: buPROPion (SR) 150 MG Tablet.SA PO (09:06)
--- NOTE | 2020-06-05 10:17 | CON.PCM_ITS ---
Problem List (1) SIADH (syndrome of inappropriate ADH production) Status: Chronic Consultation - Renal 06/05/20 PCP/ Referring MD: Requesting physician: [] Primary care physician: Dr. Domingo Marinelli DO Reason for Consultation:: hyponatremia - History of Present Illness History of Present Illness: The patient is a 55 year old F who is admitted to the hospital with h yponatremia. She was recently in the hospital with severe hyponatremia and a sodium of 110. Was discharged home with a sodium of 130. Was sent home on salt tablets plus Lasix. Apparently ran out of salt tablets about 2 days ago. Repeat sodium as outpatient was found to be 116. Currently denies any complaints. - Allergies Allergies: Allergies Latex, Natural Rubber Allergy (Verified 06/04/20 16:42) Rash - Current Medications Current Medications: Current Medications Acetaminophen (Acetaminophen 325 Mg Tablet) 650 mg PO Q6H PRN PRN PRN Reason: Pain Score 1-10/Temp > 100.7 F Last Admin: 06/05/20 09:06 Dose: 650 mg Documented by: Albuterol Sulfate (Albuterol 2.5 Mg/3 Ml Vial.Neb.) 2.5 mg INHALATION Q2H PRN PRN PRN Reason: SOB/Wheezing Last Admin: 06/05/20 05:10 Dose: 2.5 mg Documented by: Albuterol/Ipratropium (Ipratropium/Albuterol Sulfate 3 Ml Ampul.Neb) 3 ml INHALATION Q4HWA.RT DEVYN Last Admin: 06/05/20 07:30 Dose: 3 ml Documented by: Amlodipine Besylate (Amlodipine 5 Mg Tablet) 5 mg PO DAILY [facility] Last Admin: 06/05/20 09:04 Dose: 5 mg Documented by: Enoxaparin Sodium (Enoxaparin 40 Mg/0.4 Ml Syringe) 40 mg SC BID DEVYN Last Admin: 06/05/20 09:02 Dose: 40 mg Documented by: Guaifenesin (Guaifenesin 10 Ml Udc (200mg/10ml)) 20 ml PO Q4H PRN PRN PRN Reason: COUGH Insulin Human Lispro (Insulin Lispro 100 Unit/Ml Insuln.Pen) 0 unit SC ACHS [facility]; Protocol Last Admin: 06/05/20 06:45 Dose: 2 units Documented by: Loratadine (Loratadine 10 Mg Tablet) 10 mg PO DAILY [facility] Last Admin: 06/05/20 09:00 Dose: 10 mg Documented by: Losartan Potassium (Losartan Potassium 50 Mg Tablet) 50 mg PO DAILY [facility] Last Admin: 06/05/20 09:02 Dose: 50 mg Documented by: Melatonin (Melatonin 3 Mg Tablet) 3 mg PO QHS PRN PRN PRN Reason: INSOMNIA Nicotine (Nicotine 21 Mg Patch) 21 mg TD DAILY [facility] Last Admin: 06/05/20 09:03 Dose: 21 mg Documented by: Ondansetron HCl (Ondansetron 4 Mg/2 Ml Vial) 4 mg IV Q8H PRN PRN PRN Reason: NAUSEA/VOMITING Oxycodone HCl (Oxycodone 5 Mg Tablet) 10 mg PO Q4H PRN PRN PRN Reason: Pain Score 4-5 Last Admin: 06/05/20 06:39 Dose: 10 mg Documented by: Potassium Chloride (Potassium Chloride Oral Tablet 20 Meq) [facility] Last Admin: 06/05/20 08:59 Dose: 40 meq Documented by: Sodium Chloride (0.9% Saline Lock 10 Ml Syringe) 10 - 40 ml IV UD PRN PRN Reason: SALINE FLUSH Last Admin: 06/05/20 04:40 Dose: 10 ml Documented by: Topiramate (Topiramate 25 Mg Tablet) 25 mg PO BID [facility] Last Admin: 06/05/20 09:05 Dose: 25 mg Documented by: - Past Medical History Past Medical History (Chronic Problems): Chronic Problems (Last Reviewed 06/04/20 @ 18:01 by CAMPOS Castorena) SIADH (syndrome of inappropriate ADH production) (Chronic) Morbid obesity with BMI of 40.0-44.9, adult (Chronic) Diabetes mellitus, type II (Chronic) Chronic pain syndrome (Chronic) Morbid obesity with BMI of 45.0-49.9, adult (Chronic) Essential (primary) hypertension (Chronic) Nicotine dependence (Chronic) Pulmonary embolism (Chronic 07/09/14) - Past Surgical History Surgical History: - - tubal ligation - Social History Smoking Status: Current every day smoker Alcohol: None Drugs: None - Family History Maternal Family History: Family History (Last Reviewed 05/10/20 @ 01:53 by CAMPOS Castorena) Sister Hypertension Asthma Brother Heart disease Asthma History Items: - - her mother at 46 YOA, 9 days after giving to the pt Paternal Family History: Family History (Last Reviewed 05/10/20 @ 01:53 by Damari Hoyos NP-Hannah) Sister Hypertension Asthma Brother Heart disease Asthma History Items: Cancer - lung, - - father at 67 and had CVD Review of Systems Constitutional: Denies: Chills, Fever, Weight Change HEENT: Denies: Head Aches, Sinus Congestion, Sinus Drainage Cardiovascular: Denies: Chest Pain, Palpitations Respiratory: Denies: Cough, Shortness of breath at rest, Sputum production Gastrointestinal: Denies: Abdominal Pain, Nausea, Vomiting Genitourinary: Denies: Dysuria Musculoskeletal: Denies: Joint Pain, Joint Tenderness Skin: Denies: Rash, Wounds Neurological: Denies: Numbness, Tingling, Focal weakness Psychiatric: Denies: Anxiety, Depression, Homicidal Ideations, Suicidal Ideations Hematologic/ Lymphatic: Denies: Easy Bruising, Easy Bleeding - Physical Exam Vitals/I&O's: Vital Signs Temp Pulse Resp BP Pulse Ox 97.3 F L 80 16 147/81 H 100 06/05/20 07:59 06/05/20 07:59 06/05/20 07:59 06/05/20 07:59 06/05/20 07:59 Oxygen Flow Rate (L/min) 2 Oxygen Delivery Method Nasal Cannula Weight: 109.3 kg Body Mass Index (BMI) 43.9 Intake and Output for Last 24 Hours 06/03/20 06/04/20 06/05/20 23:59 23:59 23:59 Intake Total 980 / 980 Balance 980 / 980 General: Alert, Oriented x3, Cooperative HEENT: Atraumatic, PERRLA, EOMI, Normocephalic Neck: Supple, No JVD, Negative Carotid Bruits Lungs: Clear to auscultation, Normal air movement Cardiovascular: Regular rate, No murmurs Abdomen: Bowel Sounds Present, Soft, Non Tender Extremities: No edema, Capillary Refill Less than 3 Seconds Skin: No rashes, No breakdown Musculoskeletal: No Tenderness to Palpation of Joints or Extremities Neurological: Cranial nerves II-XII grossly intact Psych/Mental Status: Normal Affect, Appropriate Laboratory Results 06/04/20 18:10: WBC 6.6, Corrected WBC 6.3, RBC 3.19 L, Hgb 6.9 L, Hct 21.5 L, MCV 67.4 L, MCH 21.6 L, MCHC 32.1, RDW Std Deviation 50.7 H, RDW Coeff of [place] 21.4 H, Plt Count 59 L, MPV 8.7, Neut % (Auto) Not Reportable, Absolute Neuts (auto) 3.5, Absolute Lymphs (auto) 1.59, Total Counted 100, Neutrophils % (Manual) 46 L, Band Neutrophils % 7 H, Lymphocytes % (Manual) 24, Monocytes % (Manual) 4, Metamyelocytes % 8 H, Myelocytes % 8 H, Blast Cells % 3 H*, Nucleated RBCs/100 WBC 5, Diff Path Review May foll, Toxic Granulation RARE, Platelet Estimate MOD DEC, RBC Morphology N CHROM, Hypochromasia 1+, Anisocyto sis 1+, Microcytosis 1+ 06/04/20 18:10: B-Natriuretic Peptide 24.2 06/04/20 18:44: Urine Color Yellow, Urine Clarity Sl. Cloudy, Urine pH 6.5, Ur Specific [place] 1.015, Urine Protein 100 H, Urine Glucose (UA) Normal, Urine Ketones 5 H, Urine Occult Blood 50 H, Urine Nitrite Positive H, Urine Bilirubin Negative, Urine Urobilinogen Normal, Ur Leukocyte Esterase 25 H, Urine RBC 0 SEEN, Urine WBC 25-50 SEEN, Ur Squamous Epith Cells 0-5 SEEN, Ur Renal Epithelial Cell 0-5 SEEN, Urine Bacteria 3+, Urine Mucus 0 SEEN 06/04/20 19:17: Troponin I < 0.015 06/04/20 19:17: WBC 6.5, RBC 3.23 L, Hgb 7.1 L, Hct 21.7 L, MCV 67.2 L, MCH 22.0 L, MCHC 32.7, RDW Std Deviation 50.6 H, RDW Coeff of [place] 21.3 H, Plt Count 58 L , MPV 9.5, Neut % (Auto) Not Reportable, Absolute Neuts (auto) 3.5, Absolute Lymphs (auto) 1.18, Total Counted 100, Neutrophils % (Manual) 45 L, Band Neutrophils % 9 H, Lymphocytes % (Manual) 18 L, Monocytes % (Manual) 5, Eosinophils % (Manual) 1, Metamyelocytes % 8 H, Myelocytes % 10 H, Blast Cells % 4 H*, Nucleated RBCs/100 WBC 2, Differential Comment SEE COMMENT, Diff Path Review May foll, Toxic Granulation RARE, Platelet Estimate MOD DEC, RBC Morphology N CHROM, Hypochromasia 1+, Anisocytosis 1+, Microcytosis 1+ 06/04/20 19:17: Sodium 117 L*, Potassium 3.7, Chloride 83 L, Carbon Dioxide 27.0, Anion Gap 7, BUN 9, Creatinine 0.26 L, Estim Creat Clear Calc 195.64, Est GFR (MDRD) Af Amer 350, Est GFR (MDRD) Non-Af 289, BUN/Creatinine Ratio 34.5 H, Glucose 103, Calcium 8.8 06/04/20 21:31: POC Glucose 175 H 06/04/20 21:51: Sodium 118 L*, Potassium 3.7, Chloride 84 L, Carbon Dioxide 27.0, Anion Gap 7, BUN 10, Creatinine 0.38 L, Estim Creat Clear Calc 133.86, Est GFR (MDRD) Af Amer 224, Est GFR (MDRD) Non-Af 185, BUN/Creatinine Ratio 26.0 H, Glucose 172 H, Calcium 8.2 L 06/04/20 21:51: Troponin I < 0.015 06/04/20 21:51: Vitamin B12 279 06/04/20 21:51: Iron 78, TIBC 332, Iron Saturation 23.5, Ferritin 410 H 06/04/20 21:51: Blood Type A POSITIVE, Antibody Screen NEGATIVE 06/04/20 21:51: Crossmatch See Detail 06/04/20 21:51: Crossmatch See Detail 06/05/20 01:17: Troponin I < 0.015 06/05/20 03:24: Sodium 120 L, Potassium 3.5, Chloride 85 L, Carbon Dioxide 26.0, Anion Gap 9, BUN 10, Creatinine 0.31 L, Estim Creat Clear Calc 164.08, Est GFR (MDRD) Af Amer 284, Est GFR (MDRD) Non-Af 235, BUN/Creatinine Ratio 31.9 H, Glucose 116 H, Calcium 8.7 06/05/20 03:24: WBC 7.6, RBC 3.59 L, Hgb 8.1 L, Hct 26.8 L, MCV 74.7 L D, MCH 22.6 L, MCHC 30.2 L D, RDW Std Deviation 64.6 H, RDW Coeff of [place] 24.2 H, Plt Count 58 L, MPV 10.1, Neut % (Auto) Not Reportable, Absolute Neuts (auto) 4.6, Absolute Lymphs (auto) 2.13, Total Counted 100, Neutrophils % (Manual) 45 L, Band Neutrophils % 15 H, Lymphocytes % (Manual) 28, Monocytes % (Manual) 4, Metamyelocytes % 6 H, Myelocytes % 2 H, Nucleated RBCs/100 WBC 3, Diff Path Review June foll, Platelet Estimate MOD DEC, RBC Morphology N CYTIC, Hypochromasia 3+ 06/05/20 06:45: POC Glucose 165 H 06/05/20 07:20: Sodium 119 L*, Potassium 3.3 L, Chloride 83 L, Carbon Dioxide 29.0, Anion Gap 7, BUN 9, Creatinine 0.33 L, Estim Creat Clear Calc 154.14, Est GFR (MDRD) Af Amer 268, Est GFR (MDRD) Non-Af 221, BUN/Creatinine Ratio 27.4 H, Glucose 121 H, Calcium 8.8 Current Medications Acetaminophen (Acetaminophen 325 Mg Tablet) 650 mg PO Q6H PRN PRN PRN Reason: Pain Score 1-10/Temp > 100.7 F Last Admin: 06/05/20 09:06 Dose: 650 mg Documented by: Albuterol Sulfate (Albuterol 2.5 Mg/3 Ml Vial.Neb.) 2.5 mg INHALATION Q2H PRN PRN PRN Reason: SOB/Wheezing Last Admin: 06/05/20 05:10 Dose: 2.5 mg Documented by: Albuterol/Ipratropium (Ipratropium/Albuterol Sulfate 3 Ml Ampul.Neb) 3 ml INHALATION Q4HWA.RT [facility] Last Admin: 06/05/20 07:30 Dose: 3 ml Documented by: Amlodipine Besylate (Amlodipine 5 Mg Tablet) 5 mg PO DAILY [facility] Last Admin: 06/05/20 09:04 Dose: 5 mg Documented by: Enoxaparin Sodium (Enoxaparin 40 Mg/0.4 Ml Syringe) 40 mg SC BID [facility] Last Admin: 06/05/20 09:02 Dose: 40 mg Documented by: Guaifenesin (Guaifenesin 10 Ml Udc (200mg/10ml)) 20 ml PO Q4H PRN PRN PRN Reason: COUGH Insulin Human Lispro (Insulin Lispro 100 Unit/Ml Insuln.Pen) 0 unit SC ACHS [facility]; Protocol Last Admin: 06/05/20 06:45 Dose: 2 units Documented by: Loratadine (Loratadine 10 Mg Tablet) 10 mg PO DAILY [facility] Last Admin: 06/05/20 09:00 Dose: 10 mg Documented by: Losartan Potassium (Losartan Potassium 50 Mg Tablet) 50 mg PO DAILY [facility] Last Admin: 06/05/20 09:02 Dose: 50 mg Documented by: Melatonin (Melatonin 3 Mg Tablet) 3 mg PO QHS PRN PRN PRN Reason: INSOMNIA Nicotine (Nicotine 21 Mg Patch) 21 mg TD DAILY [facility] Last Admin: 06/05/20 09:03 Dose: 21 mg Documented by: Ondansetron HCl (Ondansetron 4 Mg/2 Ml Vial) 4 mg IV Q8H PRN PRN PRN Reason: NAUSEA/VOMITING Oxycodone HCl (Oxycodone 5 Mg Tablet) 10 mg PO Q4H PRN PRN PRN Reason: Pain Score 4-5 Last Admin: 06/05/20 06:39 Dose: 10 mg Documented by: Potassium Chloride (Potassium Chloride Oral Tablet 20 Meq) [facility] Last Admin: 06/05/20 08:59 Dose: 40 meq Documented by: Sodium Chloride (0.9% Saline Lock 10 Ml Syringe) 10 - 40 ml IV UD PRN PRN Reason: SALINE FLUSH Last Admin: 06/05/20 04:40 Dose: 10 ml Documented by: Topiramate (Topiramate 25 Mg Tablet) 25 mg PO BID [facility] Last Admin: 06/05/20 09:05 Dose: 25 mg Documented by: Assessment/Plan All Active Problems (Last Reviewed 06/04/20 @ 18:01 by Damari Hoyos, RAMONE-C) Abdominal pain (Acute) Hyponatremia. Labs were consistent with SIADH. She was on bupropion which she used for cravings. We will stop it for now. Check a TSH and cortisol Reviewed imaging from last admission and this admission. She had CT scan of the chest, brain, abdomen last admission. She has 2 adrenal nodules which are 3.4 cm and 2.[address] chest images reviewed. She has well circumscribed round lesions on the CT chest which could be metastatic lesions. She also has some infiltrates. No history of any infection. Covid was negative last admission. I have high suspicion of unknown malignancy with pulmonary mets in her. She will need biopsy of 1 of these lesions. I spoke to her primary care doctor Dr. Marinelli. This will be arranged as soon as she is discharged from here. As per Dr. Marinelli, she also had severe low back pain recently and was advised to get a mri of the spine. Patient declined since she was claustrophobic. May need a bone scan. For treatment, increase salt tablets to 2 g 3 times daily for today DC bupropion She has some lower extremity edema which could be related to pulmonary hypertension. BNP was normal Discussed with team
[2020-06-05] MEDS: Sodium Chloride 1 GM Tablet PO (10:49)
[2020-06-05 11:05] LABS: Bedside Glucose 114 mg/dL (70-110)
[2020-06-05 11:05] LABS: Thyroid Stim Hormone (TSH) 2.25 uIU/mL (0.358-3.74)
--- NOTE | 2020-06-05 11:20 | NURSING ---
Per student nurse, pt had bm but stated 'you don't want that' when told a stool sample was needed. Reinforcement of need for stool sample provided and hat placed in toilet.
[2020-06-05 12:28] LABS: Pathologist Review Reviewed
[2020-06-05 12:29] LABS: Pathologist Review Reviewed
[2020-06-05 12:30] LABS: Pathologist Review Reviewed
--- NOTE | 2020-06-05 13:43 | PN_ITS ---
Subjective: Patient seen and examined. She has no complaints today. Review of systems otherwise negative. She is being managed for acute on chronic hyponatremia. Nephrology is on board. Sodium is 119 today. Vitals/I&O's: Vital Signs Temp Pulse Resp BP Pulse Ox 97.3 F L 82 20 H 147/81 H 100 06/05/20 07:59 06/05/20 13:38 06/05/20 13:38 06/05/20 07:59 06/05/20 07:59 Oxygen Flow Rate (L/min) 2 Oxygen Delivery Method Nasal Cannula Weight: 240 lb 15.444 oz Body Mass Index (BMI) 43.9 Intake and Output for Last 24 Hours 06/03/20 06/04/20 06/05/20 23:59 23:59 23:59 Intake Total 980 / 980 Balance 980 / 980 General: Alert, Oriented x3, Cooperative, No apparent distress HEENT: Atraumatic, PERRLA, EOMI, Normocephalic Oral: Dry Mucosa Neck: Supple, No JVD, Negative Carotid Bruits Lungs: Clear to auscultation, Normal air movement, No rhonchi, No wheeze Cardiovascular: Regular rate, Regular Rhythm, Normal S1, Normal S2, No murmurs Abdomen: Bowel Sounds Present, Soft, Non Tender, Non-Distended, No Hepato- splenomegaly Extremities: No clubbing, No cyanosis, No edema, Capillary Refill Less than 3 Seconds Skin: No rashes, No breakdown Musculoskeletal: No Tenderness to Palpation of Joints or Extremities Lymphatic: No Cervical, Supraclavicular, or Inguinal Adenopathy Neurological: Cranial nerves II-XII grossly intact, Neuro grossly intact, Motor Exam 5/5 strength throughout Psych/Mental Status: Normal Affect, Appropriate, Alert and oriented to time, place, person, mood and affect Laboratory Results 06/04/20 18:10: WBC 6.6, Corrected WBC 6.3, RBC 3.19 L, Hgb 6.9 L, Hct 21.5 L, MCV 67.4 L, MCH 21.6 L, MCHC 32.1, RDW Std Deviation 50.7 H, RDW Coeff of [place] 21.4 H, Plt Count 59 L, MPV 8.7, Neut % (Auto) Not Reportable, Absolute Neuts (auto) 3.5, Absolute Lymphs (auto) 1.59, Total Counted 100, Neutrophils % (Manual) 46 L, Band Neutrophils % 7 H, Lymphocytes % (Manual) 24, Monocytes % (Manual) 4, Metamyelocytes % 8 H, Myelocytes % 8 H, Blast Cells % 3 H*, Nucleated RBCs/100 WBC 5, Diff Path Review Reviewed, Toxic Granulation RARE, Platelet Estimate MOD DEC, RBC Morphology N CHROM, Hypochromasia 1+, Anisocytosis 1+, Microcytosis 1+ 06/04/20 18:10: B-Natriuretic Peptide 24.2 06/04/20 18:44: Urine Color Yellow, Urine Clarity Sl. Cloudy, Urine pH 6.5, Ur Specific [place] 1.015, Urine Protein 100 H, Urine Glucose (UA) Normal, Urine Ketones 5 H, Urine Occult Blood 50 H, Urine Nitrite Positive H, Urine Bilirubin Negative, Urine Urobilinogen Normal, Ur Leukocyte Esterase 25 H, Urine RBC 0 SEEN, Urine WBC 25-50 SEEN, Ur Squamous Epith Cells 0-5 SEEN, Ur Renal Epithelial Cell 0-5 SEEN, Urine Bacteria 3+, Urine Mucus 0 SEEN 06/04/20 19:17: Troponin I < 0.015 06/04/20 19:17: WBC 6.5, RBC 3.23 L, Hgb 7.1 L, Hct 21.7 L, MCV 67.2 L, MCH 22.0 L, MCHC 32.7, RDW Std Deviation 50.6 H, RDW Coeff of [place] 21.3 H, Plt Count 58 L, MPV 9.5, Neut % (Auto) Not Reportable, Absolute Neuts (auto) 3.5, Absolute Lymphs (auto) 1.18, Total Counted 100, Neutrophils % (Manual) 45 L, Band Neutrophils % 9 H, Lymphocytes % (Manual) 18 L, Monocytes % (Manual) 5, Eosinophils % (Manual) 1, Metamyelocytes % 8 H, Myelocytes % 10 H, Blast Cells % 4 H*, Nucleated RBCs/100 WBC 2, Differential Comment SEE COMMENT, Diff Path Review Reviewed, Toxic Granulation RARE, Platelet Estimate MOD DEC, RBC Morphology N CHROM, Hypochromasia 1+, Anisocytosis 1+, Microcytosis 1+ 06/04/20 19:17: Sodium 117 L*, Potassium 3.7, Chloride 83 L, Carbon Dioxide 27.0, Anion Gap 7, BUN 9, Creatinine 0.26 L, Estim Creat Clear Calc 195.64, Est GFR (MDRD) Af Amer 350, Est GFR (MDRD) Non-Af 289, BUN/Creatinine Ratio 34.5 H, Glucose 103, Calcium 8.8 06/04/20 21:31: POC Glucose 175 H 06/04/20 21:51: Sodium 118 L*, Potassium 3.7, Chloride 84 L, Carbon Dioxide 27.0, Anion Gap 7, BUN 10, Creatinine 0.38 L, Estim Creat Clear Calc 133.86, Est GFR (MDRD) Af Amer 224, Est GFR (MDRD) Non-Af 185, BUN/Creatinine Ratio 26.0 H, Glucose 172 H, Calcium 8.2 L 06/04/20 21:51: Troponin I < 0.015 06/04/20 21:51: Vitamin B12 279 06/04/20 21:51: Iron 78, TIBC 332, Iron Saturation 23.5, Ferritin 410 H 06/04/20 21:51: Blood Type A POSITIVE, Antibody Screen NEGATIVE 06/04/20 21:51: Crossmatch See Detail 06/04/20 21:51: Crossmatch See Detail 06/04/20 21:51: Cortisol 30.80 H 06/05/20 01:17: Troponin I < 0.015 06/05/20 03:24: Sodium 120 L, Potassium 3.5, Chloride 85 L, Carbon Dioxide 26.0, Anion Gap 9, BUN 10, Creatinine 0.31 L, Estim Creat Clear Calc 164.08, Est GFR (MDRD) Af Amer 284, Est GFR (MDRD) Non-Af 235, BUN/Creatinine Ratio 31.9 H, Glucose 116 H, Calcium 8.7 06/05/20 03:24: WBC 7.6, RBC 3.59 L, Hgb 8.1 L, Hct 26.8 L, MCV 74.7 L D, MCH 22.6 L, MCHC 30.2 L D, RDW Std Deviation 64.6 H, RDW Coeff of [place] 24.2 H, Plt Count 58 L, MPV 10.1, Neut % (Auto) Not Reportable, Absolute Neuts (auto) 4.6, Absolute Lymphs (auto) 2.13, Total Counted 100, Neutrophils % (Manual) 45 L, Band Neutrophils % 15 H, Lymphocytes % (Manual) 28, Monocytes % (Manual) 4, Metamyelocytes % 6 H, Myelocytes % 2 H, Nucleated RBCs/100 WBC 3, Diff Path Review Reviewed, Platelet Estimate MOD DEC, RBC Morphology N CYTIC, Hypochromasia 3+ 06/05/20 06:45: POC Glucose 165 H 06/05/20 07:20: Sodium 119 L*, Potassium 3.3 L, Chloride 83 L, Carbon Dioxide 29.0, Anion Gap 7, BUN 9, Creatinine 0.33 L, Estim Creat Clear Calc 154.14, Est GFR (MDRD) Af Amer 268, Est GFR (MDRD) Non-Af 221, BUN/Creatinine Ratio 27.4 H, Glucose 121 H, Calcium 8.8 06/05/20 07:45: TSH 2.25 06/05/20 10:54: POC Glucose 114 H Diagnostic Data Chest X-Ray 06/04/20 17:25 IMPRESSION: Mild interstitial edema or infiltrates. Stable calcified nodules. Electronically Signed: Rosalio Miranda MD at 18:07 EDT , Service support , Current Medications Acetaminophen (Acetaminophen 325 Mg Tablet) 650 mg PO Q6H PRN PRN PRN Reason: Pain Score 1-10/Temp > 100.7 F Last Admin: 06/05/20 09:06 Dose: 650 mg Documented by: Albuterol Sulfate (Albuterol 2.5 Mg/3 Ml Vial.Neb.) 2.5 mg INHALATION Q2H PRN PRN PRN Reason: SOB/Wheezing Last Admin: 06/05/20 05:10 Dose: 2.5 mg Documented by: Albuterol/Ipratropium (Ipratropium/Albuterol Sulfate 3 Ml Ampul.Neb) 3 ml INHALATION Q4HWA.RT [facility] Last Admin: 06/05/20 13:20 Dose: 3 ml Documented by: Amlodipine Besylate (Amlodipine 5 Mg Tablet) 5 mg PO DAILY [facility] Last Admin: 06/05/20 09:04 Dose: 5 mg Documented by: Enoxaparin Sodium (Enoxaparin 40 Mg/0.4 Ml Syringe) 40 mg SC BID [facility] Last Admin: 06/05/20 09:02 Dose: 40 mg Documented by: Guaifenesin (Guaifenesin 10 Ml Udc (200mg/10ml)) 20 ml PO Q4H PRN PRN PRN Reason: COUGH Insulin Human Lispro (Insulin Lispro 100 Unit/Ml Insuln.Pen) 0 unit SC ACHS [facility]; Protocol Last Admin: 06/05/20 10:55 Dose: Not Given Documented by: Loratadine (Loratadine 10 Mg Tablet) 10 mg PO DAILY [facility] Last Admin: 06/05/20 09:00 Dose: 10 mg Documented by: Losartan Potassium (Losartan Potassium 50 Mg Tablet) 50 mg PO DAILY [facility] Last Admin: 06/05/20 09:02 Dose: 50 mg Documented by: Melatonin (Melatonin 3 Mg Tablet) 3 mg PO QHS PRN PRN PRN Reason: INSOMNIA Nicotine (Nicotine 21 Mg Patch) 21 mg TD DAILY [facility] Last Admin: 06/05/20 09:03 Dose: 21 mg Documented by: Ondansetron HCl (Ondansetron 4 Mg/2 Ml Vial) 4 mg IV Q8H PRN PRN PRN Reason: NAUSEA/VOMITING Oxycodone HCl (Oxycodone 5 Mg Tablet) 10 mg PO Q4H PRN PRN PRN Reason: Pain Score 4-5 Last Admin: 06/05/20 06:39 Dose: 10 mg Documented by: Potassium Chloride (Potassium Chloride Oral Tablet 20 Meq) [facility] Last Admin: 06/05/20 08:59 Dose: 40 meq Documented by: Sodium Chloride (0.9% Saline Lock 10 Ml Syringe) 10 - 40 ml IV UD PRN PRN Reason: SALINE FLUSH Last Admin: 06/05/20 04:40 Dose: 10 ml Documented by: Sodium Chloride (Sodium Chloride 1 Gm Tablet) 2 gm PO TID [facility] Topiramate (Topiramate 25 Mg Tablet) 25 mg PO BID [facility] Last Admin: 06/05/20 09:05 Dose: 25 mg Documented by: STROKE Vital Signs/Narrative: Vital Signs Pulse Resp 06/05/20 13:38 82 20 H Medical Necessity - Tobacco Use Smoking Status: Current every day smoker Assessment/Plan All Active Problems (Last Reviewed 06/04/20 @ 18:01 by Damari Hoyos NP-C) Abdominal pain (Acute) #Acute on chronic hyponatremia * due to SIADH. Patient also says she run out of her salt tablets. * ssalt tablets restarted * nephrology on board; recommend continuation of salt tablets 3x daily * sodium is up to 119 today * #Adrenal nodules * per her last CT scan, she had some adrenal nodules which measured 3.4cm and 2.3cm. She also had well circumscribed chest lesions per CT chest. * per discussion with nephrology, these are suspicious for an occult malignancy with metastatic lesions. Nephrology spoke to her PCP, and she is to have biopsy of the lesions on discharge * #Hypertension; on norvasc and losartan #Diabetes mellitus: metformin on hold. ISS. Accuchecks ACHS #Chronic back pain. * on tylenol and OXy IR. Was apparently advised to get MRI of the spine due to acute on chronic back pain; * she however declined due to claustrophobia #Nicotine dependence: counseled to quit. On nicotine patch #Morbid obesity: BMI is >40. Complicates acute care, prognosis and expected recovery DT prophylaxis: lovenox Inpatient E&M: [id number] Subs Hosp L3
--- NOTE | 2020-06-05 14:55 | CASEMGMT ---
Readmission chart review: Pt was initially admitted 05/10-05/18/20 for abd pain, hyponatremia. Pt was dx'd with SIADH on this admit and discharged home on NaCL tabs twice daily. Pt did f/u with Dr. Marinelli on 05/25/20 but did not get a refill for the NaCl tabs at that time and this RN AUDRA did call PCP office and pt never called into get a refill once out. PCP office did state that they received the D/C summary but did not have med list updated for pt. Pt was given a script from here on discharge for NaCL 1 gm 30 tabs bid. Pt then returned to [facility] ED on 06/04/20 with a Na of 116 and admitted again for Hyponatremia to PCU. CM to follow for any further discharge planning/needs. Mariely GONZALEZ CM
--- NOTE | 2020-06-05 15:27 | NURSING ---
Student nurse documentation reviewed.
[2020-06-05] MEDS: Sodium Chloride 1 GM Tablet 2 GM PO ×2 (15:34→21:15)
[2020-06-05 16:41] LABS: Bedside Glucose 115 mg/dL (70-110)
[2020-06-05 22:10] LABS: Bedside Glucose 124 mg/dL (70-110)
[2020-06-06] VITALS (15 sets, daily range): BP systolic 130–152; BP diastolic 73–88; PULSE 78–93; RESP 18–22; TEMP 36.6–36.7; O2SAT 94–98
[2020-06-06] MEDS: Albuterol 2.5 MG/3 ML VIAL.NEB. INHALATION ×3 (00:01→21:51)
[2020-06-06] MEDS: Ondansetron 4 MG/2 ML Vial IV (04:01)
[2020-06-06] MEDS: 0.9% Saline Lock 10 ML Syringe IV (04:01)
[2020-06-06] MEDS: Sodium Chloride 1 GM Tablet 2 GM PO ×3 (05:42→21:39)
[2020-06-06] MEDS: Acetaminophen 325 MG Tablet 650 MG PO ×3 (05:43→20:49)
[2020-06-06] MEDS: oxyCODONE 5 MG Tablet 10 MG PO ×3 (05:44→20:48)
[2020-06-06 06:35] LABS: Bedside Glucose 130 mg/dL (70-110)
[2020-06-06] MEDS: Ipratropium/Albuterol Sulfate 3 ML AMPUL.NEB INHALATION ×4 (06:58→18:38)
[2020-06-06 08:24] LABS: Hemoglobin 8.9 g/dL (12.0-15.0); Mean Corp Hgb Conc 31.8 g/dL (32-36); Mean Corpuscular Hgb 23.5 pg (27.0-32.0); Mean Corpuscular Volume 73.9 fL (81-99); Mean Platelet Vol. 9.3 fl (6.2-12.0); POSITIVE COUNT YES; POSITIVE MORPHOLOGY YES; RBC Distribution Width SD 62.2 fl (35.1-43.9); Red Blood Count 3.79 M/mm3 (4.2-5.4); White Blood Count 8.9 K/mm3 (4.4-11.0)
[2020-06-06 08:31] LABS: Differential Indicated MANUAL DIFF
[2020-06-06 08:35] LABS: Anion Gap 5 (5-15); BUN 11 mg/dL (7-18); BUN/Creat Ratio 35.5 RATIO (10-20); Calcium,Total 9.3 mg/dL (8.5-10.1); Chloride 91 mmol/L (98-107); Creatinine, Serum 0.31 mg/dL (0.55-1.02); EST Glomerular Filtration Rate 237 mL/min (>60); Est Glom Filt Rate - Afr Amer 287 mL/min (>60); Estimated Creatinine Clearance 164.08 ml/min; Glucose 128 mg/dL (74-106); Potassium 3.7 mmol/L (3.5-5.1); Sodium Level 124 mmol/L (136-145)
[2020-06-06 08:36] LABS: Platelet Count 50 K/mm3 (150-450)
[2020-06-06] MEDS: Loratadine 10 MG Tablet PO (08:40)
[2020-06-06] MEDS: Potassium Chloride Oral Tablet 20 MEQ 40 MEQ PO ×2 (08:40→16:12)
[2020-06-06] MEDS: Losartan Potassium 50 MG Tablet PO (08:40)
[2020-06-06] MEDS: amLODIPine 5 MG Tablet PO (08:41)
[2020-06-06] MEDS: Topiramate 25 MG Tablet PO ×2 (08:41→21:39)
[2020-06-06 09:54] LABS: Anisocytosis 1+; Basophil 1 % (0-1); Blast 1 % (0-0); Lymphocyte 22 % (19-41); Metamyelocyte 9 % (0-1); Monocyte 7 % (0-10); Myelocyte 3 % (0-0); Neutrophil-Segmented 52 % (47-70); Promyelocyte 5 % (0-0); Total Cells Counted 100 (MANUAL DIFF)
[2020-06-06 09:55] LABS: Absolute Neutrophil Count 4.6 X10^3/uL (2.0-7.7); Platelet Estimate MOD DEC (ADEQ); Red Cell Morphology N CHROM NORMAL (NORM C&C)
--- NOTE | 2020-06-06 10:31 | PCM.PN.REN ---
Subjective: no new complaints. - Physical Exam Vitals/I&O's: Vital Signs Temp Pulse Resp BP Pulse Ox 97.8 F 91 18 136/73 H 96 06/06/20 08:35 06/06/20 08:35 06/06/20 08:35 06/06/20 08:35 06/06/20 08:35 Oxygen Flow Rate (L/min) 2 Oxygen Delivery Method Nasal Cannula Weight: 108.7 kg Body Mass Index (BMI) 43.9 Intake and Output for Last 24 Hours 06/04/20 06/05/20 06/06/20 23:59 23:59 23:59 Intake Total 1520 / 1520 100 / 100 Balance 1520 / 1520 100 / 100 General: Alert, Oriented x3, Cooperative HEENT: Atraumatic, PERRLA, EOMI, Normocephalic Neck: Supple, No JVD, Negative Carotid Bruits Lungs: Clear to auscultation, Normal air movement Cardiovascular: Regular rate, No murmurs Abdomen: Bowel Sounds Present, Soft, Non Tender Extremities: No edema, Capillary Refill Less than 3 Seconds Skin: No rashes, No breakdown Musculoskeletal: No Tenderness to Palpation of Joints or Extremities Neurological: Cranial nerves II-XII grossly intact Psych/Mental Status: Normal Affect, Appropriate Laboratory Results 06/04/20 18:10: Diff Path Review Reviewed 06/04/20 19:17: Diff Path Review Reviewed 06/04/20 21:51: Cortisol 30.80 H 06/05/20 03:24: Diff Path Review Reviewed 06/05/20 07:45: TSH 2.25 06/05/20 10:54: POC Glucose 114 H 06/05/20 16:27: POC Glucose 115 H 06/05/20 21:14: POC Glucose 124 H 06/06/20 06:30: POC Glucose 130 H 06/06/20 08:04: WBC 8.9, RBC 3.79 L, Hgb 8.9 L, Hct 28.0 L, MCV 73.9 L, MCH 23.5 L, MCHC 31.8 L D, RDW Std Deviation 62.2 H, RDW Coeff of Triston 24.0 H, Plt Count 50 L*, MPV 9.3, Neut % (Auto) Not Reportable, Absolute Neuts (auto) 4.6, Absolute Lymphs (auto) 1.90, Total Counted 100, Neutrophils % (Manual) 52, Lymphocytes % (Manual) 22, Monocytes % (Manual) 7, Basophils % (Manual) 1, Metamyelocytes % 9 H, Myelocytes % 3 H, Promyelocytes % 5 H, Blast Cells % 1 H*, Diff Path Review May foll, Platelet Estimate MOD DEC, RBC Morphology N CHROM, Anisocytosis 1+ 06/06/20 08:04: Sodium 124 L, Potassium 3.7, Chloride 91 L, Carbon Dioxide 28.0, Anion Gap 5, BUN 11, Creatinine 0.31 L, Estim Creat Clear Calc 164.08, Est GFR (MDRD) Af Amer 287, Est GFR (MDRD) Non-Af 237, BUN/Creatinine Ratio 35.5 H, Glucose 128 H, Calcium 9.3 Current Medications Acetaminophen (Acetaminophen 325 Mg Tablet) 650 mg PO Q6H PRN PRN PRN Reason: Pain Score 1-10/Temp > 100.7 F Last Admin: 06/06/20 05:43 Dose: 650 mg Documented by: Albuterol Sulfate (Albuterol 2.5 Mg/3 Ml Vial.Neb.) 2.5 mg INHALATION Q2H PRN PRN PRN Reason: SOB/Wheezing Last Admin: 06/06/20 05:31 Dose: 2.5 mg Documented by: Albuterol/Ipratropium (Ipratropium/Albuterol Sulfate 3 Ml Ampul.Neb) 3 ml INHALATION Q4HWA.RT [facility] Last Admin: 06/06/20 06:58 Dose: 3 ml Documented by: Amlodipine Besylate (Amlodipine 5 Mg Tablet) 5 mg PO DAILY [facility] Last Admin: 06/06/20 08:41 Dose: 5 mg Documented by: Guaifenesin (Guaifenesin 10 Ml Udc (200mg/10ml)) 20 ml PO Q4H PRN PRN PRN Reason: COUGH Insulin Human Lispro (Insulin Lispro 100 Unit/Ml Insuln.Pen) 0 unit SC ACHS [facility]; Protocol Last Admin: 06/06/20 06:33 Dose: Not Given Documented by: Loratadine (Loratadine 10 Mg Tablet) 10 mg PO DAILY [facility] Last Admin: 06/06/20 08:40 Dose: 10 mg Documented by: Losartan Potassium (Losartan Potassium 50 Mg Tablet) 50 mg PO DAILY [facility] Last Admin: 06/06/20 08:40 Dose: 50 mg Documented by: Melatonin (Melatonin 3 Mg Tablet) 3 mg PO QHS PRN PRN PRN Reason: INSOMNIA Nicotine (Nicotine 21 Mg Patch) 21 mg TD DAILY [facility] Last Admin: 06/06/20 08:41 Dose: 21 mg Documented by: Ondansetron HCl (Ondansetron 4 Mg/2 Ml Vial) 4 mg IV Q8H PRN PRN PRN Reason: NAUSEA/VOMITING Last Admin: 06/06/20 04:01 Dose: 4 mg Documented by: Oxycodone HCl (Oxycodone 5 Mg Tablet) 10 mg PO Q4H PRN PRN PRN Reason: Pain Score 4-5 Last Admin: 06/06/20 05:44 Dose: 10 mg Documented by: Potassium Chloride (Potassium Chloride Oral Tablet 20 Meq) 40 meq PO BIDCM [facility] Last Admin: 06/06/20 08:40 Dose: 40 meq Documented by: Simethicone (Simethicone 80 Mg Tablet) 80 mg PO BID [facility] Last Admin: 06/06/20 08:41 Dose: 80 mg Documented by: Sodium Chloride (0.9% Saline Lock 10 Ml Syringe) 10 - 40 ml IV UD PRN PRN Reason: SALINE FLUSH Last Admin: 06/06/20 04:01 Dose: 10 ml Documented by: Sodium Chloride (Sodium Chloride 1 Gm Tablet) 2 gm PO TID [facility] Last Admin: 06/06/20 05:42 Dose: 2 gm Documented by: Topiramate (Topiramate 25 Mg Tablet) 25 mg PO BID [facility] Last Admin: 06/06/20 08:41 Dose: 25 mg Documented by: Medical Necessity - Tobacco Use Smoking Status: Current every day smoker Assessment/Plan All Active Problems (Last Reviewed 06/04/20 @ 18:01 by Damari Hoyos, WOOD CABINET[employer]KER-C) Abdominal pain (Acute) Hyponatremia. Labs were consistent with SIADH. She was on bupropion which she used for cravings. We will stop it for now. TSH is ok. Cortisol on higher side. Reviewed imaging from last admission and this admission. She had CT scan of the chest, brain, abdomen last admission. She has 2 adrenal nodules which are 3.4 cm and 2.[address] chest images reviewed. She has well circumscribed round lesions on the CT chest which could be metastatic lesions. She also has some infiltrates. No history of any infection. Covid was negative last admission. I have high suspicion of unknown malignancy with pulmonary mets in her. She will need biopsy of 1 of these lesions. I spoke to her primary care doctor Dr. Marinelli. As per Dr. Marinelli, she also had severe low back pain recently and was advised to get a mri of the spine. Patient declined since she was claustrophobic. May need a bone scan. sodium is better at 124. continue salt tablets 2 gm TID for another 2 days and cut back to 1 gm TID after She now has severe anemia and thrombocytopenia with blasts seen on smear. ? bone marrow infiltration with malignancy. management as per primary
--- NOTE | 2020-06-06 11:33 | PN_ITS ---
Subjective: Patient seen and examined today. He had no complaints and was sitting comfortably in bed. Review of systems otherwise negative. Sodium is up to 126. However patient noted to have blast cells, was also anemic on admission requiring 2 units of blood. Platelets have also dropped to 50 today. Vitals/I&O's: Vital Signs Temp Pulse Resp BP Pulse Ox 97.8 F 91 21 H 136/73 H 96 06/06/20 08:35 06/06/20 08:35 06/06/20 11:08 06/06/20 08:35 06/06/20 08:35 Oxygen Flow Rate (L/min) 2 Oxygen Delivery Method Nasal Cannula Weight: 239 lb 10.279 oz Body Mass Index (BMI) 43.9 Intake and Output for Last 24 Hours 06/04/20 06/05/20 06/06/20 23:59 23:59 23:59 Intake Total 1520 / 1520 100 / 100 Balance 1520 / 1520 100 / 100 General: Alert, Oriented x3, Cooperative, No apparent distress, obese HEENT: Atraumatic, PERRLA, EOMI, Normocephalic Oral: Dry Mucosa Neck: Supple, No JVD, Negative Carotid Bruits Lungs: Clear to auscultation, Normal air movement, No rhonchi, No wheeze Cardiovascular: Regular rate, Regular Rhythm, Normal S1, Normal S2, No murmurs Abdomen: Bowel Sounds Present, Soft, Non Tender, Non-Distended, No Hepato- splenomegaly Extremities: No clubbing, No cyanosis, No edema, Capillary Refill Less than 3 Seconds Skin: No rashes, No breakdown Musculoskeletal: No Tenderness to Palpation of Joints or Extremities Lymphatic: No Cervical, Supraclavicular, or Inguinal Adenopathy Neurological: Cranial nerves II-XII grossly intact, Neuro grossly intact, Motor Exam 5/5 strength throughout Psych/Mental Status: Normal Affect, Appropriate, Alert and oriented to time, place, person, mood and affect Laboratory Results 06/04/20 18:10: Diff Path Review Reviewed 06/04/20 19:17: Diff Path Review Reviewed 06/05/20 03:24: Diff Path Review Reviewed 06/05/20 16:27: POC Glucose 115 H 06/05/20 21:14: POC Glucose 124 H 06/06/20 06:30: POC Glucose 130 H 06/06/20 08:04: WBC 8.9, RBC 3.79 L, Hgb 8.9 L, Hct 28.0 L, MCV 73.9 L, MCH 23.5 L, MCHC 31.8 L D, RDW Std Deviation 62.2 H, RDW Coeff of Triston 24.0 H, Plt Count 50 L*, MPV 9.3, Neut % (Auto) Not Reportable, Absolute Neuts (auto) 4.6, Absolute Lymphs (auto) 1.90, Total Counted 100, Neutrophils % (Manual) 52, Lymphocytes % (Manual) 22, Monocytes % (Manual) 7, Basophils % (Manual) 1, Metamyelocytes % 9 H, Myelocytes % 3 H, Promyelocytes % 5 H, Blast Cells % 1 H*, Diff Path Review June, Platelet Estimate MOD DEC, RBC Morphology N CHROM, Anisocytosis 1+ 06/06/20 08:04: Sodium 124 L, Potassium 3.7, Chloride 91 L, Carbon Dioxide 28.0, Anion Gap 5, BUN 11, Creatinine 0.31 L, Estim Creat Clear Calc 164.08, Est GFR (MDRD) Af Amer 287, Est GFR (MDRD) Non-Af 237, BUN/Creatinine Ratio 35.5 H, Glucose 128 H, Calcium 9.3 Diagnostic Data Chest X-Ray 06/04/20 17:25 IMPRESSION: Mild interstitial edema or infiltrates. Stable calcified nodules. Electronically Signed: Rosalio Miranda MD at 18:07 EDT , Service support , Current Medications Acetaminophen (Acetaminophen 325 Mg Tablet) 650 mg PO Q6H PRN PRN PRN Reason: Pain Score 1-10/Temp > 100.7 F Last Admin: 06/06/20 05:43 Dose: 650 mg Documented by: Albuterol Sulfate (Albuterol 2.5 Mg/3 Ml Vial.Neb.) 2.5 mg INHALATION Q2H PRN PRN PRN Reason: SOB/Wheezing Last Admin: 06/06/20 05:31 Dose: 2.5 mg Documented by: Albuterol/Ipratropium (Ipratropium/Albuterol Sulfate 3 Ml Ampul.Neb) 3 ml INHALATION Q4HWA.RT [facility] Last Admin: 06/06/20 11:08 Dose: 3 ml Documented by: Amlodipine Besylate (Amlodipine 5 Mg Tablet) 5 mg PO DAILY [facility] Last Admin: 06/06/20 08:41 Dose: 5 mg Documented by: Guaifenesin (Guaifenesin 10 Ml Udc (200mg/10ml)) 20 ml PO Q4H PRN PRN PRN Reason: COUGH Insulin Human Lispro (Insulin Lispro 100 Unit/Ml Insuln.Pen) 0 unit SC ACHS [facility]; Protocol Last Admin: 06/06/20 11:18 Dose: Not Given Documented by: Loratadine (Loratadine 10 Mg Tablet) 10 mg PO DAILY [facility] Last Admin: 06/06/20 08:40 Dose: 10 mg Documented by: Losartan Potassium (Losartan Potassium 50 Mg Tablet) 50 mg PO DAILY [facility] Last Admin: 06/06/20 08:40 Dose: 50 mg Documented by: Melatonin (Melatonin 3 Mg Tablet) 3 mg PO QHS PRN PRN PRN Reason: INSOMNIA Nicotine (Nicotine 21 Mg Patch) 21 mg TD DAILY [facility] Last Admin: 06/06/20 08:41 Dose: 21 mg Documented by: Ondansetron HCl (Ondansetron 4 Mg/2 Ml Vial) 4 mg IV Q8H PRN PRN PRN Reason: NAUSEA/VOMITING Last Admin: 06/06/20 04:01 Dose: 4 mg Documented by: Oxycodone HCl (Oxycodone 5 Mg Tablet) 10 mg PO Q4H PRN PRN PRN Reason: Pain Score 4-5 Last Admin: 06/06/20 05:44 Dose: 10 mg Documented by: Potassium Chloride (Potassium Chloride Oral Tablet 20 Meq) [facility] Last Admin: 06/06/20 08:40 Dose: 40 meq Documented by: Simethicone (Simethicone 80 Mg Tablet) 80 mg PO BID [facility] Last Admin: 06/06/20 08:41 Dose: 80 mg Documented by: Sodium Chloride (0.9% Saline Lock 10 Ml Syringe) 10 - 40 ml IV UD PRN PRN Reason: SALINE FLUSH Last Admin: 06/06/20 04:01 Dose: 10 ml Documented by: Sodium Chloride (Sodium Chloride 1 Gm Tablet) 2 gm PO TID [facility] Last Admin: 06/06/20 05:42 Dose: 2 gm Documented by: Topiramate (Topiramate 25 Mg Tablet) 25 mg PO BID [facility] Last Admin: 06/06/20 08:41 Dose: 25 mg Documented by: STROKE Vital Signs/Narrative: Vital Signs Temp Pulse Resp BP Pulse Ox 06/06/20 11:08 21 H 06/06/20 08:35 97.8 F 91 18 136/73 H 96 Medical Necessity - Tobacco Use Smoking Status: Current every day smoker Assessment/Plan All Active Problems (Last Reviewed 06/04/20 @ 18:01 by Damari Hoyos, CLIENT SUPPORT REPRESENTATIVE-C) Abdominal pain (Acute) #Acute on chronic hyponatremia * nwo back on her salt tablets * sodium up to 124 today * nephrology on board; recommend continuation of salt tablets 3x daily * * #Adrenal nodules * per her last CT scan, she had some adrenal nodules which measured 3.4cm and 2.3cm. She also had well circumscribed chest lesions per CT chest. * per discussion with nephrology, these are suspicious for an occult malignancy with metastatic lesions. Nephrology spoke to her PCP, and she is to have biopsy of the lesions on discharge * #Anemia and thrombocytopenia * Hemoglobin of 6.1 on admission requiring transfusion of 2 units of packed red blood cells. Stool for occult blood is pending. This was a microcytic hypochromic anemia. Of note, patient noted to have blast cells as well, initially peaking at 4% and now down to 1%. * In light of new onset thrombocytopenia, and blast cells, as well as anemia, i am concerned about a hematologic malignancy. * will therefore consult hematology; await rec's. * iron panel showed no evidence of iron deficiency anemia * #Hypertension; on norvasc and losartan #Diabetes mellitus: metformin on hold. ISS. Accuchecks ACHS #Chronic back pain. * on tylenol and OXy IR. Was apparently advised to get MRI of the spine due to acute on chronic back pain; * she however declined due to claustrophobia * may need bone scan in light of presence of blast cells and concerns for malignancy #Nicotine dependence: counseled to quit. On nicotine patch #Morbid obesity: BMI is >40. Complicates acute care, prognosis and expected recovery #History of DVT: xarelto held on admission. lovenox now on hold due to thrombocytopenia DT prophylaxis: dc lovenox in light of thombocytopenia Inpatient E&M: 55104 Subs Hosp L3
[2020-06-06 11:41] LABS: Bedside Glucose 112 mg/dL (70-110)
[2020-06-06 12:32] LABS: Pathologist Review Reviewed
--- NOTE | 2020-06-06 12:56 | ONC.CON.INP2 ---
- Problem List (1) Anemia Status: Acute (2) Thrombocytopenia Status: Acute (3) Multilobar lung infiltrate Status: Acute (4) Adrenal nodule Status: Acute (5) Pneumonia Status: Suspected Consult Referring Physician: Hospitalist Consult Results: Abnormal CBCD Subjective Date of Service:: 06/06/20 Chief Complaint: sob, hyponatremia History of Present Illness: 55-year-old female, smoker hospitalized 06/04/2020 with recurrent low sodium attributed to SIADH. Hematology oncology consult requested because of abnormal CBC with new onset anemia, thrombocytopenia and immature myeloid cells in peripheral blood. See Tabl: Laboratory Tests 05/09/20 05/17/20 05/18/20 22:25 06:20 05:25 WBC 19.2 H 27.5 H Hgb 11.8 L 11.7 L Hct 35.4 L 37.6 MCV 65.3 L 69.1 L 70.3 L Plt Count 366 230 06/04/20 06/04/20 06/05/20 18:10 19:17 03:24 WBC 6.6 6.5 7.6 Hgb 6.9 L 7.1 L 8.1 L Hct 21.5 L 21.7 L 26.8 L MCV 67.4 L 67.2 L 74.7 L D Plt Count 59 L 58 L 58 L 06/06/20 08:04 WBC 8.9 Hgb 8.9 L Hct 28.0 L MCV 73.9 L Plt Count 50 L* Her past medical history is notable for morbid obesity, hypertension, diabetes, history of pulmonary embolism on chronic anticoagulation, being an active smoker. She was recently hospitalized with a bilateral pneumonia, Covid negative 05/10/20-05/18/20, at that time she was noted to have a low sodium and work-up was consistent with SIADH. During that hospitalization: CT scan of the chest May 13, 2020: FINDINGS: Bilateral peripheral patchy groundglass opacities consistent with subsegmental atelectasis or pneumonitis. Some denser nodular densities in the right upper lobe likely consistent with more confluent pneumonia. Follow-up is recommended to document resolution to exclude a pulmonary nodule or mass. There is no demonstrated pleural abnormality. Normal heart and pericardium. Normal mediastinum. Right hilar lymphadenopathy measuring 1.5 x 3.0 cm. Small subcarinal lymph node. Normal enhanced and unenhanced pulmonary arteries. Normal aorta arch and descending thoracic aorta. Normal osseous structures. IMPRESSION: 1. Bilateral subsegmental atelectasis or pneumonitis. Commonly reported imaging features of Covid 19 pneumonia are present. Other processes such as influenza pneumonia and organizing pneumonia as can be seen with drug toxicity and connective tissue disease can cause a similar imaging pattern. 2. More confluent and dense nodular opacities in the right upper lobe with right hilar lymphadenopathy. Possibilities include bacterial pneumonia, tuberculosis or fungal disease, or tumor with metastatic lymphadenopathy. Clinical correlation is recommended. ADDENDUM Left adrenal gland hyperplasia with a lipoma are stable when compared to the study from 07/09/2014 and are consistent with benign lesions. Past Medical History: Chronic Problems (Last Reviewed 06/04/20 @ 18:01 by Damari Hoyos NP-Hannah) SIADH (syndrome of inappropriate ADH production) (Chronic) Morbid obesity with BMI of 40.0-44.9, adult (Chronic) Diabetes mellitus, type II (Chronic) Chronic pain syndrome (Chronic) Morbid obesity with BMI of 45.0-49.9, adult (Chronic) Essential (primary) hypertension (Chronic) Nicotine dependence (Chronic) Pulmonary embolism (Chronic 07/09/14) Past Medical/Surgical History: Past Medical History - Most Recent Inpatient Visit Past Medical History Start: 06/04/20 19:05 Text: Status: Complete Freq: ONCE Protocol: Document 06/04/20 19:05 MY (Rec: 06/04/20 19:53 MY [id number]) BMI Required to complete PMH What is Patient's BMI 43.9 Past Medical History Unable History Recalled No Query Text:Pt Unable/Family Not Present Neurologic Medical History Hx Stroke/TIA No Hx Dementia/Alzheimer's No Hx Parkinson's Disease No Hx Seizures No Hx Multiple Sclerosis No Hx Migraines Yes Cardiac Medical History VTE Present on Admission No Hx of Deep Vein Thrombosis/VTE/PE Yes: lungs Hx Hypertension Yes Hx Chest Pain/Angina Yes Hx Heart Attack No Hx Cardiac Surgery/Stents/Etc. No Hx Heart Failure No Hx Pacemaker/AICD No Hx Irregular Heartbeat and/or Afib No Hx Anticoagulant Therapy Yes: xarelto Query Text:(Coumadin, Aspirin, Plavix, Xarelto, etc.) Hx Pain in Legs when Walking/Leg Cramps Yes Respiratory Medical History Hx COPD Yes Hx Emphysema Yes Hx Smoking Yes: on patch, cutting down Smoking Status Current every day smoker Hx Smoking Cessation Counseling Yes Hx Smoking Exposure Yes Hx Tobacco Use in last 12 months Yes Sent to [facility] Yes Hx of Pipe Smoking Yes Hx Sleep Apnea Yes CPAP No BIPAP No STOP Results Positive GI Medical History Hx Ulcer No Hx Hepatitis No Hx Cirrhosis No Hx GI Bleed No Hx Unplanned Weight Loss No Genitourinary Medical History Indwelling Catheter in Place on Arrival/ No Admission Hx Renal Disease No Hx Dialysis No Musculoskeletal History Hx Arthritis Yes Hx Rheumatoid Arthritis No Endocrine Medical History Hx Diabetes Yes Hx Thyroid Disease No Hematologic Medical History Hx of Blood Transfusion No Hx of Transfusion in last 3 Months No Ever experience any problems with No transfusion(s)? Hx of Preganancy in last 3 Months No Nurse Filling Out Transfusion & [id number] Questions: Date: 06/04/20 Time: 19:52 Psycho/Social Medical History Hx Depression Yes Hx Anxiety Yes Hx Behavior Disorder No Hx Alcohol Use Yes: occasionally Hx Substance Use No Other Medical History Hx Blood Disorders No Hx Anemia No Hx Cancer No: pre-cancer cells on uterus Hx Drug Resistant Organism No Wound/Pressure Injury Present on Arrival No /Admission Query Text:If yes, chart assessment in Shift/Clinical Findings Central Line/PICC/VAD Present on Arrival No /Admission Risk for Readmission Number of Risk Factors 8 At Risk for Readmission Patient is At Risk For Readmission Patient is eligible for Call Back Y Past Medical History (Last Reviewed 06/04/20 @ 18:01 by CAMPOS Castorena) Essential (primary) hypertension (Chronic) Nicotine dependence (Chronic) Pulmonary embolism (Chronic 07/09/14) Anxiety (Chronic) Chronic pain syndrome (Chronic) Emphysema of lung (Chronic) Lymphedema (Chronic) Obstructive sleep apnea (Chronic) Osteoarthritis (Chronic) Rheumatoid arthritis (Chronic) Type 2 diabetes mellitus (Chronic) Secondary pulmonary arterial hypertension (Inactive) Past Surgical History (Last Reviewed 06/04/20 @ 18:01 by MARITA CastorenaC) History of tubal ligation (Resolved) Maternal Family History: Family History (Last Reviewed 05/10/20 @ 01:53 by CAMPOS Castorena) Sister Hypertension Asthma Brother Heart disease Asthma Family History: - - her mother at 46 YOA, 9 days after giving to the pt Paternal Family History: Family History (Last Reviewed 05/10/20 @ 01:53 by CAMPOS Castorena) Sister Hypertension Asthma Brother Heart disease Asthma Family History: Cancer - lung, - - father at 67 and had CVD - Social History Lives: Alone Smoking Status: Current every day smoker Alcohol: None Drugs: None Allergies/Adverse Reactions: Allergy/AdvReac Type Severity Reaction Status Date / Time Latex, Natural Rubber Allergy Rash Verified 06/04/20 16:42 Review of Systems Constitutional:: Reports: Weakness, Fatigue, Weight loss - But has also had significant diuresis and loss of edema fluid. Denies: Fever, Sweats, Appetite change, Chills Cardiovascular:: Reports: Chest pain - Right-sided, sharp with deep inspiration for the past couple of days, Dyspnea on exertion, Peripheral edema. Denies: Palpitations, Orthopnea, PND, Shortness of breath Respiratory: Denies: Cough, Hemoptysis, Shortness of Breath, Wheezing Gastrointestinal:: Denies: Abdominal pain, Nausea, Vomiting, Diarrhea, Constipation, Hematochezia Genitourinary: Denies: Dysuria, Hematuria, 15, Flank pain Musculoskeletal:: Reports: - - Chronic nonspecific musculoskeletal pains, did not appreciate recent change. Denies: Back pain, Myalgia, Arthralgia Skin: Denies: Rash, Skin Changes, Wounds Neurological:: Denies: Headache, Dizziness, Visual changes, Tinnitus, Hearing loss Psychiatric: Denies: Anxiety, Depression, Homicidal Ideations, Suicidal Ideations Vital Signs Temperature 97.8 F 06/06/20 08:35 Temperature Source Oral 06/06/20 08:35 Pulse Rate 91 06/06/20 08:35 Pulse Strength Weak (1+) 06/06/20 08:37 Respiratory Rate 21 H 06/06/20 11:08 Respiratory Effort Non-Labored 06/06/20 08:37 Respiratory Depth Normal 06/06/20 08:37 Respiratory Pattern Normal 06/06/20 08:37 Blood Pressure 136/73 H 06/06/20 08:35 Blood Pressure Mean 94 06/06/20 08:35 Blood Pressure Source Monitor 06/06/20 08:35 Blood Pressure Position Sitting 06/06/20 08:35 Blood Pressure Location Right Arm 06/06/20 08:35 Pulse Ox 96 06/06/20 08:35 Oxygen Delivery Method Nasal Cannula 06/06/20 08:37 Oxygen Flow Rate (L/min) 2 06/06/20 08:37 Laboratory Data: Laboratory Tests 06/06/20 06/06/20 06/06/20 Range/Units 11:18 08:04 08:04 WBC 8.9 (4.4-11.0) K/mm3 RBC 3.79 L (4.2-5.4) M/mm3 Hgb 8.9 L (12.0-15.0) g/dL Hct 28.0 L (37-47) % MCV 73.9 L (81-99) fL MCH 23.5 L (27.0-32.0) pg MCHC 31.8 L D (32-36) g/dL RDW Std Deviation 62.2 H (35.1-43.9) fl RDW Coeff of Triston 24.0 H (11.6-14.6) % Plt Count 50 L* (150-450) K/mm3 MPV 9.3 (6.2-12.0) fl Neut % (Auto) Not Reportable Absolute Neuts (auto) 4.6 (2.0-7.7) X10^3/uL Absolute Lymphs (auto) 1.90 (0.83-4.51) X10^3/uL Total Counted 100 (MANUAL DIFF) Neutrophils % (Manual) 52 (47-70) % Lymphocytes % (Manual) 22 (19-41) % Monocytes % (Manual) 7 (0-10) % Basophils % (Manual) 1 (0-1) % Metamyelocytes % 9 H (0-1) % Myelocytes % 3 H (0-0) % Promyelocytes % 5 H (0-0) % Blast Cells % 1 H* (0-0) % Diff Path Review Reviewed Platelet Estimate MOD DEC (ADEQ) RBC Morphology N CHROM (NORM C&C) NORMAL Anisocytosis 1+ Sodium 124 L (136-145) mmol/L Potassium 3.7 (3.5-5.1) mmol/L Chloride 91 L (98-107) mmol/L Carbon Dioxide 28.0 (21.0-32.0) mmol/L Anion Gap 5 (5-15) BUN 11 (7-18) mg/dL Creatinine 0.31 L (0.55-1.02) mg/dL Estim Creat Clear Calc 164.08 ml/min Est GFR (MDRD) Af Amer 287 (>60) mL/min Est GFR (MDRD) Non-Af 237 (>60) mL/min BUN/Creatinine Ratio 35.5 H (10-20) RATIO Glucose 128 H (74-106) mg/dL Calcium 9.3 (8.5-10.1) mg/dL POC Glucose 112 H (70-110) mg/dL 06/06/20 06/05/20 06/05/20 Range/Units 06:30 21:14 16:27 WBC (4.4-11.0) K/mm3 RBC (4.2-5.4) M/mm3 Hgb (12.0-15.0) g/dL Hct (37-47) % MCV (81-99) fL MCH (27.0-32.0) pg MCHC (32-36) g/dL RDW Std Deviation (35.1-43.9) fl RDW Coeff of Triston (11.6-14.6) % Plt Count (150-450) K/mm3 MPV (6.2-12.0) fl Neut % (Auto) Absolute Neuts (auto) (2.0-7.7) X10^3/uL Absolute Lymphs (auto) (0.83-4.51) X10^3/uL Total Counted (MANUAL DIFF) Neutrophils % (Manual) (47-70) % Lymphocytes % (Manual) (19-41) % Monocytes % (Manual) (0-10) % Basophils % (Manual) (0-1) % Metamyelocytes % (0-1) % Myelocytes % (0-0) % Promyelocytes % (0-0) % Blast Cells % (0-0) % Diff Path Review Platelet Estimate (ADEQ) RBC Morphology (NORM C&C) NORMAL Anisocytosis Sodium (136-145) mmol/L Potassium (3.5-5.1) mmol/L Chloride (98-107) mmol/L Carbon Dioxide (21.0-32.0) mmol/L Anion Gap (5-15) BUN (7-18) mg/dL Creatinine (0.55-1.02) mg/dL Estim Creat Clear Calc ml/min Est GFR (MDRD) Af Amer (>60) mL/min Est GFR (MDRD) Non-Af (>60) mL/min BUN/Creatinine Ratio (10-20) RATIO Glucose (74-106) mg/dL Calcium (8.5-10.1) mg/dL POC Glucose 130 H 124 H 115 H (70-110) mg/dL Peripheral blood smear review June 06, 2020: I personally reviewed the peripheral smear together with Dr Rosen, pathologist, and the notable abnormalities where a left shift was normal-appearing mature neutrophils, bands, few metamyelocytes and a rare blast (estimated less than 100 pair WBC, platelets were notably decreased in number but appeared normal in morphology and RBCs morphology was unremarkable with occasional nucleated red blood cells, there were no schistocytes seen. Diagnostic Data: Diagnostic Data Chest X-Ray 06/04/20 17:25 IMPRESSION: Mild interstitial edema or infiltrates. Stable calcified nodules. Electronically Signed: Rosalio Miranda MD at 18:07 EDT , Service support , I personally reviewed patient's CT scan of the chest, abdomen and pelvis of May 13, 2020 with radiologist. Summarized under HPI. Assessment and Plan 55-year-old female admitted June 04, 2020 with recurrent hyponatremia attributed to SIADH the cause of which is unclear. Her medical history is notable for a recent hospitalization in April 2020 with a bilateral pneumonia, Covid negative on rapid testing, being a smoker, morbid obesity, hypertension, diabetes, history of pulmonary embolism. Impression and recommendations: From the hematology oncology consult view there are several abnormalities: 1. Abnormal CBCD: A leukoerythroblastic picture During April hospitalization she had a leukocytosis predominantly mature neutrophilic. The leukocytosis since has resolved but during May 2020 hospitalization despite normal WBC she has a left shift with few blasts were seen on peripheral smear (estimated to be 1%). She has developed in May 2020 a new onset anemia , her peripheral blood reticulocyte count is not elevated but nucleated red blood cells are seen on peripheral smear. Initial testing for hemolysis (peripheral blood smear review, ROBBY, reticulocyte count, bilirubin) do not suggest an acute hemolytic process. Haptoglobin is pending. There is no witnessed external blood loss and her iron profile does not suggest iron deficiency. Thrombocytopenia moderately severe again acute during the May 2020 hospitalization was unremarkable morphology on peripheral blood smear review. These abnormalities of her CBC in the context of her illness are suggestive of recent bone marrow insult /recovery phase rather than a primary bone marrow disease (acute leukemia or metastatic disease). I advise follow-up of CBCD and smear on a daily basis while inpatient. Unless progressive changes occur I would advise holding of a bone marrow biopsy and reassessment in 1 month as outpatient (my name and contact information given to the patient over the phone). 2. Abnormal CT scan of the chest May 13, 2020: I personally reviewed the images of the chest and abdomen CT of April 2020 with the covering radiologist. She had bilateral infiltrates suggestive of a bilateral possibly viral pneumonia with subtle hilar lymphadenopathy probably litigation claim representative of a reactive process with no definitive lesions suggestive of a neoplastic process. A left adrenal dominant nodular lesion was compared to an old CTA of 2014 and the report was addended confirming stability of this lesion favoring a benign cause. Advise follow-up CT scan of the chest at least 1 month after recovery from pneumonia to ensure resolution of these infiltrates and that no further work-up would be warranted. 3. Elevated LDH suggestive of ongoing active process but nonspecific, consider repeat Covid testing and CTA to rule out recurrent VTE. 4. SIADH: Cause unclear at this time, probably secondary to pneumonia. This was a virtual visit, interviewed patient over the phone as precaution against exposure to Covid. I have communicated message to the covering hospitalist Dr. Haque to call me at her earliest availability to discuss the case. I spent a total of 90 minutes in preparation and review of records, history review and taking, over the phone interview with the patient, review of imaging and pertinent labs, discussion of impression and plan and documentation of visit. Demetra Purdy MD It Infrastructure Engineer, [facility] Divisions of Medical Oncology & Hematology Department of Internal Medicine [facility] [place] [id number] This note was generated using a voice recognition system software. Although it was reviewed by the author prior to finalization, it may still contain incorrect words, spelling, and punctuation that were not noted when reviewing prior to saving. If a clinically significant typo or inaccurately typed phrase is noted, please notify the author. Medications: Prescriptions This Visit Medication Instructions Recorded Amlodipine [Norvasc] 5 mg PO DAILY 06/04/20 Cetirizine HCl 10 mg PO DAILY 06/04/20 Primary Care Provider: Dr. Domingo Marinelli DO Referring Provider:
[2020-06-06 13:22] LABS: Immature Platelet Fraction 5.5 % (1.0-7.9); Platelet Count 44 K/mm3 (150-450); RET-HE 27.8 pg (30-35); Reticulocyte Count 0.47 % (0.5-1.5)
[2020-06-06 14:16] LABS: LDH 700 U/L (84-246)
[2020-06-06 16:25] LABS: Bedside Glucose 121 mg/dL (70-110)
[2020-06-06] MEDS: MELATONIN 3 MG TABLET PO (21:41)
[2020-06-06 22:25] LABS: Bedside Glucose 119 mg/dL (70-110)
[2020-06-07] VITALS (15 sets, daily range): BP systolic 136–152; BP diastolic 80–88; PULSE 80–102; RESP 14–24; TEMP 35.7–36.7; O2SAT 92–98
[2020-06-07] MEDS: Ipratropium/Albuterol Sulfate 3 ML AMPUL.NEB INHALATION ×6 (01:43→22:31)
[2020-06-07] MEDS: oxyCODONE 5 MG Tablet 10 MG PO ×5 (02:11→22:10)
[2020-06-07] MEDS: Albuterol 2.5 MG/3 ML VIAL.NEB. INHALATION (04:11)
[2020-06-07] MEDS: Acetaminophen 325 MG Tablet 650 MG PO ×2 (05:17→17:45)
[2020-06-07] MEDS: Sodium Chloride 1 GM Tablet 2 GM PO ×3 (05:18→21:30)
[2020-06-07 05:37] LABS: Hematocrit 27.5 % (37-47); Hemoglobin 8.5 g/dL (12.0-15.0); Mean Corp Hgb Conc 30.9 g/dL (32-36); Mean Corpuscular Hgb 23.2 pg (27.0-32.0); Mean Corpuscular Volume 74.9 fL (81-99); Mean Platelet Vol. 8.4 fl (6.2-12.0); POSITIVE COUNT YES; POSITIVE MORPHOLOGY YES; RBC Distribution Width CV 23.9 % (11.6-14.6); RBC Distribution Width SD 64.5 fl (35.1-43.9); Red Blood Count 3.67 M/mm3 (4.2-5.4)
[2020-06-07 05:38] LABS: Differential Indicated MANUAL DIFF; Platelet Count 39 K/mm3 (150-450)
[2020-06-07 05:54] LABS: Anion Gap 6 (5-15); BUN 11 mg/dL (7-18); BUN/Creat Ratio 37.3 RATIO (10-20); Calcium,Total 9.3 mg/dL (8.5-10.1); Chloride 93 mmol/L (98-107); EST Glomerular Filtration Rate 251 mL/min (>60); Est Glom Filt Rate - Afr Amer 304 mL/min (>60); Estimated Creatinine Clearance 169.55 ml/min; Glucose 124 mg/dL (74-106); Potassium 3.7 mmol/L (3.5-5.1); Sodium Level 126 mmol/L (136-145)
[2020-06-07 05:56] LABS: Metamyelocyte 12 % (0-1); Neutrophil-Band 7 % (0-5); Neutrophil-Segmented 53 % (47-70); Total Cells Counted 100 (MANUAL DIFF)
[2020-06-07 05:57] LABS: Lymphocyte 19 % (19-41); Monocyte 5 % (0-10); Myelocyte 3 % (0-0); Nucleated Red Bld Cells,Manual 2 % (0-5); Promyelocyte 1 % (0-0)
[2020-06-07 05:58] LABS: Hypochromasia 3+; Platelet Estimate MKD DEC (ADEQ); Red Cell Morphology N CYTIC NORMAL (NORM C&C)
[2020-06-07 05:59] LABS: Absolute Neutrophil Count 5.4 X10^3/uL (2.0-7.7)
[2020-06-07 07:00] LABS: Bedside Glucose 133 mg/dL (70-110)
[2020-06-07] MEDS: Budesonide Respules 0.5 MG/2 ML AMPUL.NEB. INHALATION ×2 (07:41→19:05)
[2020-06-07] MEDS: Loratadine 10 MG Tablet PO (10:32)
[2020-06-07] MEDS: Potassium Chloride Oral Tablet 20 MEQ 40 MEQ PO ×2 (10:32→17:42)
[2020-06-07] MEDS: Losartan Potassium 50 MG Tablet PO (10:32)
[2020-06-07] MEDS: Topiramate 25 MG Tablet PO ×2 (10:33→21:30)
[2020-06-07] MEDS: amLODIPine 5 MG Tablet PO (10:33)
--- NOTE | 2020-06-07 10:42 | PCM.PN.REN ---
Patient Problems: Active and Suspected Problems (Last Reviewed 06/04/20 @ 18:01 by Damari Hoyos, COOKER CASING-C) Anemia (Acute) Thrombocytopenia (Acute) Multilobar lung infiltrate (Acute) Adrenal nodule (Acute) Pneumonia (Suspected) Subjective: no new events - Physical Exam Vitals/I&O's: Vital Signs Temp Pulse Resp BP Pulse Ox 97.9 F 80 14 148/84 H 98 06/07/20 02:13 06/07/20 07:33 06/07/20 07:33 06/07/20 02:13 06/07/20 07:33 Oxygen Flow Rate (L/min) 2.5 Oxygen Delivery Method Nasal Cannula Weight: 102.5 kg Body Mass Index (BMI) 43.9 Intake and Output for Last 24 Hours 06/05/20 06/06/20 06/07/20 23:59 23:59 23:59 Intake Total 1520 / 1520 908 / 908 386 / 386 Output Total 1700 / 1700 600 / 600 Balance 1520 / 1520 -792 / -792 -214 / -214 General: Alert, Oriented x3, Cooperative HEENT: Atraumatic, PERRLA, EOMI, Normocephalic Neck: Supple, No JVD, Negative Carotid Bruits Lungs: Clear to auscultation, Normal air movement Cardiovascular: Regular rate, No murmurs Abdomen: Bowel Sounds Present, Soft, Non Tender Extremities: No edema, Capillary Refill Less than 3 Seconds Skin: No rashes, No breakdown Musculoskeletal: No Tenderness to Palpation of Joints or Extremities Neurological: Cranial nerves II-XII grossly intact Psych/Mental Status: Normal Affect, Appropriate Microbiology Past 72 Hours 06/04/20 18:44 Urine, Clean Catch Urine Culture - Preliminary Presumptive E. coli Laboratory Results 06/04/20 21:51: SARS-CoV-2 IgG Ab < 0.00 L 06/06/20 08:04: Diff Path Review Reviewed 06/06/20 11:18: POC Glucose 112 H 06/06/20 12:55: Immature Plt Fraction 5.5, Retic Count 0.47 L, Immature Retic Fraction 22.30 H, Retic Hgb Equivalent 27.8 L 06/06/20 12:55: Lactate Dehydrogenase 700 H 06/06/20 12:55: Haptoglobin Pending 06/06/20 12:55: Direct Antiglob Test NEG w/POLYSPECIFIC 06/06/20 16:11: POC Glucose 121 H 06/06/20 21:36: POC Glucose 119 H 06/07/20 04:56: WBC COOKER CASING, Corrected WBC 9.0, RBC 3.67 L, Hgb 8.5 L, Hct 27.5 L, MCV 74.9 L, MCH 23.2 L, MCHC 30.9 L, RDW Std Deviation 64.5 H, RDW Coeff of Triston 23.9 H, Plt Count 39 L*, MPV 8.4, Neut % (Auto) Not Reportable, Absolute Neuts (auto) 5.4, Absolute Lymphs (auto) 1.70, Total Counted 100, Neutrophils % (Manual) 53, Band Neutrophils % 7 H, Lymphocytes % (Manual) 19, Monocytes % (Manual) 5, Metamyelocytes % 12 H, Myelocytes % 3 H, Promyelocytes % 1 H, Nucleated RBCs/100 WBC 2, Diff Path Review May foll, Platelet Estimate MKD DEC, RBC Morphology N CYTIC, Hypochromasia 3+ 06/07/20 04:56: Sodium 126 L, Potassium 3.7, Chloride 93 L, Carbon Dioxide 27.0, Anion Gap 6, BUN 11, Creatinine 0.30 L, Estim Creat Clear Calc 169.55, Est GFR (MDRD) Af Amer 304, Est GFR (MDRD) Non-Af 251, BUN/Creatinine Ratio 37.3 H, Glucose 124 H, Calcium 9.3 06/07/20 06:50: POC Glucose 133 H Current Medications Acetaminophen (Acetaminophen 325 Mg Tablet) 650 mg PO Q6H PRN PRN PRN Reason: Pain Score 1-10/Temp > 100.7 F Last Admin: 06/07/20 05:17 Dose: 650 mg Documented by: Albuterol Sulfate (Albuterol 2.5 Mg/3 Ml Vial.Neb.) 2.5 mg INHALATION Q2H PRN PRN PRN Reason: SOB/Wheezing Last Admin: 06/07/20 04:11 Dose: 2.5 mg Documented by: Albuterol/Ipratropium (Ipratropium/Albuterol Sulfate 3 Ml Ampul.Neb) 3 ml INHALATION Q4HWA.RT DEVYN Last Admin: 06/07/20 07:41 Dose: 3 ml Documented by: Amlodipine Besylate (Amlodipine 5 Mg Tablet) 5 mg PO DAILY [facility] Last Admin: 06/07/20 10:33 Dose: 5 mg Documented by: Budesonide (Budesonide Respules 0.5 Mg/2 Ml Ampul.Neb.) 0.5 mg INHALATION BID.RT [facility] Last Admin: 06/07/20 07:41 Dose: 0.5 mg Documented by: Guaifenesin (Guaifenesin 10 Ml Udc (200mg/10ml)) 20 ml PO Q4H PRN PRN PRN Reason: COUGH Insulin Human Lispro (Insulin Lispro 100 Unit/Ml Insuln.Pen) 0 unit SC ACHS [facility]; Protocol Last Admin: 06/07/20 06:51 Dose: Not Given Documented by: Loratadine (Loratadine 10 Mg Tablet) 10 mg PO DAILY [facility] Last Admin: 06/07/20 10:32 Dose: 10 mg Documented by: Losartan Potassium (Losartan Potassium 50 Mg Tablet) 50 mg PO DAILY [facility] Last Admin: 06/07/20 10:32 Dose: 50 mg Documented by: Melatonin (Melatonin 3 Mg Tablet) 3 mg PO QHS PRN PRN PRN Reason: INSOMNIA Last Admin: 06/06/20 21:41 Dose: 3 mg Documented by: Nicotine (Nicotine 21 Mg Patch) 21 mg TD DAILY [facility] Last Admin: 06/07/20 10:33 Dose: 21 mg Documented by: Ondansetron HCl (Ondansetron 4 Mg/2 Ml Vial) 4 mg IV Q8H PRN PRN PRN Reason: NAUSEA/VOMITING Last Admin: 06/06/20 04:01 Dose: 4 mg Documented by: Oxycodone HCl (Oxycodone 5 Mg Tablet) 10 mg PO Q4H PRN PRN PRN Reason: Pain Score 4-5 Last Admin: 06/07/20 06:48 Dose: 10 mg Documented by: Potassium Chloride (Potassium Chloride Oral Tablet 20 Meq) [facility] Last Admin: 06/07/20 10:32 Dose: 40 meq Documented by: Simethicone (Simethicone 80 Mg Tablet) 80 mg PO BID [facility] Last Admin: 06/07/20 10:33 Dose: 80 mg Documented by: Sodium Chloride (0.9% Saline Lock 10 Ml Syringe) 10 - 40 ml IV UD PRN PRN Reason: SALINE FLUSH Last Admin: 06/06/20 04:01 Dose: 10 ml Documented by: Sodium Chloride (Sodium Chloride 1 Gm Tablet) 2 gm PO TID [facility] Last Admin: 06/07/20 05:18 Dose: 2 gm Documented by: Topiramate (Topiramate 25 Mg Tablet) 25 mg PO BID [facility] Last Admin: 06/07/20 10:33 Dose: 25 mg Documented by: Medical Necessity - Tobacco Use Smoking Status: Current every day smoker Assessment/Plan All Active Problems (Last Reviewed 06/04/20 @ 18:01 by Damari Hoyos, COOKER CASING-C) Anemia (Acute) Thrombocytopenia (Acute) Multilobar lung infiltrate (Acute) Adrenal nodule (Acute) Abdominal pain (Acute) Hyponatremia. Labs were consistent with SIADH. She was on bupropion which she used for cravings. held it. TSH is ok. Cortisol on higher side. Reviewed imaging from last admission and this admission. She had CT scan of the chest, brain, abdomen last admission. She has 2 adrenal nodules which are 3.4 cm and 2.3 cm. also had multiple chest findings. now worsening cytopenias. hematology has been consulted. note reviewed. management as per them sodium is better at 126. continue salt tablets 2 gm TID for another 1 days and cut back to 1 gm TID after She now has severe anemia and thrombocytopenia with blasts seen on smear. hematology following
[2020-06-07 11:21] LABS: Bedside Glucose 164 mg/dL (70-110)
[2020-06-07] MEDS: Insulin Lispro 100 UNIT/ML INSULN.PEN SC (11:47)
--- NOTE | 2020-06-07 12:53 | PN_ITS ---
Patient Problems: Active and Suspected Problems (Last Reviewed 06/04/20 @ 18:01 by Damari Hoyos, ELECTROLOG OPERATOR-C) Anemia (Acute) Thrombocytopenia (Acute) Multilobar lung infiltrate (Acute) Adrenal nodule (Acute) Pneumonia (Suspected) Subjective: Patient seen and examined. She feels better, and has no complaints. REview of systems is otherwise negative. Platelets have dropped to 37 today. Vitals/I&O's: Vital Signs Temp Pulse Resp BP Pulse Ox 98.0 F 91 16 139/88 H 98 06/07/20 08:30 06/07/20 11:24 06/07/20 11:24 06/07/20 08:30 06/07/20 07:33 Oxygen Flow Rate (L/min) 2 Oxygen Delivery Method Nasal Cannula Weight: 225 lb 15.581 oz Body Mass Index (BMI) 43.9 Intake and Output for Last 24 Hours 06/05/20 06/06/20 06/07/20 23:59 23:59 23:59 Intake Total 1520 / 1520 908 / 908 386 / 386 Output Total 1700 / 1700 1100 / 1100 Balance 1520 / 1520 -792 / -792 -714 / -714 General: Alert, Oriented x3, Cooperative, No apparent distress, obese HEENT: Atraumatic, PERRLA, EOMI, Normocephalic Oral: Dry Mucosa Neck: Supple, No JVD, Negative Carotid Bruits Lungs: Clear to auscultation, Normal air movement, No rhonchi, No wheeze Cardiovascular: Regular rate, Regular Rhythm, Normal S1, Normal S2, No murmurs Abdomen: Bowel Sounds Present, Soft, Non Tender, Non-Distended, No Hepato-sple nomegaly Extremities: No clubbing, No cyanosis, No edema, Capillary Refill Less than 3 Seconds Skin: No rashes, No breakdown Musculoskeletal: No Tenderness to Palpation of Joints or Extremities Lymphatic: No Cervical, Supraclavicular, or Inguinal Adenopathy Neurological: Cranial nerves II-XII grossly intact, Neuro grossly intact, Motor Exam 5/5 strength throughout Psych/Mental Status: Normal Affect, Appropriate, Alert and oriented to time, place, person, mood and affect Microbiology Past 72 Hours 06/04/20 18:44 Urine, Clean Catch Urine Culture - Preliminary Presumptive E. coli Laboratory Results 06/04/20 21:51: SARS-CoV-2 IgG Ab < 0.00 L 06/06/20 12:55: Immature Plt Fraction 5.5, Retic Count 0.47 L, Immature Retic F raction 22.30 H, Retic Hgb Equivalent 27.8 L 06/06/20 12:55: Lactate Dehydrogenase 700 H 06/06/20 12:55: Haptoglobin Pending 06/06/20 12:55: Direct Antiglob Test NEG w/POLYSPECIFIC 06/06/20 16:11: POC Glucose 121 H 06/06/20 21:36: POC Glucose 119 H 06/07/20 04:56: WBC ELECTROLOG OPERATOR, Corrected WBC 9.0, RBC 3.67 L, Hgb 8.5 L, Hct 27.5 L, MCV 74.9 L, MCH 23.2 L, MCHC 30.9 L, RDW Std Deviation 64.5 H, RDW Coeff of Triston 23.9 H, Plt Count 39 L*, MPV 8.4, Neut % (Auto) Not Reportable, Absolute Neuts (auto) 5.4, Absolute Lymphs (auto) 1.70, Total Counted 100, Neutrophils % (Manual) 53, Band Neutrophils % 7 H, Lymphocytes % (Manual) 19, Monocytes % (Manual) 5, Metamyelocytes % 12 H, Myelocytes % 3 H, Promyelocytes % 1 H, Nucleated RBCs/100 WBC 2, Diff Path Review May foll, Platelet Estimate MKD DEC, RBC Morphology N CYTIC, Hypochromasia 3+ 06/07/20 04:56: Sodium 126 L, Potassium 3.7, Chloride 93 L, Carbon Dioxide 27.0, Anion Gap 6, BUN 11, Creatinine 0.30 L, Estim Creat Clear Calc 169.55, Est GFR (MDRD) Af Amer 304, Est GFR (MDRD) Non-Af 251, BUN/Creatinine Ratio 37.3 H, Glucose 124 H, Calcium 9.3 06/07/20 06:50: POC Glucose 133 H 06/07/20 11:02: POC Glucose 164 H Current Medications Acetaminophen (Acetaminophen 325 Mg Tablet) 650 mg PO Q6H PRN PRN PRN Reason: Pain Score 1-10/Temp > 100.7 F Last Admin: 06/07/20 05:17 Dose: 650 mg Documented by: Albuterol Sulfate (Albuterol 2.5 Mg/3 Ml Vial.Neb.) 2.5 mg INHALATION Q2H PRN PRN PRN Reason: SOB/Wheezing Last Admin: 06/07/20 04:11 Dose: 2.5 mg Documented by: Albuterol/Ipratropium (Ipratropium/Albuterol Sulfate 3 Ml Ampul.Neb) 3 ml INHALATION Q4HWA.RT [facility] Last Admin: 06/07/20 11:10 Dose: 3 ml Documented by: Amlodipine Besylate (Amlodipine 5 Mg Tablet) 5 mg PO DAILY [facility] Last Admin: 06/07/20 10:33 Dose: 5 mg Documented by: Budesonide (Budesonide Respules 0.5 Mg/2 Ml Ampul.Neb.) 0.5 mg INHALATION BID.RT [facility] Last Admin: 06/07/20 07:41 Dose: 0.5 mg Documented by: Guaifenesin (Guaifenesin 10 Ml Udc (200mg/10ml)) 20 ml PO Q4H PRN PRN PRN Reason: COUGH Insulin Human Lispro (Insulin Lispro 100 Unit/Ml Insuln.Pen) 0 unit SC ACHS [facility]; Protocol Last Admin: 06/07/20 11:47 Dose: 2 units Documented by: Loratadine (Loratadine 10 Mg Tablet) 10 mg PO DAILY [facility] Last Admin: 06/07/20 10:32 Dose: 10 mg Documented by: Losartan Potassium (Losartan Potassium 50 Mg Tablet) 50 mg PO DAILY [facility] Last Admin: 06/07/20 10:32 Dose: 50 mg Documented by: Melatonin (Melatonin 3 Mg Tablet) 3 mg PO QHS PRN PRN PRN Reason: INSOMNIA Last Admin: 06/06/20 21:41 Dose: 3 mg Documented by: Nicotine (Nicotine 21 Mg Patch) 21 mg TD DAILY [facility] Last Admin: 06/07/20 10:33 Dose: 21 mg Documented by: Ondansetron HCl (Ondansetron 4 Mg/2 Ml Vial) 4 mg IV Q8H PRN PRN PRN Reason: NAUSEA/VOMITING Last Admin: 06/06/20 04:01 Dose: 4 mg Documented by: Oxycodone HCl (Oxycodone 5 Mg Tablet) 10 mg PO Q4H PRN PRN PRN Reason: Pain Score 4-5 Last Admin: 06/07/20 10:48 Dose: 10 mg Documented by: Potassium Chloride (Potassium Chloride Oral Tablet 20 Meq) 40 meq PO BIDCM [facility] Last Admin: 06/07/20 10:32 Dose: 40 meq Documented by: Simethicone (Simethicone 80 Mg Tablet) 80 mg PO BID [facility] Last Admin: 06/07/20 10:33 Dose: 80 mg Documented by: Sodium Chloride (0.9% Saline Lock 10 Ml Syringe) 10 - 40 ml IV UD PRN PRN Reason: SALINE FLUSH Last Admin: 06/06/20 04:01 Dose: 10 ml Documented by: Sodium Chloride (Sodium Chloride 1 Gm Tablet) 2 gm PO TID [facility] Last Admin: 06/07/20 11:50 Dose: 2 gm Documented by: Topiramate (Topiramate 25 Mg Tablet) 25 mg PO BID [facility] Last Admin: 06/07/20 10:33 Dose: 25 mg Documented by: STROKE Vital Signs/Narrative: Vital Signs Pulse Resp 06/07/20 11:24 91 16 Medical Necessity - Tobacco Use Smoking Status: Current every day smoker Assessment/Plan All Active Problems (Last Reviewed 06/04/20 @ 18:01 by Damari Hoyos, ELECTROLOG OPERATOR-C) Anemia (Acute) Thrombocytopenia (Acute) Multilobar lung infiltrate (Acute) Adrenal nodule (Acute) Abdominal pain (Acute) #Acute on chronic hyponatremia * on salt tablets * sodium up to 126 today * nephrology on board; recommend continuation of salt tablets 3x daily * * #Adrenal nodules * per her last CT scan, she had some adrenal nodules which measured 3.4cm and 2.3cm. She also had well circumscribed chest lesions per CT chest. * review of imaging from 2014 showed these adrenal lesions were present then, and remain unchanged. less likely to be malignant. * #Anemia and thrombocytopenia * Hemoglobin of 6.1 on admission requiring transfusion of 2 units of packed red blood cells. Stool for occult blood is pending. This was a microcytic hypochromic anemia. Of note, patient noted to have blast cells as well, initially peaking at 4% and now down to 1%. * hb today is 8.5. * hematology on board. COVID antibody test was negative, so thrombocytopenia less likely due to covid * discussed with hematology today; hematology, his symptoms are likely due to a possible viral pneumonia she had back in April a CT of the chest done in April showed bilateral lung infiltrates. He does not think this is a malignancy, as she previously had normal white cell counts and normal platelets a month ago. Recommend continuous monitoring, and to follow up with hematology on outpatient basis. * * #Hypertension; on norvasc and losartan #Diabetes mellitus: metformin on hold. ISS. Accuchecks ACHS #Chronic back pain. * on tylenol and OXy IR. Was apparently advised to get MRI of the spine due to acute on chronic back pain; * she however declined due to claustrophobia * #Nicotine dependence: counseled to quit. On nicotine patch #Morbid obesity: BMI is >40. Complicates acute care, prognosis and expected recovery #History of DVT: xarelto held on admission. lovenox now on hold due to thrombocytopenia DT prophylaxis: dc lovenox in light of thombocytopenia Inpatient E&M: 98135 Subs Hosp L2
--- NOTE | 2020-06-07 13:22 | ONC.PN.INPT ---
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 Hematology oncology consult requested because of abnormal CBC with new onset anemia, thrombocytopenia and immature myeloid cells in peripheral blood. See Tabl: Laboratory Tests 05/09/20 05/17/20 05/18/20 22:25 06:20 05:25 WBC 19.2 H 27.5 H Hgb 11.8 L 11.7 L Hct 35.4 L 37.6 MCV 65.3 L 69.1 L 70.3 L Plt Count 366 230 06/04/20 06/04/20 06/05/20 18:10 19:17 03:24 WBC 6.6 6.5 7.6 Hgb 6.9 L 7.1 L 8.1 L Hct 21.5 L 21.7 L 26.8 L MCV 67.4 L 67.2 L 74.7 L D Plt Count 59 L 58 L 58 L 06/06/20 08:04 WBC 8.9 Hgb 8.9 L Hct 28.0 L MCV 73.9 L Plt Count 50 L* Her past medical history is notable for morbid obesity, hypertension, diabetes, history of pulmonary embolism on chronic anticoagulation, being an active smoker. She was recently hospitalized with a bilateral pneumonia, Covid negative 05/10/20-05/18/20, at that time she was noted to have a low sodium and work-up was consistent with SIADH. During that hospitalization: CT scan of the chest May 13, 2020: FINDINGS: Bilateral peripheral patchy groundglass opacities consistent with subsegmental atelectasis or pneumonitis. Some denser nodular densities in the right upper lobe likely consistent with more confluent pneumonia. Follow-up is recommended to document resolution to exclude a pulmonary nodule or mass. There is no demonstrated pleural abnormality. Normal heart and pericardium. Normal mediastinum. Right hilar lymphadenopathy measuring 1.5 x 3.0 cm. Small subcarinal lymph node. Normal enhanced and unenhanced pulmonary arteries. Normal aorta arch and descending thoracic aorta. Normal osseous structures. IMPRESSION: 1. Bilateral subsegmental atelectasis or pneumonitis. Commonly reported imaging features of Covid 19 pneumonia are present. Other processes such as influenza pneumonia and organizing pneumonia as can be seen with drug toxicity and connective tissue disease can cause a similar imaging pattern. 2. More confluent and dense nodular opacities in the right upper lobe with right hilar lymphadenopathy. Possibilities include bacterial pneumonia, tuberculosis or fungal disease, or tumor with metastatic lymphadenopathy. Clinical correlation is recommended. ADDENDUM Left adrenal gland hyperplasia with a lipoma are stable when compared to the study from 07/09/2014 and are consistent with benign lesions. I am feeling better my breathing is improving, chest pain resolved Minor nosebleed and easy bruising. Unaware of any other bleeding. Eager to leave the hospital as soon as possible. Past Medical History: Chronic Problems (Last Reviewed 06/04/20 @ 18:01 by CAMPOS Castorena) SIADH (syndrome of inappropriate ADH production) (Chronic) Morbid obesity with BMI of 40.0-44.9, adult (Chronic) Adrenal nodule (Chronic) Diabetes mellitus, type II (Chronic) Chronic pain syndrome (Chronic) Morbid obesity with BMI of 45.0-49.9, adult (Chronic) Essential (primary) hypertension (Chronic) Nicotine dependence (Chronic) Pulmonary embolism (Chronic 07/09/14) Past Medical History - Most Recent Inpatient Visit Past Medical History Start: 06/04/20 19:05 Text: Status: Complete Freq: ONCE Protocol: Document 06/04/20 19:05 MY (Rec: 06/04/20 19:53 MY [id number]) BMI Required to complete PMH What is Patient's BMI 43.9 Past Medical History Unable History Recalled No Query Text:Pt Unable/Family Not Present Neurologic Medical History Hx Stroke/TIA No Hx Dementia/Alzheimer's No Hx Parkinson's Disease No Hx Seizures No Hx Multiple Sclerosis No Hx Migraines Yes Cardiac Medical History VTE Present on Admission No Hx of Deep Vein Thrombosis/VTE/PE Yes: lungs Hx Hypertension Yes Hx Chest Pain/Angina Yes Hx Heart Attack No Hx Cardiac Surgery/Stents/Etc. No Hx Heart Failure No Hx Pacemaker/AICD No Hx Irregular Heartbeat and/or Afib No Hx Anticoagulant Therapy Yes: xarelto Query Text:(Coumadin, Aspirin, Plavix, Xarelto, etc.) Hx Pain in Legs when Walking/Leg Cramps Yes Respiratory Medical History Hx COPD Yes Hx Emphysema Yes Hx Smoking Yes: on patch, cutting down Smoking Status Current every day smoker Hx Smoking Cessation Counseling Yes Hx Smoking Exposure Yes Hx Tobacco Use in last 12 months Yes Sent to [facility] Yes Hx of Pipe Smoking Yes Hx Sleep Apnea Yes CPAP No BIPAP No STOP Results Positive GI Medical History Hx Ulcer No Hx Hepatitis No Hx Cirrhosis No Hx GI Bleed No Hx Unplanned Weight Loss No Genitourinary Medical History Indwelling Catheter in Place on Arrival/ No Admission Hx Renal Disease No Hx Dialysis No Musculoskeletal History Hx Arthritis Yes Hx Rheumatoid Arthritis No Endocrine Medical History Hx Diabetes Yes Hx Thyroid Disease No Hematologic Medical History Hx of Blood Transfusion No Hx of Transfusion in last 3 Months No Ever experience any problems with No transfusion(s)? Hx of Preganancy in last 3 Months No Nurse Filling Out Transfusion & [id number] Questions: Date: 06/04/20 Time: 19:52 Psycho/Social Medical History Hx Depression Yes Hx Anxiety Yes Hx Behavior Disorder No Hx Alcohol Use Yes: occasionally Hx Substance Use No Other Medical History Hx Blood Disorders No Hx Anemia No Hx Cancer No: pre-cancer cells on uterus Hx Drug Resistant Organism No Wound/Pressure Injury Present on Arrival No /Admission Query Text:If yes, chart assessment in Shift/Clinical Findings Central Line/PICC/VAD Present on Arrival No /Admission Risk for Readmission Number of Risk Factors 8 At Risk for Readmission Patient is At Risk For Readmission Patient is eligible for Call Back Y Past Medical History (Last Reviewed 06/04/20 @ 18:01 by Damari Hoyos NP-C) Essential (primary) hypertension (Chronic) Nicotine dependence (Chronic) Pulmonary embolism (Chronic 07/09/14) Anxiety (Chronic) Chronic pain syndrome (Chronic) Emphysema of lung (Chronic) Lymphedema (Chronic) Obstructive sleep apnea (Chronic) Osteoarthritis (Chronic) Rheumatoid arthritis (Chronic) Type 2 diabetes mellitus (Chronic) Secondary pulmonary arterial hypertension (Inactive) Past Surgical History (Last Reviewed 06/04/20 @ 18:01 by CAMPOS Castorena) History of tubal ligation (Resolved) Maternal Family History: Family History (Last Reviewed 05/10/20 @ 01:53 by CAMPOS Castorena) Sister Hypertension Asthma Brother Heart disease Asthma Family History: - - her mother at 46 YOA, 9 days after giving to the pt Paternal Family History: Family History (Last Reviewed 05/10/20 @ 01:53 by CAMPOS Castorena) Sister Hypertension Asthma Brother Heart disease Asthma Family History: Cancer - lung, - - father at 67 and had CVD - Social History Lives: Alone Smoking Status: Current every day smoker Alcohol: None Drugs: None Review of Systems Constitutional:: Reports: Weakness - Improving, Fatigue. Denies: Fever, Sweats, Weight loss, Appetite change, Chills Cardiovascular:: Reports: Dyspnea on exertion, Peripheral edema Respiratory: Reports: Cough, Shortness of breath upon exertion. Denies: Hemoptysis, Shortness of Breath, Wheezing Gastrointestinal:: Denies: Abdominal pain, Nausea, Vomiting, Diarrhea, Constipation, Hematochezia Genitourinary: Denies: Dysuria, Hematuria, 15, Flank pain Musculoskeletal:: Reports: - - Nonspecific chronic aches and pains Skin: Reports: - - Easy bruises. Denies: Rash, Skin Changes, Wounds Neurological:: Denies: Headache, Dizziness, Visual changes, Tinnitus, Hearing loss Psychiatric: Denies: Anxiety, Depression, Homicidal Ideations, Suicidal Ideations Vital Signs Temperature 98.0 F 06/07/20 08:30 Temperature Source Oral 06/07/20 08:30 Pulse Rate 91 06/07/20 11:24 Pulse Strength Weak (1+) 06/06/20 08:37 Respiratory Rate 16 06/07/20 11:24 Respiratory Effort Non-Labored 06/06/20 20:41 Respiratory Depth Normal 06/06/20 20:41 Respiratory Pattern Normal 06/07/20 11:24 Blood Pressure 139/88 H 06/07/20 08:30 Blood Pressure Mean 105 06/07/20 08:30 Blood Pressure Source Monitor 06/07/20 08:30 Blood Pressure Position Semi-Fowlers 06/07/20 08:30 Blood Pressure Location Right Arm 06/07/20 08:30 Pulse Ox 98 06/07/20 07:33 Oxygen Delivery Method Nasal Cannula 06/07/20 10:00 Oxygen Flow Rate (L/min) 2 06/07/20 08:30 - Physical Exam General: Alert, Oriented x3, No apparent distress, - - Morbidly obese, ECOG 2, on oxygen HEENT: Atraumatic, PERRLA, EOMI, Normocephalic Oropharynx:: Dry mucosa Neck:: Supple, Trachea midline. Negative for: JVD, bilateral Cardiac:: Regular rate, Regular rhythm, Normal S1, Normal S2. Negative for: Murmur Lungs: Clear to auscultation, Diminished, Excusion symmetrical. Negative for: Rhonchi, Wheezes Abdomen:: Soft, Non-tender, Non-distended, - - Exam limited by being morbidly obese Extremities:: Edema - 1+ at the ankles. Negative for: Cyanosis Neurological: Neuro grossly intact Skin:: Ecchymosis - Extremities. Negative for: Lesions, Rash, Petechiae Psychiatric:: Appropriate affect, Euthymic Laboratory Data: Microbiology 06/04/20 18:44 Urine Culture - Preliminary Urine, Clean Catch Presumptive E. coli Laboratory Tests 06/07/20 06/07/20 06/07/20 Range/Units 11:02 06:50 04:56 WBC Corrected WBC (4.4-11.0) K/mm3 RBC (4.2-5.4) M/mm3 Hgb (12.0-15.0) g/dL Hct (37-47) % MCV (81-99) fL MCH (27.0-32.0) pg MCHC (32-36) g/dL RDW Std Deviation (35.1-43.9) fl RDW Coeff of Triston (11.6-14.6) % Plt Count (150-450) K/mm3 MPV (6.2-12.0) fl Neut % (Auto) Absolute Neuts (auto) (2.0-7.7) X10^3/uL Absolute Lymphs (auto) (0.83-4.51) X10^3/uL Total Counted (MANUAL DIFF) Neutrophils % (Manual) (47-70) % Band Neutrophils % (0-5) % Lymphocytes % (Manual) (19-41) % Monocytes % (Manual) (0-10) % Metamyelocytes % (0-1) % Myelocytes % (0-0) % Promyelocytes % (0-0) % Nucleated RBCs/100 WBC (0-5) % Diff Path Review Platelet Estimate (ADEQ) Immature Plt Fraction (1.0-7.9) % RBC Morphology (NORM C&C) NORMAL Hypochromasia Retic Count (0.5-1.5) % Immature Retic Fraction (3.00-15.90) % Retic Hgb Equivalent (30-35) pg Sodium 126 L (136-145) mmol/L Potassium 3.7 (3.5-5.1) mmol/L Chloride 93 L (98-107) mmol/L Carbon Dioxide 27.0 (21.0-32.0) mmol/L Anion Gap 6 (5-15) BUN 11 (7-18) mg/dL Creatinine 0.30 L (0.55-1.02) mg/dL Estim Creat Clear Calc 169.55 ml/min Est GFR (MDRD) Af Amer 304 (>60) mL/min Est GFR (MDRD) Non-Af 251 (>60) mL/min BUN/Creatinine Ratio 37.3 H (10-20) RATIO Glucose 124 H (74-106) mg/dL Calcium 9.3 (8.5-10.1) mg/dL Lactate Dehydrogenase (84-246) U/L SARS-CoV-2 IgG Ab (0.00-0.99) INDEX POC Glucose 164 H 133 H (70-110) mg/dL Direct Antiglob Test (NEGATIVE) 06/07/20 06/06/20 06/06/20 Range/Units 04:56 21:36 16:11 WBC SENIOR PROCESS ENGINEER Corrected WBC 9.0 (4.4-11.0) K/mm3 RBC 3.67 L (4.2-5.4) M/mm3 Hgb 8.5 L (12.0-15.0) g/dL Hct 27.5 L (37-47) % MCV 74.9 L (81-99) fL MCH 23.2 L (27.0-32.0) pg MCHC 30.9 L (32-36) g/dL RDW Std Deviation 64.5 H (35.1-43.9) fl RDW Coeff of Triston 23.9 H (11.6-14.6) % Plt Count 39 L* (150-450) K/mm3 MPV 8.4 (6.2-12.0) fl Neut % (Auto) Not Reportable Absolute Neuts (auto) 5.4 (2.0-7.7) X10^3/uL Absolute Lymphs (auto) 1.70 (0.83-4.51) X10^3/uL Total Counted 100 (MANUAL DIFF) Neutrophils % (Manual) 53 (47-70) % Band Neutrophils % 7 H (0-5) % Lymphocytes % (Manual) 19 (19-41) % Monocytes % (Manual) 5 (0-10) % Metamyelocytes % 12 H (0-1) % Myelocytes % 3 H (0-0) % Promyelocytes % 1 H (0-0) % Nucleated RBCs/100 WBC 2 (0-5) % Diff Path Review May foll Platelet Estimate MKD DEC (ADEQ) Immature Plt Fraction (1.0-7.9) % RBC Morphology N CYTIC (NORM C&C) NORMAL Hypochromasia 3+ Retic Count (0.5-1.5) % Immature Retic Fraction (3.00-15.90) % Retic Hgb Equivalent (30-35) pg Sodium (136-145) mmol/L Potassium (3.5-5.1) mmol/L Chloride (98-107) mmol/L Carbon Dioxide (21.0-32.0) mmol/L Anion Gap (5-15) BUN (7-18) mg/dL Creatinine (0.55-1.02) mg/dL Estim Creat Clear Calc ml/min Est GFR (MDRD) Af Amer (>60) mL/min Est GFR (MDRD) Non-Af (>60) mL/min BUN/Creatinine Ratio (10-20) RATIO Glucose (74-106) mg/dL Calcium (8.5-10.1) mg/dL Lactate Dehydrogenase (84-246) U/L SARS-CoV-2 IgG Ab (0.00-0.99) INDEX POC Glucose 119 H 121 H (70-110) mg/dL Direct Antiglob Test (NEGATIVE) 06/06/20 06/06/20 06/06/20 Range/Units 12:55 12:55 12:55 WBC Corrected WBC (4.4-11.0) K/mm3 RBC (4.2-5.4) M/mm3 Hgb (12.0-15.0) g/dL Hct (37-47) % MCV (81-99) fL MCH (27.0-32.0) pg MCHC (32-36) g/dL RDW Std Deviation (35.1-43.9) fl RDW Coeff of Triston (11.6-14.6) % Plt Count (150-450) K/mm3 MPV (6.2-12.0) fl Neut % (Auto) Absolute Neuts (auto) (2.0-7.7) X10^3/uL Absolute Lymphs (auto) (0.83-4.51) X10^3/uL Total Counted (MANUAL DIFF) Neutrophils % (Manual) (47-70) % Band Neutrophils % (0-5) % Lymphocytes % (Manual) (19-41) % Monocytes % (Manual) (0-10) % Metamyelocytes % (0-1) % Myelocytes % (0-0) % Promyelocytes % (0-0) % Nucleated RBCs/100 WBC (0-5) % Diff Path Review Platelet Estimate (ADEQ) Immature Plt Fraction 5.5 (1.0-7.9) % RBC Morphology (NORM C&C) NORMAL Hypochromasia Retic Count 0.47 L (0.5-1.5) % Immature Retic Fraction 22.30 H (3.00-15.90) % Retic Hgb Equivalent 27.8 L (30-35) pg Sodium (136-145) mmol/L Potassium (3.5-5.1) mmol/L Chloride (98-107) mmol/L Carbon Dioxide (21.0-32.0) mmol/L Anion Gap (5-15) BUN (7-18) mg/dL Creatinine (0.55-1.02) mg/dL Estim Creat Clear Calc ml/min Est GFR (MDRD) Af Amer (>60) mL/min Est GFR (MDRD) Non-Af (>60) mL/min BUN/Creatinine Ratio (10-20) RATIO Glucose (74-106) mg/dL Calcium (8.5-10.1) mg/dL Lactate Dehydrogenase 700 H (84-246) U/L SARS-CoV-2 IgG Ab (0.00-0.99) INDEX POC Glucose (70-110) mg/dL Direct Antiglob Test NEG w/POLYSPECIFIC (NEGATIVE) 06/04/20 Range/Units 21:51 WBC Corrected WBC (4.4-11.0) K/mm3 RBC (4.2-5.4) M/mm3 Hgb (12.0-15.0) g/dL Hct (37-47) % MCV (81-99) fL MCH (27.0-32.0) pg MCHC (32-36) g/dL RDW Std Deviation (35.1-43.9) fl RDW Coeff of Triston (11.6-14.6) % Plt Count (150-450) K/mm3 MPV (6.2-12.0) fl Neut % (Auto) Absolute Neuts (auto) (2.0-7.7) X10^3/uL Absolute Lymphs (auto) (0.83-4.51) X10^3/uL Total Counted (MANUAL DIFF) Neutrophils % (Manual) (47-70) % Band Neutrophils % (0-5) % Lymphocytes % (Manual) (19-41) % Monocytes % (Manual) (0-10) % Metamyelocytes % (0-1) % Myelocytes % (0-0) % Promyelocytes % (0-0) % Nucleated RBCs/100 WBC (0-5) % Diff Path Review Platelet Estimate (ADEQ) Immature Plt Fraction (1.0-7.9) % RBC Morphology (NORM C&C) NORMAL Hypochromasia Retic Count (0.5-1.5) % Immature Retic Fraction (3.00-15.90) % Retic Hgb Equivalent (30-35) pg Sodium (136-145) mmol/L Potassium (3.5-5.1) mmol/L Chloride (98-107) mmol/L Carbon Dioxide (21.0-32.0) mmol/L Anion Gap (5-15) BUN (7-18) mg/dL Creatinine (0.55-1.02) mg/dL Estim Creat Clear Calc ml/min Est GFR (MDRD) Af Amer (>60) mL/min Est GFR (MDRD) Non-Af (>60) mL/min BUN/Creatinine Ratio (10-20) RATIO Glucose (74-106) mg/dL Calcium (8.5-10.1) mg/dL Lactate Dehydrogenase (84-246) U/L SARS-CoV-2 IgG Ab < 0.00 L (0.00-0.99) INDEX POC Glucose (70-110) mg/dL Direct Antiglob Test (NEGATIVE) Peripheral blood smear June 07, 2020: I personally reviewed with , pathologist, the notable abnormality is markedly decreased platelet count, no abnormal platelet or giant platelets were seen. The myeloid series continues to show a left shift but appear morphologically normal and no blasts were seen today. The red blood cells are essentially normocytic normochromic no schistocytes. The number of nucleated red blood cells is notably less than what was noted June 06, 2020. Diagnostic Data: Diagnostic Data Chest X-Ray 06/04/20 17:25 IMPRESSION: Mild interstitial edema or infiltrates. Stable calcified nodules. Electronically Signed: Rosalio Miranda MD at 18:07 EDT , Service support , Assessment and Plan 55-year-old female admitted June 04, 2020 with recurrent hyponatremia attributed to SIADH the cause of which is unclear. Her medical history is notable for a recent hospitalization in April 2020 with a bilateral pneumonia, Covid negative on rapid testing, being a smoker, morbid obesity, hypertension, diabetes, history of pulmonary embolism. Impression and recommendations: From the hematology oncology consult view there are several abnormalities: 1. Abnormal CBCD: A leukoerythroblastic picture During April hospitalization she had a leukocytosis predominantly mature neutrophilic. The leukocytosis since has resolved but during May 2020 hospitalization despite normal WBC she has a left shift with few blasts were seen on peripheral smear (estimated to be 1%). She has developed in May 2020 a new onset anemia , her peripheral blood reticulocyte count is not elevated but nucleated red blood cells are seen on peripheral smear. Initial testing for hemolysis (peripheral blood smear review, ROBBY, reticulocyte count, bilirubin) do not suggest an acute hemolytic process. Haptoglobin is pending. There is no witnessed external blood loss and her iron profile does not suggest iron deficiency. Thrombocytopenia moderately severe again acute during the May 2020 hospitalization was unremarkable morphology on peripheral blood smear review. These abnormalities of her CBC in the context of her illness continue to be suggestive of recent bone marrow insult /recovery phase rather than a primary bone marrow disease (acute leukemia or metastatic disease). I advise follow-up of CBCD and smear on a daily basis while inpatient and in 1 week following discharge in the outpatient. Unless progressive changes occur I would advise holding off a bone marrow biopsy . 2. Abnormal CT scan of the chest May 13, 2020: I personally reviewed the images of the chest and abdomen CT of April 2020 with the covering radiologist. 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 A left adrenal dominant nodular lesion was compared to an old CTA of 2014 and the report was addended confirming stability of this lesion favoring a benign cause. Advise follow-up CT scan of the chest at least 1 month after recovery from pneumonia to ensure resolution of these infiltrates and that no further work-up would be warranted. 3. SIADH: Cause unclear at this time, probably secondary to pneumonia. Sodium is improving. I spent a total of 60 minutes review of up-to-date records, review of the past 24 hours labs and personal review of peripheral blood smear with pathologist. Today with the negative updated Covid test, I met with the patient [id number] and conducted a history review, systems review and physical examination and final documentation of visit. The patient is happy with this conservative approach. Bone marrow biopsy procedure was discussed, because of her size it will have to be done with CT guidance with the patient laying face down which she stated I could never do. Discussed [id number] with Dr. Haque (hospitalist). Demetra Purdy MD [employer] Machine Operator, [facility] Divisions of Medical Oncology & Hematology Department of Internal Medicine [place] [id number] This note was generated using a voice recognition system software. Although it was reviewed by the author prior to finalization, it may still contain incorrect words, spelling, and punctuation that were not noted when reviewing prior to saving. If a clinically significant typo or inaccurately typed phrase is noted, please notify the author. Medications: Prescriptions This Visit Medication Instructions Recorded Amlodipine [Norvasc] 5 mg PO DAILY 06/04/20 Cetirizine HCl 10 mg PO DAILY 06/04/20 Medications Added to Medication List This Visit Category Date Time Status Budesonide Aerosol [Pulmicort Aerosol] Med 06/07/20 06:15 Active 0.5 mg INHALATION BID.RT Primary Care Provider: Dr. Domingo Marinelli, DO Referring Provider:
[2020-06-07 13:53] LABS: Pathologist Review Reviewed
[2020-06-07 17:20] LABS: Bedside Glucose 112 mg/dL (70-110)
[2020-06-07 22:10] LABS: Bedside Glucose 132 mg/dL (70-110)
[2020-06-08] VITALS (11 sets, daily range): BP systolic 131–150; BP diastolic 86–93; PULSE 85–114; RESP 12–20; TEMP 35.8–36.8; O2SAT 93–98
[2020-06-08] MEDS: Ipratropium/Albuterol Sulfate 3 ML AMPUL.NEB INHALATION ×4 (02:42→14:31)
[2020-06-08] MEDS: Acetaminophen 325 MG Tablet 650 MG PO ×2 (03:09→10:03)
[2020-06-08] MEDS: oxyCODONE 5 MG Tablet 10 MG PO ×2 (03:09→10:04)
[2020-06-08] MEDS: Sodium Chloride 1 GM Tablet 2 GM PO ×2 (06:19→14:38)
[2020-06-08] MEDS: 0.9% Saline Lock 10 ML Syringe IV (06:19)
[2020-06-08 06:26] LABS: Hematocrit 28.1 % (37-47); Hemoglobin 8.5 g/dL (12.0-15.0); Mean Corp Hgb Conc 30.2 g/dL (32-36); Mean Corpuscular Hgb 22.9 pg (27.0-32.0); Mean Corpuscular Volume 75.7 fL (81-99); Mean Platelet Vol. 8.9 fl (6.2-12.0); POSITIVE COUNT YES; POSITIVE MORPHOLOGY YES; Platelet Count 37 K/mm3 (150-450); RBC Distribution Width CV 24.6 % (11.6-14.6); RBC Distribution Width SD 66.5 fl (35.1-43.9); Red Blood Count 3.71 M/mm3 (4.2-5.4)
[2020-06-08 06:35] LABS: Differential Indicated MANUAL DIFF
[2020-06-08 06:46] LABS: Bedside Glucose 140 mg/dL (70-110)
--- NOTE | 2020-06-08 06:47 | CASEMGMT ---
RN CM Note: Palliative Care Screening tool completed. Pt did not meet criteria for referral at this time. Florina CARCAMO RN CM
[2020-06-08 06:54] LABS: Total Cells Counted 100 (MANUAL DIFF)
[2020-06-08 07:04] LABS: Eosinophil 1 % (0-5); Lymphocyte 23 % (19-41); Metamyelocyte 5 % (0-1); Monocyte 7 % (0-10); Myelocyte 8 % (0-0); Neutrophil-Band 8 % (0-5); Neutrophil-Segmented 46 % (47-70); Nucleated Red Bld Cells,Manual 1 % (0-5); Promyelocyte 2 % (0-0)
[2020-06-08 07:05] LABS: Platelet Estimate MKD DEC (ADEQ)
[2020-06-08 07:06] LABS: Anisocytosis 1+; Hypochromasia 2+; Microcytosis 1+
[2020-06-08] MEDS: Budesonide Respules 0.5 MG/2 ML AMPUL.NEB. INHALATION (07:14)
[2020-06-08 07:15] LABS: Absolute Neutrophil Count 5.9 X10^3/uL (2.0-7.7); Neutrophil # 5.92 X10^3/uL (2.7-7.7)
[2020-06-08 07:16] LABS: Absolute Lymphocyte Count 2.52 X10^3/uL (0.83-4.51); Lymphocyte # 2.52 X10^3/ul (4.0)
[2020-06-08 08:09] LABS: Anion Gap 5 (5-15); BUN 15 mg/dL (7-18); BUN/Creat Ratio 53.4 RATIO (10-20); Chloride 99 mmol/L (98-107); Creatinine, Serum 0.28 mg/dL (0.55-1.02); EST Glomerular Filtration Rate 266 mL/min (>60); Est Glom Filt Rate - Afr Amer 321 mL/min (>60); Estimated Creatinine Clearance 181.66 ml/min; Glucose 133 mg/dL (74-106); Potassium 3.9 mmol/L (3.5-5.1); Sodium Level 130 mmol/L (136-145)
--- NOTE | 2020-06-08 09:06 | PN.RENAL_ITS ---
Patient Problems: Active and Suspected Problems (Last Reviewed 06/04/20 @ 18:01 by Damari Hoyos, [employer]-C) Anemia (Acute) Thrombocytopenia (Acute) Multilobar lung infiltrate (Acute) Pneumonia (Acute) Subjective: no new complaints - Physical Exam Vitals/I&O's: Vital Signs Temp Pulse Resp BP Pulse Ox 96.5 F L 99 12 149/86 H 97 06/08/20 02:30 06/08/20 07:29 06/08/20 07:14 06/08/20 02:30 06/08/20 07:14 Oxygen Flow Rate (L/min) 2 Oxygen Delivery Method Nasal Cannula Weight: 101.1 kg Body Mass Index (BMI) 43.9 Intake and Output for Last 24 Hours 06/06/20 06/07/20 06/08/20 23:59 23:59 23:59 Intake Total 908 / 908 486 / 786 380 / 380 Output Total 1700 / 1700 1350 / 1900 850 / 850 Balance -792 / -792 -864 / -1114 -470 / -470 General: Alert, Oriented x3, Cooperative HEENT: Atraumatic, PERRLA, EOMI, Normocephalic Neck: Supple, No JVD, Negative Carotid Bruits Lungs: Clear to auscultation, Normal air movement Cardiovascular: Regular rate, No murmurs Abdomen: Bowel Sounds Present, Soft, Non Tender Extremities: No edema, Capillary Refill Less than 3 Seconds Skin: No rashes, No breakdown Musculoskeletal: No Tenderness to Palpation of Joints or Extremities Neurological: Cranial nerves II-XII grossly intact Psych/Mental Status: Normal Affect, Appropriate Microbiology Past 72 Hours 06/04/20 18:44 Urine, Clean Catch Urine Culture - Final Citrobacter freundii Laboratory Results 06/04/20 21:51: Crossmatch See Detail 06/07/20 04:56: Diff Path Review Reviewed 06/07/20 11:02: POC Glucose 164 H 06/07/20 17:03: POC Glucose 112 H 06/07/20 21:20: POC Glucose 132 H 06/08/20 05:05: WBC 11.0, RBC 3.71 L, Hgb 8.5 L, Hct 28.1 L, MCV 75.7 L, MCH 22.9 L, MCHC 30.2 L, RDW Std Deviation 66.5 H, RDW Coeff of Triston 24.6 H, Plt Count 37 L*, MPV 8.9, Neut % (Auto) Not Reportable, Absolute Neuts (auto) 5.9, Absolute Lymphs (auto) 2.52, Total Counted 100, Neutrophils % (Manual) 46 L, Band Neutrophils % 8 H, Lymphocytes % (Manual) 23, Monocytes % (Manual) 7, Eo sinophils % (Manual) 1, Metamyelocytes % 5 H, Myelocytes % 8 H, Promyelocytes % 2 H, Nucleated RBCs/100 WBC 1, Diff Path Review May foll, Platelet Estimate MKD DEC, Hypochromasia 2+, Anisocytosis 1+, Microcytosis 1+ 06/08/20 05:05: Sodium 130 L, Potassium 3.9, Chloride 99, Carbon Dioxide 26.0, Anion Gap 5, BUN 15, Creatinine 0.28 L, Estim Creat Clear Calc 181.66, Est GFR (MDRD) Af Amer 321, Est GFR (MDRD) Non-Af 266, BUN/Creatinine Ratio 53.4 H, Glucose 133 H, Calcium 9.0 06/08/20 06:17: POC Glucose 140 H Current Medications Acetaminophen (Acetaminophen 325 Mg Tablet) 650 mg PO Q6H PRN PRN PRN Reason: Pain Score 1-10/Temp > 100.7 F Last Admin: 06/08/20 03:09 Dose: 650 mg Documented by: Albuterol Sulfate (Albuterol 2.5 Mg/3 Ml Vial.Neb.) 2.5 mg INHALATION Q2H PRN PRN PRN Reason: SOB/Wheezing Last Admin: 06/07/20 04:11 Dose: 2.5 mg Documented by: Albuterol/Ipratropium (Ipratropium/Albuterol Sulfate 3 Ml Ampul.Neb) 3 ml INHALATION Q4HWA.RT [facility] Last Admin: 06/08/20 07:14 Dose: 3 ml Documented by: Amlodipine Besylate (Amlodipine 5 Mg Tablet) 5 mg PO DAILY [facility] Last Admin: 06/07/20 10:33 Dose: 5 mg Documented by: Budesonide (Budesonide Respules 0.5 Mg/2 Ml Ampul.Neb.) 0.5 mg INHALATION BID.RT [facility] Last Admin: 06/08/20 07:14 Dose: 0.5 mg Documented by: Guaifenesin (Guaifenesin 10 Ml Udc (200mg/10ml)) 20 ml PO Q4H PRN PRN PRN Reason: COUGH Insulin Human Lispro (Insulin Lispro 100 Unit/Ml Insuln.Pen) 0 unit SC ACHS [facility]; Protocol Last Admin: 06/08/20 06:20 Dose: Not Given Documented by: Loratadine (Loratadine 10 Mg Tablet) 10 mg PO DAILY [facility] Last Admin: 06/07/20 10:32 Dose: 10 mg Documented by: Losartan Potassium (Losartan Potassium 50 Mg Tablet) 50 mg PO DAILY [facility] Last Admin: 06/07/20 10:32 Dose: 50 mg Documented by: Melatonin (Melatonin 3 Mg Tablet) 3 mg PO QHS PRN PRN PRN Reason: INSOMNIA Last Admin: 06/06/20 21:41 Dose: 3 mg Documented by: Nicotine (Nicotine 21 Mg Patch) 21 mg TD DAILY [facility] Last Admin: 06/07/20 10:33 Dose: 21 mg Documented by: Ondansetron HCl (Ondansetron 4 Mg/2 Ml Vial) 4 mg IV Q8H PRN PRN PRN Reason: NAUSEA/VOMITING Last Admin: 06/06/20 04:01 Dose: 4 mg Documented by: Oxycodone HCl (Oxycodone 5 Mg Tablet) 10 mg PO Q4H PRN PRN PRN Reason: Pain Score 4-5 Last Admin: 06/08/20 03:09 Dose: 10 mg Documented by: Potassium Chloride (Potassium Chloride Oral Tablet 20 Meq) [address] [facility] Last Admin: 06/07/20 17:42 Dose: 40 meq Documented by: Simethicone (Simethicone 80 Mg Tablet) 80 mg PO BID [facility] Last Admin: 06/07/20 21:30 Dose: 80 mg Documented by: Sodium Chloride (0.9% Saline Lock 10 Ml Syringe) 10 - 40 ml IV UD PRN PRN Reason: SALINE FLUSH Last Admin: 06/08/20 06:19 Dose: 10 ml Documented by: Sodium Chloride (Sodium Chloride 1 Gm Tablet) 2 gm PO TID [facility] Last Admin: 06/08/20 06:19 Dose: 2 gm Documented by: Topiramate (Topiramate 25 Mg Tablet) 25 mg PO BID [facility] Last Admin: 06/07/20 21:30 Dose: 25 mg Documented by: Medical Necessity - Tobacco Use Smoking Status: Current every day smoker Assessment/Plan All Active Problems (Last Reviewed 06/04/20 @ 18:01 by Damari Hoyos, [employer]-C) Anemia (Acute) Thrombocytopenia (Acute) Multilobar lung infiltrate (Acute) Pneumonia (Acute) Abdominal pain (Acute) Hyponatremia. Labs were consistent with SIADH. She was on bupropion which she used for cravings. held it. TSH is ok. Cortisol on higher side. Reviewed imaging from last admission and this admission. She had CT scan of the chest, brain, abdomen last admission. She has 2 adrenal nodules which are 3.4 cm and 2.3 cm. also had multiple chest findings. now worsening cytopenias. hematology has been consulted. note reviewed. management as per them sodium is better at 126. salt tablets to 1 gm tid at ri. asking to go home today She now has severe anemia and thrombocytopenia with blasts seen on smear. hem atology following
[2020-06-08] MEDS: Potassium Chloride Oral Tablet 20 MEQ 40 MEQ PO (09:53)
[2020-06-08] MEDS: Loratadine 10 MG Tablet PO (09:54)
[2020-06-08] MEDS: Losartan Potassium 50 MG Tablet PO (09:54)
[2020-06-08] MEDS: amLODIPine 5 MG Tablet PO (09:55)
[2020-06-08] MEDS: Topiramate 25 MG Tablet PO (09:56)
[2020-06-08] MEDS: Insulin Lispro 100 UNIT/ML INSULN.PEN SC (11:08)
[2020-06-08 11:26] LABS: Bedside Glucose 166 mg/dL (70-110)
--- NOTE | 2020-06-08 12:14 | DCINST_ITS ---
- Discharge Diagnoses Current Active Problems: Current Active and Chronic Problems (Last Reviewed 06/04/20 @ 18:01 by Damari Hoyos NP-C) SIADH (syndrome of inappropriate ADH production) (Chronic) Morbid obesity with BMI of 40.0-44.9, adult (Chronic) Anemia (Acute) Thrombocytopenia (Acute) Multilobar lung infiltrate (Acute) Adrenal nodule (Chronic) Pneumonia (Acute) Diabetes mellitus, type II (Chronic) Chronic pain syndrome (Chronic) Essential (primary) hypertension (Chronic) Nicotine dependence (Chronic) You will use the following diet at home:: Cardiac Your food should be the consistency of: Regular Your liquids should be the consistency of: Regular/Thin Discharge Activity: Return to Normal Activity, No Restrictions Weight Bearing Status: Weight bearing as tolerated Call your doctor if you observe: Fever of 101 or Higher, Shortness of breath, Dizziness, Fainting spells, Swelling in the ankles, - - easy bruising or bleeding Instructions: Thrombocytopenia, Hyponatremia, Antidiuretic Hormone Additional Instructions: to be very compliant with salt tablets Allergies/Adverse Reactions: Allergies Latex, Natural Rubber Allergy (Verified 06/04/20 16:42) Rash Medications to take at Discharge Albuterol IH (ProAir) [Proair Hfa] 1 - 2 puff INHALATION Q4H PRN PRN 05/03/14 bupropion HCl 150 mg tablet,12 hr sustained-release 150 mg PO BID 06/09/17 mometasone-formoterol HFA 200 mcg-5 mcg/actuation aerosol inhaler 2 puff INHALATION BID 06/09/17 tiotropium bromide 18 mcg capsule with inhalation device 2.5 mcg INHALATION DAILY 30 Days 06/09/17 topiramate 25 mg capsule,extended release 24 hr 25 mg PO BID cap 06/09/17 potassium chloride 20 mEq tablet,extended release 40 meq PO BID tab 12/02/17 metformin 1,000 mg tablet 1,000 mg PO BID 07/06/18 ipratropium 0.5 mg-albuterol 3 mg (2.5 mg base)/3 mL nebulization soln 3 ml INHALATION 6XD 07/08/19 losartan 50 mg tablet 50 mg PO DAILY tab 07/08/19 Amlodipine [Norvasc] 5 mg PO DAILY 06/04/20 Cetirizine HCl 10 mg PO DAILY 06/04/20 Sodium Chloride 2 gm PO TID #180 tablet 06/08/20 The following prescriptions were given: Sodium Chloride 2 gm PO TID #180 tablet Transmission Status: Pending to [facility] Primary Care Physician: Domingo Marinelli DO [Primary Care Provider] - Please follow up with your Primary Care Physician in: 1-2 weeks Test Results: Test results from this visit will be discussed in further detail at your follow- up appointment, if applicable. Please Follow Up With: Martha Alex MD When: 1-2 weeks Please Follow Up With: Demetra Purdy MD When: 1 week Proposed Discharge Date: 06/08/20
--- NOTE | 2020-06-08 12:17 | PCM.DC.SUM ---
Discharge Date and Diagnosis - Problem List Patient Problems: Active and Suspected Problems (Last Reviewed 06/04/20 @ 18:01 by CAMPOS Castorena) Anemia (Acute) Thrombocytopenia (Acute) Multilobar lung infiltrate (Acute) Pneumonia (Acute) Date of Admission: 06/04/20 Date of Discharge: 06/08/20 - Primary Discharge Diagnosis Acute Problems: Active Problems (Last Reviewed 06/04/20 @ 18:01 by CAMPOS Castorena) Anemia (Acute) Thrombocytopenia (Acute) Multilobar lung infiltrate (Acute) hyponatremia - Secondary Discharge Diagnosis Chronic Problems: Chronic Problems (Last Reviewed 06/04/20 @ 18:01 by CAMPOS Castorena) SIADH (syndrome of inappropriate ADH production) (Chronic) Morbid obesity with BMI of 40.0-44.9, adult (Chronic) Adrenal nodule (Chronic) Diabetes mellitus, type II (Chronic) Chronic pain syndrome (Chronic) Morbid obesity with BMI of 45.0-49.9, adult (Chronic) Essential (primary) hypertension (Chronic) Nicotine dependence (Chronic) Pulmonary embolism (Chronic 07/09/14) Hospital Course and Treatment Imaging Results: Diagnostic Data Chest X-Ray 06/04/20 17:25 IMPRESSION: Mild interstitial edema or infiltrates. Stable calcified nodules. Electronically Signed: Rosalio Miranda MD at 18:07 EDT , Service support , hematology- Dr Hodgson Nephrology- Dr Hodgson Operations: None Procedures: None Summary of Care Provided: The patient is a 55 year old F with an extensive past medical history as outlined was admitted through the ED on 06/04/2020 on account of abnormal labs. She had seen her PCP and had labs drawn which showed hyponatremia with sodium of 116. Patient had a history of SIADH and had been admitted recently for hyponatremia. She was discharged home on salt tablets. Patient however says she had run out of his salt tablets for a few days and so had not been taking it. She was therefore admitted to be managed for acute on chronic hyponatremia due to noncompliance with salt tablets. Nephrology was consulted and she was started on salt tablets again. Of note, patient was also noted to be thrombocytopenic. She also had some blasts in her peripheral smear. She was also anemic on admission and required transfusion of 2 units of packed red blood cells. Hematology was consulted on account of the anemia and presence of blast cells. She was also noted to be thrombocytopenic. Xarelto which was taking for history of DVT was therefore held. Sodium gradually improved with the salt tablets. Hematology reviewed patient and was concerned about possible previous Covid infection which could have affected her bone marrow. During patient's previous admission in May 2019, her CT of the chest showed bilateral infiltrates suspicious for Covid. Covid antigen test done then was negative. Per the request of hematology, a Covid antigen test was done during this admission which was negative and so there was no indication that patient had previously had Covid. However, by hematology, there was minimal concern for any hematologic malignancy as patient's platelets and hemoglobin as well as white cell count were previously normal and this drop was acute. Hematology therefore postulated that this was likely due to a viral infection that she may have had during her previous admission based on her chest x-ray results. This viral infection was likely the cause of an insult to the bone marrow and the bone marrow will take time to respond. Hematology therefore advocated conservative management. Platelets at time of discharge was 37. Patient had no foci of bleeding. Her Xarelto was discontinued. She remained stable and was discharged home on 06/08/2020. She is to follow-up with hematology within a week to follow-up on her platelet levels. If platelets were still low, hematology to consider bone marrow biopsy on outpatient basis. Of note, there was concern about adrenal nodules which were present on previous imaging done at the last admission. There was a question of whether this could possibly be malignant. However review of previous imaging done in 2014 showed that these nodules were also present at that time and so will likely benign as they have been present for about 6 years. Patient seen and examined prior to discharge. She had no complaints and felt well. Review of systems otherwise negative. Labs and vitals reviewed. Home medication reviewed and reconciled. O/E: Vital Signs Temp Pulse Resp BP Pulse Ox 98.3 F 95 18 150/93 H 98 06/08/20 14:52 06/08/20 14:52 06/08/20 14:52 06/08/20 14:52 06/08/20 14:52 General: Alert, Oriented x3, Cooperative, No apparent distress, obese HEENT: Atraumatic, PERRLA, EOMI, Normocephalic Oral: Dry Mucosa Neck: Supple, No JVD, Negative Carotid Bruits Lungs: Clear to auscultation, Normal air movement, No rhonchi, No wheeze Cardiovascular: Regular rate, Regular Rhythm, Normal S1, Normal S2, No murmurs Abdomen: Bowel Sounds Present, Soft, Non Tender, Non-Distended, No Hepato-splenomegaly Extremities: No clubbing, No cyanosis, No edema, Capillary Refill Less than 3 Seconds Skin: No rashes, No breakdown Musculoskeletal: No Tenderness to Palpation of Joints or Extremities Lymphatic: No Cervical, Supraclavicular, or Inguinal Adenopathy Neurological: Cranial nerves II-XII grossly intact, Neuro grossly intact, Motor Exam 5/5 strength throughout Psych/Mental Status: Normal Affect, Appropriate, Alert and oriented to time, place, person, mood and affect Plan is for discharge home today. Patient Problems: Active and Suspected Problems (Last Reviewed 06/04/20 @ 18:01 by Damari Hoyos, MACHINE FOLDER-C) Anemia (Acute) Thrombocytopenia (Acute) Multilobar lung infiltrate (Acute) Pneumonia (Acute) - Physical Exam Vitals/I&O's: Vital Signs Temp Pulse Resp BP Pulse Ox 97.2 F L 92 20 H 131/89 H 98 06/08/20 09:46 06/08/20 10:40 06/08/20 10:40 06/08/20 09:46 06/08/20 09:46 Oxygen Flow Rate (L/min) 2 Oxygen Delivery Method Nasal Cannula Weight: 222 lb 14.197 oz Body Mass Index (BMI) 43.9 Intake and Output for Last 24 Hours 06/06/20 06/07/20 06/08/20 23:59 23:59 23:59 Intake Total 908 / 908 486 / 786 620 / 620 Output Total 1700 / 1700 1350 / 1900 950 / 950 Balance -792 / -792 -864 / -1114 -330 / -330 Microbiology Past 72 Hours 06/04/20 18:44 Urine, Clean Catch Urine Culture - Final Citrobacter freundii Laboratory Results 06/04/20 21:51: Crossmatch See Detail 06/07/20 04:56: Diff Path Review Reviewed 06/07/20 17:03: POC Glucose 112 H 06/07/20 21:20: POC Glucose 132 H 06/08/20 05:05: WBC 11.0, RBC 3.71 L, Hgb 8.5 L, Hct 28.1 L, MCV 75.7 L, MCH 22.9 L, MCHC 30.2 L, RDW Std Deviation 66.5 H, RDW Coeff of Triston 24.6 H, Plt Count 37 L*, MPV 8.9, Neut % (Auto) Not Reportable, Absolute Neuts (auto) 5.9, Absolute Lymphs (auto) 2.52, Total Counted 100, Neutrophils % (Manual) 46 L, Band Neutrophils % 8 H, Lymphocytes % (Manual) 23, Monocytes % (Manual) 7, Eosinophils % (Manual) 1, Metamyelocytes % 5 H, Myelocytes % 8 H, Promyelocytes % 2 H, Nucleated RBCs/100 WBC 1, Diff Path Review June, Platelet Estimate MKD DEC, Hypochromasia 2+, Anisocytosis 1+, Microcytosis 1+ 06/08/20 05:05: Sodium 130 L, Potassium 3.9, Chloride 99, Carbon Dioxide 26.0, Anion Gap 5, BUN 15, Creatinine 0.28 L, Estim Creat Clear Calc 181.66, Est GFR (MDRD) Af Amer 321, Est GFR (MDRD) Non-Af 266, BUN/Creatinine Ratio 53.4 H, Glucose 133 H, Calcium 9.0 06/08/20 06:17: POC Glucose 140 H 06/08/20 11:07: POC Glucose 166 H Current Medications Acetaminophen (Acetaminophen 325 Mg Tablet) 650 mg PO Q6H PRN PRN PRN Reason: Pain Score 1-10/Temp > 100.7 F Last Admin: 06/08/20 10:03 Dose: 650 mg Documented by: Albuterol Sulfate (Albuterol 2.5 Mg/3 Ml Vial.Neb.) 2.5 mg INHALATION Q2H PRN PRN PRN Reason: SOB/Wheezing Last Admin: 06/07/20 04:11 Dose: 2.5 mg Documented by: Albuterol/Ipratropium (Ipratropium/Albuterol Sulfate 3 Ml Ampul.Neb) 3 ml INHALATION Q4HWA.RT [facility] Last Admin: 06/08/20 10:39 Dose: 3 ml Documented by: Amlodipine Besylate (Amlodipine 5 Mg Tablet) 5 mg PO DAILY [facility] Last Admin: 06/08/20 09:55 Dose: 5 mg Documented by: Budesonide (Budesonide Respules 0.5 Mg/2 Ml Ampul.Neb.) 0.5 mg INHALATION BID.RT [facility] Last Admin: 06/08/20 07:14 Dose: 0.5 mg Documented by: Guaifenesin (Guaifenesin 10 Ml Udc (200mg/10ml)) 20 ml PO Q4H PRN PRN PRN Reason: COUGH Insulin Human Lispro (Insulin Lispro 100 Unit/Ml Insuln.Pen) 0 unit SC ACHS [facility]; Protocol Last Admin: 06/08/20 11:08 Dose: 2 units Documented by: Loratadine (Loratadine 10 Mg Tablet) 10 mg PO DAILY [facility] Last Admin: 06/08/20 09:54 Dose: 10 mg Documented by: Losartan Potassium (Losartan Potassium 50 Mg Tablet) 50 mg PO DAILY [facility] Last Admin: 06/08/20 09:54 Dose: 50 mg Documented by: Melatonin (Melatonin 3 Mg Tablet) 3 mg PO QHS PRN PRN PRN Reason: INSOMNIA Last Admin: 06/06/20 21:41 Dose: 3 mg Documented by: Nicotine (Nicotine 21 Mg Patch) 21 mg TD DAILY [facility] Last Admin: 06/08/20 09:54 Dose: 21 mg Documented by: Ondansetron HCl (Ondansetron 4 Mg/2 Ml Vial) 4 mg IV Q8H PRN PRN PRN Reason: NAUSEA/VOMITING Last Admin: 06/06/20 04:01 Dose: 4 mg Documented by: Oxycodone HCl (Oxycodone 5 Mg Tablet) 10 mg PO Q4H PRN PRN PRN Reason: Pain Score 4-5 Last Admin: 06/08/20 10:04 Dose: 10 mg Documented by: Potassium Chloride (Potassium Chloride Oral Tablet 20 Meq) [facility] Last Admin: 06/08/20 09:53 Dose: 40 meq Documented by: Simethicone (Simethicone 80 Mg Tablet) 80 mg PO BID [facility] Last Admin: 06/08/20 09:54 Dose: 80 mg Documented by: Sodium Chloride (0.9% Saline Lock 10 Ml Syringe) 10 - 40 ml IV UD PRN PRN Reason: SALINE FLUSH Last Admin: 06/08/20 06:19 Dose: 10 ml Documented by: Sodium Chloride (Sodium Chloride 1 Gm Tablet) 2 gm PO TID [facility] Last Admin: 06/08/20 06:19 Dose: 2 gm Documented by: Topiramate (Topiramate 25 Mg Tablet) 25 mg PO BID [facility] Last Admin: 06/08/20 09:56 Dose: 25 mg Documented by: Discharge Diet: Low fat/ Low Cholesterol Discharge Activity: Return to Normal Activity, No Restrictions Weight Bearing Status: Weight bearing as tolerated Call your doctor if you observe: Fever of 101 or Higher, Shortness of breath, Dizziness, Fainting spells, Swelling in the ankles, - - easy bruising or bleeding Home Medications: Medications to take at Discharge Albuterol IH (ProAir) [Proair Hfa] 1 - 2 puff INHALATION Q4H PRN PRN 05/03/14 bupropion HCl 150 mg tablet,12 hr sustained-release 150 mg PO BID 06/09/17 mometasone-formoterol HFA 200 mcg-5 mcg/actuation aerosol inhaler 2 puff INHALATION BID 06/09/17 tiotropium bromide 18 mcg capsule with inhalation device 2.5 mcg INHALATION DAILY 30 Days 06/09/17 topiramate 25 mg capsule,extended release 24 hr 25 mg PO BID cap 06/09/17 potassium chloride 20 mEq tablet,extended release 40 meq PO BID tab 12/02/17 metformin 1,000 mg tablet 1,000 mg PO BID 07/06/18 ipratropium 0.5 mg-albuterol 3 mg (2.5 mg base)/3 mL nebulization soln 3 ml INHALATION 6XD 07/08/19 losartan 50 mg tablet 50 mg PO DAILY tab 07/08/19 Amlodipine [Norvasc] 5 mg PO DAILY 06/04/20 Cetirizine HCl 10 mg PO DAILY 06/04/20 Sodium Chloride 2 gm PO TID #180 tablet 06/08/20 Following Prescriptions Were Given to Patient: Sodium Chloride 2 gm PO TID #180 tablet Transmission Status: Received by [facility] Primary Care Physician: Domingo Marinelli DO [Primary Care Provider] - Please follow up with your Primary Care Physician in: 1-2 weeks Please Follow Up With: Martha Alex MD When: 1-2 weeks Please Follow Up With: Demetra Purdy MD When: 1 week Patient Instructions: Antidiuretic Hormone, Thrombocytopenia, Hyponatremia Disposition: Home Minutes spent on discharge:: 45 Patient Condition:: Stable Medical Necessity - Tobacco Use Smoking Status: Current every day smoker Meaningful Use Info Meaningful Use Diagnoses (Choose all that apply): None applicable Inpatient E&M: 93145 [facility]
[2020-06-08 13:11] LABS: Pathologist Review Reviewed
--- NOTE | 2020-06-08 14:53 | CASEMGMT ---
Per pt's family, they would like [facility] for pt but after further investigation, pt already has a rollator that [facility] paid for. Awaiting home oxygen testing. Mariely GONZALEZ CM
[2020-06-08 15:26] LABS: Haptoglobin 492 mg/dL (33-346)
--- NOTE | 2020-06-11 15:25 | CASEMGMT ---
RN CM Discharge F/U Phone Call LACE: 13 Strata: 3 Discharge date: 06/08/20 Call date: 06/11/20 Call time: [id number] Attempted to reach pt without success, message left with pt to call this RN CM back if/when able. SStaten RN CM Admission dx: Hyponatremia
== END 2020-06-08 15:13 | disposition home or self-care (01) | DRG 426 ==
LOC: ED 17:36 → PCU 17:55
PROVIDERS: Internal Medicine Hematology & Oncology; Internal Medicine Nephrology; Nurse Practitioner Family; Admitting Provider Family Medicine; Emergency Provider Student in an Organized Health Care Education/Training Program; PCP Family Medicine; Visit Provider Student in an Organized Health Care Education/Training Program
DX: E22.2 Syndrome of inappropriate secretion of antidiuretic hormone (principal); T50.906A Underdosing of unspecified drugs, medicaments and biological substances, initial encounter; Z91.138 Patient's unintentional underdosing of medication regimen for other reason; Y92.9 Unspecified place or not applicable; J18.9 Pneumonia, unspecified organism; D64.9 Anemia, unspecified; D69.6 Thrombocytopenia, unspecified; E27.8 Other specified disorders of adrenal gland; J96.11 Chronic respiratory failure with hypoxia; J43.9 Emphysema, unspecified; Z20.822 Contact with and (suspected) exposure to COVID-19; I27.20 Pulmonary hypertension, unspecified; E11.9 Type 2 diabetes mellitus without complications; I10 Essential (primary) hypertension; M06.9 Rheumatoid arthritis, unspecified; E78.5 Hyperlipidemia, unspecified; I89.0 Lymphedema, not elsewhere classified; G89.4 Chronic pain syndrome; M54.5 Low back pain; G47.33 Obstructive sleep apnea (adult) (pediatric); F40.240 Claustrophobia; F32.9 Major depressive disorder, single episode, unspecified; F41.9 Anxiety disorder, unspecified; F17.210 Nicotine dependence, cigarettes, uncomplicated; E66.01 Morbid (severe) obesity due to excess calories; Z68.41 Body mass index [BMI] 40.0-44.9, adult; Z79.01 Long term (current) use of anticoagulants; Z79.84 Long term (current) use of oral hypoglycemic drugs; Z79.899 Other long term (current) drug therapy; Z86.711 Personal history of pulmonary embolism; Z86.718 Personal history of other venous thrombosis and embolism; Z86.16 Personal history of COVID-19; Z85.41 Personal history of malignant neoplasm of cervix uteri
CPT/HCPCS: 36415; 71045; 72110; 80048; 81001; 82533; 82607; 82728; 82962; 83010; 83540; 83550; 83615; 83880; 84443; 84484; 85025; 85045; 86769; 86850; 86880; 86900; 86901; 86920; 86922; 87077; 87086; 87088; 87186; 94640; 97165; 97802; 99284; 99406; J7040; P9016; A4216; J1940; J2405

== ENCOUNTER → 2020-06-12 11:14 | Outpatient (CLI) | payer MEDICAID, SELFPAY ==
[2020-06-04 19:05] VITALS: BMI 43.9
[2020-06-12 11:42] LABS: Hematocrit 26.9 % (37-47); Hemoglobin 8.3 g/dL (12.0-15.0); Mean Corp Hgb Conc 30.9 g/dL (32-36); Mean Corpuscular Hgb 23.1 pg (27.0-32.0); Mean Corpuscular Volume 74.7 fL (81-99); Mean Platelet Vol. 9.8 fl (6.2-12.0); POSITIVE COUNT YES; POSITIVE MORPHOLOGY YES; RBC Distribution Width CV 23.9 % (11.6-14.6); RBC Distribution Width SD 64.2 fl (35.1-43.9)
[2020-06-12 12:08] LABS: Platelet Count 29 K/mm3 (150-450)
[2020-06-12 12:09] LABS: Differential Indicated MANUAL DIFF
[2020-06-12 12:13] LABS: Basophil 1 % (0-1); Lymphocyte 20 % (19-41); Monocyte 3 % (0-10); Myelocyte 1 % (0-0); Neutrophil-Band 22 % (0-5); Neutrophil-Segmented 52 % (47-70); Nucleated Red Bld Cells,Manual 1 % (0-5); Promyelocyte 1 % (0-0); Total Cells Counted 100 (MANUAL DIFF)
[2020-06-12 12:14] LABS: Absolute Neutrophil Count 7.4 X10^3/uL (2.0-7.7)
[2020-06-12 12:15] LABS: ALB/GLOB Ratio 0.5 RATIO (0.9-2.4); AST(SGOT) 33 U/L (15-37); Alanine Aminotransfer ALT/SGPT 49 U/L (13-56); Albumin, Serum 2.6 g/dL (3.2-5.0); Alkaline Phosphatase 368 U/L (45-117); Anion Gap 9 (5-15); BUN 11 mg/dL (7-18); BUN/Creat Ratio 26.1 RATIO (10-20); Calcium,Total 9.2 mg/dL (8.5-10.1); Chloride 95 mmol/L (98-107); Creatinine, Serum 0.42 mg/dL (0.55-1.02); EST Glomerular Filtration Rate 166 mL/min (>60); Est Glom Filt Rate - Afr Amer 201 mL/min (>60); Globulin 4.8 g/dL (2.2-4.2); Glucose 143 mg/dL (74-106); Potassium 3.8 mmol/L (3.5-5.1); Protein, Total 7.4 g/dL (6.4-8.2); Sodium Level 128 mmol/L (136-145)
[2020-06-12 12:20] LABS: Anisocytosis 1+; Hypochromasia 1+; Microcytosis 1+; Platelet Estimate MKD DEC (ADEQ)
[2020-06-13 13:50] LABS: Pathologist Review Reviewed
== END ==
PROVIDERS: PCP Family Medicine; Referring Provider Family Medicine; Visit Provider Family Medicine
DX: E87.1 Hypo-osmolality and hyponatremia (principal); D64.9 Anemia, unspecified
CPT/HCPCS: 36415; 80053; 85025

== ENCOUNTER 2020-07-08 10:25 | Emergency (ER) | payer MEDICAID, SELFPAY ==
[2020-06-15 14:35] VITALS: BMI 40.4
[2020-07-08 10:26] VITALS: BP 132/65; PULSE 115; RESP 20; TEMP 36.6; O2SAT 90; BMI 47.0
--- NOTE | 2020-07-08 10:30 | RAD_ITS ---
STUDY: X-RAY CHEST REASON FOR EXAM: Female, 55 years old. sob TECHNIQUE: Single AP portable view of the chest. COMPARISON: None. FINDINGS: Alveolar opacity in the lower right lung consistent with right lower lobe pneumonia. Multiple small miliary nodules likely consistent with prior granulomatous disease. There is no demonstrated pleural abnormality. Normal size heart. Normal mediastinum and geronimo. Normal visualized pulmonary arteries. Normal visualized aortic arch and descending thoracic aorta. Normal visualized thoracic spine. Normal visualized ribs, clavicles, and shoulders. There is no demonstrated abnormality of the visualized soft tissue structures of the upper abdomen. RAD/Chest 1 View (Portable) IMPRESSION: Right lower lobe pneumonia. Electronically Signed: Foreign Ya MD at 11:56 EDT Tel , Service support ,
--- NOTE | 2020-07-08 10:30 | EKG12_ITS ---
Test Reason : Blood Pressure : / mmHG Vent. Rate : 099 BPM Atrial Rate : 099 BPM P-R Int : 134 ms QRS Dur : 086 ms QT Int : 348 ms P-R-T Axes : 047 003 129 degrees QTc Int : 446 ms Sinus rhythm with Premature atrial complexes Left ventricular hypertrophy with repolarization abnormality Abnormal ECG Confirmed by LONG VIVAS, AVILA ([id number]), book editor DASHAWN GASCA ([id number]) on 07/09/2020 1:02:37 PM Referred By: ZEUS Confirmed By:AVILA ALVES MD
--- NOTE | 2020-07-08 10:32 | EDS_ITS ---
HPI History of Present Illness Chief Complaint: Shortness of Breath Informant: patient and EMS Onset/Context/Timing Onset: Today Context: other (awoke dyspneic within last hour or 2) Timing: Continuous Quality: Positive for - (can't breathe) Current Severity: Severe Maximum Severity: Severe Worsened by: Nothing Relieved by: Nothing Associated Symptoms cough Chest Pain: Positive for - (smothering) Narrative Narrative: Patient was COPD on an unknown amount of home oxygen presents with dyspnea, stating that she started this morning when she woke up. She is on hospice and she states she has no idea why, she initially states it might be because of my lung cancer and then she states she does not know if she has lung cancer or not. Family called EMS because she was so short of breath and she was asking for help. EMS states that family was going to call hospice and let them know she was coming to the ER. The patient states that she does want help but she does not want BiPAP, she wants air but she does not want a mask, and she wants comfort care. She confirms that she has had increased edema in her legs compared to her chronic edema lately and an increased cough compared with her chronic one. She denies any other specific complaints. [facility] Medical History (Updated 07/08/20 @ 12:[address] Rosalio Gooden MD) Anxiety Chronic pain syndrome Emphysema of lung Essential (primary) hypertension Lymphedema Nicotine dependence Obstructive sleep apnea Osteoarthritis Pulmonary embolism (07/09/14) Rheumatoid arthritis Secondary pulmonary arterial hypertension Type 2 diabetes mellitus Home Medications albuterol sulfate 1 - 2 puff INHALATION Q4H PRN PRN 05/03/14 [History Last Taken 06/04/20] bupropion HCl 150 mg tablet,12 hr sustained-release 150 mg PO BID 06/09/17 [History Last Taken 06/04/20] tiotropium bromide 18 mcg capsule with inhalation device 2.5 mcg INHALATION DAILY 30 Days 06/09/17 [History Last Taken 06/04/20] topiramate 25 mg capsule,extended release 24 hr 25 mg PO BID cap 06/09/17 [History Last Taken 06/04/20] potassium chloride 20 mEq tablet,extended release 40 meq PO BID tablet 12/02/17 [History Last Taken 06/04/20] metformin 1,000 mg tablet 1,000 mg PO BID 07/06/18 [History Last Taken 06/04/20] losartan 50 mg tablet 50 mg PO DAILY tablet 07/08/19 [History Last Taken 06/04/20] amlodipine 5 mg PO DAILY 06/04/20 [History Last Taken 06/04/20] cetirizine 10 mg PO DAILY 06/04/20 [History Last Taken 06/04/20] amoxicillin-pot clavulanate [Augmentin] 1 tab PO BID #20 tab 07/08/20 [Rx Last Taken Unknown] azithromycin 250 mg PO DAILY 07/08/20 [History Last Taken Unknown] diazepam [Valium] 5 mg PO TID PRN 07/08/20 [History Last Taken Unknown] furosemide [Lasix] 80 mg PO BID 07/08/20 [History Last Taken Unknown] mometasone-formoterol [Dulera] 2 puff INHALATION BID 07/08/20 [History Last Taken Unknown] oxycodone 10 mg PO Q4H PRN 07/08/20 [History Last Taken Unknown] sodium chloride 2 gm PO TID 07/08/20 [History Last Taken Unknown] Allergy/AdvReac Type Severity Reaction Status Date / Time Latex, Natural Rubber Allergy Rash Verified 06/15/20 14:36 Family History Sister Hypertension Asthma Brother Heart disease Asthma Surgical History History of tubal ligation Social History Smoking Status: Current every day smoker tobacco type: cigarettes caffeine: Yes (4 daily) ROS ROS ED Constitutional Constitutional ED: Reports malaise; Denies chills or fever(s) Eyes Eyes: Denies change in vision or diplopia ENT ENT ED: Denies rhinorrhea or sore throat Cardiovascular Cardiovascular: Reports chest pain and leg edema; Denies palpitations Respiratory/Chest Respiratory/Chest: Reports cough, dyspnea, sputum and other Details: brown sputum; denies blood Gastrointestinal Gastrointestinal: Denies abdominal pain, diarrhea, nausea or vomiting Genitourinary Genitourinary ED: Denies dysuria or hematuria Musculoskeletal Musculoskeletal: Denies back pain or neck pain Integumentary Denies abscess or rash Neurologic Neurologic: Denies headache(s), paresthesias or weakness Psychiatric Psychiatric: Reports anxiety; Denies suicidal thoughts EXAM Physical Exam Const Vital Signs: 07/08/20 10:26 07/08/20 10:51 07/08/20 11:02 Temperature 97.8 F Temperature Source Temporal Pulse Rate 115 H 111 H Respiratory Rate 20 H 24 H Respiratory Pattern Tachypnea Blood Pressure 132/65 H Blood Pressure Mean 87 Pulse Ox 90 Oxygen Delivery Method Nasal Cannula Nasal Cannula Oxygen Flow Rate (L/min) 6 6 07/08/20 11:26 Temperature Temperature Source Pulse Rate 114 H Respiratory Rate 25 H Respiratory Pattern Blood Pressure 131/72 H Blood Pressure Mean 91 Pulse Ox 91 Oxygen Delivery Method Nasal Cannula Oxygen Flow Rate (L/min) 6 Positive well nourished, well developed and obese General Appearance ED: well developed and in distress Positive for moderate (respiratory; speaking in 1-3 word sentences) Nutritional Appearance: obese HEENT Reports moist mucous membranes normocephalic and atraumatic Eyes PERRL and EOMs intact bilaterally Neck full ROM and supple Resp Effort and Inspection: respiratory distress Auscultation: rhonchi lower bilaterally, wheezes inspiratory wheezes and diminished lung sounds diffuse; Negative for crackles or rales Cardio regular rate, regular rhythm and no murmurs Rate: tachycardic GI non-tender and non-distended Auscultation: normoactive bowel sounds Palpation: soft Back/Spine no CVA tenderness General Back: other FROM Extremity normal to inspection General Extremety ED: Yes edema; Negative for pulses abnormal or tenderness General Extremity: edema; Negative for pulses abnormal Neuro oriented x3, CN's II-XII intact bilaterally and no sensory deficits noted Sensorium / Orientation: awake and alert Motor Exam: strength 5/5 throughout Psych Mood & Affect: anxious Thought Process: normal thought process Skin no rashes or lesions noted and no wounds MDM MDM MDM Narrative Medical decision making narrative: Patient was put on nasal cannula in order to keep her around 93-95%, but not higher. She is already a little lethargic but her eyes are open. She feels like she is having a hard time breathing even after we gave her a series of nebulizer treatments. Work-up shows severe anemia as well as right lower lobe pneumonia. We worked her up in addition to the comfort care measures because she was in severe distress and we really were not able to get a great history. Hospice nurse did arrive, and she has arranged for the patient to be transferred to inpatient hospice. She and the patient are agreeable to treatment of the pneumonia with medications. The patient does not want BiPAP or a mask because she is claustrophobic. Started her on Augmentin, and sent a prescription and we discussed all of this with the hospice nurse in order to coordinate her care. They will not be doing any blood transfusions. Lab Data Attestation: I reviewed the patient's lab results. Labs: Laboratory Results - last 24 hr 07/08/20 07/08/20 07/08/20 10:40 10:40 10:40 WBC Cancelled Corrected WBC Cancelled RBC Cancelled Hgb Cancelled Hct Cancelled MCV Cancelled MCH Cancelled MCHC Cancelled RDW Std Deviation Cancelled RDW Coeff of [place] Cancelled Plt Count Cancelled MPV Cancelled Immature Gran % (Auto) Cancelled Neut % (Auto) Cancelled Lymph % (Auto) Cancelled [place] % (Auto) Cancelled Eos % (Auto) Cancelled Baso % (Auto) Cancelled Absolute Neuts (auto) Cancelled Absolute Lymphs (auto) Cancelled Total Counted Cancelled Neutrophils % (Manual) Cancelled Band Neutrophils % Cancelled Lymphocytes % (Manual) Cancelled Monocytes % (Manual) Cancelled Eosinophils % (Manual) Cancelled Basophils % (Manual) Cancelled Metamyelocytes % Cancelled Myelocytes % Cancelled Promyelocytes % Cancelled Blast Cells % Cancelled Plasma Cell % (Manual) Cancelled Other Cells % Cancelled Nucleated RBC % Cancelled Nucleated RBCs/100 WBC Cancelled Differential Comment Cancelled Diff Path Review Cancelled Hypersegmented Neuts Cancelled Atypical Lymphocytes Cancelled Reactive Lymphocytes Cancelled Smudge Cells Cancelled Toxic Granulation Cancelled Toxic Vacuolation Cancelled Dohle Bodies Cancelled Radha Rods Cancelled Platelet Estimate Cancelled Plt Morphology Comment Cancelled RBC Morphology Cancelled Polychromasia Cancelled Hypochromasia Cancelled Poikilocytosis Cancelled Basophilic Stippling Cancelled Anisocytosis Cancelled Microcytosis Cancelled Macrocytosis Cancelled Spherocytes Cancelled Sickle Cells Cancelled Target Cells Cancelled Tear Drop Cells Cancelled Ovalocytes Cancelled Stomatocytes Cancelled [place] Bodies Cancelled Huseyin Cells Cancelled Bite Cells Cancelled Crenated Cell Cancelled Acanthocytes (Spur) Cancelled Rouleaux Cancelled Schistocytes Cancelled Sodium 136 Potassium 2.9 L Chloride 92 L Carbon Dioxide 37.0 H Anion Gap 7 BUN 23 H Creatinine 0.47 L Estim Creat Clear Calc 220.77 Est GFR (MDRD) Af Amer 178 Est GFR (MDRD) Non-Af 147 BUN/Creatinine Ratio 49.1 H Glucose 309 H Lactic Acid 2.6 H* Calcium 7.6 L Troponin I < 0.015 B-Natriuretic Peptide 07/08/20 07/08/20 10:40 10:40 WBC SCALLOP BINDER Corrected WBC 13.1 H RBC 1.94 L Hgb 4.7 L* Hct 16.0 L MCV 82.5 MCH 24.2 L MCHC 29.4 L RDW Std Deviation 65.4 H RDW Coeff of [place] 23.9 H Plt Count 21 L* MPV 10.3 Immature Gran % (Auto) Neut % (Auto) Not Reportable Lymph % (Auto) [place] % (Auto) Eos % (Auto) Baso % (Auto) Absolute Neuts (auto) 9.6 H Absolute Lymphs (auto) 1.83 Total Counted 100 Neutrophils % (Manual) 67 Band Neutrophils % 6 H Lymphocytes % (Manual) 14 L Monocytes % (Manual) Eosinophils % (Manual) 1 Basophils % (Manual) Metamyelocytes % 5 H Myelocytes % 7 H Promyelocytes % Blast Cells % Plasma Cell % (Manual) Other Cells % Nucleated RBC % Nucleated RBCs/100 WBC 41 H Differential Comment Diff Path Review May foll Hypersegmented Neuts Atypical Lymphocytes Reactive Lymphocytes Smudge Cells Toxic Granulation Toxic Vacuolation Dohle Bodies Radha Rods Platelet Estimate MKD DEC Plt Morphology Comment LARGE RBC Morphology Polychromasia 1+ Hypochromasia Poikilocytosis Basophilic Stippling 1+ Anisocytosis 2+ Microcytosis 1+ Macrocytosis 1+ Spherocytes Sickle Cells Target Cells Tear Drop Cells Ovalocytes Stomatocytes [place] Bodies Huseyin Cells Bite Cells Crenated Cell Acanthocytes (Spur) Rouleaux Schistocytes Sodium Potassium Chloride Carbon Dioxide Anion Gap BUN Creatinine Estim Creat Clear Calc Est GFR (MDRD) Af Amer Est GFR (MDRD) Non-Af BUN/Creatinine Ratio Glucose Lactic Acid Calcium Troponin I B-Natriuretic Peptide 48.2 Radiography Chest X-Ray - ED: 1 View, Read by ED Physician and Right Infiltrate Diagnostic Testing: Radiology Impression Chest X-Ray 07/08/20 10:30 IMPRESSION: Right lower lobe pneumonia. Electronically Signed: Foreign Ya MD at 11:56 EDT Tel , Service support , EKG Initial EKG: Interpretation: Sinus Rhythm, No Acute Injury Pattern and - (pacs. nonspecific ST-T abn.) Discharge Plan Triage Chief Complaint: Shortness of Breath ED Provider: Rosalio Gooden Dx/Rx/DC Orders Clinical Impression: Acute and chronic respiratory failure with hypoxia, Pneumonia, Anemia, Acute exacerbation of chronic obstructive pulmonary disease Prescriptions: New amoxicillin-pot clavulanate [Augmentin] 875-125 mg tablet 1 tab PO BID Qty: 20 RF: 0 No Action bupropion HCl 150 mg tablet extended release 12 hr 150 mg PO BID RF: 0 tiotropium bromide 18 mcg capsule, w/inhalation device 2.5 mcg INHALATION DAILY 30 Days RF: 0 topiramate 25 mg capsule,extended release 24hr 25 mg PO BID RF: 0 potassium chloride 20 mEq tablet extended release 40 meq PO BID RF: 0 metformin 1,000 mg tablet 1,000 mg PO BID RF: 0 albuterol sulfate 1 PUFF inhaler 1 - 2 puff INHALATION Q4H PRN PRN (Reason: Shortness Of Breath) RF: 0 losartan 50 mg tablet 50 mg PO DAILY RF: 0 cetirizine 10 MG tablet 10 mg PO DAILY RF: 0 amlodipine 5 MG tablet 5 mg PO DAILY RF: 0 azithromycin 250 mg Tablet 250 mg PO DAILY RF: 0 furosemide [Lasix] 80 mg Tablet 80 mg PO BID RF: 0 diazepam [Valium] 5 mg Tablet 5 mg PO TID PRN (Reason: tremors) RF: 0 oxycodone 10 mg Tablet 10 mg PO Q4H PRN (Reason: Pain) RF: 0 Dulera 200-5 mcg/actuation Hfa Aerosol Inhaler 2 puff INHALATION BID RF: 0 sodium chloride 1 GM tablet 2 gm PO TID RF: 0 Primary Care Provider: Domingo Marinelli Referrals: Domingo Marinelli DO [Primary Care Provider] - Disposition Disposition: Hospice in Medical Facility
[2020-07-08 11:02] VITALS: PULSE 111; RESP 24
[2020-07-08] MEDS: Albuterol 2.5 MG/3 ML VIAL.NEB. INHALATION ×3 (11:02)
[2020-07-08] MEDS: Ipratropium/Albuterol Sulfate 3 ML AMPUL.NEB INHALATION (11:02)
--- NOTE | 2020-07-08 11:06 | ED.RN ---
SPOKE WITH JESÚS FROM HOSPICE. STATES PT IS ON HOSPICE WAS TO [facility] NURSE TODAY. HOSPICE SEEN YESTERDAY FOR A FALL, GÓMEZ PLACED YESTERDAY BY HOSPICE. HOSPICE IS TO CALL BACK. DR. SCHULZ AWARE.
[2020-07-08 11:07] LABS: Anion Gap 7 (5-15); BUN 23 mg/dL (7-18); BUN/Creat Ratio 49.1 RATIO (10-20); Calcium,Total 7.6 mg/dL (8.5-10.1); Chloride 92 mmol/L (98-107); Creatinine, Serum 0.47 mg/dL (0.55-1.02); EST Glomerular Filtration Rate 147 mL/min (>60); Est Glom Filt Rate - Afr Amer 178 mL/min (>60); Estimated Creatinine Clearance 220.77 ml/min; Glucose 309 mg/dL (74-106); Potassium 2.9 mmol/L (3.5-5.1); Sodium Level 136 mmol/L (136-145)
[2020-07-08 11:13] LABS: Lactic Acid 2.6 mmol/L (0.4-1.9)
[2020-07-08 11:26] VITALS: BP 131/72; PULSE 114; RESP 25; O2SAT 91
[2020-07-08 11:30] LABS: BNP,B-Type NATRIURETIC PEPTIDE 48.2 pg/mL (0-100)
[2020-07-08 11:34] LABS: Differential Indicated MANUAL DIFF; Mean Corp Hgb Conc 29.4 g/dL (32-36); Mean Corpuscular Hgb 24.2 pg (27.0-32.0); Mean Corpuscular Volume 82.5 fL (81-99); Mean Platelet Vol. 10.3 fl (6.2-12.0); POSITIVE COUNT YES; POSITIVE DIFFERENTIAL YES; POSITIVE MORPHOLOGY YES; Platelet Count 21 K/mm3 (150-450); RBC Distribution Width CV 23.9 % (11.6-14.6); RBC Distribution Width SD 65.4 fl (35.1-43.9); Red Blood Count 1.94 M/mm3 (4.2-5.4)
[2020-07-08 11:38] LABS: Metamyelocyte 5 % (0-1); Neutrophil-Band 6 % (0-5); Neutrophil-Segmented 67 % (47-70); Total Cells Counted 100 (MANUAL DIFF)
[2020-07-08 11:39] LABS: Anisocytosis 2+; Basophilic Stippling 1+; Corrected WBC 13.1 K/mm3 (4.4-11.0); Eosinophil 1 % (0-5); Lymphocyte 14 % (19-41); Macrocytosis 1+; Microcytosis 1+; Myelocyte 7 % (0-0); Nucleated Red Bld Cells,Manual 41 % (0-5); Platelet Estimate MKD DEC (ADEQ); Platelet Morphology LARGE; Polychromasia 1+
[2020-07-08 11:40] LABS: Hemoglobin 4.7 g/dL (12.0-15.0)
[2020-07-08 11:41] LABS: Absolute Lymphocyte Count 1.83 X10^3/uL (0.83-4.51); Absolute Neutrophil Count 9.6 X10^3/uL (2.0-7.7)
--- NOTE | 2020-07-08 12:22 | ED.RN ---
Hospice nurse states she has arranged for inpatient Hospice for this pt per her wishes and ambulance has been called for transport. MD Gooden notified; pt aware. Hospice nurse has informed pt's family.
[2020-07-08] MEDS: Amox/Clavulanate 875 MG Tablet PO (12:47)
[2020-07-08 12:48] VITALS: BP 131/72; PULSE 112; RESP 25; O2SAT 91
[2020-07-08 14:43] LABS: Reflex Lactate? Y
[2020-07-10 14:10] LABS: Pathologist Review Reviewed
== END 2020-07-08 12:50 | disposition hospice, inpatient (51) ==
PROVIDERS: Emergency Provider Emergency Medicine; PCP Family Medicine
DX: J96.21 Acute and chronic respiratory failure with hypoxia (principal); J44.0 Chronic obstructive pulmonary disease with (acute) lower respiratory infection; J44.1 Chronic obstructive pulmonary disease with (acute) exacerbation; J18.9 Pneumonia, unspecified organism; D64.9 Anemia, unspecified; I27.21 Secondary pulmonary arterial hypertension; I10 Essential (primary) hypertension; E11.9 Type 2 diabetes mellitus without complications; G47.33 Obstructive sleep apnea (adult) (pediatric); M06.9 Rheumatoid arthritis, unspecified; M19.90 Unspecified osteoarthritis, unspecified site; G89.4 Chronic pain syndrome; F41.9 Anxiety disorder, unspecified; F17.210 Nicotine dependence, cigarettes, uncomplicated; E66.9 Obesity, unspecified; Z79.84 Long term (current) use of oral hypoglycemic drugs; Z99.81 Dependence on supplemental oxygen; Z79.899 Other long term (current) drug therapy
CPT/HCPCS: 71045; 80048; 83605; 83880; 84484; 85025; 93005; 94640; 99285; J7030; A4216